=== PATIENT | female | born 1965 | race Caucasian/White ===

== ENCOUNTER 2023-08-22 12:56 | Emergency (ER) | payer BC, SELFPAY ==
[2023-08-22] VITALS (14 sets, daily range): BP systolic 99–102; BP diastolic 69–74; PULSE 71–89; RESP 12–25; TEMP 37; O2SAT 95–99; BMI 25.8
--- NOTE | 2023-08-22 13:16 | XR_ITS ---
The [address] [address] Patient Name: DEMARIO BOSWELL MRN: [id number] date: 1965 Sex: F Assigned Patient Location: ED.MAIN Current Patient Location: ER Accession/Order Number: [id number] Exam Date: 08/22/2023 13:25 Report Date: 08/22/2023 14:20 At the request of: ELIZABETH MORGAN Procedure: XR chest 1V EXAM: XR chest 1V HISTORY: . cough, Covid positive . COMPARISON: 02/12/2021 TECHNIQUE: Single view of the chest FINDINGS: Heart and vascularity are unremarkable. Lungs are free of focal infiltrates. Grossly no bony abnormality is appreciated. EKG leads overlie the chest. XR/XR chest 1V IMPRESSION: Electronically authenticated by: MICHELLE KENNEDY Date: 08/22/2023 14:20
--- NOTE | 2023-08-22 13:16 | ED.URI1 ---
HPI - URI/Sore Throat General Chief Complaint: Upper Respiratory Infection Stated Complaint: shortness of breath/ sore throat covid + Time Seen by Provider: 08/22/23 12:58 Source: patient Limitations: no limitations History of Present Illness HPI Narrative: [age] female presents for cough and congestion. Symptoms began three days ago. Two days ago she had a negative Covid test but yesterday her Covid test became positive. The cough is nonproductive. No vomiting or diarrhea. Related Data Previous Rx's Medication Instructions Recorded benzonatate 100 mg capsule 100 mg PO TID PRN cough #20 caps 08/22/23 loratadine 5 mg-pseudoephedrine ER 1 tab PO Q12H PRN nasal congestion 08/22/23 120 mg tablet,extended #20 tabs release,12hr (Claritin-D 12 Hour) Allergies Allergy/AdvReac Type Severity Reaction Status Date / Time No Known Drug Allergies Allergy Verified 08/22/23 13:12 Review of Systems ROS Narrative A ten point review of systems is negative except as noted above. PFSH PFSH Social History Smoking status: Former smoker Exam Narrative Exam Narrative: Nurses note and vital signs reviewed and patient is not hypoxic. General: The patient appears well and in no apparent respiratory distress. Skin: Warm, dry, no pallor noted. There is no rash noted. Head: Normocephalic, atraumatic Eye: Normal conjunctiva, no drainage Ears, Nose, Mouth, and Throat: oral mucosa is moist. Nares patent. Cardiovascular: Regular Rate and Rhythm Respiratory: Patient is in no distress, no accessory muscle use, lungs are clear to auscultation, no wheezing, rales or rhonchi Back: non-tender GI: soft and nontender Musculoskeletal: The patient has no evidence of calf tenderness, no pitting edema, symmetrical pulses noted bilaterally Neurological: A&O, normal speech Psychiatric: Cooperative Constitutional Vital Signs, click to edit/add: Last Vital Signs Temp 98.6 F 08/22/23 13:09 Pulse 74 08/22/23 13:40 Resp 16 08/22/23 13:40 BP 99/73 08/22/23 13:34 Pulse Ox 95 08/22/23 13:40 O2 Del Method Room Air 08/22/23 13:18 Course Vital Signs Vital signs: Vital Signs Pulse Rate 83 08/22/23 13:08 Respiratory Rate 19 08/22/23 13:08 Blood Pressure 101/74 08/22/23 13:08 Temperature 98.6 F 08/22/23 13:09 Pulse Rate 74 08/22/23 13:40 Respiratory Rate 16 08/22/23 13:40 Blood Pressure 99/73 08/22/23 13:34 Pulse Oximetry 95 08/22/23 13:40 Oxygen Delivery Method Room Air 08/22/23 13:18 MDM - URI/Sore Throat MDM Narrative Medical decision making narrative: chest x-ray per radiologist shows no acute findings and she'll be treated symptomatically. Treatment diagnosis and follow-up were discussed with the patient. Differential Diagnosis Differential diagnosis: Likely upper respiratory infection, viral infection and other (Covid, pneumonia) Imaging Data Chest x-ray: Radiologist's impression: Procedure: XR chest 1V EXAM: XR chest 1V HISTORY: . cough, Covid positive . COMPARISON: 02/12/2021 TECHNIQUE: Single view of the chest FINDINGS: Heart and vascularity are unremarkable. Lungs are free of focal infiltrates. Grossly no bony abnormality is appreciated. EKG leads overlie the chest. IMPRESSION: Electronically authenticated by: MICHELLE KENNEDY Date: 08/22/2023 14:20 Discharge Plan Discharge Chief Complaint: Upper Respiratory Infection Clinical Impression: COVID-19 Patient Disposition: Home, Self-Care Time of Disposition Decision: 14:35 Condition: Good Mode of Transportation: Private Vehicle Prescriptions / Home Meds: New benzonatate 100 mg capsule 100 mg PO TID PRN (Reason: cough) Qty: 20 0RF Claritin-D 12 Hour 5-120 mg tablet extended release 12 hr 1 tab PO Q12H PRN (Reason: nasal congestion) Qty: 20 0RF Instructions: COVID-19 (Coronavirus Disease 2019) (ED), COVID-19: Slow the Coronavirus Spread (ED), Face Coverings (Masks) and COVID-19 (ED), How to Recover from COVID-19 at Home (ED) Stand Alone Forms: Portal Instructions Referrals: SWATI GRAY [Primary Care Provider] - 1 week
--- NOTE | 2023-08-22 13:18 | ECG_ITS ---
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
== END 2023-08-22 14:50 | disposition home or self-care (01) ==
PROVIDERS: Emergency Provider Emergency Medicine; PCP Family Medicine
DX: U07.1 COVID-19 (principal); Z87.891 Personal history of nicotine dependence
CPT/HCPCS: 71045; 93005; 99284

== ENCOUNTER 2023-11-26 20:23 | Emergency (ER) | payer BC, SELFPAY ==
--- OUTSIDE RECORDS SUMMARY | 2023-11-26 20:28 | XMS_ITS | CCD ---
Author Organization [facility] Care Team Providers Care Booth Manager Name Role Phone MARINA, DR LONGORIA Primary Care Unavailable MELBA RACHEL Admitting Unavailable MELBA RACHEL Attending Unavailable Quang Cooley Consulting Unavailable MELBA RACHEL Consulting Unavailable MARINA, DR LONGORIA Admitting Unavailable MARINA, DR LONGORIA Attending Unavailable MARINA, DR LONGORIA Primary Care Unavailable MARINA, DR LONGORIA Consulting Unavailable MARINA, DR LONGORIA Admitting Unavailable MARINA, DR LONGORIA Attending Unavailable MARINA, DR LONGORIA Consulting Unavailable DESEAN SALMERON Consulting Unavailable DIPAK GRAY Attending Unavailable DIPAK GRAY Referring Unavailable KAREN FAM Attending Unavailable MD Torrey Conklin Attending Provider [phone] MD Dipak Gray Primary Care Provider Torrey Conklin Attending Unavailable Torrey Conklin Admitting Unavailable Dipak Gray Primary Care Unavailable Medications Current Medications Medication Drug Class(es) Dates Sig (Normalized) Sig (Original) FLUoxetine 20 mg oral capsule (1 source) Serotonin Reuptake Inhibitor Start: 10-20-2023 take 20 mg by mouth once daily Fluoxetine Active 20 MG PO Daily October 20, 2023 12:00am SUMAtriptan 25 mg oral tablet (1 source) Serotonin-1b and Serotonin-1d Receptor Agonist Start: 10-20-2023 take 25 mg by mouth once daily Sumatriptan Succinate Active 25 MG PO Daily October 20, 2023 12:00am traMADol hydrochloride 50 mg oral tablet (1 source) Opioid Agonist Start: 10-20-2023 take 50 mg by mouth once daily Tramadol Active 50 MG PO Daily October 20, 2023 12:00am Problems Active Problems Problem Classification Problem Date Documented Date Episodic/Chronic Other connective tissue disease (1 source) Lateral epicondylitis, right elbow; Translations: [LATERAL EPICONDYLITIS RIGHT ELBOW] Onset: 11-06-2021 Episodic Other non-traumatic joint disorders (3 sources) Pain in right elbow; Translations: [PAIN IN RIGHT ELBOW] Onset: 10-31-2021 Episodic Unclassified (1 source) CONTACT W/AND (SUSP) EXPOS COVID-19; Translations: [CONTACT W/AND (SUSP) EXPOS COVID-19] Onset: 02-20-2021 Unclassified (1 source) Encounter for screening for malignant neoplasm of colon; Translations: [Encounter for screening for malignant neoplasm of colon] Onset: 10-20-2023 Past or Other Problems Problem Classification Problem Date Documented Da te Episodic/Chronic Other lower respiratory disease (4 sources) Cough; Translations: [COUGH] Onset: 02-12-2021 Episodic Other nervous system disorders (1 source) Parageusia; Translations: [PARAGEUSIA] Onset: 02-20-2021 Episodic Other nervous system disorders (1 source) Anosmia; Translations: [ANOSMIA] Onset: 02-20-2021 Episodic Results Test Name Value Interpretation Reference Range Facil ity CT ABDOMEN PELVIS W AND WO I V CONTRASTon 09-10-2023 CT ABDOMEN PELVIS W AND WO IV CONTRAST EXAMINATION: CT ABDOMEN PELVIS W AND WO IV CONTRAST HISTORY: RUQ pain> Epigastric> LUQ. TECHNIQUE: CT of the abdomen and pelvis was performed using standard technique with intravenous contrast, scanning from just above the dome of the diaphragm to the symphysis pubis. Including delayed images through the kidneys. Including sagittal and coronal reconstructions on both phases. All CT scans at this facility use dose modulation, iterative reconstruction, and/or weight based dosing when appropriate to reduce radiation dose to as low as reasonably achievable. COMPARISON: None. RESULT: Liver: No mass or lesion. Biliary: Gallbladder unremarkable. No biliary ductal dilation. Pancreas: No mass or duct dilation. Spleen: No mass or splenomegaly. Adrenals: No mass. Kidneys: No calculus or hydronephrosis. 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 No suspicious lesions. Delayed phase imaging with normal excreted contrast in the renal collecting system, ureters, and bladder. GI tract: No dilation or wall thickening. No evidence for appendicitis. Small hiatal hernia. No evidence for diverticulitis. Feces throughout the colon. Lymph nodes: Scattered small nonspecific mesenteric lymph nodes. Mesentery/Peritoneum/R etroperitoneum: No ascites or mass. Vasculature: The celiac axis and SMA are patent. The portal vein and branches, splenic vein, SMV, and hepatic veins are patent. No abdominal aortic or iliac artery aneurysm. Pelvis: No significant free fluid. Hysterectomy. Bladder partially decompressed. Bones: No acute osseous findings. Degenerative changes. Soft tissues: Unremarkable. Lower thorax: Bibasilar atelectasis/scarring. IMPRESSION: No acute process in the abdomen/pelvis. ELECTRONICALLY SIGNED BY: Qamar Kuhn MD Normal Not Available XR ELBOW RT MIN 3 VIEWSon XR ELBOW RT MIN 3 VIEWS EXAM: Right elbow HISTORY: Pain after a lifting injury at work on Thursday. TECHNIQUE: 5 views of the right elbow were obtained. FINDINGS: There is no evidence of fracture or dislocation. There are no suspicious bone lesions. Soft tissues are normal. IMPRESSION: Unremarkable exam. Electronically authenticated by: QUANG COOLEY Date: 2021-10-31 08:19 Normal [facility] Q - CULTURE,URINE,ROUTINEon 10-08-2021 CULTURE, URINE, ROUTINE SEE NOTE Normal [facility] Business Broker Comment on above: Order Comment: [facility] Testing performed at: QPT, [facility], [address] [place] [address], [address] [place] [address], [id number], Research Development Director: Guillaume Scanlon MD [facility] Collection Date/Time: [facility] Results Received Date/Time: [facility] Reported Date/Time: Result Comment: CULT URE, URINE, ROUTINE Micro Number: [id number] Test Status: Final Specimen Source: Urine Specimen Quality: Adequate Result: Mixed genital charly isolated. These superficial bacteria are not indicative of a urinary tract infection. No further organism identification is warranted on this specimen. If clinically indicated, recollect clean-catch, mid-stream urine and transfer immediately to Urine Culture Transport Tube. Performed By: #### [id number] #### [facility] Default [address] [place] [address] XR CHEST 2 Von 02-13-2021 XR CHEST 2 V XR CHEST 2 V 02/12/2021 5:26 PM EDT Indication: Cough Technique: Routine radiographs of the chest were obtained. Comparison: None. Findings: The lungs are adequately inflated. No acute rib fractures, pneumothorax or mediastinal shift. No consolidation, edema, or effusion. Heart is normal in size and contour. Impression: No acute findings. Electronically authenticated by: DESEAN SALMERON Date: 2021-02-13 05:10 Normal [facility]19 [facility]on 01-29 SARS-CoV-2 (COVID-19) RNA LEOBARDO+probe Ql (Unsp spec) Not detected Normal NOT DETECTED [facility] Comment on above: Result Comment: This test is not yet approved or cleared by the [place] FDA. When there are no FDA-approved or cleared tests available, and other criteria are met, FDA can make tests available under an emergency access mechanism called an Emergency Use Authorization (EUA). The EUA for this test is supported by the [place] of Health and Human Service's (HHS's) declaration that circumstances exist to justify the emergency use of in vitro diagnostics for the detection and/or diagnosis of the virus that causes COVID-19. This EUA will remain in effect (meaning this test can be used) for the duration of the COVID-19 declaration justifying emergency of IVDs, unless it is terminated or revoked by FDA (after which the test may no longer be used). When diagnostic testing is negative, the possibility of a false negative should be considered in the context of a patient's recent exposures and the presence of clinical signs and symptoms consistent with SARS-CoV-2. Performed By: #### C [facility] #### [facility] [address] [address] Cheli Wintersen Vital Signs Date Time Vital Sign Value Performing Clinician Faci hernán 10-20-2023 10:39-0500 Diastolic blood pressure 60 mm[Hg] MD Dipak Gray Work Phone: [facility] 10-20-2023 10:39-0500 Heart rate 73 /min MD Dipak Gray Work Phone: [facility] 10-20-2023 10:39-0500 Respiratory rate 18 /min MD Dipak Gray Work Phone: [facility] 10-20-2023 10:39-0500 SaO2% (BldA) [Mass fraction] 98 % MD Dipak Gray Work Phone: [facility] 10-20-2023 10:39-0500 Systolic blood pressure 113 mm[Hg] MD Dipak Gray Work Phone: [facility] 10-20-2023 08:37-0500 Body height 170.18 cm MD Dipak Gray Work Phone: [facility] 10-20-2023 08:37-0500 Body temperature 97.8 [degF] MD Dipak Gray Work Phone: [facility] 10-20-2023 08:37-0500 Body weight 79.37 kg MD Dipak Gray Work Phone: [facility] Encounters Encounter Date Encounter Type Care Provider Facility Start: 10-20-2023 End: 10-20-2023 ambulatory Imad Asaad Facility:[facility] Start: 10-20-2023 Non-patient / Non-visit MD Dipak Gray Work Phone: [facility] Work Phone: Start: 10-20-2023 End: 10-20-2023 Admission to same day surgery center MD Dipak Gray Work Phone: [facility] Work Phone: Start: 10-20-2023 End: 10-20-2023 ambulatory MD Dipak Gray Work Phone: [facility] Work Phone: Start: 10-16-2023 End: 10-16-2023 ambulatory KAREN FAM Not Available Start: 09-10-2023 End: 09-11-2023 ambulatory DIPAK GRAY Not Available Start: 09-10-2023 End: 09-10-2023 ambulatory DIPAK GRAY Not Available Start: 10-31-2021 End: 10-31-[address] DIPAK GRAY Facility:[facility] Start: 04-17-2021 End: 04-18-[address] DIPAK GRAY Facility:[facility] Start: 02-12-2021 End: 02-13-[address] DIPAK GRAY Facility:[facility] Procedures Date Procedure Procedure Detail Performing Clinician Start: 10-20-2023 Screening colonoscopy Thanh Gray Work Phone: Plan of Treatment Date Care Activity Detail Author Start: 10-20-2023 [facility] Patient Education Hemorrhoids (D C) Diverticulosis (DC) [facility] Work Phone: Payers Date Payer Category Payer Self-pay 1965 Unknown [id number] [id number] [id number] 1965 Unknown [id number] 2.16.84 [id number] 1965 Unknown [id number] 2.16.84 [id number] 1965 Unknown [id number] 2.16.84 [id number] 1965 Unknown [id number] 2.16.84 [id number] 1965 Unknown [id number] 2.16.84 [id number] 1959 Unknown [id number] 1958 Unknown [id number] Unknown [id number] 2.16.8 [id number] Social History Date Type Detail Facility Start: 10-20-2023 [facility] Start: 1965 Sex Assigned At Female F [facility] Goals Date Patient Goal Desired Activity /State Procedure note 10-20-2023 Note Date & Type Note Facility 10-20-2023 Procedure note [facility] Evaluation note Note Date & Type Note Facility Evaluation note No assessment information availa ble [facility] Work Phone: History and physical note Note Date & Type Note Facility History and physical note Note Date/Time October 20, 2023 10:18am [facility] [address] [place] [address] Gastroenterology H&P Signed Patient: Deb Wallace MR#: [id number] : 1965 Acct:[id number] Age/Sex: 58 / F Adm Date: 4 Loc: Room: Type: [facility] Attending Dr: Torrey Conklin MD Copies to: MD Dipak Sheth MD~ Date of Service: 10/20/2023 HISTORY & PHYSICAL: Patient's history with special attention to the cardiovascular, pulmonary systems and the current problem was reviewed with the patient immediately prior to the procedure. Present medications and doses reviewed in the EMR. Allergies and pertinent laboratory tests were also reviewedat this time in the EMR. The physical examination, as below, was then performed. Indication, assessment and HPI: 58-year-old female here for screening colonoscopy Family history of GI malignancy? No PHYSICAL EXAMINATION Mouth and Pharynx : Moist mucus membranes, normal dentition Cardiac: Regular rate, regular rhythm Pulmonary: Clear to auscultation bilaterally, no wheezing Neurological: Alert and oriented x3, no focal deficits noted Abdomen: Abdomen soft, non-tender REVIEW OF SYSTEMS Constitutional: Denies malaise, fevers Cardiovascular: Denies chest pain, palpitations Respiratory: Denies shortness of breath, wheezing Gastrointestinal: Per HPI Genitourinary: Denies dysuria, polyuria Musculoskeletal: Denies joint swelling, joint stiffness Neurological: Denies numbness, tingling Integumentary: Denies rashes, skin lesions Endocrine: Denies fatigue, weight loss Written informed consent obtained from the patient. Risks (including but not limited to perforation, infection, bloating, bleeding, need for emergent surgeryand loss of life), benefits and alternatives explained and questions answered. The patient verbalized understanding. Based on history patient is an appropriate candidate for the procedure. Torrey Conklin M.D. Documented By: Torrey Conklin MD 10/20/23 0940 Signed By: <Electronically signed by Torrey Conklin MD> 10/20/23 2535 [facility] Work Phone: Summary Purpose Family History No Family History Records Found Relationship Condition Age at Onset Recorded Date/T nakul grandparent Diabetes mellitus Unknown family member Diabetes mellitus Unknown Not Specified Malignant neoplasm of oral cavity Unknow n Advance Directives No Advanced Directives Records Found Advance Directive Response Recorded Date/ Time Advance Directives No October 3:54pm Chief Complaint and Reason for Visit Chief Complaint Screening Screening Additional Source Comments INFORMATION SOURCE (unrecogn ized section and content) DATE CREATED AUTHOR 10/10/2021 [facility] dical Specialist DATE CREATED AUTHOR AUTHOR'S ORGANIZ ATION 11/07/2021 [facility] DATE CREATED AUTHOR AUTHOR'S ORGANIZ ATION 10/18/2023 [facility] dical Specialists EPIC DATE CREATED AUTHOR AUTHOR'S ORGANIZ ATION 10/30/2023 [facility] Care Teams (unrecognized sec tion and content) Team Status: Active Member Role Status Dates Dipak Gray MD Primary Care Provider Active Team Status: Inactive Member Role Status Dates Torrey Conklin MD Attending Provider Active Start: October 20, 2023 End: October 20, 2023 Dipak Gray MD Primary Care Provider Active S tart: October 20, 2023 End: October 20, 2023 Team Status: Active Member Role Status Dates Torrey Conklin MD Attending Provider, Other Provider Active Start: October 20, 2023 Dipak Gray MD Primary Care Provider Active S tart: October 20, 2023 FOR RECORDS PERTAINING TO PATIENTS WHO ARE OR HAVE BEEN ENROLLED IN A CHEMICAL DEPENDENCY/SUBSTANCEABUSE PROGRAM, SOME INFORMATION MAY BE OMITTED. This clinical summary was aggregated from multiple sources. Caution should be exercised in using it in the provision of clinical care. This summary normalizes information from multiple sources, and as a consequence, information in this document may materially change the coding, format and clinical context of patient data. In addition, data may be omitted in some cases. CLINICAL DECISIONS SHOULD BE BASED ON THE PRIMARY CLINICAL RECORDS. [facility] [facility]. provides no warranty or guarantee of the accuracy or completeness of information in this document.
[2023-11-26 20:30] VITALS: BP 125/78; PULSE 78; TEMP 36.9; O2SAT 97; BMI 27.1
--- NOTE | 2023-11-26 20:37 | PC.NURSE ---
C/O nasal congestion. Blowing out yellow.
--- NOTE | 2023-11-26 20:47 | CT_ITS ---
The [address] [address] Patient Name: DEMARIO BOSWELL MRN: [id number] date: 1965 Sex: F Assigned Patient Location: ER Current Patient Location: ER Accession/Order Number: [id number] Exam Date: 11/26/2023 21:08 Report Date: 11/26/2023 21:44 At the request of: AMOS DE PAZ Procedure: CT head/brain wo con EXAM: CT scan of the head without contrast. Dose reduction technique used: Automated exposure control and/or adjustment of the mA and/or kV according to patient size and/or use of iterative reconstruction technique. REASON FOR EXAM: Altered mental status COMPARISON: None FINDINGS: No intracranial hemorrhage, mass effect, midline shift, fractures or evidence of acute ischemic infarct. No hydrocephalus. Paranasal sinuses and mastoid air cells are clear. Remainder unremarkable. CT/CT head/brain wo con IMPRESSION: Negative head CT. Electronically authenticated by: JOHN HARRISON Date: 11/26/2023 21:44
--- NOTE | 2023-11-26 20:47 | ED.GENADUL1 ---
HPI HPI - General Adult General Chief complaint: Headache Stated complaint: FORGETTING THINGS, BLURRED VISION, MIGRAINE Time Seen by Provider: 11/26/23 20:34 Source: patient Mode of arrival: walk-in Limitations: no limitations History of Present Illness HPI narrative: As 58-year-old female with a history of migraine headaches who was recently treated for a sinus infection with Augmentin presents for evaluation of an episode this morning when she was driving home from grocery shopping when she had a posterior occipital headache with nausea, vomiting and some confusion. She states she was in [employer] and started feeling really sluggish. She got into her car and was driving home when she had acute onset of several episodes of vomiting. She got home and went to bed and when she woke up doing better. She denies any neck pain or stiffness. She has a lot of maxillary sinus pressure and congestion in her head. She no longer has a headache. She has no longer nauseated. She also states she has recently been taking Prozac but wants to get off of it because she thinks it is making her confused and sluggish and she does not like the side effects. She denies any fever. She denies any chest pain or shortness of breath. She has no neck pain or stiffness. At this time she has no blurred vision, slurred speech, confusion or focal neurologic symptoms. Related Data Home Medications ?Medication ?Instructions ?Recorded ?Confirmed fluoxetine 20 mg capsule 20 mg PO QDAY 11/26/23 11/26/23 fluticasone propionate 50 1 spray intranasal QDAY 11/26/23 11/26/23 mcg/actuation nasal spray,suspension sumatriptan succinate 25 mg tablet 25 mg PO Q2H PRN migraine headache 11/26/23 11/26/23 Allergies Allergy/AdvReac Type Severity Reaction Status Date / Time No Known Drug Allergies Allergy Verified 11/26/23 20:28 Opioid HPI Opioid Management Most Recent Opioid Data: Last Pain Scale 6 11/26/23 21:53 Last ED Pain Assessment 11/26/23 21:53 Review of Systems ROS Status of ROS 10 or more systems reviewed and unremarkable except as noted in history and below [facility] Medical History (Updated 11/26/23 @ 21:59 by Imelda Bejarano MD) Migraines ?G43.909 - Migraine, unspecified, not intractable, without status migrainosus (ICD-10) Social History Smoking status: Former smoker Exam Narrative Exam Narrative: Nurses note and vital signs reviewed and patient is not hypoxic. General: The patient appears well and in no apparent distress. Patient is resting comfortably on cart. Her speech is clear, she is ambulatory. Audible nasal congestion Skin: Warm, dry, no pallor noted. There is no rash noted. Head: Normocephalic, atraumatic Eye: Normal conjunctiva, no drainage, EOMI. PERRL, No photophobia appreciated, vision is grossly intact, neck: supple, no meningeal signs, no carotid bruits Ears, Nose, Mouth, and Throat: oral mucosa is moist. Nares patent. Mouth without vesicles. Ear canals patent. Tm's without Erythema, tenderness over maxillary sinuses Cardiovascular: Regular Rate and Rhythm S!S2, pulses are brisk and equal bilaterally Respiratory: Patient is in no distress, no accessory muscle use, lungs are clear to auscultation, no wheezing, rales or rhonchi Back: non-tender, no CVA tenderness bilaterally to percussion. GI: Normal bowel sounds, no tenderness to palpation, no masses appreciated. No rebound, guarding, or rigidity noted. 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, upper and lower extremity strength and sensation is intact Psychiatric: Cooperative Constitutional Vital Signs, click to edit/add: Last Vital Signs Temp 98.4 F 11/26/23 20:30 Pulse 78 11/26/23 20:30 Resp 16 11/26/23 20:30 BP 125/78 11/26/23 20:30 Pulse Ox 97 11/26/23 20:30 O2 Del Method Room Air 11/26/23 20:30 Course Vital Signs Vital signs: Vital Signs Temperature 98.4 F 11/26/23 20:30 Pulse Rate 78 11/26/23 20:30 Respiratory Rate 16 11/26/23 20:30 Blood Pressure 125/78 11/26/23 20:30 Pulse Oximetry 97 11/26/23 20:30 Oxygen Delivery Method Room Air 11/26/23 20:30 Temperature 98.4 F 11/26/23 20:30 Pulse Rate 78 11/26/23 20:30 Respiratory Rate 16 11/26/23 20:30 Blood Pressure 125/78 11/26/23 20:30 Pulse Oximetry 97 11/26/23 20:30 Oxygen Delivery Method Room Air 11/26/23 20:30 Medical Decision Making MDM Narrative Medical decision making narrative: This 58-year-old female with a history of migraine headaches who is also on Prozac Presents for evaluation after she had an episode today where she started feeling sluggish while in [employer] shopping and on the way home developed a posterior occipital headache with nausea and multiple episodes of vomiting. After getting home she went to bed and woke up and is feeling better. Her family wanted her checked out. She has had sinus pressure and nasal congestion for the past month. She did complete a course of Augmentin for sinus infection. She has no fever. She has no neck pain or stiffness. Her neuro exam is normal. She denied the need for any medications. Labs including CBC with differential, sedimentation rate, CRP, comprehensive metabolic profile and CT scan of the brain was ordered. Her labs and CT scan are all normal. While in the emergency department she felt the aura that she may be getting another migraine headache and requested Imitrex. She was medicated with Imitrex and Zofran. She will be discharged home with prescription for doxycycline to take for her sinus problems as well as prescription for Zofran to use if she needs for ongoing nausea associated with her headaches. I suggested that she follow up with a neurologist as she is having increasing headaches. They said the may be related to stress as well as the sinus problem she is experiencing. Medical Records Medical records narrative: [place] [address] CT Scan Report Signed Patient: DEMARIO BOSWELL MR#: [id number] : 1965 Acct:[id number] Age/Sex: 58 / F ADM Date: 11/26/23 Loc: ER Attending Dr: Ordering Physician: Imelda Bejarano Date of Service: 11/26/23 Procedure(s): CT head/brain wo con Accession Number(s): [id number] cc: SWATI GRAY ~ The [place] [id number] Patient Name: DEMARIO BOSWELL MRN: [facility] [employer]:[id number] date: 1965 Sex: F Assigned Patient Location: ER Current Patient Location: ER Accession/Order Number: [id number] Exam Date: 11/26/2023 21:08 Report Date: 11/26/2023 21:44 At the request of: IMELDA BEJARANO Procedure: CT head/brain wo con EXAM: CT scan of the head without contrast. Dose reduction technique used: Automated exposure control and/or adjustment of the mA and/or kV according to patient size and/or use of iterative reconstruction technique. REASON FOR EXAM: Altered mental status COMPARISON: None FINDINGS: No intracranial hemorrhage, mass effect, midline shift, fractures or evidence of acute ischemic infarct. No hydrocephalus. Paranasal sinuses and mastoid air cells are clear. Remainder unremarkable. CT/CT head/brain wo con IMPRESSION: Negative head CT. Electronically authenticated by: JOHN HARRISON Date: 11/26/2023 21:44 Lab Data Labs: Lab Results 11/26/23 Range/Units 20:53 WBC 6.8 (4.0-11.0) 10^3/uL RBC 3.84 L (4.20-5.40) 10^6/uL Hgb 11.6 L (12.0-16.0) g/dL Hct 35.4 L (36.0-48.0) % MCV 92.2 (81.0-99.0) fL MCH 30.2 (26.7-34.0) pg MCHC 32.8 (29.9-35.2) g/dL RDW 12.9 (11.0-15.0) % Plt Count 280 (150-450) 10^3/uL MPV 9.1 L (9.5-13.5) fL Neut % (Auto) 68.0 (43.0-75.0) % Lymph % (Auto) 24.4 (20.5-60.0) % Chaves % (Auto) 4.0 (1.7-12.0) % Eos % (Auto) 2.4 (0.9-7.0) % Baso % (Auto) 0.9 (0.2-2.0) % Neut # (Auto) 4.6 (1.4-6.5) 10^3/uL Lymph # (Auto) 1.7 (1.2-3.8) 10^3/uL Chaves # (Auto) 0.3 (0.3-0.8) 10^3/uL Eos # (Auto) 0.2 (0.0-0.7) 10^3/uL Baso # (Auto) 0.1 (0.0-0.1) 10^3/uL Abs Immat Gran (auto) 0.02 (0.00-0.03) 10^3/uL Imm/Tot Granulo (auto) 0.3 (0.0-0.5) % ESR 29 (<=30) mm/hr Sodium 140 (136-145) mmol/L Potassium 3.7 (3.5-5.1) mmol/L Chloride 104 (98-107) mmol/L Carbon Dioxide 26.9 (21.0-32.0) mmol/L Anion Gap 12.8 BUN 20.0 H (7.0-18.0) mg/dL Creatinine 0.83 (0.55-1.02) mg/dL Est GFR ( Amer) >60 (>=60) Est GFR (Non-Af Amer) >60 (>=60) BUN/Creatinine Ratio 24.1 Glucose 86 (74-106) mg/dL Calcium 8.9 (8.5-10.1) mg/dL Total Bilirubin 0.3 (0.2-1.0) mg/dL AST 21 (15-37) U/L ALT 19 (14-59) U/L Alkaline Phosphatase 108 (46-116) U/L C-Reactive Protein <0.50 (<=0.50) mg/dL Total Protein 7.1 (6.4-8.2) g/dL Albumin 3.5 (3.4-5.0) g/dL Globulin 3.6 g/dL Albumin/Globulin Ratio 1.0 Discharge Plan Discharge Stand Alone Forms: Portal Instructions Chief Complaint: Headache Clinical Impression: Migraine, Acute maxillary sinusitis Patient Disposition: Home, Self-Care Time of Disposition Decision: 21:58 Condition: Good Prescriptions / Home Meds: No Action fluoxetine 20 mg capsule 20 mg PO QDAY fluticasone propionate 50 mcg/actuation spray,suspension 1 spray INTRANASAL QDAY sumatriptan succinate 25 mg tablet 25 mg PO Q2H PRN (Reason: migraine headache) Print Language: Surinamese Instructions: Sinusitis (ED), Migraine Headache (ED) Referrals: SWATI GRAY [Primary Care Provider] - 1 week
[2023-11-26 21:03] LABS: Basophils Absolute Auto 0.1 10^3/uL (0.0-0.1); Basophils Percent Auto 0.9 % (0.2-2.0); Eosinophils Absolute Auto 0.2 10^3/uL (0.0-0.7); Eosinophils Percent Auto 2.4 % (0.9-7.0); Hematocrit 35.4 % (36.0-48.0); Hemoglobin 11.6 g/dL (12.0-16.0); Immature Granulocytes Abs Auto 0.02 10^3/uL (0.00-0.03); Immature Granulocytes Pct Auto 0.3 % (0.0-0.5); Lymphocytes Absolute Auto 1.7 10^3/uL (1.2-3.8); Lymphocytes Percent Auto 24.4 % (20.5-60.0); Mean Corpuscular HGB Conc 32.8 g/dL (29.9-35.2); Mean Corpuscular Hemoglobin 30.2 pg (26.7-34.0); Mean Corpuscular Volume 92.2 fL (81.0-99.0); Mean Platelet Volume 9.1 fL (9.5-13.5); Monocytes Absolute Auto 0.3 10^3/uL (0.3-0.8); Neutrophils Absolute Auto 4.6 10^3/uL (1.4-6.5); Platelet Count 280 10^3/uL (150-450); Red Blood Count 3.84 10^6/uL (4.20-5.40); Red Cell Distribution Width 12.9 % (11.0-15.0); White Blood Count 6.8 10^3/uL (4.0-11.0)
[2023-11-26 21:09] LABS: Erythrocyte Sedimentation Rate 29 mm/hr (<=30)
[2023-11-26 21:19] LABS: Alanine Aminotransferase 19 U/L (14-59); Albumin Level 3.5 g/dL (3.4-5.0); Alkaline Phosphatase 108 U/L (46-116); Anion Gap 12.8; Aspartate Amino Transferase 21 U/L (15-37); BUN Creatinine Ratio 24.1; Bilirubin Total 0.3 mg/dL (0.2-1.0); Calcium 8.9 mg/dL (8.5-10.1); Carbon Dioxide 26.9 mmol/L (21.0-32.0); Chloride 104 mmol/L (98-107); Estimated GFR (African America >60 (>=60); Estimated GFR (Non-African Ame >60 (>=60); Globulin 3.6 g/dL; Glucose 86 mg/dL (74-106); Potassium 3.7 mmol/L (3.5-5.1); Sodium 140 mmol/L (136-145); Total Protein 7.1 g/dL (6.4-8.2)
[2023-11-26 21:23] LABS: C Reactive Protein <0.50 mg/dL (<=0.50)
[2023-11-26 21:54] VITALS: BP 117/73; PULSE 65; O2SAT 100
[2023-11-26] MEDS: ONDANSETRON 4 MG RAPDIS TABLET SL (22:06)
[2023-11-26] MEDS: SUMATRIPTAN SUCCINATE 50 MG TABLET PO (22:06)
== END 2023-11-26 22:11 | disposition home or self-care (01) ==
PROVIDERS: Emergency Provider Emergency Medicine; PCP Family Medicine
DX: G43.909 Migraine, unspecified, not intractable, without status migrainosus (principal); J01.00 Acute maxillary sinusitis, unspecified; Z79.899 Other long term (current) drug therapy; Z87.891 Personal history of nicotine dependence
CPT/HCPCS: 36415; 70450; 80053; 85025; 85652; 86140; 99284

== ENCOUNTER 2024-02-03 10:30 | Outpatient (RCR) | payer BC, SELFPAY | END 2024-02-18 14:00 | disposition home or self-care (01) | LOC: PT 10:30 | PROVIDERS: PCP Family Medicine; Visit Provider Family Medicine | DX: M54.50 Low back pain, unspecified (principal) | CPT/HCPCS: 97010; 97014; 97110; 97112; 97163 ==

== ENCOUNTER 2024-02-12 09:00 | Emergency (ER) | payer BC, SELFPAY ==
[2024-02-12 09:05] VITALS: BP 128/56; PULSE 72; TEMP 36.8; O2SAT 98; BMI 27.4
--- NOTE | 2024-02-12 09:14 | XR_ITS ---
The [address] [address] Patient Name: DEMARIO BOSWELL MRN: [id number] date: 1965 Sex: F Assigned Patient Location: ER Current Patient Location: ER Accession/Order Number: [id number] Exam Date: 02/12/2024 09:45 Report Date: 02/12/2024 10:11 At the request of: ELIZABETH MORGAN Procedure: XR thoracic spine 2V EXAMINATION: XR lumbar spine 2-3V, XR thoracic spine 2V HISTORY: Fall 2 months ago COMPARISON: No relevant comparison available. FINDINGS: BONES: Normal alignment of the thoracic and lumbar spine with no acute fracture or spinal stenosis. Mild degenerative spondylosis and facet osteoarthropathy DISC SPACES: Mild to moderate multilevel disc space narrowing PARASPINOUS: Negative. No paraspinous abnormality is seen. OTHER: Negative. XR/XR thoracic spine 2V IMPRESSION: Mild degenerative changes No acute abnormality Electronically authenticated by: MICHELLE SMITH Date: 02/12/2024 10:11
--- NOTE | 2024-02-12 09:14 | XR_ITS ---
The [place] [id number] Patient Name: DEMARIO BOSWELL MRN: [id number] date: 1965 Sex: F Assigned Patient Location: ER Current Patient Location: ER Accession/Order Number: [id number] Exam Date: 02/12/2024 09:45 Report Date: 02/12/2024 10:11 At the request of: ELIZABETH MORGAN Procedure: XR lumbar spine 2-3V EXAMINATION: XR lumbar spine 2-3V, XR thoracic spine 2V HISTORY: Fall 2 months ago COMPARISON: No relevant comparison available. FINDINGS: BONES: Normal alignment of the thoracic and lumbar spine with no acute fracture or spinal stenosis. Mild degenerative spondylosis and facet osteoarthropathy DISC SPACES: Mild to moderate multilevel disc space narrowing PARASPINOUS: Negative. No paraspinous abnormality is seen. OTHER: Negative. XR/XR lumbar spine 2-3V IMPRESSION: Mild degenerative changes No acute abnormality Electronically authenticated by: MICHELLE SMITH Date: 02/12/2024 10:11
--- NOTE | 2024-02-12 09:16 | ED_ITS ---
HPI HPI - Back Pain/Injury General Chief Complaint: Back Pain/Injury Stated Complaint: BACK PAIN PREVIOUS FALL Time Seen by Provider: 02/12/24 09:06 Source: patient Mode of arrival: walk-in Limitations: no limitations History of Present Illness HPI Narrative: For the [id number] female presents for low back pain. She states she fell 2 months ago and saw her family doctor and she has been doing physical therapy. The physical therapy was not able to be performed today because of discomfort. No new injury. It does not seem to radiate and she has no weakness or numbness. She states she has never had x-rays of her back. The pain is moderate to severe and worse in certain positions. Related Data Home Medications ?Medication ?Instructions ?Recorded ?Confirmed fluoxetine 20 mg capsule 20 mg PO QDAY 11/26/23 11/26/23 fluticasone propionate 50 1 spray intranasal QDAY 11/26/23 11/26/23 mcg/actuation nasal spray,suspension sumatriptan succinate 25 mg tablet 25 mg PO Q2H PRN migraine headache 11/26/23 11/26/23 Previous Rx's ?Medication ?Instructions ?Recorded etodolac 300 mg capsule 300 mg PO Q8H PRN pain #20 caps 02/12/24 methocarbamol 500 mg tablet 500 mg PO Q8H PRN pain #20 tabs 02/12/24 Allergies Allergy/AdvReac Type Severity Reaction Status Date / Time No Known Drug Allergies Allergy Verified 11/26/23 20:28 Opioid HPI Opioid Management Most Recent Opioid Data: Last Pain Scale 10 02/12/24 09:09 Review of Systems ROS Narrative A ten point review of systems is negative except as noted above. [facility] Medical History (Updated 02/12/24 @ 10:22 by Jose Carias MD) Migraines ?G43.909 - Migraine, unspecified, not intractable, without status migrainosus (ICD-10) Social History Smoking status: Former smoker Exam Narrative Exam Narrative: Nurses note and vital signs reviewed and patient is not hypoxic. General: The patient appears uncomfortable. Skin: Warm, dry, no pallor noted. There is no rash noted. Head: Normocephalic, atraumatic Eye: Normal conjunctiva, no drainage Ears, Nose, Mouth, and Throat: oral mucosa is moist. Nares patent. Cardiovascular: Regular Rate and Rhythm Respiratory: Patient is in no distress, no accessory muscle use, lungs are clear to auscultation, no wheezing, rales or rhonchi Back: No bruise or rash. No focal area of tenderness to palpation. Getting to the sitting up position from lying recumbent causes discomfort. GI: Soft and nontender Musculoskeletal: The patient has no evidence of calf tenderness, no pitting edema, symmetrical pulses noted bilaterally Neurological: A&O, normal speech Psychiatric: Cooperative Constitutional Vital Signs, click to edit/add: Last Vital Signs Temp 98.2 F 02/12/24 09:05 Pulse 72 02/12/24 09:05 Resp 18 02/12/24 09:05 BP 128/56 02/12/24 09:05 Pulse Ox 98 02/12/24 09:05 O2 Del Method Room Air 02/12/24 09:05 Course Vital Signs Vital signs: Vital Signs Temperature 98.2 F 02/12/24 09:05 Pulse Rate 72 02/12/24 09:05 Respiratory Rate 18 02/12/24 09:05 Blood Pressure 128/56 02/12/24 09:05 Pulse Oximetry 98 02/12/24 09:05 Oxygen Delivery Method Room Air 02/12/24 09:05 Temperature 98.2 F 02/12/24 09:05 Pulse Rate 72 02/12/24 09:05 Respiratory Rate 18 02/12/24 09:05 Blood Pressure 128/56 02/12/24 09:05 Pulse Oximetry 98 02/12/24 09:05 Oxygen Delivery Method Room Air 02/12/24 09:05 MDM - Back Pain/Injury MDM Narrative Medical decision making narrative: X-ray showed no acute findings and she is feeling somewhat improved after Toradol and Norflex. She will be treated symptomatically and will follow-up with her doctor. Treatment diagnosis and follow-up were discussed with the patient. Differential Diagnosis Differential diagnosis: Likely lumbar radiculopathy, strain of lumbar region and other (Compression fracture) Imaging Data Thoracic and lumbar x-rays: Radiologist's impression: ITS Impressions Lumbar Spine X-Ray 02/12/24 09:14 IMPRESSION: Mild degenerative changes No acute abnormality Electronically authenticated by: MICHELLE SMITH Date: 02/12/2024 10:11 Thoracic Spine X-Ray 02/12/24 09:14 IMPRESSION: Mild degenerative changes No acute abnormality Electronically authenticated by: MICHELLE SMITH Date: 02/12/2024 10:11 Discharge Plan Discharge Stand Alone Forms: Portal Instructions Chief Complaint: Back Pain/Injury Clinical Impression: Low back pain Patient Disposition: Home, Self-Care Time of Disposition Decision: 10:22 Condition: Good Mode of Transportation: Private Vehicle Prescriptions / Home Meds: New methocarbamol 500 mg tablet 500 mg PO Q8H PRN (Reason: pain) Qty: 20 0RF etodolac 300 mg capsule 300 mg PO Q8H PRN (Reason: pain) Qty: 20 0RF No Action fluoxetine 20 mg capsule 20 mg PO QDAY fluticasone propionate 50 mcg/actuation spray,suspension 1 spray INTRANASAL QDAY sumatriptan succinate 25 mg tablet 25 mg PO Q2H PRN (Reason: migraine headache) Print Language: Ukrainian Instructions: Acute Low Back Pain (ED) Referrals: SWATI GRAY [Primary Care Provider] - 1 week
--- OUTSIDE RECORDS SUMMARY | 2024-02-12 09:33 | XMS_ITS | CCD ---
Author Organization [facility] Care Team Providers Care Grants Assistant Name Role Phone MARINA, DR LONGORIA Primary Care Unavailable MELBA RACHEL Admitting Unavailable MELBA RACHEL Attending Unavailable Quang Ramon Consulting Unavailable MELBA RACHEL Consulting Unavailable MARINA, DR LONGORIA Admitting Unavailable MARINA, DR LONGORIA Attending Unavailable MARINA, DR LONGORIA Primary Care Unavailable MARINA, DR LONGORIA Consulting Unavailable MARINA, DR LONGORIA Admitting Unavailable MARINA, DR LONGORIA Attending Unavailable MARINA, DR LONGROIA Consulting Unavailable DESEAN SALMERON Consulting Unavailable MD Torrey Conklin Attending Provider MD Dipak Gray Primary Care Provider Torrey Conklin Attending Unavailable Torrey Conklin Admitting Unavailable Dipak Gray Primary Care Unavailable DIPAK GRAY Attending Unavailable DIPAK GRAY Referring Unavailable MANDY FAM Attending Unavailable DIPAK GRAY Attending Unavailable Medications Current Medications Medication Drug Class(es) [...] IMPRESSION: Unremarkable exam. Electronically authenticated by: QUANG RAMON Date: 2021-10-31 08:19 Normal [facility] Q - CULTURE,URINE,ROUTINEon 10-08-2021 CULTURE, URINE, ROUTINE SEE NOTE Normal [facility] [place] Comment on above: Order Comment: [facility] Testing performed at: QPT, [facility], [address] [place] [address], [address] [place] [address], [id number], Ornament Maker Hand: Guillaume Scanlon MD [facility] Collection Date/Time: [id number] [facility] Results Received Date/Time: [facility] Reported Date/Time: Result Comment: CULT URE, URINE, ROUTINE Micro Number: [id number] Test Status: Final Specimen Source: Urine Specimen Quality: Adequate Result: Mixed genital charly isolated. These superficial bacteria are not indicative of a urinary tract infection. No further organism identification is warranted on this specimen. If clinically indicated, recollect clean-catch, mid-stream urine and transfer immediately to Urine Culture Transport Tube. Performed By: #### [id number] #### [facility] Default [address] [place] [address] XR CHEST 2 Von 02-13-2021 XR CHEST [...] DESEAN SALMERON Date: 2021-02-13 05:10 Normal [facility]on 01-29 SARS-CoV-2 (COVID-19) RNA LEOBARDO+probe Ql (Unsp spec) Not detected Normal NOT DETECTED [facility] Comment on above: Result Comment: This test is not yet approved or cleared by the [place] FDA. When there are no FDA-approved or cleared tests available, and other criteria are met, FDA can make tests available under an emergency access mechanism called an Emergency Use Authorization (EUA). The EUA for this test is supported by the [employer] [place] [employer] of Health and Human Service's (HHS's) declaration [...] SARS-CoV-2. Performed By: #### C [facility] #### [facility] [address] [place] [address] Cheli Jones Vital Signs Date Time Vital Sign Value Performing Clinician Estela jim 10-20-2023 10:39-0500 Diastolic blood pressure 60 mm[Hg] MD Dipak Gray Work Phone: [facility] 10-20-2023 10:39-0500 Heart rate 73 /min MD Dipak Gray Work Phone: [facility] 10-20-2023 10:39-0500 Respiratory rate 18 /min MD Dipak Gray Work Phone: [facility] 10-20-2023 10:39-0500 SaO2% (BldA) [Mass fraction] 98 % MD Dipak Gray Work Phone: [facility] 10-20-2023 10:39-0500 Systolic blood pressure 113 mm[Hg] MD Dipak Gray Work Phone: [facility] 10-20-2023 08:37-0500 Body height 170.18 cm MD Dipak Gray Work Phone: [facility] 10-20-2023 08:37-0500 Body temperature 97.8 [degF] MD Dipak Gray Work Phone: [facility] 10-20-2023 08:37-0500 Body weight 79.37 kg MD Dipak Gray Work Phone: [facility] Encounters Encounter Date Encounter Type Care Provider Facility Start: 01-19-2024 End: 01-19-2024 ambulatory DIPAK MONTOYAA Not Available Start: 10-20-2023 End: 10-20-2023 ambulatory Imad Asaad Facility:[facility] Start: 10-20-2023 Non-patient / Non-visit MD Dipak Gray Work Phone: [facility] Work Phone: Start: 10-20-2023 End: 10-20-2023 Admission to same day surgery center MD Dipak Gray Work Phone: [facility] Work Phone: Start: 10-20-2023 End: 10-20-2023 ambulatory MD Dipak Gray Work Phone: [facility] Work Phone: Start: 10-16-2023 End: 10-16-2023 ambulatory MANDY FAM Not Available Start: 09-10-2023 End: 09-11-2023 ambulatory RUGEN M MARINA Not Available Start: 09-10-2023 End: 09-10-2023 ambulatory RUGEN Thanh MARINA Not Available Start: 10-31-2021 End: 10-31-[address] DIPAK GRAY Facility:[facility] Start: 04-17-2021 End: 04-18-[address] DIPAK GRAY Facility:[facility] Start: 02-12-2021 End: 02-13-[address] DIPAK GRAY Facility:[facility] Procedures Date Procedure Procedure Detail Performing Clinician Start: 10-20-2023 Screening colonoscopy Thanh Gray Work Phone: Plan of Treatment Date Care Activity Detail Author Start: 10-20-2023 [facility] Patient Education Hemorrhoids (D C) Diverticulosis (DC) [facility] Work Phone: Payers Date Payer Category Payer Self-pay 1965 Unknown [id number] 2.16.84 [id number] 1965 Unknown [id number] 2.16.84 [id number] 1965 Unknown [id number] 2.16.84 [id number] 1965 Unknown [id number] 2.16.84 [id number] 1965 Unknown [id number] 2.16.84 [id number] 1965 Unknown [id number] 2.16.84 [id number] 1965 Unknown [id number] 2.16.84 [id number] 1959 Unknown [id number] 1959 Unknown [id number] Unknown [id number] 2.16.8 [id number] Social History Date Type Detail Facility Start: 10-20-[address] [facility] Start: 1965 Sex Assigned At Female F [facility] Goals Date Patient Goal Desired Activity /State Procedure note 10-20-2023 Note Date & Type Note Facility 10-20-2023 Procedure note [facility] Evaluation note Note Date & Type Note Facility Evaluation note No assessment information fab reed [facility] Work Phone: History and physical note Note Date & Type Note Facility History and physical note Note Date/Time October 20, 2023 10:18am [facility] [address] [place] [address] Gastroenterology H&P Signed Patient: Demario Boswell MR#: [id number] : 1965 Acct:[id number] Age/Sex: 58 / F Adm Date: 4 Loc: Room: Type: [facility] Attending Dr: Torrey Conklin MD Copies to: MD Diapk Sheth MD~ Date of Service: 10/20/2023 HISTORY [...] <Electronically signed by Torrey Conklin MD> 10/20/23 1018 [facility] Work Phone: Summary Purpose Family History No [...] section and content) DATE CREATED AUTHOR 10/10/2021 [facility] Specialist DATE CREATED AUTHOR AUTHOR'S ORGANIZ ATION 11/07/2021 [facility] DATE CREATED AUTHOR AUTHOR'S ORGANIZ ATION 10/30/2023 [facility] DATE CREATED AUTHOR AUTHOR'S ORGANIZ ATION 01/21/2024 [facility] dical Specialists EPIC Care Teams (unrecognized sec tion and content) [...] BE BASED ON THE PRIMARY CLINICAL RECORDS. [employer] provides no warranty or guarantee of the accuracy or completeness of information in this document.
[2024-02-12] MEDS: KETOROLAC TROMETHAMINE 60 MG/2 ML VIAL IM (09:36)
[2024-02-12] MEDS: ORPHENADRINE 60 MG/ 2 ML VIAL IM (09:37)
[2024-02-12 10:44] VITALS: BP 132/89; PULSE 88; O2SAT 98
== END 2024-02-12 10:45 | disposition home or self-care (01) ==
PROVIDERS: Emergency Provider Emergency Medicine; PCP Family Medicine
DX: M54.50 Low back pain, unspecified (principal); Z87.891 Personal history of nicotine dependence
CPT/HCPCS: 72070; 72100; 96372; 99284; J1885; J2360

== ENCOUNTER 2024-02-26 08:25 | Outpatient (OUT) | payer BC, SELFPAY ==
--- NOTE | 2024-02-26 | MR_ITS ---
[facility] [place] [id number] Patient Name: DEMARIO BOSWELL MRN: [id number] date: 1965 Sex: F Assigned Patient Location: MRI Current Patient Location: MRI Accession/Order Number: [id number] Exam Date: 02/26/2024 08:40 Report Date: 02/26/2024 11:57 At the request of: YASMEEN DUMONT Procedure: MR lumbar spine wo con EXAMINATION: MR lumbar spine wo con HISTORY: ACUTE BILATERAL LOW BACK PAIN WITH SCIATICA COMPARISON: No relevant comparison available. TECHNIQUE: A variety of imaging planes and parameters were utilized for visualization of suspected pathology. FINDINGS: For the purposes of numbering, sagittal T2 image # 8 extends from the T10-T11 vertebral body superiorly to the S3-S4 level inferiorly. PARASPINAL AREA: Normal with no visible mass. BONES: Normal alignment with no acute fracture or spondylolisthesis. No bone edema. Mild degenerative spondylosis CORD/CAUDA EQUINA: Normal caliber, contour, and signal intensity. DISC LEVELS: 12-L1: Disc desiccation. Posterior broad-based disc protrusion. No central or foraminal stenosis L1-L2: Disc space narrowing and disc desiccation. Posterior broad-based disc protrusion extending up to 2.5 mm. No central or foraminal stenosis L2-L3: Disc space narrowing and disc desiccation. Minimal posterior disc protrusion. No central or foraminal stenosis L3-L4: Disc space narrowing and disc desiccation. Posterior broad-based disc protrusion extending posteriorly up to 3.5 mm with moderate ligamentum flavum hypertrophy and facet osteoarthropathy. Mild trefoil narrowing of the central canal. Mild right and minimal left foraminal stenosis L4-L5: Moderate disc space narrowing and disc desiccation. Posterior broad-based disc herniation the protrusion type extending 4 mm. Ligamentum flavum and facet osteoarthropathy. Trefoil narrowing of the central canal. Mild right foraminal stenosis. No left foraminal stenosis L5-S1: Disc space narrowing and disc desiccation. Moderate diffuse disc/osteophyte complex and facet osteoarthropathy. No central canal stenosis. Moderate right and mild left foraminal stenosis MR/MR lumbar spine wo con IMPRESSION: Degenerative changes resulting in central and foraminal stenosis at multiple levels as detailed above Electronically authenticated by: MICHELLE SMITH Date: 02/26/2024 11:57
--- OUTSIDE RECORDS SUMMARY | 2024-02-26 08:27 | XMS_ITS ---
Patient Summarization (C-CDA 2.1 CCD) Created on: February 26, 2024 DEMARIO WALLACE : 1965 Sex: Female Author Organization Sample organization Care Team Providers Care Tig Welder Name Role Phone MARINA, DR LONGORIA Primary Care Unavailable VIRGINIE, MELBA Admitting Unavailable MELBA RACHEL Attending Unavailable Quang Ramon Consulting Unavailable MELBA RACHEL Consulting Unavailable MARINA, DR LONGORIA Admitting Unavailable MARINA, DR LONGORIA Attending Unavailable MARINA, DR LONGORIA Primary Care Unavailable MARINA, DR LONGORIA Consulting Unavailable MARINA, DR LONGORIA Admitting Unavailable MARINA, DR LONGORIA Attending Unavailable MARINA, DR LONGORIA Consulting Unavailable DESEAN SALMERON Consulting Unavailable MD Torrey Conklin Attending Provider [phone] MD Dipak Gray Primary Care Provider Asaad, Imad Attending Unavailable Katerin, Imad Admitting Unavailable Dipak Gray Primary Care Unavailable DIPAK GRAY Attending Unavailable DIPAK GRAY Referring Unavailable MANDY FAM Attending Unavailable DIPAK GRAY Attending Unavailable YASMEEN DUMONT Attending Unavailable Encounters Encounter Date Encounter Type Care Provider Facility Start: 02-17-2024 End: 02-17-2024 ambulatory YASMEEN DUMONT Not Available Start: 01-19-2024 End: 01-19-2024 ambulatory DIPAK GRAY Not Available Start: 10-20-2023 End: 10-20-2023 ambulatory Imad Asaad Facility:[facility] Start: 10-20-2023 Non-patient / Non-visit MD Dipak Gray Work Phone: [facility] G[facility]ology Work Phone: Start: 10-20-2023 End: 10-20-2023 Admission to same day surgery center MD Dipak Grya Work Phone: [facility] Work Phone: Start: 10-20-2023 End: 10-20-2023 ambulatory MD Dipak Gray Work Phone: [facility] Work Phone: Start: 10-16-2023 End: 10-16-2023 ambulatory MANDY ROCHAVIVIAN Not Available Start: 09-10-2023 End: 09-10-2023 ambulatory DIPAK GRAY Not Available Start: 09-10-2023 End: 09-10-2023 ambulatory DIPAK GRAY Not Available Start: 10-31-2021 End: 10-31-[address] DIPAK GRAY Facility:[facility] Start: 04-17-2021 End: 04-18-[address] DIPAK GRAY Facility:[facility] Start: 02-12-2021 End: 02-13-[address] DIPAK GRAY Facility:[facility] Goals Date Patient Goal Desired Activity /State Medications Current Medications Medication Drug Class(es) Dates [...] MG PO Daily October 20, 2023 12:00am Payers Date Payer Category Payer Self-pay 1965 Unknown [id number] 1965 Unknown [id number] 1965 Unknown [id number] 1966 Unknown [id number] 2.16.84 [id number] 1966 Unknown [id number] 2.16.84 [id number] 1966 Unknown [id number] 2.16.84 [id number] 1966 Unknown [id number] 2.16.84 [id number] 1966 Unknown [id number] 2.16.84 [id number] 1959 Unknown [id number] 1959 Unknown [id number] Unknown [id number] 2.16.8 [id number] Plan of Treatment Date Care Activity Detail Author Start: 10-20-2023 [facility] Patient Education Hemorrhoids (D C) Diverticulosis (DC) [facility] Work Phone: Problems Active Problems Problem Classification Problem Date [...] source) Anosmia; Translations: [ANOSMIA] Onset: 02-20-2021 Episodic Procedures Date Procedure Procedure Detail Performing Clinician Start: 10-20-2023 Screening colonoscopy Thanh Gray Work Phone: Results Test Name Value Interpretation Reference Range [...] by: QUANG RAMON Date: 2021-10-31 08:[address] [facility] Q - CULTURE,URINE,ROUTINEon 10-08-2021 CULTURE, URINE, ROUTINE SEE NOTE Normal [facility] Guzzler Builder Comment on above: Order Comment: [facility] Testing performed at: QPT, [facility], [address], [address], [place], [address], Admissions Gate Attendant: Guillaume Scanlon MD [facility] Collection Date/Time: [facility] Results Received Date/Time: [facility] Reported Date/Time: Result Comment: CULT URE, URINE, ROUTINE Micro Number: [id number] Test Status: Final Specimen Source: Urine Specimen Quality: Adequate Result: Mixed genital charly isolated. These superficial bacteria are not indicative of a urinary tract infection. No further organism identification is warranted on this specimen. If clinically indicated, recollect clean-catch, mid-stream urine and transfer immediately to Urine Culture Transport Tube. Performed By: #### [id number] #### [facility] Default [address] [place] [address] XR CHEST 2 Von 02-13-2021 XR CHEST [...] DESEAN SALMERON Date: 2021-02-13 05:[address] [facility] Covid-19 PCR (CVDTBH)on 01-29 SARS-CoV-2 (COVID-19) RNA LEOBARDO+probe Ql (Unsp spec) Not detected Normal NOT DETECTED [facility] Comment on above: Result Comment: This test is not yet approved or cleared by the [place] FDA. When there are no FDA-approved or cleared tests available, and other criteria are met, FDA can make tests available under an emergency access mechanism called an Emergency Use Authorization (EUA). The EUA for this test is supported by the [place] Supervisor of Health and Human Service's (HHS's) declaration [...] consistent with SARS-CoV-2. Performed By: #### [facility] #### [facility] [address] [address] Cheli Jones Social History Date Type Detail Facility Start: 10-20-2023 Tobacco smoking stat [facility] Ex-smoker (finding) [facility] Start: 1965 Sex Assigned At Female F [facility] Vital Signs Date Time Vital Sign Value Performing Clinician Faci lity 10-20-2023 10:39-0500 Diastolic blood pressure 60 mm[Hg] MD Dipak Gray Work Phone: [facility] 10-20-2023 10:39-0500 Heart rate 73 /min MD Dipak Gray Work Phone: [facility] 10-20-2023 10:39-0500 Respiratory rate 18 /min MD Dipak Gray Work Phone: [facility] 10-20-2023 10:39-0500 SaO2% (BldA) [Mass fraction] 98 % MD Dipak Gray Work Phone: [facility] 10-20-2023 10:39-0500 Systolic blood pressure 113 mm[Hg] MD Dipak Gray Work Phone: [facility] 10-20-2023 08:37-0500 Body height 170.18 cm MD Dipak Gray Work Phone: [facility] 10-20-2023 08:37-0500 Body temperature 97.8 [degF] MD Dipak Gray Work Phone: [facility] 10-20-2023 08:37-0500 Body weight 79.37 kg MD Dipak Gray Work Phone: [facility] Procedure note 10-20-2023 Note Date & Type Note Facility 10-20-2023 Procedure note [facility] Evaluation note Note Date & Type Note Facility Evaluation note No assessment information availa ble [facility] Work Phone: History and physical note Note Date & Type Note Facility History and physical note Note Date/Time October 20, 2023 10:18am [facility] [address] [place] [address] Gastroenterology H&P Signed Patient: Demario Wallace MR#: [id number] : 1965 Acct:[id number] Age/Sex: 58 / F Adm Date: 4 Loc: Room: Type: [facility] Attending Dr: Torrey Conklin MD Copies to: [...] M.D. Documented By: Torrey Conklin MD 10/20/23 [id number] Signed By: <Electronically signed by Torrey Conklin MD> 10/20/23 1010 [facility] Work Phone: Summary Purpose Family History No [...] section and content) DATE CREATED AUTHOR 10/10/2021 [facility] dical Specialist DATE CREATED AUTHOR AUTHOR'S ORGANIZ ATION 11/07/2021 [facility] pital DATE CREATED AUTHOR AUTHOR'S ORGANIZ ATION 10/30/2023 [facility] DATE CREATED AUTHOR AUTHOR'S ORGANIZ ATION 02/19/2024 [facility] dical Specialists [facility] Care Teams (unrecognized sec tion and content) [...] BE BASED ON THE PRIMARY CLINICAL RECORDS. [facility]. provides no warranty or guarantee of the accuracy or completeness of information in this document.
== END 2024-02-26 08:26 | disposition home or self-care (01) ==
LOC: MRI 08:25
PROVIDERS: PCP Family Medicine; Visit Provider Nurse Practitioner Family
DX: M54.42 Lumbago with sciatica, left side (principal); M54.41 Lumbago with sciatica, right side; M51.36 Other intervertebral disc degeneration, lumbar region
CPT/HCPCS: 72148

== ENCOUNTER 2024-04-28 07:59 | Outpatient (OUT) | payer BC, SELFPAY ==
--- OUTSIDE RECORDS SUMMARY | 2024-04-28 08:09 | XMS_ITS | CCD ---
Author Organization [facility] Care Team Providers Care Applied Computer Science Professor Name Role Phone DR DIPAK GRAY Primary Care Unavailable MELBA RACHEL Admitting Unavailable [...] Consulting Unavailable MD Torrey Conklin Attending Provider [phone] MD Dipak Gray Primary Care Provider Torrey Conklin Attending Unavailable Torrey Conklin Admitting Unavailable Dipak Gray Primary Care Unavailable DIPAK GRAY Attending Unavailable DIPAK GRAY Referring Unavailable MANDY FAM Attending Unavailable DIPAK GRAY Attending Unavailable YASMEEN DUMONT Attending Unavailable MD Dipak Gray Primary Care Provider [phone] LEA Shaikh Attending Provider Medications Current Medications Medication Drug Class(es) Dates Sig (Normalized) Sig (Original) FLUoxetine 20 mg oral capsule (2 sources) Serotonin Reuptake Inhibitor Start: 10-20-2023 take 20 mg by mouth once daily Fluoxetine Active 20 MG PO Daily October 20, 2023 1:00am SUMAtriptan 25 mg oral tablet (2 sources) Serotonin-1b and Serotonin-1d Receptor Agonist Start: 10-20-2023 take 25 mg by mouth once daily Sumatriptan Succinate Active 25 MG PO Daily October 20, 2023 1:00am traMADol hydrochloride 50 mg oral tablet (2 sources) Opioid Agonist Start: 10-20-2023 take 50 mg by mouth once daily Tramadol Active 50 MG PO Daily February 20th, 2024 1:00am Problems Active Problems Problem Classification Problem Date Documented Date Episodic/Chronic Other connective tissue disease (1 source) Lateral epicondylitis, right elbow; Translations: [LATERAL EPICONDYLITIS RIGHT ELBOW] Onset: 11-06-2021 Episodic Other non-traumatic joint disorders (3 sources) Pain in right elbow; Translations: [PAIN IN RIGHT ELBOW] Onset: 10-31-2021 Episodic Spondylosis; intervertebral disc disorders; other back problems (4 sources) Radicular pain; Translations: [Radiculopathy, site unspecified] 03-24-2024 Episodic Unclassified (1 source) CONTACT W/AND (SUSP) [...] by: QUANG COOLEY Date: 2021-10-31 08:19 Normal [facility] Q - CULTURE,URINE,ROUTINEon 10-08-2021 CULTURE, URINE, ROUTINE SEE NOTE Normal [facility] Navigation Teacher Comment on above: Order Comment: [facility] Testing performed at: QPT, [facility], [address] [place] [address], [address] [place] [address], [phone], Content Editor: Guillaume Scanlon MD [facility] Collection Date/Time: [id number] [facility] Results Received Date/Time: [id number] [facility] Reported Date/Time: Result Comment: CULT URE, URINE, ROUTINE Micro Number: [id number] Test Status: Final Specimen Source: Urine Specimen Quality: Adequate Result: Mixed genital charly isolated. These superficial bacteria are not indicative of a urinary tract infection. No further organism identification is warranted on this specimen. If clinically indicated, recollect clean-catch, mid-stream urine and transfer immediately to Urine Culture Transport Tube. Performed By: #### [id number] #### [facility] Default [address] [place] [address] XR CHEST 2 Von 02-13-2021 XR CHEST [...] DESEAN SALMERON Date: 2021-02-13 05:10 Normal [facility] Covid-19 PCR (CVDTBH)on 01-29 SARS-CoV-2 (COVID-19) RNA LEOBARDO+probe Ql (Unsp spec) Not detected Normal NOT DETECTED [facility] Comment on above: Result Comment: This test is not yet approved or cleared by the [place] FDA. When there are no FDA-approved or cleared tests available, and other criteria are met, FDA can make tests available under an emergency access mechanism called an Emergency Use Authorization (EUA). The EUA for this test is supported by the [place] of Health and Human Service's (HHS's) declaration [...] consistent with SARS-CoV-2. Performed By: #### C VDTB #### [facility] [address] [place], [place] [address] hCeli Jones Vital Signs Date Time Vital Sign Value Performing Clinician Estela jim 03-24-2024 08:27-0400 Body height 170.18 cm MD Dipak Gray Work Phone: [facility] 03-24-2024 08:27-0400 Body mass index (BMI) [Ratio] 27.6 kg/m2 MD Dipak Gray Work Phone: [facility] 03-24-2024 08:27-0400 Body weight 80.05 kg MD Dipak Gray Work Phone: [facility] 10-20-2023 10:39-0500 Diastolic blood pressure 60 mm[Hg] MD Dipak Gray Work Phone: [facility] 10-20-2023 10:39-0500 Heart rate 73 /min MD Dipak Gray Work Phone: [facility] 10-20-2023 10:39-0500 Respiratory rate 18 /min MD Dipak Gray Work Phone: [facility] 10-20-2023 10:39-0500 SaO2% (BldA) [Mass fraction] 98 % MD Dipak Gray Work Phone: [facility] 10-20-2023 10:39-0500 Systolic blood pressure 113 mm[Hg] MD Dipak Gray Work Phone: [facility] 10-20-2023 08:37-0500 Body height 170.18 cm MD Dipak Gray Work Phone: [facility] 10-20-2023 08:37-0500 Body temperature 97.8 [degF] MD Dipak Gray Work Phone: [facility] 10-20-2023 08:37-0500 Body weight 79.37 kg MD Dipak Gray Work Phone: [facility] Encounters Encounter Date Encounter Type Care Provider Facility Start: 03-24-2024 End: 03-24-2024 ambulatory MD Dipak Gray Work Phone: [facility] Work Phone: Start: 03-24-2024 End: 03-24-2024 Patient encounter procedure MD Dipak Gray Work Phone: [facility] Work Phone: Start: 02-17-2024 End: 02-17-2024 ambulatory YASMEEN Law TIM Not Available Start: 01-19-2024 End: 01-19-2024 ambulatory DIPAK GRAY Not Available Start: 10-20-2023 End: 10-20-2023 ambulatory Imad Asaad Facility:[facility] Start: 10-20-2023 Non-patient / Non-visit MD Dipak Gray Work Phone: [facility] Gastroenterology Work Phone: Start: 10-20-2023 End: 10-20-2023 Admission to same day surgery center MD Dipak Gray Work Phone: [facility] Work Phone: Start: 10-20-2023 End: 10-20-2023 ambulatory MD Dipak Gray Work Phone: [facility] Work Phone: Start: 10-16-2023 End: 10-16-2023 ambulatory MANDY FAM Not Available Start: 09-10-2023 End: 09-10-2023 ambulatory DIPAK Law MARINA Not Available Start: 09-10-2023 End: 09-10-2023 ambulatory DIPAK Law MARINA Not Available Start: 10-31-2021 End: 10-31-[address] DIPAK GRAY Facility:[facility] Start: 04-17-2021 End: 04-18-[address] DPIAK GRAY Facility:[facility] Start: 02-12-2021 End: 02-13-[address] DIPAK GRAY Facility:[facility] Procedures Date Procedure Procedure Detail Performing Clinician Start: 03-24-2024 X-ray of lumbar spin e, four views MD Dipak Gray Work Phone: Start: 10-20-2023 Screening colonoscopy Thanh Gray Work Phone: Plan of Treatment Date Care Activity Detail Author Start: 10-20-2023 [facility] Patient Education [facility] Work Phone: Payers Date Payer Category Payer Self-pay 1965 Unknown [id number] 2.16.84 [id number] 1965 Unknown [id number] 2.16.84 [id number] 1965 Unknown [id number] 2.16.84 [id number] 1965 Unknown [id number] 2.16.84 [id number] 1965 Unknown [id number] 2.16.84 [id number] 1966 Unknown [id number] 2.16.84 [id number] 1966 Unknown [id number] 2.16.84 [id number] 1966 Unknown [id number] 2.16.84 [id number] 1959 Unknown [id number] 1959 Unknown [id number] Unknown [id number] 2.16.8 [id number] Social History Date Type Detail Facility Start: 10-20-2023 End: 10-20-2023 Tobacco smoking status [facility] Ex-smoker (finding) [facility] Start: 1965 Sex Assigned At Female F [facility] Goals Date Patient Goal Desired Activity /State Procedure note 10-20-2023 Note Date & Type Note Facility 10-20-2023 Procedure note [facility] Evaluation note Note Date & Type Note Facility Evaluation note No assessment information availa ble [facility] Work Phone: Evaluation note Note Date & Type Note Facility Evaluation note Diagnosis Onset Date Lumbar pain acute Radicular low back pain acut e [facility] Work Phone: History and physical note Note Date & Type Note Facility History and physical note Note Date/Time October 20, 2023 10:18am [facility] [address] [place] [address] Gastroenterology H&P Signed Patient: Deb Wallace MR#: [id number] : 1965 Acct:[id number] Age/Sex: 58 / F Adm Date: 4 Loc: Room: Type: [facility] Attending Dr: Torrey Conklin MD Copies [...] <Electronically signed by Torrey Conklin MD> 10/20/23 2325 [facility] Work Phone: Summary Purpose Family History Relationship Condition Age at Onset Recorded Date/T nakul grandparent Diabetes mellitus Unknown family member Diabetes mellitus Unknown Not Specified Malignant neoplasm of oral cavity Unknow n Relationship Condition Age at Onset Recorded Date/T nakul grandparent Diabetes mellitus Unknown family member Diabetes mellitus Unknown mother Malignant neoplasm of oral cavity Unknown Advance Directives Advance Directive Response Recorded Date/ Time Advance Directives No October 3:54pm Advance Directive Response Recorded Date/ Time Advance Directives No October 4:54pm Chief Complaint and Reason for Visit Chief Complaint Screening Screening Chief Complaint Bilateral low back p ain & bilateral sciatica m54.50 Reason for Visit Lumbar pain Radicular low back pain Additional Source Comments INFORMATION SOURCE (unrecogn ized section and content) DATE CREATED AUTHOR 10/10/2021 [facility] dical Specialist DATE CREATED AUTHOR AUTHOR'S ORGANIZ ATION 11/07/2021 [facility] pital DATE CREATED AUTHOR AUTHOR'S ORGANIZ ATION 10/30/2023 [facility] DATE CREATED AUTHOR AUTHOR'S ORGANIZ ATION 02/19/2024 [facility] dical Specialists [facility] Care Teams (unrecognized sec tion and content) Team Status: Active Member Role Status Dates Dipak Gray MD Primary Care Provider Active Team Status: Inactive Member Role Status Dates Torrey Conklin MD Attending Provider Active Start: October 20, 2023 End: October 20, 2023 Dipak Grya MD Primary Care Provider Active S tart: October 20, 2023 End: October 20, 2023 Team Status: Active Member Role Status Dates Torrey Conklin MD Attending Provider, Other Provider Active Start: October 20, 2023 Dipak Gray MD Primary Care Provider Active S tart: October 20, 2023 Team Status: Inactive Member Role Status Dates Dipak Gray MD Primary Care Provider Active S tart: March 24, 2024 End: March 24, 2024 Lottie Shaikh APRN Attending Provider Active Start: March 24, 2024 End: March 24, 2024 Goals (unrecognized section and content) Goals may be documented in a n alternate section FOR RECORDS PERTAINING TO PATIENTS WHO ARE [...] BE BASED ON THE PRIMARY CLINICAL RECORDS. [facility]. provides no warranty or guarantee of the accuracy or completeness of information in this document.
--- NOTE | 2024-04-28 08:32 | PM.CN ---
Consult Note: HPI Data of Consult Patient: new to practice Requesting Physician: Nicole Augustin NP Primary Care Provider: SWATI GRAY Consult Narrative Reason for consult: chronic low back pain and lumbar radiculopathy Narrative: Deb Wallace a pleasant 58 year old female presents for evaluation and management of chronic low back pain greater than 6 months with worsening lumbar radiculopathy. Patient has had chronic axial low back pain for years secondary to work but 6 months ago she fell down 4 stairs and has noticed increase in back and bilateral leg pain since. Patient has sharp shooting pain radiating into bilateral feet with numbness and weakness of BLE resulting in frequent falls. Patient was dismissed from PT after 5 visits due to severe pain. Patient has failed medrol dose pack, IM steroids, motrin 400mg BID, gabapentin 100mg BID, robaxin, and tramadol. Patient rating pain 10/10 today increasing with twisting pushing pulling standing walking activity improved with sitting in the recliner, lying flat, and heat. Patient denies loss of bowel or bladder. Recent lumbar xray and MRI consistent with moderate DDD, as well as spinal stenosis and bulging disc at L3-4 L4-5. Patient has been evaluated by NS and was encouraged to trial ESIs prior to surgical intervention. cc:: CC: Nicole Augustin NP Review of Systems ROS Status of ROS 10 or more systems reviewed and unremarkable except as noted in history and below Musculoskeletal Reports: back pain, extremity pain, muscle cramps and muscle weakness; Denies: extremity swelling, joint pain or limited range of motion PFSH [facility] Medical History (Updated 04/28/24 @ 08:38 by Nicole Augustin NP) Spinal stenosis, lumbar region with neurogenic claudication ?M48.062 - Spinal stenosis, lumbar region with neurogenic claudication (ICD-10) Migraines ?G43.909 - Migraine, unspecified, not intractable, without status migrainosus (ICD-10) Social History Smoking status: Former smoker Meds Home Medications and Allergies Home Medications ?Medication ?Instructions ?Recorded ?Confirmed ?Type fluoxetine 20 mg capsule 20 mg PO QDAY 11/26/23 11/26/23 History fluticasone propionate 50 1 spray intranasal QDAY 03/28/24 03/28/24 History mcg/actuation nasal spray,suspension sumatriptan succinate 25 mg tablet 25 mg PO Q2H PRN migraine headache 11/26/23 11/26/23 History etodolac 300 mg capsule 300 mg PO Q8H PRN pain #20 caps 02/12/24 Rx methocarbamol 500 mg tablet 500 mg PO Q8H PRN pain #20 tabs 02/12/24 Rx Allergies Allergy/AdvReac Type Severity Reaction Status Date / Time No Known Drug Allergies Allergy Verified 11/26/23 20:28 Exam Constitutional Documenting provider has reviewed patient's vital signs: yes Common normals: oriented x3, healthy appearing, alert and well nourished General appearance: cooperative and anxious HENMT Common normals: normocephalic, hearing grossly normal bilaterally and moist oral mucous membranes Head and scalp: normocephalic Eye Common normals: PERRL Pupil: PERRL Neck & C-Spine Common normals: full ROM General: normal visual inspection Chest Common normals: inspection of chest normal Respiratory Common normals: normal respiratory effort, no retractions and no use of accessory muscles Back & Pelvis Lumbar spine/lower back: ROM limited, pain with ROM, lumbar spinal tenderness, paraspinal muscle tenderness, paraspinal muscle spasm, straight leg raise positive right and straight leg raise positive left Sacroiliac joints: SI joint(s) abnormal Other: bilateral SIJ positive gemma(patricks), gaenslens, thigh thrust, compression test lumbar radiculopathy to BLE following L3,4,5 pattern intermittent numbness tingling and weakness, especially upon standing strength 4/5 in BLE Extremity Common normals: normal to inspection and full ROM Neuro Common normals: oriented x3, CN's II-XII intact bilaterally, moves all extremities, no focal motor deficits, no sensory deficits noted and deep tendon reflexes 2+ bilaterally Sensorium/orientation: alert Gait (neuro): antalgic Motor exam: no movement abnormalities noted and strength abnormal Psych Common normals: mental status grossly normal, thought process normal, cooperative, affect normal, speech normal and activity/motor behavior normal Speech: normal speech Thought process: normal thought process Results Additional Findings Additional findings: If on a controlled substance or opioids, I have checked an [place] report on this patient and there are no aberrancies noted in the prescribing history.??If on a controlled substance or opioid a drug screen was completed and reviewed within the last year, and if there has not been a drug screen completed we ordered one today to monitor higher risk, state monitored pain medication use. As part of providing excellent, safe, comprehensive care, the following was completed at our patient's visit: 1. A medication reconciliation and review to ensure accurate knowledge of current/active medications, including asking our patients to inform us about any [id number] medications or herbal remedies/nutritional supplements/alternative remedies. 2. A review to specifically ensure our patients have had annual screening for screening for depression, screening for tobacco use, and screening for unhealthy alcohol use. For concerning screenings had a discussion with the patient, provided patient education, and recommended follow-up with primary care provider when appropriate. If patient noted with a risk of falling, they received education on strength, gait, and balance training to prevent future risk of falling. Assessment and Plan Assessment and Plan (1) Spinal stenosis, lumbar region with neurogenic claudication: (2) Lumbar radiculopathy: (3) Lumbar degenerative disc disease: (4) Low back pain: Plan given the patients failure to respond to above listed therapies and medications, based on physical exam and MRI finding it is essential to proceed with bilateral L4-5 TFESI under fluoroscopy and consider bilateral L3-4 TFESI with multilevel dermatomal involvement and severity of MRI findings. Increase gabapentin 300mg BID, risks vs benefits reviewed, update UDS, stop robaxin and start baclofen 10mg TID PRN pain/spasms f/u after the bilateral L4-5 TFESI
== END 2024-04-28 08:00 | disposition home or self-care (01) ==
PROVIDERS: PCP Family Medicine; Visit Provider Nurse Practitioner
DX: M48.062 Spinal stenosis, lumbar region with neurogenic claudication (principal); M54.16 Radiculopathy, lumbar region; M51.36 Other intervertebral disc degeneration, lumbar region; M54.50 Low back pain, unspecified
CPT/HCPCS: G0463

== ENCOUNTER 2024-05-16 10:19 | Day surgery (SDC) | payer BC, SELFPAY ==
--- OUTSIDE RECORDS SUMMARY | 2024-05-16 10:31 | XMS_ITS | CCD ---
Author Organization [facility] Care Team Providers Care Pin Drafter Name Role Phone DR DIPAK GRAY Primary [...] Consulting Unavailable MD Torrey Conklin Attending Provider [phone] MD Dipak Gray Primary Care Provider DIPAK GRAY Attending Unavailable DIPAK GRAY Referring Unavailable MANDY FAM Attending Unavailable DIPAK GRAY Attending Unavailable YASMEEN DUMONT Attending Unavailable MD Dipak Gary Primary Care Provider [phone] LEA Shaikh Attending Provider LEA Perkins Emergency Provider [phone] Torrey Conklin Attending Unavailable Torrey Conklin Admitting Unavailable Dipak Gray Primary Care Unavailable Dipak Gray Primary Care Unavailable Lillian Perkins Attending Unavailable Lillian Perkins Admitting Unavailable Dipak Gray Primary Care Unavailable Lottie Shaikh Attending Unavailable Lottie Shaikh Admitting Unavailable Medications Current Medications Medication Drug Class(es) Dates Sig (Normalized) Sig (Original) acetaminophen 325 mg / HYDROcodone bitartrate 5 mg oral tablet (1 source) Opioid Agonist Start: take 1 tablet by mouth every four to six hours Hydrocodone-Acetamino phen Active 1 TAB PO EVERY 4-6 HOURS 10 3 May 07, 2024 baclofen 10 mg oral tablet (1 source) gamma-Aminobutyric Acid-ergic Agonist Start: 4 take 10 mg by mouth three times daily Baclofen Active 10 MG PO Three times daily May 07, 2024 12:00am FLUoxetine 20 mg oral capsule (3 sources) Serotonin Reuptake Inhibitor Start: 4 take 20 mg by mouth once daily Fluoxetine Active 20 MG PO Daily October 20, 2023 1:00am gabapentin 100 mg oral capsule (1 source) Anti-epileptic Agent Start: 4 take 100 mg by mouth twice daily Gabapentin Active 100 MG PO Twice daily 60 April 07, 2024 12:00am methylPREDNISolone 4 mg oral tablet (1 source) Corticosteroid Start: 4 take 1 tablet by mouth once Methylprednisolone (Medrol (Elpidio)) 4 mg tablets,dose pack Active 0 PO .COMPLEX May 07, 2024 12:00am orally per package directions SUMAtriptan 25 mg oral tablet (3 sources) Serotonin-1b and Serotonin-1d Receptor Agonist Start: 4 take 25 mg by mouth once daily Sumatriptan Succinate Active 25 MG PO Daily October 20, 2023 1:00am Completed/Discontinued Medications Medication Drug Class(es) Dates Sig (Normalized) Sig (Original) traMADol hydrochloride 50 mg oral tablet (3 sources) Opioid Agonist Start: 10-20-2023 End: 05-07-2024 take 50 mg by mouth once daily Tramadol Discontinued 50 MG PO Daily October 20, 2023 1:00am May 07, 2024 3:29pm Problems Active Problems Problem Classification Problem Date Documented Date Episodic/Chronic Other connective tissue disease (1 source) Lateral epicondylitis, right elbow; Translations: [LATERAL EPICONDYLITIS RIGHT ELBOW] Onset: 11-06-2021 Episodic Other non-traumatic joint disorders (3 sources) Pain in right elbow; Translations: [PAIN IN RIGHT ELBOW] Onset: 10-31-2021 Episodic Spondylosis; intervertebral disc disorders; other back problems (10 sources) Radicular pain; Translations: [Radiculopathy, site unspecified] 03-24-2024 Episodic Unclassified (1 source) CONTACT W/AND (SUSP) EXPOS COVID-19; Translations: [CONTACT W/AND (SUSP) EXPOS COVID-19] Onset: 02-20-2021 Unclassified (1 source) Low back pain, unspecified; Translations: [Low back pain, unspecified] Onset: 05-07-2024 Unclassified (1 source) Encounter for screening for [...] Results Test Name Value Interpretation Reference Range Facility Automated basophil %Ordered By: Lillian Perkins on 05-07-2024 Basophils/100 WBC (Bld) 1.0 % Normal . [facility] Comment on above: Performed By: #### B MP, CBC #### [address] Automated basophil countOrde red By: Lillian Perkins on 05-07-2024 Basophils (Bld) [#/Vol] 0.1 10*3/uL Normal 0.0-0.2 [facility] Comment on above: Result Comment: PERF ORMED BY: [place] [address] PATHOLOGIST STATISTICAL PROGRAMMER MELVIN PEAN M.D. Performed By: #### B MP, CBC #### [facility] [address] [place] [address] Automated blood monocyte cou ntOrdered By: Lillian Perkins on 05-07-2024 Monocytes (Bld) [#/Vol] 0.4 10*3/uL Normal 0.0-0.8 [facility] Comment on above: Performed By: #### B MP, CBC #### [address] Automated eosinophil %Ordere d By: Lillian Perkins on 05-07-2024 Eosinophils/100 WBC (Bld) 9.2 % Normal . [facility] Comment on above: Performed By: #### B MP, CBC #### [address] Automated eosinophil countOr dered By: Lillian Perkins on 05-07-2024 Eosinophils (Bld) [#/Vol] 0.6 10*3/uL High 0.0-0.45 [facility] Comment on above: Performed By: #### B MP, CBC #### [address] Automated monocyte %Ordered By: Lillian Perkins on 05-07-2024 Monocytes/100 WBC (Bld) 7.3 % Normal . [facility] Comment on above: Performed By: #### B MP, CBC #### [address] Automated neutrophil %Ordere d By: Lillian Perkins on 05-07-2024 Neutrophils/100 WBC (Bld) 50.8 % Normal . [facility] Comment on above: Performed By: #### B MP, CBC #### [address] Basic Metabolic Panelon Creatinine Clr Calc Pharmacy 71.01 Normal [facility] Comment on above: Result Comment: PERF ORMED BY: [place] [address] PATHOLOGIST STATISTICAL PROGRAMMER MELVIN PENA M.D. Performed By: #### B MP, CBC #### [address] GFR/1.73 sq M.predicted MDRD (S/P/Bld) [Vol rate/Area] mL/min/{1.73_m2} Normal [facility] Comment on above: Performed By: #### B MP, CBC #### [address] Bilirubin Test strip Ql (U)O rdered By: Lillian Perkins on 05-07-2024 Bilirubin Ql (U) Negative Negative [facility] Calcium [Mass/volume] in Ser um or PlasmaOrdered By: Lillian Perkins on 05-07-2024 Calcium [Mass/Vol] 9.3 mg/dL Normal 8.6-10.3 [facility] Comment on above: Performed By: #### B MP, CBC #### [address] Carbon dioxide, total [Moles /volume] in Serum or PlasmaOrdered By: Lillian Perkins on 05-07-2024 CO2 [Moles/Vol] 27.1 mmol/L Normal 21.0-31.0 [facility] Comment on above: Performed By: #### B MP, CBC #### [address] Chloride [Moles/volume] in S israel or PlasmaOrdered By: Lillian Perkins on 05-07-2024 Chloride [Moles/Vol] 104 mmol/L Normal 98-107 [facility] Comment on above: Performed By: #### B MP, CBC #### [address] Color of Urine by AutoOrdere d By: Lillian Perkins on 05-07-2024 Color (U) Colorless Normal Yellow [facility] Comment on above: Order Comment: Name Collection Type:: Clean-Voided Midstream Performed By: #### U A #### [address] Complete Blood Count Auto Di ffon 05-07-2024 Mean Corpuscular HGB Conc 34.4 g/dL Normal 32.0-35.0 [facility] Comment on above: Performed By: #### B MP, CBC #### [place] [address] [place] Monocytes/100 WBC (Bld) 17.28 % Normal 0.00-20.00 [facility] Comment on above: Performed By: #### B MP, CBC #### [place] [address] [place] NRBC% 0.1 /100{WBC} Normal 0-0.5 [facility] Comment on above: Performed By: #### B MP, CBC #### [address] Creatinine [Mass/volume] in Serum or PlasmaOrdered By: Lillian Perkins on 05-07-2024 Creatinine [Mass/Vol] 0.90 mg/dL Normal 0.60-1.20 [facility] Comment on above: Performed By: #### B MP, CBC #### [facility] [address] Erythrocyte distribution wid th [Ratio] by Automated countOrdered By: Lillian Perkins on 05-07-2024 Erythrocyte distribution width (RBC) [Ratio] 13.7 % Normal 11.9-15.3 [facility] Comment on above: Performed By: #### B MP, CBC #### [address] Erythrocytes [#/volume] in B lood by Automated countOrdered By: Lillian Perkins on 05-07-2024 RBC (Bld) [#/Vol] 3.65 10*6/uL Normal 3.60-5.00 [facility] Comment on above: Performed By: #### B MP, CBC #### [address] Glucose [Mass/volume] in Ser um or PlasmaOrdered By: Lillian Perkins on 05-07-2024 Glucose [Mass/Vol] 78 mg/dL Normal 70-100 [facility] Comment on above: ADA recommended refe rence rangeRandom Glucose Reference Range is dependent on time and content of last meal. Glucose of more than 200 mg/dL in a nonstressed, ambulatory subject supports the diagnosis of Diabetes Mellitus. Result Comment: [place] om Glucose Reference Range is dependent on time and content of last meal. Glucose of more than 200 mg/dL in a nonstressed, ambulatory subject supports the diagnosis of Diabetes Mellitus. ADA recommended reference range Performed By: #### B MP, CBC #### [place] [address] [place] Glucose [Mass/volume] in Uri ne by Test stripOrdered By: Lillian Perkins on 05-07-2024 Glucose Test strip (U) [Mass/Vol] Normal mg/dL Normal [facility] Hematocrit [Volume Fraction] of Blood by Automated countOrdered By: Lillian Perkins on 05-07-2024 Hematocrit (Bld) [Volume fraction] 32.5 % Low 34.0-46.4 [facility] Comment on above: Performed By: #### B MP, CBC #### [facility] [address] Hemoglobin Test strip Ql (U) Ordered By: Lillian Perkins on 05-07-2024 Hemoglobin Ql (U) Negative Negative [facility] Hemoglobin [Mass/volume] in BloodOrdered By: Lillian Perkins on 05-07-2024 Hemoglobin (Bld) [Mass/Vol] 11.2 g/dL Low 11.8-15.4 [facility] Comment on above: Performed By: #### B MP, CBC #### [address] Ketones [Presence] in Urine by Test stripOrdered By: Lillian Perkins on 05-07-2024 Ketones Ql (U) Negative Normal Negative [facility] Comment on above: Order Comment: Name Collection Type:: Clean-Voided Midstream Performed By: #### U A #### [address] Leukocyte esterase [Presence ] in Urine by Test stripOrdered By: Lillian Perkins on 05-07-2024 Leukocyte esterase Test strip Ql (U) Negative Normal Negative [facility] Comment on above: Order Comment: Name Collection Type:: Clean-Voided Midstream Performed By: #### U A #### [place] [address] [place] Leukocytes [#/volume] correc shey for nucleated erythrocytes in Blood by Automated counOrdered By: Lillian Perkins on 05-07-2024 WBC corrected for nucl RBC Auto (Bld) [#/Vol] 6.2 10*3/uL 3.8-11.6 [facility] Leukocytes [#/volume] in Blo od by Automated countOrdered By: Lillian Perkins on 05-07-2024 WBC (Bld) [#/Vol] 6.2 10*3/uL Normal 3.8-11.6 [facility] Comment on above: Performed By: #### B MP, CBC #### [address] Lymphocytes [#/volume] in Bl ood by Automated countOrdered By: Lillian Perkins on 05-07-2024 Lymphocytes (Bld) [#/Vol] 2.0 10*3/uL Normal 1.00-4.8 [facility] Comment on above: Performed By: #### B MP, CBC #### [address] Lymphocytes/100 leukocytes i n Blood by Automated countOrdered By: Lillian Perkins on 05-07-2024 Lymphocytes/100 WBC (Bld) 31.7 % Normal . [facility] Comment on above: Performed By: #### B MP, CBC #### [address] MCH [Entitic mass] by Automa shey countOrdered By: Lillian Perkins on 05-07-2024 MCH (RBC) [Entitic mass] 30.6 pg Normal 24.7-34.3 [facility] Comment on above: Performed By: #### B MP, CBC #### [address] MCHC Auto (RBC) [Mass/Vol]Or dered By: Lillian Perkins on 05-07-2024 MCHC (RBC) [Mass/Vol] 34.4 g/dL 32.0-35.0 [facility] MCV [Entitic volume] by Auto mated countOrdered By: Lillian Perkins on 05-07-2024 MCV (RBC) [Entitic vol] 89.1 fL Normal 80-100 [facility] Comment on above: Performed By: #### B MP, CBC #### [address] Monocyte distribution width [Entitic volume] in Blood by AutomatedOrdered By: Lillian Perkins on 05-07-2024 Monocyte distribution width Auto (Bld) [Entitic vol] 17.28 % 0.00-20.00 [facility] Neutrophils [#/volume] in Bl ood by Automated countOrdered By: Lillian Perkins on 05-07-2024 Neutrophils (Bld) [#/Vol] 3.1 10*3/uL Normal 1.8-7.7 [facility] Comment on above: Performed By: #### B MP, CBC #### [facility] [address] Nitrite Test strip Ql (U)Ord ered By: Lillian Perkins on 05-07-2024 Nitrite Ql (U) Negative Negative [facility] No Panel InformationOrdered By: Lillian Perkins on 05-07-2024 Estimated GFR (CKD-EPI) > 60.0 mL/Min [facility] Creatinine Clearance (Chem 71.01 [facility] Nucleated erythrocytes [Pres ence] in Blood by Automated countOrdered By: Lillian Perkins on 05-07-2024 Nucleated RBC Auto Ql (Bld) 0.1 /100{WBC} 0-0.5 [facility] Platelet mean volume [Entiti c volume] in Blood by Automated countOrdered By: Lillian Perkins on 05-07-2024 Platelet mean volume (Bld) [Entitic vol] 7.8 fL Normal 6.3-10.7 [facility] Comment on above: Performed By: #### B MP, CBC #### [facility] [address] [place] [id number] [place] Platelets [#/volume] in Bloo d by Automated countOrdered By: Lillian Perkins on 05-07-2024 Platelets (Bld) [#/Vol] 250 10*3/uL Normal 150-450 [facility] Comment on above: Performed By: #### B MP, CBC #### [facility] [address] [place] [id number] [place] Potassium [Moles/volume] in Serum or PlasmaOrdered By: Lillian Perkins on 05-07-2024 Potassium [Moles/Vol] 3.7 mmol/L Normal 3.5-5.1 [facility] Comment on above: Performed By: #### B MIGNON, CBC #### [facility] [address] [place] [id number] [facility] Protein Test strip (U) [Mass /Vol]Ordered By: Lillian Timdemetris on 05-07-2024 Protein (U) [Mass/Vol] Negative Negative [facility] Serum or plasma anion gap de terminationOrdered By: Lillian Timdemetris on 05-07-2024 Anion gap [Moles/Vol] 8.6 mmol/L Normal 6.0-15.0 [facility] Comment on above: Performed By: #### B MIGNON, CBC #### [place] [address] [place] Sodium [Moles/volume] in Ser um or PlasmaOrdered By: Lillian Timdemetris on 05-07-2024 Sodium [Moles/Vol] 136 mmol/L Normal 136-145 [facility] Comment on above: Performed By: #### B MIGNON, CBC #### [facility] [address] Specific gravity Test strip (U) [Rel density]Ordered By: Lillian Timdemetris on 05-07-2024 Specific gravity (U) [Rel density] 1.008 1.001-1.030 [facility] Urea nitrogen [Mass/volume] in Serum or PlasmaOrdered By: Lillian Timdemetris on 05-07-2024 Urea nitrogen [Mass/Vol] 15 mg/dL Normal 7-25 [facility] Comment on above: Performed By: #### B MP, CBC #### [facility] [address] [place] [id number] [place] Urinalysison 05-07-2024 Bilirubin,Urine Negative Normal Negative [facility] Comment on above: Order Comment: Name Collection Type:: Clean-Voided Midstream Performed By: #### U A #### [facility] [address] [place] [id number] [facility] Glucose Ql (U) Normal Normal Normal [facility] Comment on above: Order Comment: Name Collection Type:: Clean-Voided Midstream Performed By: #### U A #### [address] Nitrite,Urine Negative Normal Negative [facility] Comment on above: Order Comment: Name Collection Type:: Clean-Voided Midstream Performed By: #### U A #### [address] Occult Blood,Urine Negative Normal Negative [facility] Comment on above: Order Comment: Name Collection Type:: Clean-Voided Midstream Result Comment: PERF ORMED BY: [place] [address] PATHOLOGIST STATISTICAL PROGRAMMER MELVIN PENA M.D. Performed By: #### U A #### [address] Protein,Urine Negative Normal Negative [facility] Comment on above: Order Comment: Name Collection Type:: Clean-Voided Midstream Performed By: #### U A #### [address] Specificy [place],Urine 1.008 Normal 1.001-1.030 [facility] Comment on above: Order Comment: Name Collection Type:: Clean-Voided Midstream Performed By: #### U A #### [address] Urobilinogen,Urine Normal Normal Normal [facility] Comment on above: Order Comment: Name Collection Type:: Clean-Voided Midstream Performed By: #### U A #### [address] Urine appearanceOrdered By: Lillian Perkins on 05-07-2024 Appearance (U) Clear Normal Clear [facility] Comment on above: Order Comment: Name Collection Type:: Clean-Voided Midstream Performed By: #### U A #### [address] Urobilinogen Test strip (U) [Mass/Vol]Ordered By: Lillian Perkins on 05-07-2024 Urobilinogen (U) [Mass/Vol] Normal mg/dL Normal [facility] pH of Urine by Test stripOrd ered By: Lillian Perkins on 05-07-2024 pH (U) 6.5 [pH] Normal 5.0-9.0 [facility] Comment on above: Order Comment: Name Collection Type:: Clean-Voided Midstream Performed By: #### U A #### [address] XR lumbar spine AP/LAT/FLX/E XTon 03-24-2024 XR lumbar spine AP/LAT/FLX/EXT [facility] Main [place] [address] [place] [address] XRay Report Signed Patient: Deb Wallace MR#: [id number] 22 : 1965 Acct:[id number] Age/Sex: 58 / F ADM Date: 03/24/24 Loc: XD Room: Type: [facility] Attending Dr: Lottie Shaikh APRN Copies to: Lottie Shaikh APRN Ordering Provider: Lottie Shaikh APRN Date of Service: 03/24/24 XR/XR lumbar spine AP/LAT/FLX/EXT: M54.50 - Low back pain, unspecified LUMBAR SPINE - 4 views CLINICAL HISTORY: Low back pain status post fall 6 months ago. COMPARISON: Lumbar spine 02/12/2024 FINDINGS: Vertebral body heights appear maintained. Moderate disc space narrowing L4-L5 and L5-S1 with associated facet joint degenerative changes similar to the prior study. No pathological motion on flexion or extension views. SI joints demonstrate degenerative change. XR/XR lumbar spine AP/LAT/FLX/EXT IMPRESSION: MODERATE DEGENERATIVE DISEASE L4-L5 AND L5-S1. Impression dictated by: Manolo Romero Jr., D.O.03/24/2024 12:57 PM Dictation Location: [place] [address] Transcribed By: [facility] 03/24/24 1257 Dictated By: Manolo Romero Jr, DO 03/24/24 1255 Signed By: 03/24/24 1257 Normal [facility] CT ABDOMEN PELVIS W AND WO I [...] nodes: Scattered small nonspecific mesenteric lymph nodes. Mesentery/Peritoneu m/Retroperitoneum: No ascites or mass. Vasculature: The celiac axis and SMA are patent. The portal vein and branches, splenic vein, SMV, and hepatic veins are patent. No abdominal aortic or iliac artery aneurysm. Pelvis: No significant free fluid. Hysterectomy. Bladder partially decompressed. Bones: No acute osseous findings. Degenerative changes. Soft tissues: Unremarkable. Lower thorax: Bibasilar atelectasis/scarrin g. IMPRESSION: No acute process in the abdomen/pelvis. ELECTRONICALLY SIGNED BY: Qamar Kuhn MD Normal Not Available XR ELBOW RT MIN 3 VIEWSon XR ELBOW RT MIN 3 VIEWS EXAM: Right elbo w HISTORY: Pain after a lifting injury at work on Thursday. TECHNIQUE: 5 views of the right elbow were obtained. FINDINGS: There is no evidence of fracture or dislocation. There are no suspicious bone lesions. Soft tissues are normal. IMPRESSION: Unremarkable exam. Electronically authenticated by: QUANG COOLEY Date: 2021-10-31 08:19 Normal [facility] Q - CULTURE,URINE,ROUTINEon 10-08-2021 CULTURE, URINE, ROUTINE SEE NOTE Normal [facility] [employer] Comment on above: Order Comment: [facility] performed at: Q[facility], [address], [facility], [place], [address], House Nurse: Guillaume Scanlon MD [facility] Collection Date/Time: [facility] Results Received Date/Time: [facility] Reported Date/Time: Result Comment: CULT URE, URINE, ROUTINE Micro Number: [id number] Test Status: Final Specimen Source: Urine Specimen Quality: Adequate Result: Mixed genital charly isolated. These superficial bacteria are not indicative of a urinary tract infection. No further organism identification is warranted on this specimen. If clinically indicated, recollect clean-catch, mid-stream urine and transfer immediately to Urine Culture Transport Tube. Performed By: #### [id number] #### [facility] Default [address] [place] [address] XR CHEST 2 Von 02-13-2021 XR CHEST [...] DESEAN SALMERON Date: 2021-02-13 05:10 Normal [facility] Covid-19 PCR (CVDTBH)on 01-29 SARS-CoV-2 (COVID-19) RNA LEOBARDO+probe Ql (Unsp spec) Not detected Normal NOT DETECTED [facility] Comment on above: Result Comment: This test is not yet approved or cleared by the [place] FDA. When there are no FDA-approved or cleared tests available, and other criteria are met, FDA can make tests available under an emergency access mechanism called an Emergency Use Authorization (EUA). The EUA for this test is supported by the Phlebotomy Tech of Health and Human Service's (HHS's) declaration [...] consistent with SARS-CoV-2. Performed By: #### [facility] #### [facility] [address] [place] [address] Cheli Jones Vital Signs Date Time Vital Sign Value Performing Clinician Estela jim 05-07-2024 15:32-0400 Diastolic blood pressure 69 mm[Hg] MD Dipak Gray Work Phone: [facility] 05-07-2024 15:32-0400 Heart rate 69 /min MD Dipak Gray Work Phone: [facility] 05-07-2024 15:32-0400 Respiratory rate 16 /min MD Dipak Gray Work Phone: [facility] 05-07-2024 15:32-0400 SaO2% (BldA) [Mass fraction] 97 % MD Dipak Gray Work Phone: [facility] 05-07-2024 15:32-0400 Systolic blood pressure 112 mm[Hg] MD Dipak Gray Work Phone: [facility] 05-07-2024 14:37-0400 Body height 162.56 cm MD Dipak Gray Work Phone: [facility] 05-07-2024 14:37-0400 Body temperature 98.3 [degF] MD Dipak Gray Work Phone: [facility] 05-07-2024 14:37-0400 Body weight 81 kg MD Dipak Gray Work Phone: [facility] 04-07-2024 08:27-0400 Body weight 80.28 kg MD Dipak Gray Work Phone: [facility] 03-24-2024 08:27-0400 Body height 170.18 cm MD Dipak Gray Work Phone: [facility] 03-24-2024 08:27-0400 Body mass index (BMI) [Ratio] 27.6 kg/m2 MD Dipak Gray Work Phone: [facility] 03-24-2024 08:27-0400 Body weight 80.05 kg MD Dipak Gray Work Phone: [facility] 10-20-2023 10:39-0500 Diastolic blood pressure 60 mm[Hg] MD Dipak Gray Work Phone: [facility] 10-20-2023 10:39-0500 Heart rate 73 /min MD Dipak Gray Work Phone: [facility] 10-20-2023 10:39-0500 Respiratory rate 18 /min MD Dipak Gray Work Phone: [facility] 10-20-2023 10:39-0500 SaO2% (BldA) [Mass fraction] 98 % MD Dipak Gray Work Phone: [facility] 10-20-2023 10:39-0500 Systolic blood pressure 113 mm[Hg] MD Dipak Gray Work Phone: [facility] 10-20-2023 08:37-0500 Body height 170.18 cm MD Dipak Gray Work Phone: [facility] 10-20-2023 08:37-0500 Body temperature 97.8 [degF] MD Dipak Gray Work Phone: [facility] 10-20-2023 08:37-0500 Body weight 79.37 kg MD Dipak Gray Work Phone: [facility] Encounters Encounter Date Encounter Type Care Provider Facility Start: 05-07-2024 End: 05-07-2024 Emergency department patient visit MD Dipak Gray Work Phone: [facility] Work Phone: Start: 04-07-2024 End: 04-07-2024 Patient encounter procedure MD Dipak Gray Work Phone: [facility]ly [facility] Work Phone: Start: 03-24-2024 End: 03-24-2024 ambulatory MD Dipak Gray Work Phone: [facility] Work Phone: Start: 03-24-2024 End: 03-24-2024 Patient encounter procedure MD Dipak Gray Work Phone: [facility] Work Phone: Start: 02-17-2024 End: 02-17-2024 ambulatory YASMEEN DUMONT Not Available Start: 01-19-2024 End: 01-19-2024 ambulatory RUGEN M MARINA Not Available Start: 10-20-2023 Non-patient / Non-visit MD Dipak Gray Work Phone: [facility] Work Phone: Start: 10-20-2023 End: 10-20-2023 Admission to same day surgery center MD Dipak Gray Work Phone: [facility] Work Phone: Start: 10-20-2023 End: 10-20-2023 ambulatory MD Dipak Gray Work Phone: [facility] Work Phone: Start: 10-16-2023 End: 10-16-2023 ambulatory MANDY FAM Not Available Start: 09-10-2023 End: 09-10-2023 ambulatory RUGEN M MARINA Not Available Start: 09-10-2023 End: 09-10-2023 ambulatory RUGEN M MARINA Not Available Start: 10-31-2021 End: 10-31-[address] DIPAK GRAY Facility:[facility] Start: 04-17-2021 End: 08-19-[address] DIPAK GRAY Facility:[facility] Start: 02-12-2021 End: 02-13-[address] DIPAK GRAY Facility:[facility] Procedures Date Procedure Procedure Detail Performing Clinician Start: 03-24-2024 X-ray of lumbar spin e, four views MD Dipak Gray Work Phone: Start: 10-20-2023 Screening colonoscopy M Braden Gray Work Phone: Plan of Treatment Date Care Activity Detail Author Start: 04-07-2024 Patient referral [facility] Work Phone: Start: 10-20-2023 [facility] Patient Education [facility] Work Phone: Patient referral [facility] Work Phone: Payers Date Payer Category Payer Self-pay 1965 Unknown [id number] 2.16.84 [id number] 1966 Unknown [id number] 2.16.84 [id number] 1966 Unknown [id number] 2.16.84 [id number] 1966 Unknown [id number] 2.16.84 [id number] 1966 Unknown [id number] 2.16.84 [id number] 1966 Unknown [id number] 2.16.84 [id number] 1966 Unknown [id number] 2.16.84 [id number] 1966 Unknown [id number] 2.16.84 [id number] 1959 Unknown [id number] 1959 Unknown [id number] Unknown [id number] 2.16.8 [id number] Unknown [id number] 2.16.8 [id number] Unknown [id number] 2.16.8 [id number] Social History Date Type Detail Facility Start: 10-20-2023 End: 05-07-2024 Tobacco smoking status NHIS Ex-smoker (finding) [facility] Start: 1965 Sex Assigned At Female [facility] NEGATED: Highlighted row [facility] Goals Date Patient Goal Desired Activity /State Procedure note 10-20-2023 Note Date & Type Note Facility 10-20-2023 Procedure note [facility] Evaluation note Note Date & Type Note Facility Evaluation note No assessment information availa ble [facility] Work Phone: Evaluation note Note Date & Type Note Facility Evaluation note Diagnosis Onset Date Lumbar pain acute Radicular low back pain acut e [facility] Work Phone: Evaluation note Note Date & Type Note Facility Evaluation note Diagnosis Onset Date Lumbar pain acute Radicular low back pain acut e Lumbar pain acute Radicular low back pain acut e [facility] Work Phone: History and physical note Note Date & Type Note Facility History and physical note Note Date/Time October 20, 2023 10:18am [facility] [address] [place] [address] Gastroenterology H&P Signed Patient: Deb Wallace MR#: [id number] : 1965 Acct:[id number] Age/Sex: 58 / F Adm Date: 4 Loc: Room: Type: [facility] Attending Dr: Torrey Conklin MD [...] M.D. Documented By: Torrey Conklin MD 10/20/23 [id number] Signed By: <Electronically signed by Torrey Conklin MD> 10/20/23 1893 [facility] [employer] Work Phone: Hospital Discharge instructions Note Date & Type Note Facility Hospital Discharge instructions Additional Instructions It is important that you follow-up with Dr. Joseph office on Thursday as discussed Continue gabapentin Start your [place] for severe pain You cannot work or drive when taking [place] You also can rotate Tylenol / Motrin Take steroids as prescribed Avoid heavy lifting Please return here if any problems persist or worsen including numbness, tingling, loss of bowel bladder control, respiratory concerns or any other concerns as needed you discussed [facility] [employer] Work Phone: Summary Purpose Family History No Family History Records Found Relationship Condition Age at Onset Recorded Date/T nakul grandparent Diabetes mellitus Unknown family member Diabetes mellitus Unknown Not Specified Malignant neoplasm of oral cavity Unknow n Relationship Condition Age at Onset Recorded Date/T nakul grandparent Diabetes mellitus Unknown family member Diabetes mellitus Unknown mother Malignant neoplasm of oral cavity Unknown Advance Directives No Advanced Directives Records Found Advance Directive Response Recorded Date/ Time Advance Directives No October 3:54pm Advance Directive Response Recorded Date/ Time Advance Directives No October 4:54pm Chief Complaint and Reason for Visit Chief Complaint Screening Screening Chief Complaint Bilateral low back p ain & bilateral sciatica m54.50 Reason for Visit Lumbar pain Radicular low back pain Chief Complaint Bilateral low back p ain & bilateral sciatica m54.50 follow up low back pain sent by doctor Reason for Visit Lumbar pain Radicular low back pain Lumbar pain Radicular low back pain Additional Source Comments INFORMATION SOURCE (unrecogn ized section and content) DATE CREATED AUTHOR 10/10/2021 [facility] Special[facility] DATE CREATED AUTHOR AUTHOR'S ORGANIZ ATION 11/07/2021 [facility] DATE CREATED AUTHOR AUTHOR'S ORGANIZ ATION 02/19/2024 [facility] EPIC DATE CREATED AUTHOR AUTHOR'S ORGANIZ ATION 05/09/2024 [facility] Care Teams (unrecognized sec tion and content) [...] 2023 Team Status: Active Member Role Status Kath Conklin MD Attending Provider, Other Provider Active Start: October 20, 2023 Dipak Gray MD Primary Care Provider Active S tart: October 20, 2023 Team Status: Inactive Member Role Status Kath Gray MD Primary Care Provider Active S tart: March 24, 2024 End: March 24, 2024 Lottie Shaikh APRN Attending Provider Active Start: March 24, 2024 End: March 24, 2024 Team Status: Inactive Member Role Status Kath Gray MD Primary Care Provider Active S tart: April 07, 2024 End: April 07, 2024 Lottie Shaikh APRN Attending Provider Active Start: April 07, 2024 End: April 07, 2024 Team Status: Inactive Member Role Status Kath Gray MD Primary Care Provider Active S tart: May 07, 2024 End: May 07, 2024 Lillian Perkins APRN Emergency Provider Active Start: May 07, 2024 End: May 07, 2024 Goals (unrecognized section and content) Goals may be documented in a n alternate sectionGoals may be documented in an alternate section FOR RECORDS PERTAINING TO PATIENTS [...] BE BASED ON THE PRIMARY CLINICAL RECORDS. [facility] [employer] provides no warranty or guarantee of the accuracy or completeness of information in this document.
[2024-05-16 10:39] VITALS: BP 116/69; PULSE 73; TEMP 36.5; O2SAT 100
[2024-05-16 11:23] VITALS: PULSE 70; O2SAT 94
[2024-05-16 11:24] VITALS: BP 108/58
[2024-05-16 11:27] VITALS: BP 119/56; PULSE 66; O2SAT 94
--- NOTE | 2024-05-16 11:27 | W.PM.PROCNOT ---
Date of procedure: 05/16/24 Pre-op diagnosis: Pain due to lumbar stenosis with neurogenic claudication Post-op diagnosis: same as pre-op Procedure: Procedure: Bilateral L4-5 transforaminal epidural steroid injection Medications: Bupivacaine 0.25% 2cc, lidocaine 2% 1cc, kenalog 80mg The patient was seen and examined in the preoperative holding area.? Informed consent was obtained and placed on the chart.? Patient was brought to the medical procedure unit and placed in the prone position where a timeout was completed verifying the correct patient, procedure site, position, and planned special equipment using sterile aseptic technique.? Under direct fluoroscopic visualization a 25-gauge Quincke tipped spinal needle was advanced at level left L4-5 to the designated neural foramen where contrast dye was injected to show adequate spread.? There was no evidence of vascular or adverse uptake.? Epidural spread was appreciated.? The above-mentioned injectate was then placed in a 1.5 mL aliquot preceded by negative aspiration.? The needle was removed. The same procedure, at the same level, was completed on the opposite side. ? Patient was taken to the postprocedural recovery area and monitored for an appropriate length of time before found suitable for discharge in the accompaniment of a responsible adult. Anesthesia: Local Surgeon: Yodit Paz Pathology: none sent Condition: stable Disposition: no change
[2024-05-16] MEDS: BUPIVACAINE HCL 0.25% PF 25 MG/10 ML VIAL INJ (11:29)
[2024-05-16] MEDS: 0.9 % SODIUM CHLORIDE 10 ML SYRINGE - SALINE FLUSH INJ (11:29)
[2024-05-16] MEDS: LIDOCAINE HCL 2% 400 MG/20 ML MDV 3 ML INJ (11:29)
[2024-05-16] MEDS: IOHEXOL 240 MG/ML - 10 ML VIAL 12 MG INJ (11:29)
[2024-05-16] MEDS: TRIAMCINOLONE ACETONIDE 40 MG/ML VIAL 80 MG INJ (11:30)
== END 2024-05-16 11:48 | disposition home or self-care (01) ==
LOC: SURGOUT 10:20
PROVIDERS: PCP Family Medicine; Visit Provider Anesthesiology
DX: M48.062 Spinal stenosis, lumbar region with neurogenic claudication (principal)
CPT/HCPCS: 64483; J0665; J3301; Q9966

== ENCOUNTER 2024-08-01 11:44 | Outpatient (OUT) | payer BC, SELFPAY ==
--- OUTSIDE RECORDS SUMMARY | 2024-08-01 11:53 | XMS_ITS | CCD ---
Author Organization [facility] Care Team Providers Care Switch Inspector Name Role Phone MARINA, DR LONGORIA Primary [...] Provider MD Dipak Gray Primary Care Provider MD Dipak Gray Primary Care Provider LEA Shaikh Attending Provider LEA Perkins Emergency Provider Jackson OWENS, Yodit Thomas Attending Unavailable Dipak Gray MD Unavailable Thursday SOD FARMERBety Unavailable DO Vijay Stone Attending Provider [phone] DIPAK GRAY Attending Unavailable DIPAK GRAY Referring Unavailable MANDY FAM Attending Unavailable DIPAK GRAY Attending Unavailable YASMEEN RIVAS Attending Unavailable YASMEEN RIVAS Attending Unavailable Dpiak Gray Primary Care Unavailable Lillian Perkins Admitting Unavailable Lillian Perkins Attending Unavailable Dipak Gray Primary Care Unavailable Vijay Stone Admitting Unavailable Vijay Stone Attending Unavailable Dipak Gray Primary Care Unavailable Hawa Lottie Admitting Unavailable Lottie Shaikh Attending Unavailable Dipak Gray Primary Care Unavailable Asadixie, Imdixie Admitting Unavailable Katerin, Imdixie Attending Unavailable Unavailable Primary Care Provider UnavailKARELY Crocker Attending Unavailable KARELY BROWN Referring Unavailable Medications Current Medications Medication Drug Class(es) Dates Sig (Normalized) Sig (Original) acetaminophen 325 mg / HYDROcodone bitartrate 5 mg oral tablet (6 sources) Opioid Agonist Start: 06-29-2024 End: 07-04-2024 take 1 tablet by mouth every six hours for pain HYDROcodone-aceta minophen ([place]) 5-325 MG tablet Indications: Acute bilateral low back pain with bilateral sciatica Take 1 tablet by mouth every 6 (six) hours if needed for severe pain for up to 5 days 20 tablet 06/29/2024 07/04/2024 Active Start: 05-07-2024 take 1 tablet by puneet th every four to six hours Hydrocodone-Acetaminophen Active 1 TAB P O EVERY 4-6 HOURS 06 02May 07, 2024 azelastine hydrochloride 0.137 mg/actuat metered dose nasal spray (4 sources) Histamine-1 Receptor Antagonist Start: 04-21-2023 take 1 spray(s) nasal route in the morning Azelastine HCl 137 MCG/SPRAY solution Indications: Seasonal allergic rhinitis due to pollen Administer 1 spray into affected nostril(s) in the morning and 1 spray before bedtime. 30 mL 5 04/21/2023 Active baclofen 10 mg oral tablet (7 sources) gamma-Aminobutyric Acid-ergic Agonist Start: 02-10-2024 take 1 tablet by mouth in the morning, then take 1 tablet by mouth in the evening, then take 1 tablet by mouth at bedtime baclofen (Lioresal) 10 MG tablet Indications: Sacroiliitis (CMS/HCC) TAKE 1 TABLET BY MOUTH IN THE MORNING, 1 TABLET IN THE EVENING AND 1 TABLET BEFORE BEDTIME. 270 tablet 1 02/10/2024 Active etodolac 300 mg oral capsule (4 sources) Nonsteroidal Anti-inflammatory Drug Start: 02-12-2024 etodolac (Lodine) 300 MG capsule 02/12/2024 Active FLUoxetine 20 mg oral capsule (9 sources) Serotonin Reuptake Inhibitor Start: 10-20-2023 take 1 capsule by mouth once daily FLUoxetine (PROzac) 20 MG capsule Indications: Depression, unspecified depression type (CMS/HCC) Take 1 capsule (20 mg) by mouth Daily 90 capsule 3 01/22/2024 Active fluticasone propionate 0.05 mg/actuat metered dose nasal spray (4 sources) Corticosteroid Start: 04-21-2023 take 1 spray(s) nasal route once daily fluticasone (Flonase) 50 MCG/ACT nasal spray Indications: Seasonal allergic rhinitis due to pollen INSTILL 1 SPRAY INTO EACH NOSTRIL ONE TIME EACH DAY AT THE SAME TIME 16 mL 5 04/21/2023 Active gabapentin 300 mg oral capsule (6 sources) Anti-epileptic Agent Start: 04-28-2024 take 1 capsule by mouth in the morning gabapentin (Neurontin) 300 MG capsule Take 300 mg by mouth in the morning and 300 mg before bedtime. 04/28/2024 Active Start: 04-07-2024 gabapentin (NE URONTIN) 100 mg capsule Twice daily 04/07/2024 Active loratadine 10 mg oral tablet (3 sources) Start: 02-02-2023 take 1 tablet by mouth in the morning loratadine (Claritin) 10 MG tablet Indications: Seasonal allergic rhinitis due to pollen Take 1 tablet (10 mg) by mouth in the morning. 30 tablet 02/02/2023 Active methocarbamol 500 mg oral tablet (5 sources) Muscle Relaxant Start: 06-03-2024 take 1 tablet by mouth every eight hours methocarbamoL (ROBAXIN) 500 mg tablet Take 1 tablet (500 mg total) by mouth every 8 (eight) hours. 06/03/2024 Active methylPREDNISolone 4 mg oral tablet (3 sources) Corticosteroid Start: 05-07-2024 take 1 tablet by mouth once Methylprednisolone (Medrol (Elpidio)) 4 mg tablets,dose pack Active 0 PO .COMPLEX May 07, 2024 12:00am orally per package directions ondansetron 4 mg oral tablet (5 sources) Serotonin-3 Receptor Antagonist Start: 11-27-2023 ondansetron (ZOFRAN) 4 mg tablet 11/27/2023 Active predniSONE 10 mg oral tablet (7 sources) Start: 06-03-2024 End: 07-14-2024 take 4 tablets by mouth once daily, then take 3 tablets by mouth once daily, then take 2 tablets by mouth once daily, then take 1 tablet by mouth once daily predniSONE (Deltasone) 10 MG tablet Indications: Lumbar pain , Acute bilateral low back pain with bilateral sciatica Take 4 tablets (40 mg) by mouth Daily for 4 days, THEN 3 tablets (30 mg) Daily for 4 days, THEN 2 tablets (20 mg) Daily for 4 days, THEN 1 tablet (10 mg) Daily for 4 days. 40 tablet 06/29/2024 07/14/2024 Active SUMAtriptan 25 mg oral tablet (10 sources) Serotonin-1b and Serotonin-1d Receptor Agonist Start: 10-20-2023 take 1 tablet by mouth once daily as needed, then take 1 tablet by mouth every two hours as needed SUMAtriptan (IMITREX) 25 mg tablet TAKE 1 TAB BY MOUTH ONCE A DAY NEEDED FOR MIGRAINES MAY REPEAT 1 TAB IN 2HRS IF NEEDED MAX 2/24HR 10/20/2023 Active Completed/Discontinued Medications Medication Drug Class(es) Dates Sig (Normalized) Sig (Original) traMADol hydrochloride 50 mg oral tablet (5 sources) Opioid Agonist Start: 10-20-2023 End: 05-07-2024 take 50 mg by mouth once daily Tramadol Discontinued 50 MG PO Daily October 20, 2023 1:00am May 07, 2024 3:29pm Problems Active Problems Problem Classification Problem Date Documented Date Episodic/Chronic E Codes: Fall (5 sources) Accidental fall ; Translations: [Fall (on) (from) other stairs and steps, sequela] Onset: 07-21-2024 07-21-2024 Episodic Headache; including migraine (4 sources) Migraine without aura, not refractory ; Translations: [Migraine without aura, not intractable, without status migrainosus] Onset: 01-29-2023 01-29-2023 Chronic Mood disorders (4 sources) Depressive disorder; Translations: [Depression] Onset: 02-02-2023 02-02-2023 Chronic Osteoporosis (4 sources) Osteoporosis; Translations: [Age-related osteoporosis without current pathological fracture] Onset: 02-17-2024 02-17-2024 Chronic Other connective tissue disease (1 source) Lateral epicondylitis, right elbow; Translations: [LATERAL EPICONDYLITIS RIGHT ELBOW] Onset: 11-06-2021 Episodic Other connective tissue disease (1 source) Spasm; Translations: [Other muscle spasm] 06-02-2024 Episodic Other non-traumatic joint disorders (3 sources) Pain in right elbow; Translations: [PAIN IN RIGHT ELBOW] Onset: 10-31-2021 Episodic Other non-traumatic joint disorders (1 source) Pain in right hip; Translations: [Pain in right hip] Onset: 06-15-2024 Episodic Other upper respiratory disease (4 sources) Allergic rhinitis due to pollen; Translations: [Allergic rhinitis due to pollen] Onset: 02-02-2023 02-02-2023 Chronic Paralysis (8 sources) Cauda equina syndrome; Translations: [Cauda equina syndrome] Onset: 02-17-2024 02-17-2024 Chronic Residual codes; unclassified (1 source) Cognitive perceptual pattern; Translations: [Unspecified symptoms and signs involving general sensations and perceptions] 07-21-2024 Episodic Residual codes; unclassified (1 source) Unspecified symptoms and signs involving general sensations and perceptions; Translations: [Unspecified symptoms and signs involving general sensations and perceptions] Onset: 07-21-2024 Episodic Residual codes; unclassified (1 source) Pain, unspecified; Translations: [Pain, unspecified] Onset: 07-13-2024 Episodic Spondylosis; intervertebral disc disorders; other back problems (6 sources) Inflammation of sacroiliac joint; Translations: [Sacroiliitis, not elsewhere classified] Onset: 01-19-2024 01-19-2024 Chronic Spondylosis; intervertebral disc disorders; other back problems (20 sources) Radicular pain; Translations: [Radiculopathy, site unspecified] Onset: 06-29-2024 03-24-2024 Episodic Unclassified (1 source) CONTACT W/AND (SUSP) EXPOS COVID-19; Translations: [CONTACT W/AND (SUSP) EXPOS COVID-19] Onset: 02-20-2021 Unclassified (1 source) Low back pain, unspecified; Translations: [Low back pain, unspecified] Onset: 05-07-2024 Unclassified (1 source) Encounter for screening for malignant neoplasm of colon; Translations: [Encounter for screening for malignant neoplasm of colon] Onset: 10-20-2023 Unclassified (1 source) Consult Onset: 07-21-2024 Past or Other Problems Problem Classification Problem Date Documented Da te Episodic/Chronic Abdominal pain (4 sources) Right upper quadrant pain; Translations: [Right upper quadrant pain] Onset: 09-10-2023 09-10-2023 Episodic E Codes: Fall (1 source) Accidental fall 07-21-2024 Other lower respiratory disease (4 sources) Cough; Translations: [COUGH] Onset: 02-12-2021 Episodic Other nervous system disorders (1 source) Parageusia; Translations: [PARAGEUSIA] Onset: 02-20-2021 Episodic Other nervous system disorders (1 source) Anosmia; Translations: [ANOSMIA] Onset: 02-20-2021 Episodic Other nervous system disorders (4 sources) Loss of sense of smell; Translations: [Anosmia] Onset: 01-29-2023 01-29-2023 Episodic Other nervous system disorders (4 sources) Loss of taste; Translations: [Parageusia] Onset: 01-29-2023 01-29-2023 Episodic Unclassified (1 source) Cognitive perceptual pattern 07-21-2024 Results Test Name Value Interpretation Reference Range Facility XR SPINE THORACIC 3 VWSon XR SPINE THORACIC 3 VWS XR SPINE THORACI C 3 VWS XR SPINE THORACIC 3 VWS HISTORY: Pain in thoracic spine; Fall (on) (from) other stairs and steps, initial encounter. COMPARISON: none IMPRESSION: Upper thoracic spine obscured by overlying tissues. No high-grade acute appearing thoracic vertebral body height loss. Mildly exaggerated thoracic kyphosis. Moderate disc height loss throughout the mid thoracic spine. 1 Finalized by Rogelio Sauer MD on 07/22/2024 1:41 PM Normal [facility] XR hip RT min 2V(w/wo pelvis )*on 06-15-2024 XR hip RT min 2V(w/wo pelvis)* [facility] [place] [address] XRay Report Signed Patient: Demario Wallace MR#: [id number] 22 : 1965 Acct:[id number] Age/Sex: 58 / F ADM Date: 06/15/24 Loc: EM Room: Type: [facility] Attending Dr: Vijay Stone DO Copies to: Vijay Stone DO Ordering Provider: Vijay N Bialaski, DO Date of Service: 06/15/24 XR/XR hip RT min 2V(w/wo pelvis)*: M25.551 - Pain in right hip XR hip RT min 2V(w/wo pelvis)* 06/15/2024 10:37 AM SIGNS AND SYMPTOMS: Right hip pain PROTOCOL: Frontal radiograph the pelvis with frontal and frog-leg views of the right hip COMPARISON: None FINDINGS: The bones are in anatomic alignment. The joint spaces are preserved. There is no fracture or dislocation. Degenerative changes are noted in the sacroiliac joints, right greater than left. XR/XR hip RT min 2V(w/wo pelvis)* IMPRESSION: Degenerative changes are noted in the sacroiliac joints right greater than left. No fracture or dislocation. Impression dictated by: Anton Gu M.D.06/15/2024 1:21 PM Dictation Location: [place] [address] Transcribed By: [facility] 06/15/24 1321 Dictated By: Anton Gu II, MD 06/15/24 1320 Signed By: 06/15/24 1321 Normal [facility] Automated basophil %Ordered By: Lillian Perkins on 05-07-2024 Basophils/100 WBC (Bld) 1.0 % Normal . [facility] Comment on above: Performed By: #### B MP, CBC #### [facility] [address] [place] [address] Automated basophil countOrde red By: Lillian Perkins on 05-07-2024 Basophils (Bld) [#/Vol] 0.1 10*3/uL Normal 0.0-0.2 [facility] Comment on above: Result Comment: PERF ORMED BY: [place] [address] PATHOLOGIST [employer] MELVIN PENA M.D. Performed By: #### B MP, CBC #### [facility] [address] [place] [address] Automated blood monocyte cou ntOrdered By: Lillian Perkins on 05-07-2024 Monocytes (Bld) [#/Vol] 0.4 10*3/uL Normal 0.0-0.8 [facility] Comment on above: Performed By: #### B MP, CBC #### [address] Automated eosinophil %Ordere d By: Lillian Timdemetris on 05-07-2024 Eosinophils/100 WBC (Bld) 9.2 % Normal . [facility] Comment on above: Performed By: #### B MP, CBC #### [address] Automated eosinophil countOr dered By: Lillian Dumontdemetris on 05-07-2024 Eosinophils (Bld) [#/Vol] 0.6 10*3/uL High 0.0-0.45 [facility] Comment on above: Performed By: #### B MP, CBC #### [address] Automated monocyte %Ordered By: Lillian Timdemetris on 05-07-2024 Monocytes/100 WBC (Bld) 7.3 % Normal . [facility] Comment on above: Performed By: #### B MP, CBC #### [address] Automated neutrophil %Ordere d By: Lillian Timdemetris on 05-07-2024 Neutrophils/100 WBC (Bld) 50.8 % Normal . [facility] Comment on above: Performed By: #### B MP, CBC #### [address] Basic Metabolic Panelon 09-0 Creatinine Clr Calc Pharmacy 71.01 Normal [facility] Comment on above: Result Comment: PERF ORMED BY: [place] [address] PATHOLOGIST [employer] MELVIN PENA M.D. Performed By: #### B MP, CBC #### [address] GFR/1.73 sq M.predicted MDRD (S/P/Bld) [Vol rate/Area] mL/min/{1.73_m2} Normal [facility] Comment on above: Performed By: #### B MP, CBC #### [facility] [address] Bilirubin Test strip Ql (U)O rdered By: Lillian Perkins on 05-07-2024 Bilirubin Ql (U) Negative Negative [facility] Calcium [Mass/volume] in Ser um or PlasmaOrdered By: Lillian Perkins on 05-07-2024 Calcium [Mass/Vol] 9.3 mg/dL Normal 8.6-10.3 [facility] Comment on above: Performed By: #### B MP, CBC #### [address] Carbon dioxide, total [Moles /volume] in Serum or PlasmaOrdered By: Lillian Perkins on 05-07-2024 CO2 [Moles/Vol] 27.1 mmol/L Normal 21.0-31.0 [facility] Comment on above: Performed By: #### B MP, CBC #### [address] Chloride [Moles/volume] in S israel or PlasmaOrdered By: Lillian Perkins on 05-07-2024 Chloride [Moles/Vol] 104 mmol/L Normal 98-107 [facility] Comment on above: Performed By: #### B MP, CBC #### [address] Color of Urine by AutoOrdere d By: Lillian Perkins on 05-07-2024 Color (U) Colorless Normal Yellow [facility] Comment on above: Order Comment: Name Collection Type:: Clean-Voided Midstream Performed By: #### U A #### [address] Complete Blood Count Auto Di ffon 05-07-2024 Mean Corpuscular HGB Conc 34.4 g/dL Normal 32.0-35.0 [facility] Comment on above: Performed By: #### B MP, CBC #### [place] [address] [place] Monocytes/100 WBC (Bld) 17.28 % Normal 0.00-20.00 Derrell randle [facility] Comment on above: Performed By: #### B MP, CBC #### [address] NRBC% 0.1 /100{WBC} Normal 0-0.5 [facility] Comment on above: Performed By: #### B MP, CBC #### [address] Creatinine [Mass/volume] in Serum or PlasmaOrdered By: Lillian Perkins on 05-07-2024 Creatinine [Mass/Vol] 0.90 mg/dL Normal 0.60-1.20 [facility] Comment on above: Performed By: #### B MP, CBC #### [address] Erythrocyte distribution wid th [Ratio] by Automated countOrdered By: Lillian Perkins on 05-07-2024 Erythrocyte distribution width (RBC) [Ratio] 13.7 % Normal 11.9-15.3 [facility] Comment on above: Performed By: #### B MP, CBC #### [place] [address] [place] Erythrocytes [#/volume] in B lood by Automated countOrdered By: Lillian Perkins on 05-07-2024 RBC (Bld) [#/Vol] 3.65 10*6/uL Normal 3.60-5.00 [facility] Comment on above: Performed By: #### B MP, CBC #### [place] [address] [place] Glucose [Mass/volume] in Ser um or PlasmaOrdered By: Lillian Perkins on 05-07-2024 Glucose [Mass/Vol] 78 mg/dL Normal 70-100 [facility] Comment on above: ADA recommended refe rence rangeRandom Glucose Reference Range is dependent on time and content of last meal. Glucose of more than 200 mg/dL in a nonstressed, ambulatory subject supports the diagnosis of Diabetes Mellitus. Result Comment: [place] Glucose Reference Range is dependent on time and content of last meal. Glucose of more than 200 mg/dL in a nonstressed, ambulatory subject supports the diagnosis of Diabetes Mellitus. ADA recommended reference range Performed By: #### B MP, CBC #### [address] Glucose [Mass/volume] in Uri ne by Test stripOrdered By: Lillian Perkins on 05-07-2024 Glucose Test strip (U) [Mass/Vol] Normal mg/dL Normal [facility] Hematocrit [Volume Fraction] of Blood by Automated countOrdered By: Lillian Perkins on 05-07-2024 Hematocrit (Bld) [Volume fraction] 32.5 % Low 34.0-46.4 [facility] Comment on above: Performed By: #### B MP, CBC #### [address] Hemoglobin Test strip Ql (U) Ordered By: Lillian Perkins on 05-07-2024 Hemoglobin Ql (U) Negative Negative [facility] Hemoglobin [Mass/volume] in BloodOrdered By: Lillian Perkins on 05-07-2024 Hemoglobin (Bld) [Mass/Vol] 11.2 g/dL Low 11.8-15.4 [facility] Comment on above: Performed By: #### B MIGNON, CBC #### [place] [address] [place] Ketones [Presence] in Urine by Test stripOrdered By: Lillian Perkins on 05-07-2024 Ketones Ql (U) Negative Normal Negative [facility] Comment on above: Order Comment: Name Collection Type:: Clean-Voided Midstream Performed By: #### U A #### [place] [address] [place] Leukocyte esterase [Presence ] in Urine by Test stripOrdered By: Lillian Perkins on 05-07-2024 Leukocyte esterase Test strip Ql (U) Negative Normal Negative [facility] Comment on above: Order Comment: Name Collection Type:: Clean-Voided Midstream Performed By: #### U A #### [address] Leukocytes [#/volume] correc shey for nucleated erythrocytes in Blood by Automated counOrdered By: Lillian Perkins on 05-07-2024 WBC corrected for nucl RBC Auto (Bld) [#/Vol] 6.2 10*3/uL 3.8-11.6 [facility] Leukocytes [#/volume] in Blo od by Automated countOrdered By: Lillian Perkins on 05-07-2024 WBC (Bld) [#/Vol] 6.2 10*3/uL Normal 3.8-11.6 [facility] Comment on above: Performed By: #### B MP, CBC #### [address] Lymphocytes [#/volume] in Bl ood by Automated countOrdered By: Lillian Perkins on 05-07-2024 Lymphocytes (Bld) [#/Vol] 2.0 10*3/uL Normal 1.00-4.8 [facility] Comment on above: Performed By: #### B MP, CBC #### [address] Lymphocytes/100 leukocytes i n Blood by Automated countOrdered By: Lillian Perkins on 05-07-2024 Lymphocytes/100 WBC (Bld) 31.7 % Normal . [facility] Comment on above: Performed By: #### B MP, CBC #### [address] MCH [Entitic mass] by Automa shey countOrdered By: Lillian Perkins on 05-07-2024 MCH (RBC) [Entitic mass] 30.6 pg Normal 24.7-34.3 [facility] Comment on above: Performed By: #### B MP, CBC #### [address] MCHC Auto (RBC) [Mass/Vol]Or dered By: Lillian Perkins on 05-07-2024 MCHC (RBC) [Mass/Vol] 34.4 g/dL 32.0-35.0 [facility] MCV [Entitic volume] by Auto mated countOrdered By: Lillian Perkins on 05-07-2024 MCV (RBC) [Entitic vol] 89.1 fL Normal 80-100 [facility] Comment on above: Performed By: #### B MP, CBC #### [facility] [address] [place] [address] Monocyte distribution width [Entitic volume] in Blood by AutomatedOrdered By: Lillian Perkins on 05-07-2024 Monocyte distribution width Auto (Bld) [Entitic vol] 17.28 % 0.00-20.00 [facility] Neutrophils [#/volume] in Bl ood by Automated countOrdered By: Lillian Perkins on 05-07-2024 Neutrophils (Bld) [#/Vol] 3.1 10*3/uL Normal 1.8-7.7 [facility] Comment on above: Performed By: #### B MP, CBC #### [facility] [address] [place] [address] Nitrite Test strip Ql (U)Ord ered By: Lillian Perkins on 05-07-2024 Nitrite Ql (U) Negative Negative [facility] No Panel InformationOrdered By: Lillian Perkins on 05-07-2024 Estimated GFR (CKD-EPI) > 60.0 mL/Min [facility] Creatinine Clearance (Chem 71.01 [facility] Nucleated erythrocytes [Pres ence] in Blood by Automated countOrdered By: Lillian Perkins on 05-07-2024 Nucleated RBC Auto Ql (Bld) 0.1 /100{WBC} 0-0.5 [facility] Platelet mean volume [Entiti c volume] in Blood by Automated countOrdered By: Lillian Perkins on 05-07-2024 Platelet mean volume (Bld) [Entitic vol] 7.8 fL Normal 6.3-10.7 [facility] Comment on above: Performed By: #### B MP, CBC #### [facility] [address] [place] [address] [place] Platelets [#/volume] in Bloo d by Automated countOrdered By: Lillian Perkins on 05-07-2024 Platelets (Bld) [#/Vol] 250 10*3/uL Normal 150-450 [facility] Comment on above: Performed By: #### B MP, CBC #### [facility] [address] Potassium [Moles/volume] in Serum or PlasmaOrdered By: Lillian Timdemetris on 05-07-2024 Potassium [Moles/Vol] 3.7 mmol/L Normal 3.5-5.1 [facility] Comment on above: Performed By: #### B MP, CBC #### [facility] [address] Protein Test strip (U) [Mass /Vol]Ordered By: Lillian Timdemetris on 05-07-2024 Protein (U) [Mass/Vol] Negative Negative [facility] Serum or plasma anion gap de terminationOrdered By: Lillian Timdemetris on 05-07-2024 Anion gap [Moles/Vol] 8.6 mmol/L Normal 6.0-15.0 [facility] Comment on above: Performed By: #### B MIGNON, CBC #### [place] [address] [place] Sodium [Moles/volume] in Ser um or PlasmaOrdered By: Lillian Timdemetris on 05-07-2024 Sodium [Moles/Vol] 136 mmol/L Normal 136-145 [facility] Comment on above: Performed By: #### B MIGNON, CBC #### [facility] [address] [place] [address] [place] Specific gravity Test strip (U) [Rel density]Ordered By: Lillian Timdemetris on 05-07-2024 Specific gravity (U) [Rel density] 1.008 1.001-1.030 [facility] Urea nitrogen [Mass/volume] in Serum or PlasmaOrdered By: Lillian Timdemetris on 05-07-2024 Urea nitrogen [Mass/Vol] 15 mg/dL Normal 7-25 [facility] Comment on above: Performed By: #### B MIGNON, CBC #### [facility] [address] [place] [address] [place] Urinalysison 05-07-2024 Bilirubin,Urine Negative Normal Negative [facility] Comment on above: Order Comment: Name Collection Type:: Clean-Voided Midstream Performed By: #### U A #### [address] Glucose Ql (U) Normal Normal Normal [facility] Comment on above: Order Comment: Name Collection Type:: Clean-Voided Midstream Performed By: #### U A #### [place] [address] [place] Nitrite,Urine Negative Normal Negative [facility] Comment on above: Order Comment: Name Collection Type:: Clean-Voided Midstream Performed By: #### U A #### [address] Occult Blood,Urine Negative Normal Negative [facility] Comment on above: Order Comment: Name Collection Type:: Clean-Voided Midstream Result Comment: PERF ORMED BY: [place] [address] PATHOLOGIST [employer] MELVIN PENA M.D. Performed By: #### U A #### [address] Protein,Urine Negative Normal Negative [facility] [facility] Comment on above: Order Comment: Name Collection Type:: Clean-Voided Midstream Performed By: #### U A #### [place] [address] [place] Specificy [place],Urine 1.008 Normal 1.001-1.030 [facility] Comment on above: Order Comment: Name Collection Type:: Clean-Voided Midstream Performed By: #### U A #### [place] [address] [place] Urobilinogen,Urine Normal Normal Normal [facility] Comment on above: Order Comment: Name Collection Type:: Clean-Voided Midstream Performed By: #### U A #### [place] [address] [place] Urine appearanceOrdered By: Lillian Perkins on 05-07-2024 Appearance (U) Clear Normal Clear [facility] Comment on above: Order Comment: Name Collection Type:: Clean-Voided Midstream Performed By: #### U A #### [facility] [address] [place] [address] Urobilinogen Test strip (U) [Mass/Vol]Ordered By: Lillian Perkins on 05-07-2024 Urobilinogen (U) [Mass/Vol] Normal mg/dL Normal [facility] pH of Urine by Test stripOrd ered By: Lillian Perkins on 05-07-2024 pH (U) 6.5 [pH] Normal 5.0-9.0 [facility] Comment on above: Order Comment: Name Collection Type:: Clean-Voided Midstream Performed By: #### U A #### [facility] [address] [place] [address] XR lumbar spine AP/LAT/FLX/E XTon 03-24-2024 XR lumbar spine AP/LAT/FLX/EXT [facility] Main [place] [address] [place] [address] XRay Report Signed Patient: Demario Wallace MR#: [id number] 22 : 1965 Acct:[id number] Age/Sex: 58 / F ADM Date: 03/24/24 Loc: XD Room: Type: [facility] Attending Dr: Lottie Shaikh APRN Copies to: [...] L5-S1. Impression dictated by: Manolo Romero Jr., Angelica03/24/2024 12:57 PM Dictation Location: [place] [address] Transcribed By: LILLIANA 03/24/24 1257 Dictated By: Manolo Romero Jr, DO 03/24/24 1255 Signed By: 03/24/24 1257 Normal [facility] CT ABDOMEN PELVIS W [...] by: QUANG COOLEY Date: 2021-10-31 08:19 Normal [facility] Q - CULTURE,URINE,ROUTINEon 10-08-2021 CULTURE, URINE, ROUTINE SEE NOTE Normal [facility] [place] [facility] Comment on above: Order Comment: [facility] Testing performed at: [employer], [address], [address] [place], [address], Drill Sergeant: Guillaume Scanlon MD [facility] Collection Date/Time: [id number] [facility] Results Received Date/Time: [facility] Reported Date/Time: Result Comment: CULT URE, URINE, ROUTINE Micro Number: [id number] Test Status: Final Specimen Source: Urine Specimen Quality: Adequate Result: Mixed genital charly isolated. These superficial bacteria are not indicative of a urinary tract infection. No further organism identification is warranted on this specimen. If clinically indicated, recollect clean-catch, mid-stream urine and transfer immediately to Urine Culture Transport Tube. Performed By: #### 6 [id number] #### [facility] Default [address] [place] [address] XR CHEST 2 Von 02-13-2021 XR CHEST [...] DESEAN SALMERON Date: 2021-02-13 05:10 Normal [facility] Covid-19 PCR (CVDTBH)on 01-29 SARS-CoV-2 (COVID-19) RNA LEOBARDO+probe Ql (Unsp spec) Not detected Normal NOT DETECTED [facility] Comment on above: Result Comment: This test is not yet approved or cleared by the [place] FDA. When there are no FDA-approved or cleared tests available, and other criteria are met, FDA can make tests available under an emergency access mechanism called an Emergency Use Authorization (EUA). The EUA for this test is supported by the Rfid Systems Engineer of Health and Human Service's (HHS's) declaration [...] SARS-CoV-2. Performed By: #### C [facility] #### [facility] [address] [place] [address] Cheli Jones Vital Signs Date Time Vital Sign Value Performing Clinician Facility 07-21-2024 10:35-0500 Body height 170.2 cm Karely Brown SHEETER OPERATOR-SPACE PLANNER Work Phone: [facility] 07-21-2024 10:35-0500 Body mass index (BMI) [Ratio] 27.41 kg/m2 Karely Brown SHEETER OPERATOR-SPACE PLANNER Work Phone: [facility] 07-21-2024 10:35-0500 Body weight 79.38 kg Karely Brown SHEETER OPERATOR-SPACE PLANNER Work Phone: [facility] 06-29-2024 11:110400 Body height 170.2 cm Yasmeen Rivas LOAN REVIEW MANAGER Work Phone: [facility] 06-29-2024 11:110400 Body mass index (BMI) [Ratio] 27.72 kg/m2 Yasmeen Rivas LOAN REVIEW MANAGER Work Phone: [facility] 06-29-2024 11:11040 Body weight 80.29 kg Yasmeen Rivas LOAN REVIEW MANAGER Work Phone: [facility] 06-29-2024 11:11-0400 Diastolic blood pressure 72 mm[Hg] Yasmeen Rivas LOAN REVIEW MANAGER Work Phone: [facility] 06-29-2024 11:11-0400 Heart rate 87 /min Yasmeen Desoto LOAN REVIEW MANAGER Work Phone: [facility] 06-29-2024 11:11-0400 SaO2% (BldA) [Mass fraction] 99 % Yasmeen Desoto LOAN REVIEW MANAGER Work Phone: [facility] 06-29-2024 11:11-0400 Systolic blood pressure 104 mm[Hg] Yasmeen Rob LOAN REVIEW MANAGER Work Phone: [facility] 06-20-2024 09:39-0400 Body height 162.56 cm MD Dipak Gray Work Phone: [facility] 06-20-2024 09:39-0400 Body mass index (BMI) [Ratio] 30.4 kg/m2 MD Dipak Gray Work Phone: [facility] 06-20-2024 09:39-0400 Body weight 80.45 kg MD Dipak Gray Work Phone: [facility] 05-24-2024 14:17-0400 Body height 162.56 cm MD Dipak Gray Work Phone: [facility] 05-24-2024 14:17-0400 Body mass index (BMI) [Ratio] 30.4 kg/m2 MD Dipak Gray Work Phone: [facility] 05-24-2024 14:17-0400 Body weight 80.28 kg MD Dipak Gray Work Phone: [facility] 05-07-2024 15:32-0400 Diastolic blood pressure 69 mm[Hg] MD Dipak Gray Work Phone: [facility] 05-07-2024 15:32-0400 Heart rate 69 /min MD Dipak Gray Work Phone: [facility] 05-07-2024 15:32-0400 Respiratory rate 16 /min MD Dipak Gray Work Phone: [facility] 05-07-2024 15:32-0400 SaO2% (BldA) [Mass fraction] 97 % MD Dipak Gray Work Phone: [facility] 05-07-2024 15:32-0400 Systolic blood pressure 112 mm[Hg] MD Dipak Gray Work Phone: [facility] 05-07-2024 14:37-0400 Body height 162.56 cm MD Dipak Gray Work Phone: [facility] 05-07-2024 14:37-0400 Body temperature 98.3 [degF] MD Dipak Gray Work Phone: [facility] 05-07-2024 14:37-0400 Body weight 81 kg MD Dipak Gray Work Phone: [facility] 04-07-2024 08:27-0400 Body weight 80.28 kg MD Dipak Gray Work Phone: [facility] 03-24-2024 08:27-0400 Body height 170.18 cm MD Dipak Gray Work Phone: [facility] 03-24-2024 08:27-0400 Body mass index (BMI) [Ratio] 27.6 kg/m2 MD Dipak Gray Work Phone: [facility] 03-24-2024 08:27-0400 Body weight 80.05 kg MD Dipak Gray Work Phone: [facility] 10-20-2023 10:39-0500 Diastolic blood pressure 60 mm[Hg] MD Dipak Gray Work Phone: [facility] 10-20-2023 10:39-0500 Heart rate 73 /min MD Dipak Gray Work Phone: [facility] 10-20-2023 10:39-0500 Respiratory rate 18 /min MD Dipak Gray Work Phone: [facility] 10-20-2023 10:39-0500 SaO2% (BldA) [Mass fraction] 98 % MD Dipak Gray Work Phone: [facility] 10-20-2023 10:39-0500 Systolic blood pressure 113 mm[Hg] MD Dipak Gray Work Phone: [facility] 10-20-2023 08:37-0500 Body height 170.18 cm MD Dipak Gray Work Phone: [facility] 10-20-2023 08:37-0500 Body temperature 97.8 [degF] MD Dipak Gray Work Phone: [facility] 10-20-2023 08:37-0500 Body weight 79.37 kg MD Dipak Gray Work Phone: [facility] Encounters Encounter Date Encounter Type Care Provider Facility Start: 07-21-2024 End: 07-21-2024 ambulatory [facility] Start: 07-21-2024 End: 07-21-2024 Office outpatient new 45 minutes Karelypriyank Brown SHEETER OPERATOR-SPACE PLANNER Work Phone: [facility] Comment on above: Spinal stenosis of l umbar region with neurogenic claudication (Primary Dx); Pain in thoracic spine; Fall (on) (from) other stairs and steps, sequela; Fall (on) (from) other stairs and steps, initial encounter; Sensory deficit present Start: 07-21-2024 End: 07-21-2024 ambulatory [facility] Start: 07-13-2024 ambulatory KARELY BROWN [facility] Start: 06-29-2024 End: 06-29-2024 Bamboo flowsheet Yasmeen Rivas LOAN REVIEW MANAGER Work Phone: [facility] Start: 06-29-2024 End: 06-29-2024 Bamboo flowsheet Yasmeen Rivas LOAN REVIEW MANAGER Work Phone: [facility] Start: 06-29-2024 End: 06-29-2024 ambulatory YASMEEN RIVAS Not Available Start: 06-29-2024 End: 06-29-2024 Office outpatient visit 25 minutes Yasmeen Rivas LOAN REVIEW MANAGER Work Phone: [facility] Comment on above: Cauda equina syndrom e (Primary Dx); Lumbar pain; Acute bilateral low back pain with bilateral sciatica; Sacroiliitis (CMS/HCC) Start: 06-20-2024 End: 06-20-2024 ambulatory MD Dipak Gray Work Phone: [facility] Work Phone: Start: 06-20-2024 End: 06-20-2024 Patient encounter procedure MD Dipak Gray Work Phone: [facility] Work Phone: Start: 06-15-2024 End: 06-15-2024 Patient encounter procedure MD Dipak Gray Work Phone: [facility] Work Phone: Start: 06-15-2024 End: 06-15-2024 ambulatory MD Dipak Gray Work Phone: [facility] Work Phone: Start: 06-02-2024 End: 06-03-2024 Refill Yasmeen Rivas LOAN REVIEW MANAGER Work Phone: [facility] Comment on above: Muscle spasm Start: 05-24-2024 End: 05-24-2024 Patient encounter procedure MD Dipak Gray Work Phone: [facility] Work Phone: Start: 05-16-2024 End: 05-16-2024 ambulatory Yodit Paz MD Facility:[facility] Start: 05-07-2024 End: 05-07-2024 Emergency department patient visit MD Dipak Gray Work Phone: [facility] Work Phone: Start: 04-07-2024 End: 04-07-2024 Patient encounter procedure MD Dipak Gray Work Phone: [facility] Work Phone: Start: 03-24-2024 End: 03-24-2024 ambulatory MD Dipak Gray Work Phone: [facility] Work Phone: Start: 03-24-2024 End: 03-24-2024 Patient encounter procedure MD Dipak Gray Work Phone: [facility] Work Phone: Start: 02-17-2024 End: 02-17-2024 ambulatory YASMEEN RIVAS Not Available Start: 01-19-2024 End: 01-19-2024 ambulatory DIPAK GRAY Not Available Start: 10-20-2023 Non-patient / Non-visit MD Dipak Gray Work Phone: [facility] G[facility] Work Phone: Start: 10-20-2023 End: 10-20-2023 Admission to same day surgery center MD Dipak Gray Work Phone: [facility] Work Phone: Start: 10-20-2023 End: 10-20-2023 ambulatory MD Dipak Gray Work Phone: [facility] Work Phone: Start: 10-16-2023 End: 10-16-2023 ambulatory [...] Date Procedure Procedure Detail Performing Clinician Start: 06-15-2024 Plain X-ray of right hip MD Dipak Gray Work Phone: Start: 03-24-2024 X-ray of lumbar spine, four views MD Dipak Gray Work Phone: Start: 10-20-2023 Screening colonoscopy MD Dipak Gray Work Phone: Start: 01-29-2023 History of total hysterectomy History of total hysterectomy Yasmeen Rivas LOAN REVIEW MANAGER Work Phone: Start: 04-17-2021 Mammography Yasmeen Rivsa LOAN REVIEW MANAGER Work Phone: Plan of Treatment Date Care Activity Detail Author Start: 07-21-2025 Adult BMI Screening Adult BMI Screen ing [facility] Start: 07-21-2025 Tobacco Screening Tobacco Screening [facility] Start: 05-01-2024 COVID-19 Vaccine ( season) COVID-19 Vaccine () [facility] Start: 05-01-2024 Influenza vaccination [facility] Start: 04-07-2024 Patient referral [facility] Work Phone: Start: 10-20-2023 [facility] Start: 04-17-2022 Screening for malign ant neoplasm of breast Mammogram [facility] Start: 2016 Administration of varicella zoster vaccine Zoster (Shingles) Vaccine (1 of 2) [facility] Start: 1985 DTaP,Tdap and Td Vac cines (1 - Tdap) DTaP,Tdap and Td Vaccines (1 - Tdap) [facility] Start: 1984 Adult BMI Follow Up Plan Adult BMI Follow Up Plan [facility] Start: 1978 Depression Screening Depression Scre ening [facility] Start: 1966 Screening for malign ant neoplasm of colon [facility] Electromyography [facility] End: 07-21-2025 MR Thoracic spine WO contrast MR thoracic spine without contrast Imaging Routine Pain in thoracic spine Fall (on) (from) other stairs and steps, initial encounter Sensory deficit present 1 Occurrences starting 07/21/2024 until 07/21/2025 [employer] Comment on above: 1 Occurrences starti ng 07/21/2024 until 07/21/2025 Patient Education [facility] Work Phone: Patient referral [facility] Work Phone: End: 07-21-2025 XR Thoracic spine 3 Views X-ray spine thoracic 3 views Imaging Routine Pain in thoracic spine Fall (on) (from) other stairs and steps, initial encounter 1 Occurrences starting 07/21/2024 until 07/21/2025 [employer] Work Phone: Comment on above: 1 Occurrences starti ng 07/21/2024 until 07/21/2025 XR Thoracic spine 3 Views X-ray spine thoracic 3 views Imaging Routine Pain in thoracic spine Fall (on) (from) other stairs and steps, initial encounter 07/21/2024 11:33 AM EST [facility] Immunizations Immunization Date Immunization Notes Care Provider Parag acosta 04-25-2022 Pfizer Purple Cap SARS-CoV-2 Vaccination Yasmeen Rivas LOAN REVIEW MANAGER Work Phone: [facility] 08-16-2021 Pfizer Purple Cap SARS-CoV-2 Vaccination Yasmeen Rivas LOAN REVIEW MANAGER Work Phone: [facility] 06-26-2015 influenza, injectabl e, quadrivalent, preservative free Yasmeen Rivas LOAN REVIEW MANAGER Work Phone: [facility] 06-26-2015 influenza virus vacc ine, unspecified formulation Yasmeen Rivas LOAN REVIEW MANAGER Work Phone: [facility] Healthcare Payers Date Payer Category Payer Self-pay 2022 [employer] - Other ANTH [id number] 2022 [facility] er [id number] 2022 Unknown 1965 Unknown [id number] 2.16.840.1.780335.3.579. 2.593 1966 Unknown [id number] 2.16.840.1.521613.3.579. 2.593 1966 Unknown [id number] 2.16.840.1.099125.3.579. 2.593 1966 Unknown [id number] 2.16.840.1.812222.3.579. 2.196 1966 Unknown [id number] 2.16.840.1.339164.3.579. 2.1259 1966 Unknown [id number] 2.16.840.1.977701.3.579. 2.1259 1966 Unknown [id number] 2.16.840.1.386848.3.579. 2.1259 1966 Unknown [id number] 2.16.840.1.938704.3.579. 2.1259 1966 Unknown [id number] 2.16.840.1.466653.3.579. 2.1259 1966 Unknown [id number] 2.16.840.1.300889.3.579. 2.1259 1966 Unknown [id number] 2.16.840.1.891761.3.579. 2.1286 1966 Unknown [id number] 2.16.840.1.902585.3.579. 2.1286 1959 Unknown [id number] 1959 Unknown [id number] Unknown [id number] 2.16.840.1.605246.3.579. 2.531 Unknown [id number] 2.16.840.1.527073.3.579. 2.531 Unknown [id number] 2.16.840.1.230271.3.579. 2.531 Unknown [id number] 2.16.840.1.632859.3.579. 2.531 Social History Date Type Detail Facility Start: 04-21-2023 End: 10-20-2023 Tobacco smoking status VTIS Ex-smoker (finding) [facility] Start: 1965 Sex Assigned At Female F [facility] Start: 08-31-2014 End: 08-31-2017 History of tobacco use Current smoker [facility] Start: 08-31-2014 End: 08-31-2017 History of tobacco use Cigarette Smoker [facility] Start: 04-21-2023 End: 07-21-2024 Cigarettes smoked current (pack per day) - Reported 0.3 [facility] Start: 04-21-2023 End: 07-21-2024 Tobacco use and exposure Smokeless tobacco non-user [facility] Start: 02-17-2024 End: 06-29-2024 Alcoholic beverage intake Lifetime non-drinker (finding) [facility] Start: 04-01-2024 End: 07-21-2024 B1300 Health Literacy [facility] How often do you nee d to have someone help you when you read instructions, pamphlets, or other written material from your doctor or pharmacy [SILS] Never [facility] How often to you hav e a drink containing alcohol? Never [facility] Do you feel stress - tense, restless, nervous, or anxious, or unable to sleep at night because your mind is troubled all the time - these days [OSQ] To some extent [facility] (I/We) worried whether (my/our) food would run out before (I/we) got money to buy more. Never true [facility] In the past 12 months, was there a time when you were not able to pay the mortgage or rent on time? No [facility] Start: 1965 Sex assigned at Not on file [facility] Start: 07-21-2024 Tobacco smoking status NHIS Never smoked tobacco [facility] Start: 07-21-2024 Alcoholic beverage intake Ex-drinker (finding) [facility] Start: 07-13-2024 Sex Female (finding) [facility] NEGATED: Highlighted row [facility] Goals Date Patient Goal Desired Activity /State Clinical Notes 10-20-2023 to 07-21-2024 Karely Brown APRN-ERNA - 07/21/2024 10:30 AM ESTPatient InstructionsYasmeen Rivas NP - 06/29/2024 11:00 AM EDTTelephone Encounter - RICHARD Hernandez - 06/03/2024 8:21 AM EDT Note Date & Type Note Facility 07-21-2024 History of Presen t illness Narrative Images from the original note were not included. [facility] [address] [place] [address], [address] [place] [address] * CHART NOTE ? 07/21/2024 Patient: Demario Wallace 1965 [id number] Physician: ERNA Ramirez MD CHIEF COMPLAINT New patient, lumbar. HISTORY OF PRESENT ILLNESS 58-year-old female presents to the clinic for a new patient visit regarding low back pain that significantly worsened several months ago after falling down the stairs at home. Today, Demario reports a constant pain and pressure in the low back that becomes severe when standing and walking. She advises she has constant pain in the bilateral buttocks with intermittent pain into the bilateral anterior thighs. She advises there is a spot in the midline mid back that is constantly numb. She admits to weakness in the BLE, and states she cannot control her bowels, and has had incontinence. She states she also began to notice an area in her low back that seems like her back caved in . She advises she has great difficulty with ADLs and being able to work. She completed PT without improvement and had lumbar ESIs approximately 2 months ago with only short-term relief (2 to 3 days). She also so Neurosurgery in [place], and was advised they could not help her. Denies loss of fitness floor attendant strength, saddle anesthesia, urinary dysfunction. ALLERGIES No Known Allergies MEDICATIONS Current Outpatient Medications: gabapentin (NEURONTIN) 100 mg capsule, Twice daily, Disp: , Rfl: HYDROcodone-acetaminophen (NORCO) 5-325 mg per tablet, TAKE 1 TABLET BY MOUTH EVERY 6 HOURS NEEDED FOR SEVERE PAIN FOR UP TO 5 DAYS, Disp: , Rfl: methocarbamoL (ROBAXIN) 500 mg tablet, Take 1 tablet (500 mg total) by mouth every 8 (eight) hours., Disp: , Rfl: ondansetron (ZOFRAN) 4 mg tablet, , Disp: , Rfl: SUMAtriptan (IMITREX) 25 mg tablet, TAKE 1 TAB BY MOUTH ONCE A DAY NEEDED FOR MIGRAINES MAY REPEAT 1 TAB IN 2HRS IF NEEDED MAX 2/24HR, Disp: , Rfl: VITAL SIGNS Ht 170.2 cm (5' 7 ) Wt 79.4 kg (175 lb) BMI 27.41 kg/m PHYSICAL EXAMINATION Alert Oriented No percussion tenderness along spine Absent Lhermitte's Absent Spurling ROM of the low back is significantly limited 3-4/5 bilateral iliopsoas weakness; 4/5 BUE weakness related to severity of pain No pathological reflexes No atrophy No fasciculations Sensation to light touch is decreasead in the bilateral anterior thighs; there is also a sensory deficit/numbness in the midline thoracic spine Gait is quite antalgic - patient cannot stand upright due to severity of pain GARY is negative SLR is positive bilaterally MRI / IMAGES Lumbar MRI without contrast 02/26/2024 Multilevel disc bulging and facet arthropathy lead to central and foraminal narrowing. IMPRESSION / PLAN 58 yo female presents for a new patient visit with report of severe back and BLE pain that has progressively worsened after falling down the stairs several months ago. Thoracic x-rays completed in the office today to rule out compression fracture. We will refer to pain management in [place] for evaluation and treatment of back pain. We will also obtain a thoracic MRI without contrast for further evaluation of constant numbness with sensory deficit in the midline mid back. Electronically Signed By: Karely Brown CNP in conjunction with Arturo Silverman MD This note was created with the assistance of a speech recognition program with the goal of generating a timely record of the patient encounter. Inadvertent computerized insulation engineman errors related to syntax, spelling, homophones, and/or inaudibility may be present. HAYDEE Rosenbaum 07/21/24 1240 documented in this encounter [facility] 07-21-2024 Instructions Italia Jama CMA - 07/21/2024 10:30 AM EST Patient was seen by Dior emanuel. MRI ordered. Pain management offered. Pt to f/u PRN SS documented in this encounter [facility] 06-29-2024 History of Presen t illness Narrative Images from the original note were not included. Subjective Patient ID: Demario Wallace is a 58 y.o. female who presents for Back Pain. Pt did have a MRI and did see dr carter office and they are not willing to do anything they told her to go to ER or come to PCP Pt states her back is caving in , this started this week ,pt can hardly walk in lots of pain , she is also having trouble with her bowels Pt did go to pain management and this has not helped her either Current Outpatient Medications on File Prior to Visit Medication Sig Dispense Refill gabapentin (Neurontin) 300 MG capsule Take 300 mg by mouth in the morning and 300 mg before bedtime. Azelastine HCl 137 MCG/SPRAY solution Administer 1 spray into affected nostril(s) in the morning and 1 spray before bedtime. 30 mL 5 baclofen (Lioresal) 10 MG tablet TAKE 1 TABLET BY MOUTH IN THE MORNING, 1 TABLET IN THE EVENING AND 1 TABLET BEFORE BEDTIME. 270 tablet 1 etodolac (Lodine) 300 MG capsule FLUoxetine (PROzac) 20 MG capsule Take 1 capsule (20 mg) by mouth Daily 90 capsule 3 fluticasone (Flonase) 50 MCG/ACT nasal spray INSTILL 1 SPRAY INTO EACH NOSTRIL ONE TIME EACH DAY AT THE SAME TIME 16 mL 5 loratadine (Claritin) 10 MG tablet Take 1 tablet (10 mg) by mouth in the morning. 30 tablet 0 methocarbamol (Robaxin) 500 MG tablet TAKE 1 TABLET BY MOUTH EVERY 8 HOURS 60 tablet 0 ondansetron (Zofran) 4 MG tablet predniSONE (Deltasone) 10 MG tablet TAKE 4 TABS FOR 4 DAYS, THEN 3 TABS FOR 4 DAYS, THEN 2 TABS DAILY FOR 4 DAYS, THEN 1 TAB FOR 4 DAYS. 40 tablet 0 SUMAtriptan (Imitrex) 25 MG tablet TAKE 1 TAB BY MOUTH ONCE NEEDED FOR MIGRAINES.MAY REPEAT IN 2 HOURS IF NEEDED.MAX 2 PER 24HRS. 9 tablet 3 No current facility-administered medications on file prior to visit. I have reviewed and reconciled the history and medication list with the patient today. No Known Allergies Social History Tobacco Use Smoking status: Former Current packs/day: 0.00 Average packs/day: 0.3 packs/day for 3.0 years (0.8 ttl pk-yrs) Types: Cigarettes Start date: 2014 Quit date: 2018 Years since quittin.8 Smokeless tobacco: Never Substance Use Topics Alcohol use: Never Drug use: Never Family History Problem Relation Name Age of Onset Cancer Mother Past Medical History: Diagnosis Date Allergic Allergic rhinitis Depression (CMS/[facility]) Past Surgical History: Procedure Laterality Date HYSTERECTOMY 2005 Visit Vitals Smoking Status Former Review of Systems Constitutional: Negative. HENT: Negative. Eyes: Negative. Respiratory: Negative. Cardiovascular: Negative. Gastrointestinal: Negative. Genitourinary: Negative. Musculoskeletal: Positive for back pain. Neurological: Negative. Psychiatric/Behavioral: Negative. All other systems reviewed and are negative. Objective Physical Exam Vitals reviewed. Constitutional: Appearance: Normal appearance. HENT: Head: Normocephalic. Mouth/Throat: Mouth: Mucous membranes are moist. Pharynx: Oropharynx is clear. Cardiovascular: Rate and Rhythm: Normal rate. Pulmonary: Effort: Pulmonary effort is normal. Musculoskeletal: Lumbar back: Swelling, edema, deformity, spasms and tenderness present. Skin: General: Skin is warm and dry. Neurological: General: No focal deficit present. Mental Status: She is alert and oriented to person, place, and time. Psychiatric: Mood and Affect: Mood normal. Behavior: Behavior normal. Assessment/Plan Diagnoses and all orders for this visit: Cauda equina syndrome - Ambulatory referral to Spine Surgery; Future Await consult. She wants to go to [facility] but her friend went to someone in [place] so she will call with the name and we will send in a referral. She wants to go to whomever can get her in the quickest. Lumbar pain - Ambulatory referral to Spine Surgery; Future - predniSONE (Deltasone) 10 MG tablet; Take 4 tablets (40 mg) by mouth Daily for 4 days, THEN 3 tablets (30 mg) Daily for 4 days, THEN 2 tablets (20 mg) Daily for 4 days, THEN 1 tablet (10 mg) Daily for 4 days. Await consult. She wants to go to [facility] but her friend went to someone in [place] so she will call with the name and we will send in a referral. She wants to go to whomever can get her in the quickest. Acute bilateral low back pain with bilateral sciatica - Ambulatory referral to Spine Surgery; Future - HYDROcodone-acetaminophen (Beaumont) 5-325 MG tablet; Take 1 tablet by mouth every 6 (six) hours if needed for severe pain for up to 5 days - predniSONE (Deltasone) 10 MG tablet; Take 4 tablets (40 mg) by mouth Daily for 4 days, THEN 3 tablets (30 mg) Daily for 4 days, THEN 2 tablets (20 mg) Daily for 4 days, THEN 1 tablet (10 mg) Daily for 4 days. Do not take baclofen and hydrocodone together. Take one and then take the other medication. Await neurosurgery referral. MRI show protrusion of the discs but now her spine is more sunken in appearance. No follow-ups on file. documented in this encounter [facility] 06-03-2024 Telephone encounter Note Robaxin sent. [facility] 06-03-2024 Miscellaneous Notes Carmen sent. documented in this encounter [facility] 10-20-2023 Procedure note [facility] Evaluation note No assessment inform ation available [facility] Work Phone: Evaluation note Diagnosis Onset Date Lumbar pain acute Radicular low back pain acut e [facility] Work Phone: Evaluation note* Diagnosis Onset Date Resolution Status Lumbar pain acute Radicular low back pain acut e Lumbar pain acute Radicular low back pain acut e [facility] Work Phone: Evaluation note* Diagnosis Muscle spasm Spasm of muscle documented in this encounter [facility] Healthcare[facility] note* Diagnosis Onset Date Resolution Status Lumbar pain acute Radicular low back pain acut e Lumbar pain acute Radicular low back pain acut e Lumbar pain acute [facility] Work Phone: Evaluation note* Diagnosis Right upper quadrant abdominal pain- Primary Sacroiliitis (CMS/HCC)- Primary Sacroiliitis, not elsewhere classified Cauda equina syndrome- Primary Cauda equina syndrome without mention of neurogenic bladder Lumbar pain Lumbago Acute bilateral low back pain with bilateral sciatica Sacroiliitis (CMS/HCC) Sacroiliitis, not elsewhere classified documented in this encounter [facility] HealthcareEvaluation note* Diagnosis Spinal stenosis of lumbar region with neurogenic claudication- Primary Pain in thoracic spine Fall (on) (from) other stairs and steps, sequela Fall (on) (from) other stairs and steps, initial encounter Sensory deficit present Other general symptoms [facility] Author Torrey Conklin [facility] October 20, 2023 10:18am Note Date/Time October 20, 2023 10:18am [facility] [address] [place] [address] Gastroenterology H&P Signed Patient: Demario Wallace MR#: [id number] : 1965 Acct:[id number] Age/Sex: 58 / F Adm Date: 4 Loc: Room: Type: [facility] Attending Dr: Torrey Conklin MD [...] M.D. Documented By: Torrey Conklin MD 10/20/23 0938 Signed By: <Electronically signed by Torrey Conklin MD> 10/20/23 1018 [facility] Work Phone: Hospital Discharge instructions Additional Instructions It is important that you follow-up with Dr. Carter office on Thursday as discussed Continue gabapentin Start your Beaumont for severe pain You cannot work or drive when taking Beaumont You also can rotate Tylenol / Motrin Take steroids as prescribed Avoid heavy lifting Please return here if any problems persist or worsen including numbness, tingling, loss of bowel bladder control, respiratory concerns or any other concerns as needed [facility] Work Phone: Summary Purpose Family History [...] pain Lumbar pain Radicular low back pain Chief Complaint Bilateral low back p ain & bilateral sciatica m54.50 follow up low back pain sent by doctor f/u after injection, has increased pain M54.10 Reason for Visit Lumbar pain Radicular low back pain Lumbar pain Radicular low back pain Lumbar pain Chief Complaint Bilateral low back p ain & bilateral sciatica m54.50 follow up low back pain sent by doctor f/u after injection, has increased pain M54.10 emg x-ray results Reason for Visit Lumbar pain Radicular low back pain Lumbar pain Radicular low back pain Lumbar pain Additional Source Comments INFORMATION SOURCE (unrecogn ized section and content) DATE CREATED AUTHOR 10/10/2021 [facility] dical Specialist DATE CREATED AUTHOR AUTHOR'S ORGANIZ ATION 11/07/2021 [facility] DATE CREATED AUTHOR AUTHOR'S ORGANIZ ATION 05/27/2024 [facility] DATE CREATED AUTHOR AUTHOR'S ORGANIZ ATION 07/01/2024 [facility] dical Specialists EPIC DATE CREATED AUTHOR AUTHOR'S ORGANIZ ATION 07/08/2024 [facility] DATE CREATED AUTHOR AUTHOR'S ORGANIZ ATION 07/24/2024 [facility] DATE CREATED AUTHOR AUTHOR'S ORGANIZ ATION 07/24/2024 [facility] Care Teams (unrecognized sec tion and content) [...] 2024 Team Status: Inactive Member Role Status Dates Dipak Gray MD Primary Care Provider Active S tart: April 07, 2024 End: April 07, 2024 Lottie Shaikh APRN Attending Provider Active Start: April 07, 2024 End: April 07, 2024 Team Status: Inactive Member Role Status Dates Dipak Gray MD Primary Care Provider Active S tart: May 07, 2024 End: May 07, 2024 Lillian Perkins APRN Emergency Provider Active Start: May 07, 2024 End: May 07, 2024 Switch Inspector Relationship Specialty Start Date End Date Dipak Gray MD [address] [facility] [address] [place] [address] PCP - [place] [employer] 07/01/21Thursday, KALE Albert [address] [facility] [facility] [address] [place] [address] Licensed Practical Nurse Family Medicine 11/27/23 Team Status: Inactive Member Role Status Kath Gray MD Primary Care Provider Active S tart: May 24, 2024 End: May 24, 2024 Vijay Stone DO Attending Provider Active S tart: May 24, 2024 End: May 24, 2024 Team Status: Inactive Member Role Status Dates Dipak Gray MD Primary Care Provider Active S tart: June 15, 2024 End: June 15, 2024 Vijay Stone DO Attending Provider Active S tart: June 15, 2024 End: June 15, 2024 Team Status: Inactive Member Role Status Dates Dipak Gray MD Primary Care Provider Active S tart: June 20, 2024 End: June 20, 2024 Vijay Stone DO Attending Provider Active S tart: June 20, 2024 End: June 20, 2024 Switch Inspector Relationship Specialty Start Date End Date Dipak Gray MD [address] [place] [address] PCP - [place] [employer] 07/01/21Thursday, Bety, SOD FARMER [address] [place] [address] Licensed Practical Nurse Family Medicine 11/27/23 Switch Inspector Relationship Specialty Start Date End Date Dipak Gray MD [address] [place] [address] PCP - [place] [employer] 07/01/21Thursday, Bety, SOD FARMER [address] [place] [address] Licensed Practical Nurse Family Medicine 11/27/23 Goals (unrecognized section and content) Goals may be documented in a n alternate sectionGoals may be documented in an alternate sectionGoals may be documented in an alternate sectionGoals may be documented in an alternate sectionNot on filedocumented as of this encounter Reason for Visit (unrecogniz ed section and content) Reason Comments Med Refill Reason Comments Back Pain Reason Comments Consult electronic organ mechanic consult/lumbar/mr i being pushed-trent, xray-firelands/not wc/mailed pkt FOR RECORDS PERTAINING TO PATIENTS WHO ARE [...] BE BASED ON THE PRIMARY CLINICAL RECORDS. [employer] [facility]. provides no warranty or guarantee of the accuracy or completeness of information in this document.
--- NOTE | 2024-08-01 12:50 | P.CN_ITS ---
Consult Note: HPI Data of Consult Patient: known to practice within the last 3 years Consult date: 08/01/24 Requesting Physician: Yodit Paz MD Primary Care Provider: SWATI GRAY Consult Narrative Reason for consult: low back, bilateral lower extremity pain Narrative: 58yof who presents for assessment. she notes increasing low back and bilateral lower extremity pain, significantly worsened in past several weeks. she denies any trauma. she appears to be in significant discomfort. states that she cannot stand straight without significant pain. previous lumbar mri showed disc bulging with resultant stenosis at l3-4 and l4-5. had been evaluated by neurosurgery recently, who ordered thoracic mri because of some midback discomfort. she has been unable to continue in her daily provider directed home exercise program because of her significant pain. has tried gabapentin, nsaids, tylenol, muscle relaxers, all without much help. denies adverse med side effects. cc:: CC: Yodit Paz MD Review of Systems ROS Status of ROS 10 or more systems reviewed and unremark able except as noted in history and below PFSH [facility] Medical History Spinal stenosis, lumbar region with neurogenic claudication ?M48.062 - Spinal stenosis, lumbar region with neurogenic claudication (ICD- 10) Migraines ?G43.909 - Migraine, unspecified, not intractable, without status migrainosus (ICD-10) Social History Smoking status: Former smoker Meds Home Medications and Allergies Home Medications ?Medication ?Instructions ?Recorded ?Confirmed ?Type fluoxetine 20 mg capsule 20 mg PO QDAY 11/26/23 11/26/23 History fluticasone propionate 50 1 spray intranasal QDAY 11/26/23 11/26/23 History mcg/actuation nasal spray,suspension sumatriptan succinate 25 mg tablet 25 mg PO Q2H PRN migraine headache 11/26/23 11/26/23 History baclofen 10 mg tablet 10 mg PO TID PRN muscle spasm #90 04/28/24 Rx tabs gabapentin 300 mg capsule 300 mg PO BID #60 caps 04/28/24 Rx gabapentin 600 mg tablet 600 mg PO BID #60 tabs 08/01/24 Rx prednisone 20 mg tablet 20 mg PO TID #9 tabs 08/01/24 Rx Allergies Allergy/AdvReac Type Severity Reaction Status Date / Time No Known Drug Allergies Allergy Verified 11/26/23 20:28 Exam Narrative Exam Narrative: Psych-alert and oriented x 3. Attentive and appropriate, constitutionally normal, displays normal mood and affect per situation. There are no obvious deficits in memory, reasoning, or intellect.? Skin-no obvious rashes, bruising, erythema noted to the patient's area of pain.? Extremities- extremities are warm with minimal edema and palpable pulses. Lumbar-tenderness to palpation noted in the lumbar spine and paraspinal musculature. Pain is elicited with flexion, extension, and lateral rotation of the lumbar spine. Range of motion is diminished with these motions. Facet loading maneuvers are positive.? Strength-noted to be unremarkable with the exception of decreased strength rated at 4 out of 5 in bilateral quadriceps femoris, anterior tibialis. Sensory-no notable sensory deficits in the bilateral lower extremities to touch or pinprick in all dermatomal distributions with the exception to decreased sensation to the bilateral L3, 4, 5 dermatomal distribution Coordination remains intact.? Gait remains non-antalgic. Assessment and Plan Assessment and Plan (1) Lumbar radiculopathy: (2) Spinal stenosis, lumbar region with neurogenic claudication: Plan 58yof who presents for assessment. failed conservative measures, as noted. imaging reviewed, as noted. given her significantly worsening symptoms and exam findings, would like her to undergo lumbar mri without contrast to rule out new pathology. she is in agreement. meds reviewed, will trial prednisone 20mg tid x3 days. will increase gabapentin to 600mg bid. follow up after imaging.
== END 2024-08-01 11:45 | disposition home or self-care (01) ==
PROVIDERS: PCP Family Medicine; Visit Provider Anesthesiology
DX: M54.16 Radiculopathy, lumbar region (principal); M48.062 Spinal stenosis, lumbar region with neurogenic claudication
CPT/HCPCS: G0463

== ENCOUNTER 2024-09-06 08:54 | Outpatient (OUT) | payer BC, SELFPAY ==
--- NOTE | 2024-09-06 08:59 | MR_ITS ---
[address] [address] Patient Name: DEMARIO BOSWELL MRN: [id number] date: 1965 Sex: F Assigned Patient Location: MRI Current Patient Location: MRI Accession/Order Number: [id number] Exam Date: 09/06/2024 09:05 Report Date: 09/06/2024 14:29 At the request of: DENITA RODRIGUEZ Procedure: MR lumbar spine wo con MRI OF THE LUMBAR SPINE WITHOUT CONTRAST, 09/06/2024. HISTORY: Chronic low back pain. Radiculopathy. COMPARISON: MRI lumbar spine without contrast, 02/26/2024. TECHNIQUE: Multiplanar, multisequence MRI imaging of the lumbar spine without contrast. FINDINGS: Alignment of the lumbar spine normal. No acute compression fracture. Signal in the bone marrow spaces is appropriate. No suspicious osseous lesion. L5-S1, moderate degenerative disc disease stable. Mild facet arthropathy. No spinal canal stenosis. Disc space narrowing and endplate osteophyte complexes result in moderate foraminal narrowing bilaterally. This level is stable. L4-L5, moderate degenerative disc disease most prominent on the right side of the disc space stable. There is mild disc bulge. Mild facet arthropathy with ligamentum flavum thickening. There is mild central canal stenosis. Moderate right lateral recess stenosis. There is moderate right neural foraminal narrowing. No significant left foraminal narrowing. This level is stable. L3-L4, mild degenerative disc disease. Diffuse disc bulge. Mild facet arthropathy. Shallow central protrusion. There is mild spinal stenosis. Disc bulge results in mild to moderate right foraminal narrowing. Disc bulge and facet hypertrophy results in mild left foraminal narrowing. This level is stable. L2-L3, mild degenerative disc disease. Diffuse disc bulge. No spinal stenosis. No foraminal narrowing. This level is unchanged. L1-L2, mild disc bulge. No spinal stenosis. No significant neural foraminal narrowing. No abnormal signal in the conus medullaris. No paraspinal mass. MR/MR lumbar spine wo con IMPRESSION: 1. Stable MRI of the lumbar spine. 2. No acute compression fracture. 3. Mild to moderate multilevel degenerative disc disease and facet arthropathy is stable. 4. Degenerative changes result in mild spinal stenosis at L3-L4 and L4-L5 which is stable. 5. Foraminal narrowing at multiple levels as described above appears stable. Electronically authenticated by: MELISA COSTELLO Date: 09/06/2024 14:29
== END 2024-09-06 08:55 | disposition home or self-care (01) ==
LOC: MRI 08:54
PROVIDERS: PCP Family Medicine; Visit Provider Anesthesiology
DX: M48.062 Spinal stenosis, lumbar region with neurogenic claudication (principal)
CPT/HCPCS: 72148

== ENCOUNTER 2024-09-08 11:28 | Outpatient (OUT) | payer BC, SELFPAY ==
--- NOTE | 2024-09-08 11:57 | P.CN_ITS ---
Consult Note: HPI Data of Consult Patient: known to practice within the last 3 years Consult date: 08/01/24 Requesting Physician: Nicole Augustin NP Primary Care Provider: SWATI GRAY Consult Narrative Reason for consult: low back, bilateral lower extremity pain Narrative: 58yof who presents for assessment. she notes increasing low back and bilateral lower extremity pain, significantly worsened in past several weeks. she denies any trauma. she appears to be in significant discomfort. states that she cannot stand straight without significant pain. previous lumbar mri showed disc bulging with resultant stenosis at l3-4 and l4-5. had been evaluated by neurosurgery recently, who ordered thoracic mri because of some midback discomfort. she has been unable to continue in her daily provider directed home exercise program because of her significant pain. has tried gabapentin, nsaids, tylenol, muscle relaxers, all without much help. denies adverse med side effects. pain 9.5/10, denies loss of bowel/bladder. recently underwent thoracic and lumbar MRI, see chart for details. cc:: CC: Nicole Augustin NP Review of Systems ROS Status of ROS 10 or more systems reviewed and unremark able except as noted in history and below [facility] Medical History Spinal stenosis, lumbar region with neurogenic claudication ?M48.062 - Spinal stenosis, lumbar region with neurogenic claudication (ICD- 10) Migraines ?G43.909 - Migraine, unspecified, not intractable, without status migrainosus (ICD-10) Social History Smoking status: Former smoker Meds Home Medications and Allergies Home Medications ?Medication ?Instructions ?Recorded ?Confirmed ?Type fluoxetine 20 mg capsule 20 mg PO QDAY 11/26/23 11/26/23 History fluticasone propionate 50 1 spray intranasal QDAY 11/26/23 11/26/23 History mcg/actuation nasal spray,suspension sumatriptan succinate 25 mg tablet 25 mg PO Q2H PRN migraine headache 11/26/23 11/26/23 History baclofen 10 mg tablet 10 mg PO TID PRN muscle spasm #90 04/28/24 Rx tabs gabapentin 300 mg capsule 300 mg PO BID #60 caps 04/28/24 Rx gabapentin 600 mg tablet 600 mg PO BID #60 tabs 08/01/24 Rx prednisone 20 mg tablet 20 mg PO TID #9 tabs 08/01/24 Rx Allergies Allergy/AdvReac Type Severity Reaction Status Date / Time No Known Drug Allergies Allergy Verified 11/26/23 20:28 Exam Narrative Exam Narrative: Psych-alert and oriented x 3. Attentive and appropriate, constitutionally normal, displays normal mood and affect per situation. There are no obvious deficits in memory, reasoning, or intellect.? Skin-no obvious rashes, bruising, erythema noted to the patient's area of pain.? Extremities- extremities are warm with minimal edema and palpable pulses. Lumbar-tenderness to palpation noted in the lumbar spine and paraspinal musculature. Pain is elicited with flexion, extension, and lateral rotation of the lumbar spine. Range of motion is diminished with these motions. Facet loading maneuvers are positive.? Strength-noted to be unremarkable with the exception of decreased strength rated at 4 out of 5 in bilateral quadriceps femoris, anterior tibialis. Sensory-no notable sensory deficits in the bilateral lower extremities to touch or pinprick in all dermatomal distributions with the exception to decreased sensation to the bilateral L3, 4, 5 dermatomal distribution Coordination remains intact.? Gait remains non-antalgic. Assessment and Plan Assessment and Plan (1) Lumbar radiculopathy: (2) Spinal stenosis, lumbar region with neurogenic claudication: Plan 58yof who presents for assessment. failed conservative measures, as noted. imaging reviewed, as noted. given her significantly worsening symptoms and exam findings, [facility]. continue gabapentin 600mg HS. f/u after NS consultation at [facility] spine
== END 2024-09-08 11:29 | disposition home or self-care (01) ==
LOC: PM 11:28
PROVIDERS: PCP Family Medicine; Visit Provider Nurse Practitioner
DX: M54.16 Radiculopathy, lumbar region (principal); M48.062 Spinal stenosis, lumbar region with neurogenic claudication
CPT/HCPCS: G0463

== ENCOUNTER 2024-11-11 12:19 | Emergency (ER) | payer BC, SELFPAY ==
[2024-11-11 12:34] VITALS: BP 123/71; PULSE 79; TEMP 36.8; O2SAT 96; BMI 27.4
--- OUTSIDE RECORDS SUMMARY | 2024-11-11 12:46 | XMS_ITS | CCD ---
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 Name Role Phone DR SWATI GRAY Primary Care Unavailable MELBA RACHEL Admitting [...] Consulting Unavailable MD Torrey Conklin Attending Provider [phone] MD Swati Gray Primary Care Provider MD Swati Gray Primary Care Provider [phone] LEA Shaikh Attending Provider LEA Perkins Emergency Provider Swati Gray MD Unavailable Thursday DIRECTOR OF HEAD START, Bety Unavailable DO Vijay Stone Attending Provider SWATI GRAY Attending Unavailable SWATI GRAY Referring Unavailable MANDY FAM Attending Unavailable SWATI GRAY Attending Unavailable PAT RIVAS Attending Unavailable PAT RIVAS Attending Unavailable Swati Gray Primary Care Unavailable Lillian Perkins Admitting Unavailable Lillian Perkins Attending Unavailable Swati Gray Primary Care Unavailable Vijay Stone Admitting Unavailable Vijay Stone Attending Unavailable Swati Gray Primary Care Unavailable Lottie Shaikh Admitting Unavailable Lottie Shaikh Attending Unavailable Swati Gray Primary Care Unavailable Asaad, Imad Admitting Unavailable Asaad, Imad Attending Unavailable KARELY BROWN Attending Unavailable KARELY BROWN Referring Unavailable Jackson OWENS, Yodit Thomas Attending Unavailable Jackson OWENS, Yodit Thomas Attending Unavailable KARELY BROWN Referring Unavailable RobPat toth CNP Unavailable Demetria ERNABharathi Unavailable Unavailable Primary Care Provider UnavailTERENCE Jett Attending Unavailable BHARATHI MCQUEEN Referring Unavailable JAVIER PARKER Referring Unavailable Medications Current Medications Medication Drug Class(es) Dates Sig (Normalized) Sig (Original) acetaminophen 325 mg / HYDROcodone bitartrate 5 mg oral tablet (6 sources) Opioid Agonist Start: 06-29-2024 End: 07-04-2024 take 1 tablet by mouth every six hours for pain HYDROcodone-aceta minophen ([place]) 5-325 MG tablet Indications: Acute bilateral low back pain with bilateral sciatica Take 1 tablet by mouth every 6 (six) hours if needed for severe pain for up to 5 days 20 tablet 06/29/2024 07/04/2024 Active Start: 05-07-2024 take 1 tablet by puneet th every four to six hours Hydrocodone-Acetaminophen Active 1 TAB P O EVERY 4-6 HOURS 10 May 07, 2024 azelastine hydrochloride 0.137 mg/actuat metered [...] TIME 16 mL 5 04/21/2023 Active gabapentin 600 mg oral tablet (9 sources) Anti-epileptic Agent Start: 08-01-2024 take 1 tablet by mouth every twelve hours gabapentin (NEURONTIN) 600 mg tablet Take 1 tablet by mouth every 12 hours. 08/01/2024 Active Start: 04-28-2024 take 1 capsule by mo uth in the morning gabapentin (Neurontin) 300 MG capsule Take 300 mg by mouth in the morning and 300 mg before bedtime. 04/28/2024 Active Start: 04-07-2024 gabapentin (NE URONTIN) 100 mg capsule Twice daily 04/07/2024 Active loratadine 10 mg oral tablet (6 sources) Start: 02-02-2023 loratadine (CLARITIN) 10 mg tablet Take 10 mg by mouth. 02/02/2023 Active methocarbamol 500 mg oral tablet [...] 07/14/2024 Active SUMAtriptan 25 mg oral tablet (13 sources) Serotonin-1b and Serotonin-1d Receptor Agonist Start: 10-20-2023 SUMAtriptan (IMITREX) 25 mg tablet Take 25 mg by mouth as needed. 10/20/2023 Active Completed/Discontinued Medications Medication Drug Class(es) Dates Sig (Normalized) Sig (Original) traMADol hydrochloride 50 mg oral tablet (5 sources) Opioid Agonist Start: 10-20-2023 End: 05-07-2024 take 50 mg by mouth once daily Tramadol Discontinued 50 MG PO Daily October 20, 2023 1:00am May 07, 2024 3:29pm Problems Active Problems Problem Classification Problem Date Documented Date Episodic/Chronic E Codes: Fall (6 sources) Fall (on) (from) other stairs and steps, sequela; Translations: [Fall (on) (from) other stairs and steps, initial encounter] Onset: 07-21-2024 07-21-2024 Episodic Headache; including migraine (6 sources) Migraine without aura, not refractory ; Translations: [Migraine without aura, not intractable, without status migrainosus] Onset: 01-29-2023 01-29-2023 Chronic Mood disorders (6 sources) Depressive disorder; Translations: [Depression] Onset: 02-02-2023 02-02-2023 Chronic Osteoporosis (6 sources) Osteoporosis; Translations: [Age-related osteoporosis without current pathological fracture] Onset: 02-17-2024 02-17-2024 Chronic Other connective tissue disease (1 source) Lateral epicondylitis, right elbow; Translations: [LATERAL EPICONDYLITIS RIGHT ELBOW] Onset: 11-06-2021 Episodic Other connective tissue disease (1 source) Spasm; Translations: [Other muscle spasm] 06-02-2024 Episodic Other nervous system disorders (1 source) Chronic pain; Translations: [Other chronic pain] 11-08-2024 Chronic Other nervous system disorders (1 source) Other chronic pain; Translations: [Chronic bilateral low back pain with bilateral sciatica] Onset: 11-08-2024 Chronic Other non-traumatic joint disorders (3 sources) Pain in right elbow; Translations: [PAIN IN RIGHT ELBOW] Onset: 10-31-2021 Episodic Other non-traumatic joint disorders (1 source) Pain in right hip; Translations: [Pain in right hip] Onset: 06-15-2024 Episodic Other upper respiratory disease (6 sources) Allergic rhinitis due to pollen; Translations: [Allergic rhinitis due to pollen] Onset: 02-02-2023 02-02-2023 Chronic Paralysis (8 sources) Cauda equina syndrome; Translations: [Cauda equina syndrome] Onset: 02-17-2024 02-17-2024 Chronic Residual codes; unclassified (2 sources) Unspecified symptoms and signs involving general sensations and perceptions; Translations: [Unspecified symptoms and signs involving general sensations and perceptions] Onset: 07-21-2024 Episodic Residual codes; unclassified (1 source) Pain, unspecified; Translations: [Pain, unspecified] Onset: 07-13-2024 Episodic Residual codes; unclassified (2 sources) Chronic pain 11-09-2024 Episodic Spondylosis; intervertebral disc disorders; other back problems (11 sources) Inflammation of sacroiliac joint; Translations: [Sacroiliitis, [...] Onset: 02-20-2021 Episodic Other nervous system disorders (6 sources) Loss of sense of smell; Translations: [Anosmia] Onset: 01-29-2023 01-29-2023 Episodic Other nervous system disorders (4 sources) Loss of taste; Translations: [Parageusia] Onset: 01-29-2023 01-29-2023 Episodic Residual codes; unclassified (1 source) Cognitive perceptual pattern; Translations: [Unspecified symptoms and signs involving general sensations and perceptions] 07-21-2024 Episodic Unclassified (1 source) Cognitive perceptual pattern 07-21-2024 Results Test Name Value Interpretation Reference Range Facility [facility] 11-08-2024 CNOV Office Visit (SPNSMN) ---- DEMARIO WALLACE ([id number]) 1965 F Date Time Provider Department 11/08/24 11:00 AM TERENCE MCGUIRE NSIA During your visit today, we recorded the following information about you: Pulse Blood pressure Weight Height 80/minute 102/56 80.3 kg 1.702 m Terence Mcguire APRN.CNP 11/09/2024 11:36 AM Signed SPINE SURGERY NEW PATIENT This is an in-person visit. PCP: No primary care provider on file. REFERRING PROVIDER: Bharathi Mcqueen CNP SUBJECTIVE HISTORY OF PRESENT ILLNESS: Demario Wallace is a 59 year old female presenting with spouse. CHIEF COMPLAINT: Widespread pain PRECIPITATING EVENT: None DURATION OF SYMPTOMS: Greater Than 1 Year Demario is a 59-year-old, [id number]-xbdgipoo , non-smoker, non-diabetic. 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 Presents today with progressively worsening back pain. The pain started last summer and reports she went through conservative management. She then had a fall and reports symptoms worsen. She describes axial and bilateral low back pain that radiates up to the mid and upper back as well. She feels tender even to the slightest touch. She reports the pain radiates down both of her legs with no specific dermatomal pattern-reports the whole leg. Feels like her legs are giving out and she is falling due to the pain. States she is having difficulty getting through daily tasks and working given the significant amount of back pain she is experiencing. Denies leg heaviness, loss of control of bowel/bladder- endorses urgency, saddle anesthesia, impaired dexterity. PAIN EVALUATION 11/08/2024 1047 Pain Level: 10 Pain Location: Back-Lower upper back,buttocks,legs, hips Description: Crushing;Numbness;P ressure;Sharp;Shoot ing;Sore;Throbbing; Stiffness;Tingling; Tightness Duration Amount of Time: 9 Duration Units: Months Frequency: Continuous Intervention/Comfor t measure: Relaxation;Medicati on Pain Radiation: down the right and left thigh, below the right and left knee, and to the right and left foot/feet Aggravating Factors: Any slight movement Alleviating Factors: Medications Pain Ratio: Pain in the back is greater than in the leg DERMATOMAL DISTRIBUTION: Not applicable AMBULATORY STATUS: Independent Community Distances ANTIPLATELET OR ANTICOAGULATION STATUS: No PREVIOUS CONSERVATIVE TREATMENTS: OTC NSAIDS for 3 Months or Greater (Aleve and Tylenol / acetaminophen) Baclofen, gabapentin, oral steroids, robaxin, tyelnol, motrin, Gabapentin 600 mg nightly NSAIDs PT PREVIOUS SPINAL SURGERY: None ACTIVE PROBLEM LIST Anosmia Depression History of Total Hysterectomy Migraine Without Aura and Without Status Migrainosus, Not Intractable Osteoporosis Sacroiliitis (Hcc) Seasonal Allergic Rhinitis Due to Pollen No past medical history on file. No past surgical history on file. No family history on file. ALLERGIES Allergen Reactions Seasonal Allergies Unknown MEDICATIONS: gabapentin (NEURONTIN) 600 mg tablet Take 1 tablet by mouth every 12 hours. loratadine (CLARITIN) 10 mg tablet Take 10 mg by mouth. SUMAtriptan (IMITREX) 25 mg tablet Take 25 mg by mouth as needed. REVIEW OF SYSTEMS: GENERAL: No weight loss or malaise MUSCULOSKELETAL: See HPI NEURO: No history of headaches, syncope, paralysis, seizures or tremors Patient Entered Questionnaires PROMIS Score Percentiles Percentiles provide an indication of how the patient's score ranks in relation to the general population. Higher percentile rankings indicate better function/quality of life. 50th percentile is the average of the general population and indicates half of respondents had a worse score. Depression Screening: PHQ-9 Self-Harm (Item 9) response options: 0 Not at all 1 Several days 2 More than half the days 3 Nearly every day PHQ-9 Levels: 0-4 No to mild depression 5-9 Mild depression 10-14 Moderate depression 15-19 Moderately severe depression 20-27 Severe depression OBJECTIVE: PHYSICAL EXAM BP 102/56 Pulse 80 Ht 170.2 cm (5' 7 ) Wt 80.3 kg (177 lb) SpO2 98% BMI 27.72 kg/m? GENERAL APPEARANCE: Well nourished, well developed, and no apparent distress. NEURO PSYCH: Patient oriented to person, place, and time. Mood pleasant. Benign affect. Spine Exam Neck No obvious deformity, normal ROM Back No stepoffs/deformitie s. Widespread tenderness to light palpation along spinous processes or paravertebral musculature Upper Extremity Motor UE BICEPS TRICEPS DELTS Wrist Ext Wrist Flex Transmitter Engineer In Charge HI R 4+ giveaway 2/2 to pain 4+ giveaway 2/2 to pain 4+ giveaway 2/2 to pain 4+ giveaway 2/2 to pain 4+ giveaway 2/2 to pain 4+ giveaway 2/2 to pain 4+ giveaway 2/2 to pain L 4+ giveaway 2/2 to pain 4+ giveaway 2/2 to pain 4+ giveaway 2/2 to pain 4+ giveaway 2/2 to pain 4+ giveaway 2/2 to pain 4+ giveaway 2/2 to pain (more content not included)... 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 For the purposes of this report, L5-S1 is considered the most caudal well formed disc space. Minimal levocurvature in the upper thoracic spine centered at T2-3 with Amin angle measuring less than 10 degrees. No other scoliotic curvature. Mildly exaggerated lumbar lordosis with minimal grade 1 anterolisthesis at L4-5. Vertebral body heights are preserved. Multilevel degenerative changes are seen throughout the spine, most pronounced in ranging up to moderate in the mid thoracic and lower lumbar spine. IMPRESSION: Minimal levocurvature of the upper thoracic spine. Director Hospice Operations: ASHWINI Transcribe Date/Time: Nov 08 2024 10:46A Dictated by : NEELAM PHILLIPS MD This examination was interpreted and the report reviewed and electronically signed by: NEELAM PHILLIPS MD on Nov 08 2024 10:48AM EST [id number] Normal [facility] XR Thoracic and lumbar spine Views for scoliosis W standingon 11-08-2024 IMPRESSION: Minimal levocurvature of the upper thoracic spine. 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 For the purposes of this report, L5-S1 is considered the most caudal well formed disc space. Minimal levocurvature in the upper thoracic spine centered at T2-3 with Amin angle measuring less than 10 degrees. No other scoliotic curvature. Mildly exaggerated lumbar lordosis with minimal grade 1 anterolisthesis at L4-5. Vertebral body heights are preserved. Multilevel degenerative changes are seen throughout the spine, most pronounced in ranging up to moderate in the mid thoracic and lower lumbar spine. 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 For the purposes of this report, L5-S1 is considered the most caudal well formed disc space. Minimal levocurvature in the upper thoracic spine centered at T2-3 with Amin angle measuring less than 10 degrees. No other scoliotic curvature. Mildly exaggerated lumbar lordosis with minimal grade 1 anterolisthesis at L4-5. Vertebral body heights are preserved. Multilevel degenerative changes are seen throughout the spine, most pronounced in ranging up to moderate in the mid thoracic and lower lumbar spine. IMPRESSION IMPRESSION: Minimal levocurvature of the upper thoracic spine. Director Hospice Operations: ASHWINI Transcribe Date/Time: Nov 08 2024 10:46A Dictated by : NEELAM PHILLIPS MD This examination was interpreted and the report reviewed and electronically signed by: NEELAM PHILLIPS MD on Nov 08 2024 10:48AM EST [facility] Rad[facility]narrative[facility] Thoracic and lumbar spine Views for scoliosis W standingOrdered By: [facility] Provider on 11-08-2024 [facility] MR THORACIC SPINE WO CONTon 08-25-2024 MR THORACIC SPINE WO CONT MR THORACIC SPINE WO CONT EXAM: MRI THORACIC SPINE WITHOUT CONTRAST CLINICAL HISTORY: TECHNIQUE: Routine unenhanced MRI of the thoracic spine was obtained. COMPARISONS: Radiographs of the thoracic spine dated 07/21/2024 FINDINGS: There is chronic mild degenerative retrolisthesis of C5 on C6 and C6 on C7. There is at most very minimal degenerative retrolisthesis of T10 on T11 and T11 on T12. There is chronic minimal anterior wedging of the T7 vertebral body. The thoracic vertebral body heights are otherwise normal. There is localized moderate loss of the disc space height with degenerative endplate irregularity and minimal nonaggressive degenerative marrow edema at the T11-T12 level. There is a small benign hemangioma in T6. There are a few small nonaggressive Schmorl's nodes throughout the thoracic spine. There are no discrete worrisome bone marrow signal abnormalities. There are no signal abnormalities of the visualized thoracic spinal cord. Disc space levels: At T2-T3, there is a very slight right paracentral disc protrusion indenting thecal sac. At T6-T7, there is a tiny right paracentral disc protrusion with cranial subligamentous extension indenting thecal sac only. At T7-T8, there is a slight left paracentral disc protrusion flattening thecal sac. At T10-T11, there is a tiny central disc protrusion indenting thecal sac. At T11-T12, there is a tiny central disc protrusion indenting thecal sac. At T12-L1, there is a slight disc bulge flattening thecal sac. IMPRESSION: 1. Chronic mild degenerative disc disease within the thoracic spine, as detailed above. There is no evidence of canal stenosis, neural foraminal stenosis, or focal nerve impingement throughout the thoracic spine. 2. Interval visualization of chronic degenerative disc disease in the lower cervical spine, seen on the sagittal sequences only. 6 Finalized by William Young MD on 08/25/2024 12:58 PM Normal [facility] XR SPINE THORACIC 3 VWSon XR SPINE [...] Sauer MD on 07/22/2024 1:41 PM Normal [facility] XR hip RT min 2V(w/wo pelvis )*on 06-15-2024 XR hip RT min 2V(w/wo pelvis)* [facility] [place] [address] [place] [address] XRay Report Signed Patient: Demario Wallace MR#: [id number] 22 : 1965 Acct:[id number] Age/Sex: 58 / F ADM Date: 06/15/24 Loc: EM Room: Type: [facility] Attending Dr: Vijay Stone DO Copies to: Vijay Stone DO Ordering Provider: Vijay Stone DO Date of Service: 06/15/24 XR/XR hip [...] Anton Gu M.D.06/15/2024 1:21 PM Dictation Location: [place] [address] Transcribed By: [facility] 06/15/24 1321 Dictated By: Anton Gu II, MD 06/15/24 1320 Signed By: 06/15/24 1321 Normal [facility] Automated basophil %Ordered By: Lillian Perkins on 05-07-2024 Basophils/100 WBC (Bld) 1.0 % Normal . [facility] Comment on above: Performed By: #### B MP, CBC #### [address] Automated basophil countOrde red By: Lillian Perkins on 05-07-2024 Basophils (Bld) [#/Vol] 0.1 10*3/uL Normal 0.0-0.2 [facility] Comment on above: Result Comment: PERF ORMED BY: [place] [address] PATHOLOGIST INFORMATION SYSTEMS SECURITY OFFICER MELVIN PENA M.D. Performed By: #### B MP, CBC #### [address] Automated blood monocyte cou ntOrdered By: Lillian Perkins on 05-07-2024 Monocytes (Bld) [#/Vol] 0.4 10*3/uL Normal 0.0-0.8 [facility] Comment on above: Performed By: #### B MP, CBC #### [facility] [address] [place] [address] Automated eosinophil %Ordere d By: Lillian Perkins on 05-07-2024 Eosinophils/100 WBC (Bld) 9.2 % Normal . [facility] Comment on above: Performed By: #### B MP, CBC #### [address] Automated eosinophil countOr dered By: Lillian Perkins on 05-07-2024 Eosinophils (Bld) [#/Vol] 0.6 10*3/uL High 0.0-0.45 [facility] Comment on above: Performed By: #### B MP, CBC #### [address] Automated monocyte %Ordered By: Lillian Perkins on 05-07-2024 Monocytes/100 WBC (Bld) 7.3 % Normal . [facility] Comment on above: Performed By: #### B MP, CBC #### [address] Automated neutrophil %Ordere d By: Lillian Perkins on 05-07-2024 Neutrophils/100 WBC (Bld) 50.8 % Normal . [facility] Comment on above: Performed By: #### B MP, CBC #### [address] Basic Metabolic Panelon Creatinine Clr Calc Pharmacy 71.01 Normal [facility] Comment on above: Result Comment: PERF ORMED BY: [place] [address] PATHOLOGIST INFORMATION SYSTEMS SECURITY OFFICER MELVIN PENA M.D. Performed By: #### B MP, CBC #### [address] GFR/1.73 sq M.predicted MDRD (S/P/Bld) [Vol rate/Area] mL/min/{1.73_m2} Normal [facility] Comment on above: Performed By: #### B MP, CBC #### [address] Bilirubin Test strip Ql (U)O rdered By: Lillian Perkins on 05-07-2024 Bilirubin Ql (U) Negative Negative [facility] Calcium [Mass/volume] in Ser um or PlasmaOrdered By: Lillian Perkins on 05-07-2024 Calcium [Mass/Vol] 9.3 mg/dL Normal 8.6-10.3 [facility] Comment on above: Performed By: #### B MP, CBC #### [address] Carbon dioxide, total [Moles /volume] in Serum or PlasmaOrdered By: Lillian Perkins on 05-07-2024 CO2 [Moles/Vol] 27.1 mmol/L Normal 21.0-31.0 [facility] Comment on above: Performed By: #### B MP, CBC #### [place] [address] [place] Chloride [Moles/volume] in S israel or PlasmaOrdered By: Lillian Perkins on 05-07-2024 Chloride [Moles/Vol] 104 mmol/L Normal 98-107 [facility] Comment on above: Performed By: #### B MP, CBC #### [address] Color of Urine by AutoOrdere d By: Lillian Perkins on 05-07-2024 Color (U) Colorless Normal Yellow [facility] Comment on above: Order Comment: Name Collection Type:: Clean-Voided Midstream Performed By: #### U A #### [address] Complete Blood Count Auto Di ffon 05-07-2024 Mean Corpuscular HGB Conc 34.4 g/dL Normal 32.0-35.0 [facility] Comment on above: Performed By: #### B MP, CBC #### [place] [address] [place] Monocytes/100 WBC (Bld) 17.28 % Normal 0.00-20.00 [facility] Comment on above: Performed By: #### B MP, CBC #### [place] [address] [place] NRBC% 0.1 /100{WBC} Normal 0-0.5 [facility] Comment on above: Performed By: #### B MP, CBC #### [place] [address] [place] Creatinine [Mass/volume] in Serum or PlasmaOrdered By: Lillian Perkins on 05-07-2024 Creatinine [Mass/Vol] 0.90 mg/dL Normal 0.60-1.20 [facility] Comment on above: Performed By: #### B MP, CBC #### [facility] [address] [place] [address] [place] Erythrocyte distribution wid th [Ratio] by Automated countOrdered By: Lillian Perkins on 05-07-2024 Erythrocyte distribution width (RBC) [Ratio] 13.7 % Normal 11.9-15.3 [facility] Comment on above: Performed By: #### B MP, CBC #### [facility] [address] Erythrocytes [#/volume] in B lood by Automated countOrdered By: Lillian Perkins on 05-07-2024 RBC (Bld) [#/Vol] 3.65 10*6/uL Normal 3.60-5.00 [facility] Comment on above: Performed By: #### B MP, CBC #### [facility] [address] [place] [address] [place] Glucose [Mass/volume] in Ser um or PlasmaOrdered By: Lillian Perkins on 05-07-2024 Glucose [Mass/Vol] 78 mg/dL Normal 70-100 [facility] Comment on above: ADA recommended refe rence rangeRandom Glucose Reference Range is dependent on time and content of last meal. Glucose of more than 200 mg/dL in a nonstressed, ambulatory subject supports the diagnosis of Diabetes Mellitus. Result Comment: [place] om Glucose Reference Range is dependent on time and content of last meal. Glucose of more than 200 mg/dL in a nonstressed, ambulatory subject supports the diagnosis of Diabetes Mellitus. ADA recommended reference range Performed By: #### B MP, CBC #### [facility] [address] [id number] [place] Glucose [Mass/volume] in Uri ne by Test stripOrdered By: Lillian Perkins on 05-07-2024 Glucose Test strip (U) [Mass/Vol] Normal mg/dL Normal [facility] Hematocrit [Volume Fraction] of Blood by Automated countOrdered By: Lillian Perkins on 05-07-2024 Hematocrit (Bld) [Volume fraction] 32.5 % Low 34.0-46.4 [facility] Comment on above: Performed By: #### B MP, CBC #### [facility] [address] Hemoglobin Test strip Ql (U) Ordered By: Lillian Perkins on 05-07-2024 Hemoglobin Ql (U) Negative Negative [facility] Hemoglobin [Mass/volume] in BloodOrdered By: Lillian Perkins on 05-07-2024 Hemoglobin (Bld) [Mass/Vol] 11.2 g/dL Low 11.8-15.4 [facility] Comment on above: Performed By: #### B MP, CBC #### [facility] [address] [place] [address] [place] Ketones [Presence] in Urine by Test stripOrdered By: Lillian Perkins on 05-07-2024 Ketones Ql (U) Negative Normal Negative [facility] Comment on above: Order Comment: Name Collection Type:: Clean-Voided Midstream Performed By: #### U A #### [place] [address] [place] Leukocyte esterase [Presence ] in Urine by Test stripOrdered By: Lillian Perkins on 05-07-2024 Leukocyte esterase Test strip Ql (U) Negative Normal Negative [facility] Comment on above: Order Comment: Name Collection Type:: Clean-Voided Midstream Performed By: #### U A #### [place] [address] [place] Leukocytes [#/volume] correc shey for nucleated erythrocytes in Blood by Automated counOrdered By: Lillian Perkins on 05-07-2024 WBC corrected for nucl RBC Auto (Bld) [#/Vol] 6.2 10*3/uL 3.8-11.6 [facility] Leukocytes [#/volume] in Blo od by Automated countOrdered By: Lillian Perkins on 05-07-2024 WBC (Bld) [#/Vol] 6.2 10*3/uL Normal 3.8-11.6 [facility] Comment on above: Performed By: #### B MP, CBC #### [facility] [address] Lymphocytes [#/volume] in Bl ood by Automated countOrdered By: Lillian Perkins on 05-07-2024 Lymphocytes (Bld) [#/Vol] 2.0 10*3/uL Normal 1.00-4.8 [facility] Comment on above: Performed By: #### B MP, CBC #### [place] [address] [place] Lymphocytes/100 leukocytes i n Blood by Automated countOrdered By: Lillian Perkins on 05-07-2024 Lymphocytes/100 WBC (Bld) 31.7 % Normal . [facility] Comment on above: Performed By: #### B MP, CBC #### [address] MCH [Entitic mass] by Automa shey countOrdered By: Lillian Perkins on 05-07-2024 MCH (RBC) [Entitic mass] 30.6 pg Normal 24.7-34.3 [facility] Comment on above: Performed By: #### B MP, CBC #### [address] MCHC Auto (RBC) [Mass/Vol]Or dered By: Lillian Perkins on 05-07-2024 MCHC (RBC) [Mass/Vol] 34.4 g/dL 32.0-35.0 [facility] MCV [Entitic volume] by Auto mated countOrdered By: Lillian Perkins on 05-07-2024 MCV (RBC) [Entitic vol] 89.1 fL Normal 80-100 [facility] Comment on above: Performed By: #### B MP, CBC #### [place] [address] [place] Monocyte distribution width [Entitic volume] in Blood by AutomatedOrdered By: Lillian Perkins on 05-07-2024 Monocyte distribution width Auto (Bld) [Entitic vol] 17.28 % 0.00-20.00 [facility] Neutrophils [#/volume] in Bl ood by Automated countOrdered By: Lillian Perkins on 05-07-2024 Neutrophils (Bld) [#/Vol] 3.1 10*3/uL Normal 1.8-7.7 [facility] Comment on above: Performed By: #### B MP, CBC #### [address] Nitrite Test strip Ql (U)Ord ered By: Lillian Perkins on 05-07-2024 Nitrite Ql (U) Negative Negative [facility] No Panel InformationOrdered By: Lillian Perkins on 05-07-2024 Estimated GFR (CKD-EPI) > 60.0 mL/Min [facility] Creatinine Clearance (Chem 71.01 [facility] Nucleated erythrocytes [Pres ence] in Blood by Automated countOrdered By: Lillian Perkins on 05-07-2024 Nucleated RBC Auto Ql (Bld) 0.1 /100{WBC} 0-0.5 [facility] Platelet mean volume [Entiti c volume] in Blood by Automated countOrdered By: Lillian Perkins on 05-07-2024 Platelet mean volume (Bld) [Entitic vol] 7.8 fL Normal 6.3-10.7 [facility] Comment on above: Performed By: #### B MP, CBC #### [address] Platelets [#/volume] in Bloo d by Automated countOrdered By: Lillian Perkins on 05-07-2024 Platelets (Bld) [#/Vol] 250 10*3/uL Normal 150-450 [facility] Comment on above: Performed By: #### B MP, CBC #### [place] [address] [place] Potassium [Moles/volume] in Serum or PlasmaOrdered By: Lillian Perkins on 05-07-2024 Potassium [Moles/Vol] 3.7 mmol/L Normal 3.5-5.1 [facility] Comment on above: Performed By: #### B MP, CBC #### [place] [address] [place] Protein Test strip (U) [Mass /Vol]Ordered By: Lillian Perkins on 05-07-2024 Protein (U) [Mass/Vol] Negative Negative [facility] Serum or plasma anion gap de terminationOrdered By: Lillian Perkins on 05-07-2024 Anion gap [Moles/Vol] 8.6 mmol/L Normal 6.0-15.0 [facility] Comment on above: Performed By: #### B MIGNON, CBC #### [place] [address] [place] Sodium [Moles/volume] in Ser um or PlasmaOrdered By: Lillian Perkins on 05-07-2024 Sodium [Moles/Vol] 136 mmol/L Normal 136-145 [facility] Comment on above: Performed By: #### B MIGNON, CBC #### [address] Specific gravity Test strip (U) [Rel density]Ordered By: Lillian Perkins on 05-07-2024 Specific gravity (U) [Rel density] 1.008 1.001-1.030 [facility] Urea nitrogen [Mass/volume] in Serum or PlasmaOrdered By: Lillian Perkins on 05-07-2024 Urea nitrogen [Mass/Vol] 15 mg/dL Normal 7-25 [facility] Comment on above: Performed By: #### B MIGNON, CBC #### [place] [id number] [place] Urinalysison 05-07-2024 Bilirubin,Urine Negative Normal Negative [facility] Comment on above: Order Comment: Name Collection Type:: Clean-Voided Midstream Performed By: #### U A #### [place] [id number] [place] Glucose Ql (U) Normal Normal Normal [facility] Comment on above: Order Comment: Name Collection Type:: Clean-Voided Midstream Performed By: #### U A #### [place] [id number] [place] Nitrite,Urine Negative Normal Negative [facility] Comment on above: Order Comment: Name Collection Type:: Clean-Voided Midstream Performed By: #### U A #### [place] [address] [place] Occult Blood,Urine Negative Normal Negative [facility] Comment on above: Order Comment: Name Collection Type:: Clean-Voided Midstream Result Comment: PERF ORMED BY: [place] [address] PATHOLOGIST INFORMATION SYSTEMS SECURITY OFFICER MELVIN PENA M.D. Performed By: #### U A #### [place] [address] [place] Protein,Urine Negative Normal Negative [facility] Comment on above: Order Comment: Name Collection Type:: Clean-Voided Midstream Performed By: #### U A #### [address] Specificy [place],Urine 1.008 Normal 1.001-1.030 [facility] Comment on above: Order Comment: Name Collection Type:: Clean-Voided Midstream Performed By: #### U A #### [place] [address] [place] Urobilinogen,Urine Normal Normal Normal [facility] Comment on above: Order Comment: Name Collection Type:: Clean-Voided Midstream Performed By: #### U A #### [address] Urine appearanceOrdered By: Lillian Perkins on 05-07-2024 Appearance (U) Clear Normal Clear [facility] Comment on above: Order Comment: Name Collection Type:: Clean-Voided Midstream Performed By: #### U A #### [place] [address] [place] Urobilinogen Test strip (U) [Mass/Vol]Ordered By: Lillian Perkins on 05-07-2024 Urobilinogen (U) [Mass/Vol] Normal mg/dL Normal [facility] pH of Urine by Test stripOrd ered By: Lillian Perkins on 05-07-2024 pH (U) 6.5 [pH] Normal 5.0-9.0 [facility] Comment on above: Order Comment: Name Collection Type:: Clean-Voided Midstream Performed By: #### U A #### [address] XR lumbar spine AP/LAT/FLX/E XTon 03-24-2024 XR lumbar spine AP/LAT/FLX/EXT [facility] [place] [address] [place] [address] XRay Report Signed Patient: Demario Wallace MR#: [id number] 22 : 1965 Acct:[id number] Age/Sex: 58 / F ADM Date: 03/24/24 Loc: XD Room: Type: [facility] Attending Dr: Lottie Shaikh APRN Copies to: [...] L5-S1. Impression dictated by: Manolo Romero Jr., D.OPa03/24/2024 12:57 PM Dictation Location: [place] [address] Transcribed By: [facility] 03/24/24 1257 Dictated By: Manolo Romero Jr DO 03/24/24 1255 Signed By: 03/24/24 1257 Normal [facility] CT ABDOMEN PELVIS W AND [...] QUANG COOLEY Date: 2021-10-31 08:19 Normal [facility] Q - CULTURE,URINE,ROUTINEon 10-08-2021 CULTURE, URINE, ROUTINE SEE NOTE Normal N steven [facility] Comment on above: Order Comment: [facility] Testing performed at: QPT, [facility], [address] [place] [address], [address] [place] [address], [id number], Court Recording Monitor: Guillaume Scanlon MD [facility] Collection Date/Time: [id number] [facility] Results Received Date/Time: [id number] [facility] Reported Date/Time: [id number] Result Comment: CULT URE, URINE, ROUTINE Micro Number: [id number] Test Status: Final Specimen Source: Urine Specimen Quality: Adequate Result: Mixed genital charly isolated. These superficial bacteria are not indicative of a urinary tract infection. No further organism identification is warranted on this specimen. If clinically indicated, recollect clean-catch, mid-stream urine and transfer immediately to Urine Culture Transport Tube. Performed By: #### 6 [id number] #### [facility] [address] [place] [address] XR CHEST 2 Von 02-13-2021 XR CHEST [...] DESEAN SALMERON Date: 2021-02-13 05:10 Normal [facility] Covid-19 PCR (CVDTBH)on 01-29 SARS-CoV-2 (COVID-19) RNA LEOBARDO+probe Ql (Unsp spec) Not detected Normal NOT DETECTED [facility] Comment on above: Result Comment: This test is not yet approved or cleared by the [place] FDA. When there are no FDA-approved or cleared tests available, and other criteria are met, FDA can make tests available under an emergency access mechanism called an Emergency Use Authorization (EUA). The EUA for this test is supported by the [place] of Health and Human Service's (HHS's) declaration [...] consistent with SARS-CoV-2. Performed By: #### C [facility] #### [facility] [address] [place] [address] Cheli Jones Vital Signs Date Time Vital Sign Value Performing Clinician Facility 11-08-2024 10:54-0400 Body height 170.2 cm Terence Pacenta HRIS ANALYST.CYBER SECURITY ANALYST Work Phone: [facility] 11-08-2024 10:54-0400 Body mass index (BMI) [Ratio] 27.72 kg/m2 Terence Pacenta HRIS ANALYST.CYBER SECURITY ANALYST Work Phone: [facility] 11-08-2024 10:54-0400 Body weight 80.29 kg Terence Pacenta HRIS ANALYST.CYBER SECURITY ANALYST Work Phone: [facility] 11-08-2024 10:54-0400 Diastolic blood pressure 56 mm[Hg] Terence Pacenta HRIS ANALYST.CYBER SECURITY ANALYST Work Phone: [facility] 11-08-2024 10:54-0400 Heart rate 80 /min Terence Pacenta HRIS ANALYST.CYBER SECURITY ANALYST Work Phone: [facility] 11-08-2024 10:54-0400 SaO2% (BldA) [Mass fraction] 98 % Terence Pacenta HRIS ANALYST.CYBER SECURITY ANALYST Work Phone: [facility] 11-08-2024 10:54-0400 Systolic blood pressure 102 mm[Hg] Terence Pacenta HRIS ANALYST.CYBER SECURITY ANALYST Work Phone: [facility] 07-21-2024 10:35-0500 Body height 170.2 cm Karely Brown HRIS ANALYST-CYBER SECURITY ANALYST Work Phone: [facility] 07-21-2024 10:35-0500 Body mass index (BMI) [Ratio] 27.41 kg/m2 Karely Brown HRIS ANALYST-CYBER SECURITY ANALYST Work Phone: [facility] 07-21-2024 10:35-0500 Body weight 79.38 kg Karely Brown HRIS ANALYST-CYBER SECURITY ANALYST Work Phone: [facility] 06-29-2024 11:11-0400 Body height 170.2 cm Pat Rivas TRANSFORMER COIL WINDER Work Phone: [facility] 06-29-2024 11:11-0400 Body mass index (BMI) [Ratio] 27.72 kg/m2 Pat Rivas TRANSFORMER COIL WINDER Work Phone: [facility] 06-29-2024 11:11-0400 Body weight 80.29 kg Pat Rivas TRANSFORMER COIL WINDER Work Phone: [facility] 06-29-2024 11:11-0400 Diastolic blood pressure 72 mm[Hg] Pat Rivas TRANSFORMER COIL WINDER Work Phone: [facility] 06-29-2024 11:11-0400 Heart rate 87 /min Pat Rivas TRANSFORMER COIL WINDER Work Phone: [facility] 06-29-2024 11:11-0400 SaO2% (BldA) [Mass fraction] 99 % Pat Rob TRANSFORMER COIL WINDER Work Phone: [facility] 06-29-2024 11:11-0400 Systolic blood pressure 104 mm[Hg] Pat Rivas TRANSFORMER COIL WINDER Work Phone: [facility] 06-20-2024 09:39-0400 Body height 162.56 cm MD Swati Gray Work Phone: [facility] 06-20-2024 09:39-0400 Body mass index (BMI) [Ratio] 30.4 kg/m2 MD Swati Gray Work Phone: [facility] 06-20-2024 09:39-0400 Body weight 80.45 kg MD Swati Gray Work Phone: [facility] 05-24-2024 14:17-0400 Body height 162.56 cm MD Swati Gray Work Phone: [facility] 05-24-2024 14:17-0400 Body mass index (BMI) [Ratio] 30.4 kg/m2 MD Swati Gray Work Phone: [facility] 05-24-2024 14:17-0400 Body weight 80.28 kg MD Swati Gray Work Phone: [facility] 05-07-2024 15:32-0400 Diastolic blood pressure 69 mm[Hg] MD Swati Gray Work Phone: [facility] 05-07-2024 15:32-0400 Heart rate 69 /min MD Swati Gray Work Phone: [facility] 05-07-2024 15:32-0400 Respiratory rate 16 /min MD Swati Gray Work Phone: [facility] 05-07-2024 15:32-0400 SaO2% (BldA) [Mass fraction] 97 % MD Swati Gray Work Phone: [facility] 05-07-2024 15:32-0400 Systolic blood pressure 112 mm[Hg] MD Swati Gray Work Phone: [facility] 05-07-2024 14:37-0400 Body height 162.56 cm MD Swati Gray Work Phone: [facility] 05-07-2024 14:37-0400 Body temperature 98.3 [degF] MD Swati Gray Work Phone: [facility] 05-07-2024 14:37-0400 Body weight 81 kg MD Swati Gray Work Phone: [facility] 04-07-2024 08:27-0400 Body weight 80.28 kg MD Swati Gray Work Phone: [facility] 03-24-2024 08:27-0400 Body height 170.18 cm MD Swati Gray Work Phone: [facility] 03-24-2024 08:27-0400 Body mass index (BMI) [Ratio] 27.6 kg/m2 MD Swati Gray Work Phone: [facility] 03-24-2024 08:27-0400 Body weight 80.05 kg MD Swati Gray Work Phone: [facility] 10-20-2023 10:39-0500 Diastolic blood pressure 60 mm[Hg] MD Swati Gray Work Phone: [facility] 10-20-2023 10:39-0500 Heart rate 73 /min MD Swati Gray Work Phone: [facility] 10-20-2023 10:39-0500 Respiratory rate 18 /min MD Swati Gray Work Phone: [facility] 10-20-2023 10:39-0500 SaO2% (BldA) [Mass fraction] 98 % MD Swati Gray Work Phone: [facility] 10-20-2023 10:39-0500 Systolic blood pressure 113 mm[Hg] MD Swati Gray Work Phone: [facility] 10-20-2023 08:37-0500 Body height 170.18 cm MD Swati Gray Work Phone: [facility] 10-20-2023 08:37-0500 Body temperature 97.8 [degF] MD Swati Gray Work Phone: [facility] 10-20-2023 08:37-0500 Body weight 79.37 kg MD Swati Gray Work Phone: [facility] Encounters Encounter Date Encounter Type Care Provider Facility Start: 11-10-2024 End: 11-10-2024 ambulatory No Pcp (Hist) [facility] Start: 11-10-2024 End: 11-10-2024 Patient encounter procedure No Pcp (Hist) [facility] Start: 11-08-2024 End: 11-08-2024 Patient encounter procedure Terence Vazqueza CYBER SECURITY ANALYST Work Phone: [facility] Comment on above: Other chronic pain ( Primary Dx); Lumbar radiculopathy; Mid back pain; Chronic bilateral low back pain with bilateral sciatica; Sacroiliitis (HCC) Start: 11-08-2024 End: 11-08-2024 ambulatory TERENCE PACENTA Facility:[facility] Start: 11-08-2024 End: 11-08-2024 Subsequent hospital visit by physician [facility]r [facility] Comment on above: Chronic bilateral lo w back pain with bilateral sciatica [M54.42, M54.41, G89.29] Start: 09-14-2024 End: 09-15-2024 Chart abstracting Unk Pcp (Hist) Neurology Start: 08-25-2024 End: 08-25-2024 ambulatory [facility] Start: 08-01-2024 End: 08-01-2024 ambulatory Yodit Paz MD Facility:[facility] Start: 07-21-2024 End: 07-21-2024 ambulatory [facility] Start: 07-21-2024 End: 07-21-2024 Office outpatient new 45 minutes Karely Brown HRIS ANALYST-CYBER SECURITY ANALYST Work Phone: [facility] Comment on above: Spinal stenosis of l umbar region with neurogenic claudication (Primary Dx); Pain in thoracic spine; Fall (on) (from) other stairs and steps, sequela; Fall (on) (from) other stairs and steps, initial encounter; Sensory deficit present Start: 07-21-2024 End: 07-21-2024 [facility] Start: 07-13-2024 ambulatory [facility] Start: 06-29-2024 End: 06-29-2024 Bamboo flowsheet Pat Rivas TRANSFORMER COIL WINDER Work Phone: [facility] Start: 06-29-2024 End: 06-29-2024 Bamboo flowsheet Pat Rivas TRANSFORMER COIL WINDER Work Phone: [facility] Start: 06-29-2024 End: 06-29-2024 ambulatory PAT RIVAS Not Available Start: 06-29-2024 End: 06-29-2024 Office outpatient visit 25 minutes Pat Rivas TRANSFORMER COIL WINDER Work Phone: [facility] Comment on above: Cauda equina syndrom e (Primary Dx); Lumbar pain; Acute bilateral low back pain with bilateral sciatica; Sacroiliitis ([facility]/HCC) Start: 06-20-2024 End: 06-20-2024 ambulatory MD Swati Gray Work Phone: [facility] Work Phone: Start: 06-20-2024 End: 06-20-2024 Patient encounter procedure MD Swati Gray Work Phone: [facility] Work Phone: Start: 06-15-2024 End: 06-15-2024 Patient encounter procedure MD Swati Gray Work Phone: [facility] Work Phone: Start: 06-15-2024 End: 06-15-2024 ambulatory MD Swati Gray Work Phone: [facility] Work Phone: Start: 06-02-2024 End: 06-03-2024 Aman Rivas TRANSFORMER COIL WINDER Work Phone: [facility] Comment on above: Muscle spasm Start: 05-24-2024 End: 05-24-2024 Patient encounter procedure MD Swati Gray Work Phone: [facility] Work Phone: Start: 05-16-2024 End: 05-16-2024 [facility] Start: 05-07-2024 End: 05-07-2024 Emergency department patient visit MD Swati Gray Work Phone: [facility] Work Phone: Start: 04-07-2024 End: 04-07-2024 Patient encounter procedure MD Swati Gray Work Phone: [facility] Work Phone: Start: 03-24-2024 End: 03-24-2024 ambulatory MD Swati Gray Work Phone: [facility] Work Phone: Start: 03-24-2024 End: 03-24-2024 Patient encounter procedure MD Swati Gray Work Phone: [facility] Work Phone: Start: 02-17-2024 End: 02-17-2024 ambulatory PAT RIVAS Not Available Start: 01-19-2024 End: 01-19-2024 ambulatory SWATI Law MARINA Not Available Start: 10-20-2023 Non-patient / Non-visit MD Swati Gray Work Phone: [facility] Work Phone: Start: 10-20-2023 End: 10-20-2023 Admission to same day surgery center MD Swati Gray Work Phone: [facility] Work Phone: Start: 10-20-2023 End: 10-20-2023 ambulatory MD Swati Gray Work Phone: [facility] Work Phone: Start: 10-16-2023 End: 10-16-2023 ambulatory MANDY FAM Not Available Start: 09-10-2023 End: 09-10-2023 ambulatory SWATI GRAY Not Available Start: 09-10-2023 End: 09-10-2023 ambulatory SWATI GRAY Not Available Start: 10-31-2021 End: 10-31-[address] SWATI GRAY Facility:[facility] Start: 04-17-2021 End: 04-18-[address] SWATI GRAY Facility:[facility] Start: 02-12-2021 End: 02-13-[address] SWATI GRAY Facility:[facility] Procedures Date Procedure Procedure Detail Performing Clinician Start: 11-08-2024 Radex entir thrc lmbr crv sac spi w/skull 2/3 vw Javier Parker PA-C Work Phone: Start: 06-15-2024 Plain X-ray of right hip MD Swati Gray Work Phone: Start: 03-24-2024 X-ray of lumbar spine, four views MD Swati Gray Work Phone: Start: 10-20-2023 Screening colonoscopy MD Swati Gray Work Phone: Start: 01-29-2023 History of total hysterectomy History of total hysterectomy Pat Rivas TRANSFORMER [employer] WINDER Work Phone: Start: 04-17-2021 Mammography Pat Rivas TRANSFORMER [employer]IL WINDER Work Phone: Plan of Treatment Date Care Activity Detail Author Start: 07-21-2025 Adult BMI Screening Adult BMI Screen ing [facility] Start: 07-21-2025 Tobacco Screening Tobacco Screening [facility] Start: 05-01-2024 Covid-19 Vaccine ( season) Covid-19 Vaccine () [facility] Start: 05-01-2024 COVID-19 Vaccine ( season) COVID-19 Vaccine ( season) [facility] Start: 05-01-2024 Influenza vaccination [facility] Start: 04-07-2024 Patient referral [facility] Work Phone: Start: 10-20-2023 [facility] Start: 04-17-2022 Screening for malign ant neoplasm of breast [facility] Start: 2016 Administration of varicella zoster vaccine Zoster (Shingles) Vaccine (1 of 2) [facility] Start: 2016 Pneumococcal Vaccine : 50+ (1 of 1 - PCV) Pneumococcal Vaccine: 50+ (1 of 1 - PCV) [facility] Start: 2016 Shingrix Vaccine (1 of 2) Wing grix Vaccine (1 of 2) [facility] Start: 2011 Diabetes Screening Diabetes Screenin g [facility] Start: 2011 Lipid panel Lipid Screening [facility] Start: 2011 Screening for malign ant neoplasm of colon [facility] Start: 1987 Screening for malign ant neoplasm of cervix Cervical Cancer Screening [facility] Start: 1985 DTaP,Tdap and Td Vac cines (1 - Tdap) DTaP,Tdap and Td Vaccines (1 - Tdap) [facility] Start: 1985 Hepatitis B Vaccine (1 of 3 - 19+ 3-dose series) Hepatitis B Vaccine (1 of 3 - 19+ 3-dose series) [facility] Start: 1985 Urine microalbumin profile DTa P,Tdap,Td Vaccine (1 - Tdap) [facility] Start: 1984 Adult BMI Follow Up Plan Adult BMI Follow Up Plan [facility] Start: 1984 Anxiety Screening Anxiety Screening [facility] Start: 1984 Depression Screening Depression Scre ening [facility] Start: 1984 Hepatitis C screening Hepatitis C Sc reening [facility] Start: 1984 HIV screening HIV Screening [facility] Start: 1978 Depression Screening Depression Scre ening [facility] Start: 1966 Screening for malign ant neoplasm of colon [facility] Electromyography [facility] End: 07-21-2025 MR Thoracic spine WO contrast MR thoracic spine without contrast Imaging Routine Pain in thoracic spine Fall (on) (from) other stairs and steps, initial encounter Sensory deficit present 1 Occurrences starting 07/21/2024 until 07/21/2025 [facility] Comment on above: 1 Occurrences starti ng 07/21/2024 until 07/21/2025 Patient Education [facility] Work Phone: Patient referral [facility] Work Phone: End: 10-15-2025 XR Thoracic and lumbar spine Views for scoliosis W standing XR SCOLIOSIS PA STAND/LAT 2V Radiology Routine Chronic bilateral low back pain with bilateral sciatica 1 Occurrences starting 09/15/2024 until 10/15/2025 [facility] Work Phone: Comment on above: 1 Occurrences starti ng 09/15/2024 until 10/15/2025 End: 07-21-2025 XR Thoracic spine 3 Views X-ray spine thoracic 3 views Imaging Routine Pain in thoracic spine Fall (on) (from) other stairs and steps, initial encounter 1 Occurrences starting 07/21/2024 until 07/21/2025 [facility] Work Phone: Comment on above: 1 Occurrences starti ng 07/21/2024 until 07/21/2025 XR Thoracic spine 3 Views X-ray spine thoracic 3 views Imaging Routine Pain in thoracic spine Fall (on) (from) other stairs and steps, initial encounter 07/21/2024 11:33 AM EST [facility] Immunizations Immunization Date Immunization Notes Care Provider Fa dave 04-25-2022 Pfizer Purple Cap SARS-CoV-2 Vaccination Pat Rivas [employer] Work Phone: [facility] 08-16-2021 Pfizer Purple Cap SARS-CoV-2 Vaccination Pat Rivas [employer] Work Phone: [facility] 06-26-2015 influenza, injectabl e, quadrivalent, preservative free Pat Rivas [employer] Work Phone: [facility] 06-26-2015 influenza virus vacc ine, unspecified formulation Pat Rivas [employer] Work Phone: [facility] Healthcare Payers Date Payer Category Payer Self-pay 2022 [employer] - Other [facility] [id number] 2022 Blue [employer] Blue Shield 1.2.8 [id number] 2022 Unknown [id number]. [id number] 1966 Unknown [id number] 2.16.840.1.761309.3.579. 2.593 1966 Unknown [id number] 2.16.840.1.999219.3.579. 2.593 1966 Unknown [id number] 2.16.840.1.412951.3.579. 2.593 1966 Unknown [id number] 2.16.840.1.813615.3.579. 2.1259 1966 Unknown [id number] 2.16.840.1.045912.3.579. 2.9 1966 Unknown [id number] 2.16.840.1.870442.3.579. 2.1258 1966 Unknown [id number] 2.16.840.1.695339.3.579. 2.9 1966 Unknown [id number] 2.16.840.1.685081.3.579. 2.9 1966 Unknown [id number] 2.16.840.1.630489.3.579. 2.9 1966 Unknown [id number] 2.16.840.1.335129.3.579. 2.6 1966 Unknown [id number] 2.16.840.1.695383.3.579. 2.1286 1966 Unknown [id number] 2.16.840.1.327503.3.579. 2.196 1966 Unknown [id number] 2.16.840.1.833036.3.579. 2. 1966 Unknown [id number] 2.16.840.1.996030.3.579. 2.1286 1959 Unknown [id number] 1959 Unknown [id number] Unknown [id number] 2.16.840.1.523778.3.579. 2.531 Unknown [id number] 2.16.840.1.463474.3.579. 2.531 Unknown [id number] 2.16.840.1.267490.3.579. 2.531 Unknown [id number] 2.16.840.1.632854.3.579. 2.531 Social History Date Type Detail Facility Start: 04-21-2023 End: 10-20-2023 Tobacco smoking status NHIS Ex-smoker (finding) [facility] Start: 1965 Sex Assigned At Female F [facility] Start: 08-31-2014 End: 08-31-2017 History of tobacco use Current smoker [facility] Start: 08-31-2014 End: 08-31-2017 History of tobacco use Cigarette Smoker [facility] Start: 04-21-2023 End: 11-08-2024 Cigarettes smoked current (pack per day) - Reported 0.3 [facility] Start: 04-21-2023 End: 07-21-2024 Tobacco use and exposure Smokeless tobacco non-user [facility] Start: 02-17-2024 End: 06-29-2024 Alcoholic beverage intake Lifetime non-drinker (finding) [facility] Start: 04-01-2024 End: 11-08-2024 B1300 Health Literacy [facility] How often [...] at Not on file [facility] Tobacco smoking status NMIS Tobacco smoking consumption unknown [facility] Start: 07-21-2024 Tobacco smoking status NMIS Never smoked tobacco [facility] Start: 11-21-2024 Alcoholic beverage intake Ex-drinker (finding) [facility] Start: 07-13-2024 Sex Female (finding) [facility] NEGATED: Highlighted row [facility] Goals Date Patient Goal Desired Activity /State Clinical Notes 10-20-2023 to 11-10-2024 Tasia Aquino - 11/10/2024 2:32 PM EDTPatient Terence Becker APRN.CNP - 11/08/2024 11:03 AM Javier Guerra PA-C - 09/15/2024 7:07 AM Cassandra Herrera - 09/14/2024 4:21 PM EST Note Date & Type Note Facility 11-10-2024 Note HNO ID: [id number] Author: ?, ?, ? Service: ? Author Type: ? Type: Progress Notes Filed: 11/10/2024 14:33 Note Text: POPULATION HEALTH NAVIGATION OUTREACH Action/[facility] Support: Called pt to schedule an appt in Pain Management. Unable to lvm due to mailbox, pt does not have MyChart nor an email address Reason for Outreach Care Gap/HCC or Scheduling Wellness Visits Care Gaps due: N/A Patient Contacted: Unable or unnecessary to reach patient: Unable to leave message Navigation Signature: Tasia Aquino November 10, 2024 2:32 PM [facility] 11-10-2024 History of Presen t illness Narrative POPULATION HEALTH NAVIGATION OUTREACH Action/[facility] Support: Called pt to schedule an appt in Pain Management. Unable to lvm due to mailbox, pt does not have MyChart nor an email address Reason for Outreach Care Gap/HCC or Scheduling Wellness Visits Care Gaps due: N/A Patient Contacted: Unable or unnecessary to reach patient: Unable to leave message Navigation Signature: Tasia Aquino November 10, 2024 2:32 PM documented in this encounter [facility] 11-10-2024 Note Patient Outreach (NE TNAV) ANDREIAALIDADEMARIO ([id number]) 1965 F Date Time Provider Department 11/10/24 NO PCP (SUZANNA) LYNSEY During your visit today, we recorded the following information about you: Tasia Aquino 11/10/2024 2:33 PM Signed POPULATION HEALTH NAVIGATION OUTREACH Action/[facility] Support: Called pt to schedule an appt in Pain Management. Unable to lvm due to mailbox, pt does not have MyChart nor an email address Reason for Outreach Care Gap/HCC or Scheduling Wellness Visits Care Gaps due: N/A Patient Contacted: Unable or unnecessary to reach patient: Unable to leave message Navigation Signature: Tasia Aquino November 10, 2024 2:32 PM Allergies As of Date: 11/10/2024 Noted Allergy Reaction SEASONAL ALLERGIES 11/08/2024 16 - Unknown Date Reviewed: 11/08/2024 Reviewed by: Shaila Samaniego O[facility] - Fully Assessed Prescriptions as of 11/10/2024 - gabapentin (NEURONTIN) 600 mg tablet Take 1 tablet by mouth every 12 hours. - loratadine (CLARITIN) 10 mg tablet Take 10 mg by mouth. - SUMAtriptan (IMITREX) 25 mg tablet Take 25 mg by mouth as needed. Problem List As Of Date 11/10/2024 Noted Resolved Anosmia [R43.0] 01/29/2023 Depression [F32.A] 02/02/2023 History of total hysterectomy [Z90.710] 01/29/2023 Migraine without aura and without status migrai*01/29/2023 Osteoporosis [M81.0] 02/17/2024 Sacroiliitis (HCC) [M46.1] 01/19/2024 Seasonal allergic rhinitis due to pollen [J30.1]02/02/2023 Encounter Status:Closed by TASIA AQUINO on 11/10/24 [facility] 11-08-2024 Instructions Terence Mcguire APRN.CNP - 11/08/2024 11:38 AM EDT Pain management locally or with [facility] (consult order placed) Talk to your PCP about disability options documented in this encounter [facility] 11-08-2024 Note HNO ID: [id number] Author: TERENCE MCGUIRE APRN.CNP Service: ? Author Type: Nurse Practitioner Type: Progress Notes Filed: 11/09/2024 11:36 Note Text: SPINE SURGERY NEW PATIENT This is an in-person visit. PCP: No primary care provider on file. REFERRING PROVIDER: Bharathi Mcqueen CNP SUBJECTIVE HISTORY OF PRESENT ILLNESS: Demario Wallace is a 59 year old female presenting with spouse. CHIEF COMPLAINT: Widespread pain PRECIPITATING EVENT: None DURATION OF SYMPTOMS: Greater Than 1 Year Demario is a 59-year-old, [id number], non-smoker, non-diabetic. 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 Presents today with progressively worsening back pain. The pain started last summer and reports she went through conservative management. She then had a fall and reports symptoms worsen. She describes axial and bilateral low back pain that radiates up to the mid and upper back as well. She feels tender even to the slightest touch. She reports the pain radiates down both of her legs with no specific dermatomal pattern-reports the whole leg. Feels like her legs are giving out and she is falling due to the pain. States she is having difficulty getting through daily tasks and working given the significant amount of back pain she is experiencing. Denies leg heaviness, loss of control of bowel/bladder- endorses urgency, saddle anesthesia, impaired dexterity. PAIN EVALUATION 11/08/2024 1047 Pain Level: 10 Pain Location: Back-Lower upper back,buttocks,legs,hips Description: Crushing;Numbness;Pressure;Sebas p;Shooting;Sore;Throbbing;Stiff ness;Tingling;Tigh tness Duration Amount of Time: 9 Duration Units: Months Frequency: Continuous Intervention/Comfort measure: Relaxation;Medication Pain Radiation: down the right and left thigh, below the right and left knee, and to the right and left foot/feet Aggravating Factors: Any slight movement Alleviating Factors: Medications Pain Ratio: Pain in the back is greater than in the leg DERMATOMAL DISTRIBUTION: Not applicable AMBULATORY STATUS: Independent Community Distances ANTIPLATELET OR ANTICOAGULATION STATUS: No PREVIOUS CONSERVATIVE TREATMENTS: OTC NSAIDS for 3 Months or Greater (Aleve and Tylenol / acetaminophen) Baclofen, gabapentin, oral steroids, robaxin, tyelnol, motrin, Gabapentin 600 mg nightly NSAIDs PT PREVIOUS SPINAL SURGERY: None ACTIVE PROBLEM LIST Anosmia Depression History of Total Hysterectomy Migraine Without Aura and Without Status Migrainosus, Not Intractable Osteoporosis Sacroiliitis (Hcc) Seasonal Allergic Rhinitis Due to Pollen No past medical history on file. No past surgical history on file. No family history on file. ALLERGIES Allergen Reactions Seasonal Allergies Unknown MEDICATIONS: gabapentin (NEURONTIN) 600 mg tablet Take 1 tablet by mouth every 12 hours. loratadine (CLARITIN) 10 mg tablet Take 10 mg by mouth. SUMAtriptan (IMITREX) 25 mg tablet Take 25 mg by mouth as needed. REVIEW OF SYSTEMS: GENERAL: No weight loss or malaise MUSCULOSKELETAL: See HPI NEURO: No history of headaches, syncope, paralysis, seizures or tremors Patient Entered Questionnaires PROMIS Score Percentiles Percentiles provide an indication of how the patient's score ranks in relation to the general population. Higher percentile rankings indicate better function/quality of life. 50th percentile is the average of the general population and indicates half of respondents had a worse score. Depression Screening: PHQ-9 Self-Harm (Item 9) response options: 0 Not at all 1 Several days 2 More than half the days 3 Nearly every day PHQ-9 Levels: 0-4 No to mild depression 5-9 Mild depression 10-14 Moderate depression 15-19 Moderately severe depression 20-27 Severe depression OBJECTIVE: PHYSICAL EXAM BP 102/56 Pulse 80 Ht 170.2 cm (5' 7 ) Wt 80.3 kg (177 lb) SpO2 98% BMI 27.72 kg/m? GENERAL APPEARANCE: Well nourished, well developed, and no apparent distress. NEURO PSYCH: Patient oriented to person, place, and time. Mood pleasant. Benign affect. Spine Exam Neck No obvious deformity, normal ROM Back No stepoffs/deformities. Widespread tenderness to light palpation along spinous processes or paravertebral musculature Upper Extremity Motor UE BICEPS TRICEPS DELTS Wrist Ext Wrist Flex Transmitter Engineer In Charge HI R 4+ giveaway 2/2 to pain 4+ giveaway 2/2 to pain 4+ giveaway 2/2 to pain 4+ giveaway 2/2 to pain 4+ giveaway 2/2 to pain 4+ giveaway 2/2 to pain 4+ giveaway 2/2 to pain L 4+ giveaway 2/2 to pain 4+ giveaway 2/2 to pain 4+ giveaway 2/2 to pain 4+ giveaway 2/2 to pain 4+ giveaway 2/2 to pain 4+ giveaway 2/2 to pain 4+ giveaway 2/2 to pain Sensation to light touch intact to bilateral upper extremities UE Reflexes Right: Triceps, Biceps, Brachial normoreflexic Left: Triceps, Biceps, Brachial normoreflexic Mooney's: Negative L'Hermitte's Sign: Negative (more content not included)... [facility] 11-08-2024 History of Presen t illness Narrative Images from the original note were not included. SPINE SURGERY NEW PATIENT This is an in-person visit. PCP: No primary care provider on file. REFERRING PROVIDER: Bharathi Mcqueen CNP SUBJECTIVE HISTORY OF PRESENT ILLNESS: Demario Wallace is a 59 year old female presenting with spouse. CHIEF COMPLAINT: Widespread pain PRECIPITATING EVENT: None DURATION OF SYMPTOMS: Greater Than 1 Year Demario is a 59-year-old, [id number], non-smoker, non-diabetic. 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 Presents today with progressively worsening back pain. The pain started last summer and reports she went through conservative management. She then had a fall and reports symptoms worsen. She describes axial and bilateral low back pain that radiates up to the mid and upper back as well. She feels tender even to the slightest touch. She reports the pain radiates down both of her legs with no specific dermatomal pattern-reports the whole leg. Feels like her legs are giving out and she is falling due to the pain. States she is having difficulty getting through daily tasks and working given the significant amount of back pain she is experiencing. Denies leg heaviness, loss of control of bowel/bladder- endorses urgency, saddle anesthesia, impaired dexterity. PAIN EVALUATION 11/08/2024 1047 Pain Level: 10 Pain Location: Back-Lower upper back,buttocks,legs,hips Description: Crushing;Numbness;Pressure;Sebas p;Shooting;Sore;Throbbing;Stiff ness;Tingling;Tightness Duration Amount of Time: 9 Duration Units: Months Frequency: Continuous Intervention/Comfort measure: Relaxation;Medication Pain Radiation: down the right and left thigh, below the right and left knee, and to the right and left foot/feet Aggravating Factors: Any slight movement Alleviating Factors: Medications Pain Ratio: Pain in the back is greater than in the leg DERMATOMAL DISTRIBUTION: Not applicable AMBULATORY STATUS: Independent Community Distances ANTIPLATELET OR ANTICOAGULATION STATUS: No PREVIOUS CONSERVATIVE TREATMENTS: OTC NSAIDS for 3 Months or Greater (Aleve and Tylenol / acetaminophen) Baclofen, gabapentin, oral steroids, robaxin, tyelnol, motrin, Gabapentin 600 mg nightly NSAIDs PT PREVIOUS SPINAL SURGERY: None ACTIVE PROBLEM LIST Anosmia Depression History of Total Hysterectomy Migraine Without Aura and Without Status Migrainosus, Not Intractable Osteoporosis Sacroiliitis (Hcc) Seasonal Allergic Rhinitis Due to Pollen No past medical history on file. No past surgical history on file. No family history on file. ALLERGIES Allergen Reactions Seasonal Allergies Unknown MEDICATIONS: gabapentin (NEURONTIN) 600 mg tablet Take 1 tablet by mouth every 12 hours. loratadine (CLARITIN) 10 mg tablet Take 10 mg by mouth. SUMAtriptan (IMITREX) 25 mg tablet Take 25 mg by mouth as needed. REVIEW OF SYSTEMS: GENERAL: No weight loss or malaise MUSCULOSKELETAL: See HPI NEURO: No history of headaches, syncope, paralysis, seizures or tremors Patient Entered Questionnaires PROMIS Score Percentiles Percentiles provide an indication of how the patient's score ranks in relation to the general population. Higher percentile rankings indicate better function/quality of life. 50th percentile is the average of the general population and indicates half of respondents had a worse score. Depression Screening: PHQ-9 Self-Harm (Item 9) response options: 0 Not at all 1 Several days 2 More than half the days 3 Nearly every day PHQ-9 Levels: 0-4 No to mild depression 5-9 Mild depression 10-14 Moderate depression 15-19 Moderately severe depression 20-27 Severe depression OBJECTIVE: PHYSICAL EXAM BP 102/56 Pulse 80 Ht 170.2 cm (5' 7 ) Wt 80.3 kg (177 lb) SpO2 98% BMI 27.72 kg/m GENERAL APPEARANCE: Well nourished, well developed, and no apparent distress. NEURO PSYCH: Patient oriented to person, place, and time. Mood pleasant. Benign affect. Spine Exam Neck No obvious deformity, normal ROM Back No stepoffs/deformities. Widespread tenderness to light palpation along spinous processes or paravertebral musculature Upper Extremity Motor UE BICEPS TRICEPS DELTS Wrist Ext Wrist Flex Transmitter Engineer In Charge HI R 4+ giveaway 2/2 to pain 4+ giveaway 2/2 to pain 4+ giveaway 2/2 to pain 4+ giveaway 2/2 to pain 4+ giveaway 2/2 to pain 4+ giveaway 2/2 to pain 4+ giveaway 2/2 to pain L 4+ giveaway 2/2 to pain 4+ giveaway 2/2 to pain 4+ giveaway 2/2 to pain 4+ giveaway 2/2 to pain 4+ giveaway 2/2 to pain 4+ giveaway 2/2 to pain 4+ giveaway 2/2 to pain Sensation to light touch intact to bilateral upper extremities UE Reflexes Right: Triceps, Biceps, Brachial normoreflexic Left: Triceps, Biceps, Brachial normoreflexic Mooney's: Negative L'Hermitte's Sign: Negative Lower Extremity Motor LE Hip Flex Knee Flex Knee Extend Plantarflex Dorsiflex EHL R 4+ giveaway 2/2 to pain 4+ giveaway 2/2 to pain 4+ giveaway 2/2 to pain 4+ giveaway 2/2 to pain 4+ giveaway 2/2 to pain 4+ giveaway 2/2 to pain L 4+ giveaway 2/2 to pain 4+ giveaway 2/2 to pain 4+ giveaway 2/2 to pain 4+ giveaway 2/2 to pain 4+ giveaway 2/2 to pain 4+ giveaway 2/2 to pain Sensation intact to light tough in bilateral lower extremities in spn, dpn, sural, saphenous, and tibial nerves. Hip: GT bursa tenderness-yes BL, Hip pain with internal/external rotation BL SI JOINT: MARY'S FINGER: Positive bilaterally COMPRESSION RIGHT: positive; LEFT: positive GARY RIGHT: positive; LEFT: positive LE Reflexes Right: Patellar, Ankle normoreflexic Left: Patellar, Ankle normoreflexic Clonus: Negative Toe Walk: Unable (pain limiting) Heel Walk: Unable (pain limiting) Ambulatory status: Antalgic STRAIGHT LEG TEST: Ipsilateral: Negative. Contralateral: Negative. NEURO TESTS: Aston's Exam: Superficial Non-anatomic Tenderness: Yes Overreaction: Yes Pain on Simulated Maneuvers: Yes Straight Leg Raise Test Discrepancy: No Give-way Weakness: Yes Non-dermatomal Sensory Loss: Yes DATA REVIEW Images independently reviewed with the patient XR Minimal levocurvature in the upper thoracic spine centered at T2-3 with Amin angle measuring less than 10 degrees. No other scoliotic curvature. Mildly exaggerated lumbar lordosis with minimal grade 1 anterolisthesis at L4-5. Vertebral body heights are preserved. Multilevel degenerative changes are seen throughout the spine, most pronounced in ranging up to moderate in the mid thoracic and lower lumbar spine. L FS: 3-4 with mild left, 4-5 with moderate R lateral recess and FS, 5-1 with moderate BL MRI T spine 08/25/24: . Chronic mild degenerative disc disease within the thoracic spine, as detailed above. There is no evidence of canal stenosis, neural foraminal stenosis, or focal nerve impingement throughout the thoracic spine. ASSESSMENT/PLAN (G89.29) Other chronic pain (primary encounter diagnosis) (M54.16) Lumbar radiculopathy (M54.9) Mid back pain (M54.42, M54.41, G89.29) Chronic bilateral low back pain with bilateral sciatica (M46.1) Sacroiliitis (HCC) Demario Wallace is not a candidate for surgery at this time and will continue with medical management of his/her condition. Long discussion had with Demario regarding her clinical presentation. She does not exhibit any signs of cord compression. She has multilevel foraminal stenosis on lumbar imaging and nonspecific radiating leg pain. Her main complaint however is significant back pain, even to light touch. I do not see any current indication for surgical intervention at this point. I recommend she revisit injections and medications with her local pain manager chemistry. She is not sure if she wants to go back to her same provider so I have placed a consult here at the clinic. I have also placed a consult for CPRP. All questions answered and she will follow-up on an as-needed basis. Imaging Ordered: None The majority of the visit was spent counseling and/or coordinating care for the patient. The patient was counseled regarding chronic pain. Total face to face time was 45 minutes. SIGNATURE: Terence Mcguire APRN.CNP PATIENT NAME: Demario Wallace DATE: November 08, 2024 TIME: 11:03 AM PAGER: documented in this encounter [facility] 09-15-2024 Note HNO ID: [id number] Author: JAVIER PARKER PA-C Service: ? Author Type: Physician Gut Carrier Type: Progress Notes Filed: 09/15/2024 07:14 Note Text: SPINE SURGICAL TRIAGE: The patient complaints of multiple symptoms including: falls, imbalance, pain in the ribs/pelvis/legs and feet, numbness, weakness and bowel incontinence per office note Per office notes LBP worsened after a fall down the stairs several months ago Neurosurgery in [place] did not offer surgery. Conservative treatment: Baclofen, gabapentin, oral steroids, robaxin, tyelnol, motrin, Thoracic and lumbar MRI reports describe degenerative changes such as wedging in the thoracic spine and foraminal narrowing in the lumbar spine but overall no SC compression noted or pathology to explain the severity of her symptoms. Plan: Lumbar and thoracic imaging reports do not describe anything surgical or anything that would explain all of her symptoms. I do think it would be reasonable to work her up for cervical imaging given her hx of falls and imbalance. Thoracic MRI report describes degenerative changes in the lower cervical spine but does not note anything regarding stenosis or how severe. Scoli X-Ray ordered and she will need to see a surgical VANE for workup. If workup is normal could consider CPPRP or neurology visit depending on her complaints. [facility] 09-15-2024 History of Presen t illness Narrative SPINE SURGICAL TRIAGE: The patient complaints of multiple symptoms including: falls, imbalance, pain in the ribs/pelvis/legs and feet, numbness, weakness and bowel incontinence per office note Per office notes LBP worsened after a fall down the stairs several months ago Neurosurgery in [place] did not offer surgery. Conservative treatment: Baclofen, gabapentin, oral steroids, robaxin, tyelnol, motrin, Thoracic and lumbar MRI reports describe degenerative changes such as wedging in the thoracic spine and foraminal narrowing in the lumbar spine but overall no SC compression noted or pathology to explain the severity of her symptoms. Plan: Lumbar and thoracic imaging reports do not describe anything surgical or anything that would explain all of her symptoms. I do think it would be reasonable to work her up for cervical imaging given her hx of falls and imbalance. Thoracic MRI report describes degenerative changes in the lower cervical spine but does not note anything regarding stenosis or how severe. Scoli X-Ray ordered and she will need to see a surgical VANE for workup. If workup is normal could consider CPPRP or neurology visit depending on her complaints. Patient name: Demario Wallace Are you being referred by a [place] for Spine Health Provider or Pain Management Provider at [facility]? No If answer is YES please schedule directly with surgeon, triage does not need to be completed. Is this a self-referral No If not, who is the Referring Provider dr bharathi mcqueen Is this a 2nd opinion from another spine surgeon? Yes Were you offered surgery? No MRI/CT/myelogram within 12 months? Yes If NO , please refer to medical spine or PCP to complete above imaging, triage does not need to be completed If YES, please ask for the name/address of the facility where the MRI/CT/myelogram was completed: [address] [address] & [place] [address] MRI/CT/myelogram viewable in Epic: No If not, please provide [phone] to fax in imaging reports for review. Also, please inform patient to hand carry imaging disc to appointment. XR (spine) within 12 months: Yes If YES, please ask for the name/address of the facility where the XR was completed: [address] [address] [address] Talavera's patients: Have you had previous EMG/Nerve Conduction Study, Ultrasound, or MRI for these same symptoms? If YES, please ask for the name/address of the facility where they were completed: [place] [address] [place] [address] - 05/2024 Requested provider (First and Last name): 1st Are you interested in a virtual visit if offered? No 1. Where are you having symptoms related to this visit? MB/LB/Ribs/pelvis/legs/feet - weakness in legs - r worse then l - has fallen 6x in 30d - looses balance frequently - pain is burning sharp - pain is the worse sitting/laying to standing - has walker if needed - adls slower - laying on side is most comfortable - all other positions are uncomfortable & painful - numbness in legs/feet - bad rubia horses in thighs - Back pain Yes Leg pain Yes Arm pain No Neck pain No 2. Are you having any of the following symptoms: Difficulty walking Yes Numbness Yes Weakness Yes Trouble using your hands? No 3. Have you had any injections or physical therapy in the last 12 months? Yes If YES then please ask for the name/address of the facility where the injections and/or physical therapy was [place] [facility] [place] [address] Have you tried any other kinds of non-surgical treatments in the last 12 months? (For example: NSAIDS, muscle relaxants, analgesics, oral steroids, Chiropractor, Acupuncture): baclofen, gabapentin, mdp x2, robaxin, heat, ice, tylenol, motrin 4. Are you currently taking daily prescribed narcotic medications for your current symptoms (For example Oxycodone, Hydrocodone, Tramadol, Morphine, Other)? No [place] in 06/23 nothing since 5. Have you had previous spinal surgery for this same symptoms? No If YES please ask for the name of facility/address of where the surgery was completed: Additional Comments [phone] documented in this encounter [facility] 09-14-2024 Note HNO ID: [id number] Author: ?, ?, ? Service: ? Author Type: ? Type: Progress Notes Filed: 09/15/2024 07:14 Note Text: Patient name: Demario Wallace Are you being referred by a [facility] Provider or Pain Management Provider at [facility]? No If answer is YES please schedule directly with surgeon, triage does not need to be completed. Is this a self-referral No If not, who is the Referring Provider dr bharathi mcqueen Is this a 2nd opinion from another spine surgeon? Yes Were you offered surgery? No MRI/CT/myelogram within 12 months? Yes If NO , please refer to medical spine or PCP to complete above imaging, triage does not need to be completed If YES,? please ask for the name/address of the facility where the MRI/CT/myelogram was completed: [place] [address] [address] MRI/CT/myelogram viewable in Epic: No If not, please provide [phone] to fax in imaging reports for review. Also, please inform patient to hand carry imaging disc to appointment. XR (spine) within 12 months: Yes If YES,? please ask for the name/address of the facility where the XR was completed: [address] [address] [address] Talavera's patients: Have you had previous EMG/Nerve Conduction Study, Ultrasound, or MRI for these same symptoms? If YES,? please ask for the name/address of the facility where they were completed: [address] [place] [address] - 05/2024 Requested provider (First and Last name): 1st Are you interested in a virtual visit if offered? No 1. Where are you having symptoms related to this visit? MB/LB/Ribs/pelvis/legs/feet - weakness in legs - r worse then l - has fallen 6x in 30d - looses balance frequently - pain is burning sharp - pain is the worse sitting/laying to standing - has walker if needed - adls slower - laying on side is most comfortable - all other positions are uncomfortable AND painful - numbness in legs/feet - bad rubia horses in thighs - Back pain Yes Leg pain Yes Arm pain No Neck pain No 2. Are you having any of the following symptoms: Difficulty walking Yes Numbness Yes Weakness Yes Trouble using your hands? No 3. Have you had any injections or physical therapy in the last 12 months? Yes If YES then please ask for the name/address of the facility where the injections and/or physical therapy was completed [facility] [place] [id number] Have you tried any other kinds of non-surgical treatments in the last 12 months? (For example: NSAIDS, muscle relaxants, analgesics, oral steroids, Chiropractor, Acupuncture): baclofen, gabapentin, mdp x2, robaxin, heat, ice, tylenol, motrin 4. Are you currently taking daily prescribed narcotic medications for your current symptoms (For example Oxycodone, Hydrocodone, Tramadol, Morphine, Other)? No [place] in 06/23 nothing since 5. Have you had previous spinal surgery for this same symptoms? No If YES? please ask for the name of facility/address of where the surgery was completed: Additional Comments [phone] [facility] 07-21-2024 History of Presen t illness Narrative Images from the original note were not included. [facility] [address] [place] [address], [address] [place] [address] * CHART NOTE ? 07/21/2024 Patient: Demario Wallace 1965 [id number] Physician: Karely Brown, ERNA Silverman MD CHIEF COMPLAINT New patient, lumbar. HISTORY [...] 3 days). She also so Neurosurgery in [place], and was advised they could not help her. 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 ALLERGIES No [...] We will refer to pain management in [place] for evaluation and treatment of back pain. [...] record of the patient encounter. Inadvertent computerized shade classifier errors related to syntax, spelling, homophones, and/or inaudibility may be present. HAYDEE Rosenbaum 07/21/24 1240 documented in this encounter [facility] 07-21-2024 Instructions Italia Jama CMA - 07/21/2024 10:30 AM EST Patient was seen by Dior today. MRI ordered. Pain management offered. Pt to f/u PRN SS documented in this encounter [facility] 06-29-2024 History of Presen t illness Narrative [...] History: Diagnosis Date Allergic Allergic rhinitis Depression ([facility]) Past Surgical History: Procedure Laterality Date [...] Await consult. She wants to go to [facility] but her friend went to someone in [place] so she will call with the name [...] Await consult. She wants to go to [facility] but her friend went to someone in [place] so she will call with the name and we will send in a referral. She wants to go to whomever can get her in the quickest. Acute bilateral low back pain with bilateral sciatica - Ambulatory referral to Spine Surgery; Future - HYDROcodone-acetaminophen ([place]) 5-325 MG tablet; Take 1 tablet by [...] follow-ups on file. documented in this encounter [facility] 06-03-2024 Telephone encounter Note Robaxin sent. [facility] 06-03-2024 Miscellaneous Notes Robaxin sent. documented in this encounter [facility] 10-20-2023 Procedure note [facility] Evaluation note No assessment inform ation available [facility] Work Phone: Evaluation note Diagnosis Onset Date Lumbar pain acute Radicular low back pain acut e [facility] Work Phone: Evaluation note* Diagnosis Onset Date Resolution Status Lumbar pain acute Radicular low back pain acut e Lumbar pain acute Radicular low back pain acut e [facility] Work Phone: Evaluation note* Diagnosis Muscle spasm Spasm of muscle documented in this encounter [facility]* Diagnosis Onset Date Resolution Status Lumbar pain acute Radicular low back pain acut e Lumbar pain acute Radicular low back pain acut e Lumbar pain acute [facility] Work Phone: Evaluation note* Diagnosis Right upper quadrant abdominal pain- Primary Sacroiliitis (CMS/HCC)- Primary Sacroiliitis, not elsewhere classified Cauda equina syndrome- Primary Cauda equina syndrome without mention of neurogenic bladder Lumbar pain Lumbago Acute bilateral low back pain with bilateral sciatica Sacroiliitis (CMS/HCC) Sacroiliitis, not elsewhere classified documented in this encounter [facility] HealthcareEvaluation [facility]* Diagnosis Chronic bilateral low back pain with bilateral sciatica- Primary [facility] Spinal stenosis of lumbar region with neurogenic claudication- Primary Pain in thoracic spine Fall (on) (from) other stairs and steps, sequela Fall (on) (from) other stairs and steps, initial encounter Sensory deficit present Other general symptoms [facility] Diagnosis Chronic bilateral low back pain with bilateral sciatica [facility] Diagnosis Other chronic pain- Primary Lumbar radiculopathy Thoracic or lumbosacral neuritis or radiculitis, unspecified Mid back pain Backache, unspecified Chronic bilateral low back pain with bilateral sciatica Sacroiliitis (HCC) Sacroiliitis, not elsewhere classified [facility] Author Torrey Conklin [facility] October 20, 2023 10:18am Note Date/Time October 20, 2023 10:18am [facility] ENTER [address] [place] [address] Gastroenterology H&P Signed Patient: Demario Wallace MR#: [id number] : 1965 Acct:[id number] Age/Sex: 58 / F Adm Date: 4 Loc: Room: Type: [facility] Attending Dr: Torrey Conklin MD Copies to: MD Swati Sheth MD~ Date of Service: 10/20/2023 HISTORY [...] M.D. Documented By: Torrey Conklin MD 10/20/23 0903 Signed By: <Electronically signed by Torrey Conklin MD> 10/20/[address] [place] [address] Ctr Work Phone: Hospital Discharge instructions Additional Instructions It is important that you follow-up with Dr. Carter office on Thursday as discussed Continue gabapentin Start your [place] for severe pain You cannot work or drive when taking [place] You also can rotate Tylenol / Motrin Take steroids as prescribed Avoid heavy lifting Please return here if any problems persist or worsen including numbness, tingling, loss of bowel bladder control, respiratory concerns or any other concerns as needed [facility] Work Phone: Reason for referral (narrative)* Diagnostic Procedure Only (Routine) - New Request Specialty Diagnoses / Procedures Referred By Contac t Referred To Contact XR IMAGING Diagnoses Chronic bilateral low back pain with bilateral sciatica Procedures XR SCOLIOSIS PA STAND/LAT 2V RADEX ENTIR THRC LMBR CRV SAC SPI W/SKULL 2/3 Javier Nicholson PA-C [address] [place] [address] Xr Imaging [facility] Referral ID Status Reason Start Date Expiration Date Visits Requested Visits Authorized [id number] New Request Auto-Generat ed Referral 09/15/2024 10/15/2025 1 1 [facility] for visit Narrative* Diagnostic Procedure Only (Routine) - Closed Specialty Diagnoses / Procedures Referred By Vahid hoover Referred To Contact XR IMAGING Diagnoses Chronic bilateral low back pain with bilateral sciatica Procedures XR SCOLIOSIS PA STAND/LAT 2V RADEX ENTIR THRC LMBR CRV SAC SPI W/SKULL 2/3 Javier Nicholson PA-C [address] [place] [id number] Phone: tel: fax: XR IMAGING [facility] Referral ID Status Reason Start Date Expiration Date V isits Requested Visits Authorized [id number] Closed Auto-Generate d Referral 09/15/2024 10/15/2025 1 1 [facility] Summary Purpose Family History Relationship Condition Age [...] section and content) DATE CREATED AUTHOR 10/10/2021 [facility] dical Specialist DATE CREATED AUTHOR AUTHOR'S ORGANIZ ATION 11/07/2021 [facility] pital DATE CREATED AUTHOR AUTHOR'S ORGANIZ ATION 07/01/2024 [facility] dical Specialists EPIC DATE CREATED AUTHOR AUTHOR'S ORGANIZ ATION 07/08/2024 [facility] y[facility] Group DATE CREATED AUTHOR AUTHOR'S ORGANIZ ATION 07/24/2024 [facility] DATE CREATED AUTHOR AUTHOR'S ORGANIZ ATION 07/24/2024 [facility] DATE CREATED AUTHOR AUTHOR'S ORGANIZ ATION 08/04/2024 [facility] DATE CREATED AUTHOR AUTHOR'S ORGANIZ ATION 08/26/2024 [facility] DATE CREATED AUTHOR AUTHOR'S ORGANIZ ATION 11/10/2024 [facility] Care Teams (unrecognized sec tion and content) Team Status: Active Member Role Status Dates Swati Gray MD Primary Care Provider Active Team Status: Inactive Member Role Status Dates Torrey Conklin MD Attending Provider Active Start: October 20, 2023 End: October 20, 2023 Swati Gray MD Primary Care Provider Active S tart: October 20, 2023 End: October 20, 2023 Team Status: Active Member Role Status Dates Torrey Conklin MD Attending Provider, Other Provider Active Start: October 20, 2023 Swati Gray MD Primary Care Provider Active S tart: October 20, 2023 Team Status: Inactive Member Role Status Dates Swati Gray MD Primary Care Provider Active S tart: March 24, 2024 End: March 24, 2024 Lottie Shaikh APRN Attending Provider Active Start: March 24, 2024 End: March 24, 2024 Team Status: Inactive Member Role Status Dates Swati Gray MD Primary Care Provider Active S tart: April 07, 2024 End: April 07, 2024 Lottie Shaikh APRN Attending Provider Active Start: April 07, 2024 End: April 07, 2024 Team Status: Inactive Member Role Status Dates Swati Gray MD Primary Care Provider Active S tart: May 07, 2024 End: May 07, 2024 Lillian Perkins APRN Emergency Provider Active Start: May 07, 2024 End: May 07, 2024 Tractor Mechanic Helper Relationship Specialty Start Date End Date Swati Gray MD [address] [facility] [address] [place] [address] PCP - Umberto Nuñez 07/01/21Thursday, KALE Albert [address] [place] [address] Licensed Practical Nurse Family Medicine 11/27/23 Team Status: Inactive Member Role Status Dates Swati Gray MD Primary Care Provider Active S tart: May 24, 2024 End: May 24, 2024 Vijay Stone DO Attending Provider Active S tart: May 24, 2024 End: May 24, 2024 Team Status: Inactive Member Role Status Dates Swati Gray MD Primary Care Provider Active S tart: June 15, 2024 End: June 15, 2024 Vijay Stone DO Attending Provider Active S tart: June 15, 2024 End: June 15, 2024 Team Status: Inactive Member Role Status Dates Swati Gray MD Primary Care Provider Active S tart: June 20, 2024 End: June 20, 2024 Vijay Stone DO Attending Provider Active S tart: June 20, 2024 End: June 20, 2024 Tractor Mechanic Helper Relationship Specialty Start Date End Date Swati Gray MD [address] [facility] [address] [place] [address] PCP - [facility] 07/01/21Thursday, Bety, DIRECTOR OF HEAD START [address] [place] [address] Licensed Practical Nurse Family Medicine 11/27/23 Tractor Mechanic Helper Relationship Specialty Start Date End Date Swati Grya MD [address] [place] [address] PCP - [facility] 07/01/21Thursday, Bety, DIRECTOR OF HEAD START [address] [place] [address] Licensed Practical Nurse Family Medicine 11/27/23 Tractor Mechanic Helper Relationship Specialty Start Date End Date Pat Rivas CNP [address] [place] [address] Referring Family Medicine 07/01/24 Bharathi Mcqueen CNP [address] [place] [address] Referring Pain Management 09/13/24 Tractor Mechanic Helper Relationship Specialty Start Date End Date Pat Rivas CNP [address] [place] [address] Referring Family Medicine 07/01/24 Bharathi Mcqueen CNP [address] [place] [address] Referring Pain Management 09/13/24 Tractor Mechanic Helper Relationship Specialty Start Date End Date Pat Rivas CNP [address] [place] [address] Referring Family Medicine 07/01/24 Bharathi Mcqueen CNP [address] [place] [address] Referring Pain Management 09/13/24 Tractor Mechanic Helper Relationship Specialty Start Date End Date Pat Rivas CNP [address] [place] [address] Referring Family Medicine 07/01/24 Bharathi Mcqueen CNP [address] [place], [place] [id number] Referring Pain Management 09/13/24 Goals (unrecognized section and content) Goals may be documented in a n alternate sectionGoals may be documented in an alternate sectionGoals may be documented in an alternate sectionGoals may be documented in an alternate sectionNot on filedocumented as of this encounter Reason for Visit (unrecogniz ed section and content) Reason Comments Med Refill Reason Comments Back Pain Reason Comments Consult knock out hand consult/lumbar/mr i being pushed-[place], xray-[facility]/not wc/mailed pkt Reason Comments New Patient Source Comments (unrecognize d section and content) In the event this informatio n is protected by the Federal Confidentiality of Alcohol and Drug Abuse Patient Records regulations: The Federal rules restrict any use of the information to criminally investigate or prosecute any alcohol or drug abuse patient.[facility] the event this information is protected by the Federal Confidentiality of Alcohol and Drug Abuse Patient Records regulations: The Federal rules restrict any use of the information to criminally investigate or prosecute any alcohol or drug abuse patient.[facility] the event this information is protected by the Federal Confidentiality of Alcohol and Drug Abuse Patient Records regulations: The Federal rules restrict any use of the information to criminally investigate or prosecute any alcohol or drug abuse patient.[facility] the event this information is protected by the Federal Confidentiality of Alcohol and Drug Abuse Patient Records regulations: The Federal rules restrict any use of the information to criminally investigate or prosecute any alcohol or drug abuse patient.[facility] FOR RECORDS PERTAINING TO PATIENTS WHO ARE [...] BE BASED ON THE PRIMARY CLINICAL RECORDS. [facility]. provides no warranty or guarantee of the accuracy or completeness of information in this document.
--- NOTE | 2024-11-11 13:15 | ED_ITS ---
Documented by User: RICHARD Lemus 11/11/24 15:18 HPI HPI - General Adult General Chief complaint: Abdominal Pain Stated complaint: RIGHT FLANK PAIN Time Seen by Provider: 11/11/24 13:05 Source: patient Mode of arrival: Wheelchair History of Present Illness HPI narrative: Patient is a 59-year-old female who was at work several hours ago when she developed severe right flank pain. She denies any history of kidney issues, kidney stones in the past. She has had a previous hysterectomy, no other abdominal surgeries. She reports strong smelling urine today. She has had multiple episodes of nausea and vomiting and keeps repeating at initial interview that she is going to throw up. She apparently went to her primary care provider's office where she received a shot of Phenergan and was sent to the ER, she reports no improvement of nausea with the Phenergan but states it makes her feel very tired. Related Data Home Medications ?Medication ?Instructions ?Recorded ?Confirmed fluoxetine 20 mg capsule 20 mg PO QDAY 11/26/23 11/26/23 fluticasone propionate 50 1 spray intranasal QDAY 11/26/23 11/26/23 mcg/actuation nasal spray,suspension sumatriptan succinate 25 mg tablet 25 mg PO Q2H PRN migraine headache 11/26/23 11/26/23 Previous Rx's ?Medication ?Instructions ?Recorded baclofen 10 mg tablet 10 mg PO TID PRN muscle spasm #90 04/28/24 tabs gabapentin 300 mg capsule 300 mg PO BID #60 caps 04/28/24 gabapentin 600 mg tablet 600 mg PO BID #60 tabs 08/01/24 prednisone 20 mg tablet 20 mg PO TID #9 tabs 08/01/24 cephalexin 500 mg capsule 500 mg PO Q8H 5 days #15 caps 11/11/24 hydrocodone 5 mg-acetaminophen 325 1 tab PO Q6H PRN pain 3 days #12 11/11/24 mg tablet tabs ondansetron 4 mg disintegrating 4 mg PO Q6H PRN nausea and 11/11/24 tablet vomiting #12 tabs tamsulosin 0.4 mg capsule (Flomax) 0.4 mg PO DAILY #7 caps 11/11/24 Allergies Allergy/AdvReac Type Severity Reaction Status Date / Time No Known Drug Allergies Allergy Verified 11/11/24 12:34 Opioid HPI Opioid Management Most Recent Opioid Data: Last Pain Scale 10 11/11/24 13:29 11/11/24 Last MAR Pain Assessment 11/11/24 13:29 Review of Systems ROS Constitutional Denies: fever or chills Ears, nose, mouth, and throat Denies: throat pain or nasal congestion Cardiovascular Denies: chest pain Respiratory Denies: shortness of breath Gastrointestinal Reports: abdominal pain, nausea and vomiting; Denies: diarrhea Musculoskeletal Reports: back pain Integumentary/Breast Denies: rash Neurological Denies: numbness in extremities or weakness in extremities Hematologic/Lymphatic Denies: easy bruising or easy bleeding [facility] Medical History Spinal stenosis, lumbar region with neurogenic claudication ?M48.062 - Spinal stenosis, lumbar region with neurogenic claudication (ICD- 10) Migraines ?G43.909 - Migraine, unspecified, not intractable, without status migrainosus (ICD-10) Social History Smoking status: Former smoker Exam Narrative Exam Narrative: Gen.: Awake, alert, moderately uncomfortable Head: Normocephalic, atraumatic ENT: Moist mucous membranes Respiratory: No respiratory distress, lungs clear bilaterally Cardio: Regular rate and rhythm Gastrointestinal: Abdomen is soft, nondistended. Diffuse tenderness of the right flank and pelvis with no guarding or rebound. No CVA tenderness Extremities: Moves extremities equally Psych: Normal mood and affect Neuro: No focal neuro deficit Skin: Warm, dry, intact Constitutional Vital Signs, click to edit/add: Last Vital Signs Temp 98.2 F 11/11/24 12:34 Pulse 79 11/11/24 12:34 Resp 14 11/11/24 12:34 BP 123/71 11/11/24 12:34 Pulse Ox 96 11/11/24 12:34 O2 Del Method Room Air 11/11/24 12:34 Course Vital Signs Vital signs: Vital Signs Temperature 98.2 F 11/11/24 12:34 Pulse Rate 79 11/11/24 12:34 Respiratory Rate 14 11/11/24 12:34 Blood Pressure 123/71 11/11/24 12:34 Pulse Oximetry 96 11/11/24 12:34 Oxygen Delivery Method Room Air 11/11/24 12:34 Temperature 98.2 F 11/11/24 12:34 Pulse Rate 79 11/11/24 12:34 Respiratory Rate 14 11/11/24 12:34 Blood Pressure 123/71 11/11/24 12:34 Pulse Oximetry 96 11/11/24 12:34 Oxygen Delivery Method Room Air 11/11/24 12:34 Medical Decision Making MDM Narrative Medical decision making narrative: Patient was medicated with IV fluids, Dilaudid, Toradol, Zofran. She is sleeping comfortably on reevaluation. She did have a temporary drop in her pulse oximetry after the narcotics were given, she was placed on oxygen by nasal cannula at 2 L for comfort. She is easily arousable and did not require Narcan. After the pain medication was given, CT scan was obtained showing the patient has a 2 mm stone in the right distal ureter. She has otherwise unremarkable labs and normal lactic acid. Urine specimen with no evidence of UTI. Patient started on Flomax, pain medication, Zofran, Keflex for home. Follow-up with urology. Return to the emergency department if symptoms change or worsen. SUPERVISED APC VISIT, PHYSICIAN ATTESTATION: Based on the medical record the care appears appropriate. ? Medical Records Medical records reviewed: Yes I reviewed the patient's medical records Lab Data Lab results reviewed: Yes I reviewed the patient's lab results Labs: Lab Results 11/11/24 11/11/24 11/11/24 Range/Units 12:55 13:30 14:45 WBC 10.8 (4.0-11.0) 10^3/uL RBC 4.05 L (4.20-5.40) 10^6/uL Hgb 12.4 (12.0-16.0) g/dL Hct 36.5 (36.0-48.0) % MCV 90.1 (81.0-99.0) fL MCH 30.6 (26.7-34.0) pg MCHC 34.0 (29.9-35.2) g/dL RDW 11.9 (11.0-15.0) % Plt Count 249 (150-450) 10^3/uL MPV 9.8 (9.5-13.5) fL Neut % (Auto) 81.6 H (43.0-75.0) % Lymph % (Auto) 11.4 L (20.5-60.0) % [place] % (Auto) 5.2 (1.7-12.0) % Eos % (Auto) 1.0 (0.9-7.0) % Baso % (Auto) 0.6 (0.2-2.0) % Neut # (Auto) 8.8 H (1.4-6.5) 10^3/uL Lymph # (Auto) 1.2 (1.2-3.8) 10^3/uL [place] # (Auto) 0.6 (0.3-0.8) 10^3/uL Eos # (Auto) 0.1 (0.0-0.7) 10^3/uL Baso # (Auto) 0.1 (0.0-0.1) 10^3/uL Abs Immat Gran (auto) 0.02 (0.00-0.03) 10^3/uL Imm/Tot Granulo (auto) 0.2 (0.0-0.5) % PT 10.5 (9.0-11.6) sec INR 0.99 Sodium 140 (136-145) mmol/L Potassium 3.7 (3.5-5.1) mmol/L Chloride 103 (98-107) mmol/L Carbon Dioxide 26.5 (21.0-32.0) mmol/L Anion Gap 14.2 BUN 24.0 H (7.0-18.0) mg/dL Creatinine 1.17 H (0.55-1.02) mg/dL Est GFR ( Amer) 58 L (>=60 mL/min/1.73m^2) Est GFR (Non-Af Amer) 48 L (>=60 mL/min/1.73m^2) BUN/Creatinine Ratio 20.5 Glucose 104 (74-106) mg/dL Lactate 1.9 (0.4-2.0) mmol/L Calcium 9.2 (8.5-10.1) mg/dL Total Bilirubin 0.3 (0.2-1.0) mg/dL AST 29 (15-37) U/L ALT 23 (14-59) U/L Alkaline Phosphatase 117 H (46-116) U/L Total Protein 7.1 (6.4-8.2) g/dL Albumin 3.7 (3.4-5.0) g/dL Globulin 3.4 g/dL Albumin/Globulin Ratio 1.1 Lipase 57.0 (16.0-77.0) U/L Urine Color Yellow (YELLOW) Urine Clarity Clear (CLEAR) Urine pH 6.0 (5.0-9.0) Ur Specific [place] >=1.030 A (1.005-1.025) Urine Protein Trace (NEG/TRACE) mg/dL Urine Glucose (UA) Negative (NEGATIVE) mg/dL Urine Ketones Trace A (NEGATIVE) mg/dL Urine Occult Blood Negative (NEGATIVE) Urine Nitrite Negative (NEGATIVE) Urine Bilirubin Negative (NEGATIVE) Urine Urobilinogen 0.2 (0.2-1.0) EU/dL Ur Leukocyte Esterase Negative (NEGATIVE) Urine RBC 0-2 (0-2) #/HPF Urine WBC 0-2 A (NONE SEEN) #/HPF Ur Squamous Epith Cells Few A (NONE/RARE) #/LPF Urine Crystals None seen (None Seen) #/HPF Urine Bacteria Trace A (NONE SEEN) #/HPF Urine Casts None seen (NONE SEEN) #/LPF Urine Mucus Moderate A (NONE SEEN) Ur Culture Indicated? No Imaging Data CT scan - abdomen: Attestation: I have reviewed the pertinent imaging results. Radiologist's impression: CT of the abdomen and pelvis: 2 mm stone at the right distal ureter with hydronephrosis Discharge Plan Discharge Chief Complaint: Abdominal Pain Clinical Impression: Acute right flank pain, Right ureteral calculus Patient Disposition: Home, Self-Care Time of Disposition Decision: 15:15 Condition: Good Prescriptions / Home Meds: New hydrocodone-acetaminophen 5-325 mg tablet 1 tab PO Q6H PRN (Reason: pain) 3 Days Qty: 12 0RF Rx Instructions: DX: N20.0 tamsulosin [Flomax] 0.4 mg capsule 0.4 mg PO DAILY Qty: 7 0RF cephalexin 500 mg capsule 500 mg PO Q8H 5 Days Qty: 15 0RF ondansetron 4 mg tablet,disintegrating 4 mg PO Q6H PRN (Reason: nausea and vomiting) Qty: 12 0RF No Action gabapentin 300 mg capsule 300 mg PO BID Qty: 60 0RF baclofen 10 mg tablet 10 mg PO TID PRN (Reason: muscle spasm) Qty: 90 2RF fluoxetine 20 mg capsule 20 mg PO QDAY fluticasone propionate 50 mcg/actuation spray,suspension 1 spray INTRANASAL QDAY sumatriptan succinate 25 mg tablet 25 mg PO Q2H PRN (Reason: migraine headache) gabapentin 600 mg tablet 600 mg PO BID Qty: 60 0RF prednisone 20 mg tablet 20 mg PO TID Qty: 9 0RF Print Language: Bruneian Instructions: Ureteral Stones (ED) Referrals: Kaylee Savage MD [Physician] - As soon as possible SWATI GRAY [Primary Care Provider] - 1 week Discharge Date/Time: 11/11/24 16:04 Documented by User: Emile Waggoner MD 11/11/24 16:44 HPI HPI - General Adult General Chief complaint: Abdominal Pain Stated complaint: RIGHT FLANK PAIN Time Seen by Provider: 11/11/24 13:05 Related Data Home Medications ?Medication ?Instructions ?Recorded ?Confirmed fluoxetine 20 mg capsule 20 mg PO QDAY 11/26/23 11/26/23 fluticasone propionate 50 1 spray intranasal QDAY 11/26/23 11/26/23 mcg/actuation nasal spray,suspension sumatriptan succinate 25 mg tablet 25 mg PO Q2H PRN migraine headache 11/26/23 11/26/23 Previous Rx's ?Medication ?Instructions ?Recorded baclofen 10 mg tablet 10 mg PO TID PRN muscle spasm #90 04/28/24 tabs gabapentin 300 mg capsule 300 mg PO BID #60 caps 04/28/24 gabapentin 600 mg tablet 600 mg PO BID #60 tabs 08/01/24 prednisone 20 mg tablet 20 mg PO TID #9 tabs 08/01/24 cephalexin 500 mg capsule 500 mg PO Q8H 5 days #15 caps 11/11/24 hydrocodone 5 mg-acetaminophen 325 1 tab PO Q6H PRN pain 3 days #12 11/11/24 mg tablet tabs ondansetron 4 mg disintegrating 4 mg PO Q6H PRN nausea and 11/11/24 tablet vomiting #12 tabs tamsulosin 0.4 mg capsule (Flomax) 0.4 mg PO DAILY #7 caps 11/11/24 Allergies Allergy/AdvReac Type Severity Reaction Status Date / Time No Known Drug Allergies Allergy Verified 11/11/24 12:34 Opioid HPI Opioid Management Most Recent Opioid Data: Last Pain Scale 10 11/11/24 13:29 11/11/24 Last MAR Pain Assessment 11/11/24 13:29 PFSH PFSH Medical History Spinal stenosis, lumbar region with neurogenic claudication ?M48.062 - Spinal stenosis, lumbar region with neurogenic claudication (ICD- 10) Migraines ?G43.909 - Migraine, unspecified, not intractable, without status migrainosus (ICD-10) Social History Smoking status: Former smoker Exam Constitutional Vital Signs, click to edit/add: Last Vital Signs Temp 98.2 F 11/11/24 12:34 Pulse 79 11/11/24 12:34 Resp 14 11/11/24 12:34 BP 123/71 11/11/24 12:34 Pulse Ox 96 11/11/24 12:34 O2 Del Method Room Air 11/11/24 12:34 Course Vital Signs Vital signs: Vital Signs Temperature 98.2 F 11/11/24 12:34 Pulse Rate 79 11/11/24 12:34 Respiratory Rate 14 11/11/24 12:34 Blood Pressure 123/71 11/11/24 12:34 Pulse Oximetry 96 11/11/24 12:34 Oxygen Delivery Method Room Air 11/11/24 12:34 Temperature 98.2 F 11/11/24 12:34 Pulse Rate 79 11/11/24 12:34 Respiratory Rate 14 11/11/24 12:34 Blood Pressure 123/71 11/11/24 12:34 Pulse Oximetry 96 11/11/24 12:34 Oxygen Delivery Method Room Air 11/11/24 12:34 Medical Decision Making MDM Narrative Medical decision making narrative: Patient was medicated with IV fluids, Dilaudid, Toradol, Zofran. She is sleeping comfortably on reevaluation. She did have a temporary drop in her pulse oximetry for a few minutes into the mid to high 80s after the narcotics were given, she was placed on oxygen by nasal cannula at 2 L for comfort. She is easily arousable and did not require Narcan. After the pain medication was given, CT scan was obtained showing the patient has a 2 mm stone in the right distal ureter. She has otherwise unremarkable labs and normal lactic acid. Urine specimen with no evidence of UTI. Patient started on Flomax, pain medication, Zofran, Keflex for home. Follow-up with urology. Return to the emergency department if symptoms change or worsen. SUPERVISED APC VISIT, PHYSICIAN ATTESTATION: Based on the medical record the care appears appropriate. I, Dr Waggoner, have reviewed the above progress note and course of action in the ER; agree with the above. I have personally gone over history and physical, and discussed disposition and treatment plan with the PA. Patient is not hypoxic at discharge. Patient had no prolonged periods of hypoxia in the ER. Lab Data Labs: Lab Results 11/11/24 11/11/24 11/11/24 Range/Units 12:55 13:30 14:45 WBC 10.8 (4.0-11.0) 10^3/uL RBC 4.05 L (4.20-5.40) 10^6/uL Hgb 12.4 (12.0-16.0) g/dL Hct 36.5 (36.0-48.0) % MCV 90.1 (81.0-99.0) fL MCH 30.6 (26.7-34.0) pg MCHC 34.0 (29.9-35.2) g/dL RDW 11.9 (11.0-15.0) % Plt Count 249 (150-450) 10^3/uL MPV 9.8 (9.5-13.5) fL Neut % (Auto) 81.6 H (43.0-75.0) % Lymph % (Auto) 11.4 L (20.5-60.0) % [place] % (Auto) 5.2 (1.7-12.0) % Eos % (Auto) 1.0 (0.9-7.0) % Baso % (Auto) 0.6 (0.2-2.0) % Neut # (Auto) 8.8 H (1.4-6.5) 10^3/uL Lymph # (Auto) 1.2 (1.2-3.8) 10^3/uL [place] # (Auto) 0.6 (0.3-0.8) 10^3/uL Eos # (Auto) 0.1 (0.0-0.7) 10^3/uL Baso # (Auto) 0.1 (0.0-0.1) 10^3/uL Abs Immat Gran (auto) 0.02 (0.00-0.03) 10^3/uL Imm/Tot Granulo (auto) 0.2 (0.0-0.5) % PT 10.5 (9.0-11.6) sec INR 0.99 Sodium 140 (136-145) mmol/L Potassium 3.7 (3.5-5.1) mmol/L Chloride 103 (98-107) mmol/L Carbon Dioxide 26.5 (21.0-32.0) mmol/L Anion Gap 14.2 BUN 24.0 H (7.0-18.0) mg/dL Creatinine 1.17 H (0.55-1.02) mg/dL Est GFR ( Amer) 58 L (>=60 mL/min/1.73m^2) Est GFR (Non-Af Amer) 48 L (>=60 mL/min/1.73m^2) BUN/Creatinine Ratio 20.5 Glucose 104 (74-106) mg/dL Lactate 1.9 (0.4-2.0) mmol/L Calcium 9.2 (8.5-10.1) mg/dL Total Bilirubin 0.3 (0.2-1.0) mg/dL AST 29 (15-37) U/L ALT 23 (14-59) U/L Alkaline Phosphatase 117 H (46-116) U/L Total Protein 7.1 (6.4-8.2) g/dL Albumin 3.7 (3.4-5.0) g/dL Globulin 3.4 g/dL Albumin/Globulin Ratio 1.1 Lipase 57.0 (16.0-77.0) U/L Urine Color Yellow (YELLOW) Urine Clarity Clear (CLEAR) Urine pH 6.0 (5.0-9.0) Ur Specific [place] >=1.030 A (1.005-1.025) Urine Protein Trace (NEG/TRACE) mg/dL Urine Glucose (UA) Negative (NEGATIVE) mg/dL Urine Ketones Trace A (NEGATIVE) mg/dL Urine Occult Blood Negative (NEGATIVE) Urine Nitrite Negative (NEGATIVE) Urine Bilirubin Negative (NEGATIVE) Urine Urobilinogen 0.2 (0.2-1.0) EU/dL Ur Leukocyte Esterase Negative (NEGATIVE) Urine RBC 0-2 (0-2) #/HPF Urine WBC 0-2 A (NONE SEEN) #/HPF Ur Squamous Epith Cells Few A (NONE/RARE) #/LPF Urine Crystals None seen (None Seen) #/HPF Urine Bacteria Trace A (NONE SEEN) #/HPF Urine Casts None seen (NONE SEEN) #/LPF Urine Mucus Moderate A (NONE SEEN) Ur Culture Indicated? No Discharge Plan Discharge Chief Complaint: Abdominal Pain Clinical Impression: Acute right flank pain, Right ureteral calculus Patient Disposition: Home, Self-Care Time of Disposition Decision: 15:15 Condition: Good Prescriptions / Home Meds: New hydrocodone-acetaminophen 5-325 mg tablet 1 tab PO Q6H PRN (Reason: pain) 3 Days Qty: 12 0RF Rx Instructions: DX: N20.0 tamsulosin [Flomax] 0.4 mg capsule 0.4 mg PO DAILY Qty: 7 0RF cephalexin 500 mg capsule 500 mg PO Q8H 5 Days Qty: 15 0RF ondansetron 4 mg tablet,disintegrating 4 mg PO Q6H PRN (Reason: nausea and vomiting) Qty: 12 0RF No Action gabapentin 300 mg capsule 300 mg PO BID Qty: 60 0RF baclofen 10 mg tablet 10 mg PO TID PRN (Reason: muscle spasm) Qty: 90 2RF fluoxetine 20 mg capsule 20 mg PO QDAY fluticasone propionate 50 mcg/actuation spray,suspension 1 spray INTRANASAL QDAY sumatriptan succinate 25 mg tablet 25 mg PO Q2H PRN (Reason: migraine headache) gabapentin 600 mg tablet 600 mg PO BID Qty: 60 0RF prednisone 20 mg tablet 20 mg PO TID Qty: 9 0RF Print Language: Bruneian Instructions: Ureteral Stones (ED) Referrals: Kaylee Savage MD [Physician] - As soon as possible SWATI GRAY [Primary Care Provider] - 1 week Discharge Date/Time: 11/11/24 16:04
[2024-11-11 13:22] LABS: Basophils Absolute Auto 0.1 10^3/uL (0.0-0.1); Basophils Percent Auto 0.6 % (0.2-2.0); Eosinophils Absolute Auto 0.1 10^3/uL (0.0-0.7); Hematocrit 36.5 % (36.0-48.0); Hemoglobin 12.4 g/dL (12.0-16.0); Immature Granulocytes Abs Auto 0.02 10^3/uL (0.00-0.03); Immature Granulocytes Pct Auto 0.2 % (0.0-0.5); Lymphocytes Absolute Auto 1.2 10^3/uL (1.2-3.8); Lymphocytes Percent Auto 11.4 % (20.5-60.0); Mean Corpuscular Hemoglobin 30.6 pg (26.7-34.0); Mean Corpuscular Volume 90.1 fL (81.0-99.0); Mean Platelet Volume 9.8 fL (9.5-13.5); Monocytes Absolute Auto 0.6 10^3/uL (0.3-0.8); Monocytes Percent Auto 5.2 % (1.7-12.0); Neutrophils Absolute Auto 8.8 10^3/uL (1.4-6.5); Neutrophils Percent Auto 81.6 % (43.0-75.0); Platelet Count 249 10^3/uL (150-450); Red Blood Count 4.05 10^6/uL (4.20-5.40); Red Cell Distribution Width 11.9 % (11.0-15.0); White Blood Count 10.8 10^3/uL (4.0-11.0)
[2024-11-11] MEDS: KETOROLAC TROMETHAMINE 30 MG/ML VIAL IVP (13:29)
[2024-11-11] MEDS: ONDANSETRON PF 4 MG/2 ML VIAL IV (13:29)
[2024-11-11] MEDS: HYDROMORPHONE HCL 1 MG/ML CARTRIDGE IVP (13:29)
[2024-11-11] MEDS: 0.9 % SODIUM CHLORIDE 1,000 ML 999 ML IV (13:29)
[2024-11-11 13:40] LABS: Alanine Aminotransferase 23 U/L (14-59); Albumin Globulin Ratio 1.1; Albumin Level 3.7 g/dL (3.4-5.0); Alkaline Phosphatase 117 U/L (46-116); Anion Gap 14.2; Aspartate Amino Transferase 29 U/L (15-37); BUN Creatinine Ratio 20.5; Bilirubin Total 0.3 mg/dL (0.2-1.0); Calcium 9.2 mg/dL (8.5-10.1); Carbon Dioxide 26.5 mmol/L (21.0-32.0); Chloride 103 mmol/L (98-107); Estimated GFR (African America 58 (>=60 mL/min/1.73m^2); Estimated GFR (Non-African Ame 48 (>=60 mL/min/1.73m^2); Globulin 3.4 g/dL; Glucose 104 mg/dL (74-106); Potassium 3.7 mmol/L (3.5-5.1); Sodium 140 mmol/L (136-145); Total Protein 7.1 g/dL (6.4-8.2)
[2024-11-11 13:43] LABS: Lactate/Lactic Acid 1.9 mmol/L (0.4-2.0)
[2024-11-11 13:50] LABS: INR 0.99; Prothrombin Time 10.5 sec (9.0-11.6)
[2024-11-11 15:02] LABS: Bilirubin Urine NEGATIVE (NEGATIVE); Blood Urine NEGATIVE (NEGATIVE); Clarity Urine CLEAR (CLEAR); Color Urine YELLOW (YELLOW); Glucose Urine UA NEGATIVE (NEGATIVE); Ketones Urine TRACE mg/dL (NEGATIVE); Leukocyte Esterase Urine NEGATIVE (NEGATIVE); Nitrite Urine NEGATIVE (NEGATIVE); Protein Urine TRACE mg/dL (NEG/TRACE); Specific Gravity Urine >=1.030 (1.005-1.025); Urobilinogen Urine 0.2 EU/dL (0.2-1.0)
[2024-11-11 15:24] LABS: Bacteria Urine TRACE #/HPF (NONE SEEN); RBC Urine 0-2 #/HPF (0-2); WBC Urine 0-2 #/HPF (NONE SEEN)
[2024-11-11 15:25] LABS: Cast Seen? NONE SEEN #/LPF (NONE SEEN); Crystals Seen? None Seen #/HPF (None Seen); Mucus Urine MODERATE (NONE SEEN); Squamous Epithelial Cell Urine FEW #/LPF (NONE/RARE); Urine Culture Indicated NO
== END 2024-11-11 16:04 | disposition home or self-care (01) ==
PROVIDERS: Physician Assistant; Emergency Provider Emergency Medicine; PCP Family Medicine
DX: N13.2 Hydronephrosis with renal and ureteral calculous obstruction (principal); R10.9 Unspecified abdominal pain; Z90.710 Acquired absence of both cervix and uterus; Z87.891 Personal history of nicotine dependence
CPT/HCPCS: 36415; 74176; 80053; 81001; 83605; 83690; 85025; 85610; 96361; 96374; 96375; 99285; J1171; J1885; J2405

== ENCOUNTER 2025-02-02 10:44 | Outpatient (OUT) | payer BC, SELFPAY ==
--- OUTSIDE RECORDS SUMMARY | 2025-02-02 10:46 | XMS_ITS | Encounter Summary ---
Author Organization [facility] Address [address] [place] [address] Care Team Providers Care Health Clinician Name Role Phone Dipak Soto MD Primary Care Provider [phone] Leny Iyer LPN Unavailable Unavailable Reason for Referral * Consultation (Routine) - Authorized Specialty Diagnoses / Procedures Referred By Contac t Referred To Contact Pain Medicine Diagnoses Acute low back pain, unspecified back pain laterality, unspecified whether sciatica present Spinal stenosis of lumbar region with neurogenic claudication Sacroiliitis (CMS/HCC) Lumbar pain Procedures IN OFFICE/OUTPATIENT [facility] 60 MINUTES Dipak Soto MD [address] [facility] [address] [place] [address] Phone: tel: fax: Yodit Paz MD [address] [place] [address] Phone: tel: fax: Referral ID Status Reason Start Date Expiration Date Visits Requested Visits Authorized [id number] Authorized Specialty Services Required 01/24/2025 07/23/2025 1 1 Encounter Details Date Type Department Care Team (Late st Contact Info) Description 01/24/2025 Telephone [facility] [address] [facility] [address] [place] [address] Dipak Soto MD [address] [facility] [address] [place] [address] Social History Tobacco Use Types Packs/Day Years Used Date Smoking Tobacco: Former Cigarettes 0.3 3 2 015 - 2018 Smokeless Tobacco: Never Alcohol Use Standard Drinks/Week Comments Never 0 (1 standard drink = 0.6 oz pur e alcohol) B1300 Health Literacy Answer Date Recor ded How often do you need to hav e someone help you when you read instructions, pamphlets, or other written material from your doctor or pharmacy? Never 04/01/2024 AUDIT-C Answer Date Recorded Q1: How often do you have a drink containing alcohol? Never 04/01/2024 Q2: How many drinks containi ng alcohol do you have on a typical day when you are drinking? Patient does not drink Q3: How often do you have si x or more drinks on one occasion? Never 04/01/2024 Overall Financial Resource Strain (CARDIA) Answe r Date Recorded How hard is it for you to pa y for the very basics like food, housing, medical care, and heating? Not hard at all 04/01/2024 PHQ-2 Answer Date Recorded Patient Health Questionnaire-2 Score 0 12/27/2024 [facility] of Occupat ional [facility] - Occupational Stress Questionnaire Answer Date Recorded Do you feel stress - tense, restless, nervous, or anxious, or unable to sleep at night because your mind is troubled all the time - these days? To some extent 04/01/2024 Exercise Vital Sign Answer Date Recorde d On average, how many days pe r week do you engage in moderate to strenuous exercise (like a brisk walk)? 0 days 04/01/2024 On average, how many minutes do you engage in exercise at this level? 0 min 04/01/2024 Hunger Vital Sign Answer Date Recorded Within the past 12 months, y ou worried that your food would run out before you got the money to buy more. Never true 04/01/20 24 Within the past 12 months, t he food you bought just didn't last and you didn't have money to get more. Never true 04/01/2024 PRAPARE - Transportation Answer Date Re corded In the past 12 months, has l ack of transportation kept you from medical appointments or from getting medications? No 10/2023 In the past 12 months, has l ack of transportation kept you from meetings, work, or from getting things needed for daily living? No 04/01/2024 Housing Stability Vital Sign Answer Kraig e Recorded In the last 12 months, was t here a time when you were not able to pay the mortgage or rent on time? No 04/01/2024 In the past 12 months, how m any times have you moved where you were living? 0 04/01/2024 At any time in the past 12 m [facility], were you homeless or living in a intermediate (including now)? No 04/01/2024 Comments Unknown Sex and Gender Information Value Date Recorded Sex Assigned at Not on file Legal Sex Female 6:59 PM EDT Gender Identity Not on file Sexual Orientation Not on file documented as of this encounter Miscellaneous Notes * Telephone Encounter - Shani Lazo MA - 01/24/2025 4:[address] soto pt is needing to be sent to pain management , faxed referral to [facility] pain management Pt notified * Telephone Encounter - Shani Lazo MA - 01/24/2025 12:54 PM EDT Spoke with pt she would like to know what next steps would be as she is done with PT, also let her know we did not get any paperwork she is going to call them * Telephone Encounter - Tracy Faria - 01/24/2025 10:38 AM EDT Brnatan called and stated that she had FMLA paper work sent in to Dr. Soto. She stated the dates she needed were 01/25/25 through 03/12/2025. She asked that if you did not get the paperwork top please lether know. documented in this encounter Plan of Treatment Scheduled Referrals Name Type Priority Associated Diagnoses Orde r Schedule Ambulatory referral to Pain Medicine Outpatient Referral Routine Acute low back pain, unspecified back pain laterality, unspecified whether sciatica present Spinal stenosis of lumbar region with neurogenic claudication Sacroiliitis (CMS/HCC) Lumbar pain Expected: 01/24/2025 (Approximate), Expires: 07/27/2025 documented as of this encounter Visit Diagnoses Diagnosis Acute low back pain, unspecified back pain laterality, unspecified whether sciatica present Spinal stenosis of lumbar region with neurogenic claudication Sacroiliitis (CMS/HCC) Sacroiliitis, not elsewhere classified Lumbar pain Lumbago documented in this encounter Care Teams Health Clinician Relationship Specialty Start Date End Date Dipak Soto MD [address] [place] [address] PCP - General Family Medicine 11/11/24 Leny Iyer LPN 11/18/24 documented as of this encounter
--- OUTSIDE RECORDS SUMMARY | 2025-02-02 10:46 | XMS_ITS | Encounter Summary ---
Author Organization [facility] Address [address] [place] [address] Care Team Providers Care Tool Marker Name Role Phone Dipak Davila MD Unavailable Thursday, Bety MOTION PICTURE EQUIPMENT MACHINIST Unavailable [phone] Shani White RN Unavailable [phone] Dipak Davila MD Primary Care Provider [phone] Leny Iyer MOTION PICTURE EQUIPMENT MACHINIST Unavailable Unavailable Encounter Details Date Type Department Care Team (Late st Contact Info) Description 10/20/2023 Abstract [facility] [address] [facility] [address] [place] [address] Dipak Davila MD 112 [facility] 110 [place], [place] [id number] Social History Tobacco Use Types Packs/Day Years Used Date Smoking Tobacco: Former Cigarettes 0.3 3 2 015 - 2017 Smokeless Tobacco: Never Alcohol Use Standard Drinks/Week Comments Never 0 (1 standard drink = 0.6 oz pur e alcohol) Comments Unknown Sex and Gender Information Value Date Recorded Sex Assigned at Not on file Legal Sex Female 6:59 PM EDT Gender Identity Not on file Sexual Orientation Not on file documented as of this encounter Plan of Treatment Not on file documented as of this encounter Visit Diagnoses Not on filedocumented in this encounter Care Teams Tool Marker Relationship Specialty Start Date End Date Dipak Davila MD [address] [facility] [address] [place] [address] PCP - [employer] [employer] 07/01/21 Dipak Davila MD [address] [facility] [address] [place] [address] PCP - General Family Medicine 11/11/24Thursday, KALE Albert [address] [facility] [address] [place] [address] Licensed Practical Nurse Family Medicine 11/27/23 Shani White, DAVID Licensed Practical Nurse Family Medicine 10/07/2410/30 Leny Iyer LPN 11/18/24 documented as of this encounter
--- OUTSIDE RECORDS SUMMARY | 2025-02-02 10:46 | XMS_ITS | Encounter Summary ---
Author Organization [facility] Address [address] [place] [address] Care Team Providers Care Case Manager Name Role Phone Dipak Davila MD Primary Care Provider [phone] Leny Iyer LPN Unavailable Unavailable Encounter Details Date Type Department Care Team ([facility] st Contact Info) Description 01/25/2025 Abstract [facility] [address] [facility] 110 [place] [address] Dipak Davila MD [address] [facility] 110 [place], [place] [id number] Social History Tobacco Use Types Packs/Day Years [...] Recorded Patient Health Questionnaire-2 Score 0 12/27/2024 [facility] [place] of Occupat ional Health - Occupational Stress Questionnaire Answer Date Recorded [...] any time in the past 12 m [facility], were you homeless or living in a longterm (including now)? No 04/01/2024 Comments Unknown Sex and Gender Information Value Date Recorded Sex Assigned at Not on file Legal Sex Female 6:59 PM EDT Gender Identity Not on file Sexual Orientation Not on file documented as of this encounter Plan of Treatment Not on file documented as of this encounter Visit Diagnoses Not on filedocumented in this encounter Care Teams Case Manager Relationship Specialty Start Date End Date Dipak Davila MD [address] [facility] 110 [place] [address] PCP - General Family Medicine 11/11/24 Leny Iyer LPN 11/18/24 documented as of this encounter
--- OUTSIDE RECORDS SUMMARY | 2025-02-02 10:46 | XMS_ITS | Encounter Summary ---
Author Organization [facility] Address [address] [place] [address] Care Team Providers Care Director Education Name Role Phone Dipak Davila MD Unavailable Thursday, Bety CAREER DEVELOPMENT DIRECTOR Unavailable [phone] Shani White RN Unavailable [phone] Dipak Davila MD Primary Care Provider [phone] Leny Iyer CAREER DEVELOPMENT DIRECTOR Unavailable Unavailable Encounter Details Date Type Department Care Team (Late st Contact Info) Description 09/17/2023 Abstract [facility] 112 [facility] 110 [place] [address] Qamar Lema MD 112 [facility] 110 [place], [place] [address] Social History Tobacco Use Types Packs/Day Years [...] on filedocumented in this encounter Care Teams Director Education Relationship Specialty Start Date End Date Dipak Davila MD 112 [facility] 110 [place] [address] PCP - [place] [employer] 07/01/21 Dipak Davila MD 112 [facility] [address] [place] [address] PCP - General Family Medicine 11/11/24Thursday, KALE Albert 112 [facility] 110 [place] [address] Licensed Practical Nurse Family Medicine 11/27/23 Shani White, DAVID Licensed Practical Nurse Family Medicine 10/07/2410/30 Leny Iyer LPN 11/18/24 documented as of this encounter
--- OUTSIDE RECORDS SUMMARY | 2025-02-02 10:46 | XMS_ITS | Encounter Summary ---
Author Organization [facility] Address [address] [place] [address] Care Team Providers Care Office Equipment Mechanic Name Role Phone Dipak Davila MD Unavailable Thursday, Bety BOILER HOUSE OPERATOR Unavailable [phone] Shani White RN Unavailable iDpak Davila MD Primary Care Provider [phone] Leny Iyer BOILER HOUSE OPERATOR Unavailable Unavailable Encounter Details Date Type Department Care Team (Late st Contact Info) Description 08/25/2023 Abstract [facility] 112 [facility] 110 [place] [address] Qamar Lema MD 112 [facility] 110 [place], [place] [address] Social History Tobacco Use Types Packs/Day Years [...] on filedocumented in this encounter Care Teams Office Equipment Mechanic Relationship Specialty Start Date End Date Dipak Davila MD 112 [facility] 110 [place] [address] PCP - [place] [employer] 07/01/21 Dipak Davila MD 112 [facility] [address] [place] [address] PCP - General Family Medicine 11/11/24Thursday, KALE Albert 112 [facility] 110 [place] [address] Licensed Practical Nurse Family Medicine 11/27/23 Shani White, DAVID Licensed Practical Nurse Family Medicine 10/07/2410/30 Leny Iyer LPN 11/18/24 documented as of this encounter
--- OUTSIDE RECORDS SUMMARY | 2025-02-02 10:46 | XMS_ITS | Encounter Summary ---
Author Organization [facility] Address [address] [place] [address] Care Team Providers Care Qualitative Field Coordinator Name Role Phone Dipak Gray MD Unavailable Thursday, Bety HENLEY Unavailable [phone] Shani White RN Unavailable [phone] Dipak Gray MD Primary Care Provider [phone] STENOGRAPHER Unavailable Unavailable Encounter Details Date Type Department Care Team (Late st Contact Info) Description 09/06/2024 Clinis[facility] Result Encounter [facility] External Department Unsolicited Provider, Generic External Data Social History Tobacco Use Types Packs/Day Years [...] and heating? Not hard at all 04/01/2024 [facility] [place] of Occupat ional Health - Occupational Stress [...] any time in the past 12 m [facility], were you homeless or living in a chcf (including now)? No 04/01/2024 Comments Unknown Sex and Gender Information Value Date Recorded Sex Assigned at Not on file Legal Sex Female 6:59 PM EDT Gender Identity Not on file Sexual Orientation Not on file documented as of this encounter Plan of Treatment Not on file documented as of this encounter Procedures Procedure Name Priority Date/Time Associated Diagnosis Comments MR LUMBAR SPINE WO CON 09/06/2024 2:29 PM EST documented in this encounter Results * MR LUMBAR SPINE WO CON (09/06/2024 2:29 PM EST) Anatomical Region Laterality Modality Other 09/06/2024 2:29 PM EST Narrative 09/06/2024 2:31 PM EST [address] [address] Magnetic Resonance Report Signed Patient: DEB BOSWELL MR#: [id number] : 1965 Acct:[id number] Age/Sex: 58 / F ADM Date: 09/06/24 Loc: MRI Attending Dr: Yodit Paz M.D. Ordering Physician: Yodit Paz M.D. Date of Service: 09/06/24 Procedure(s): MR lumbar spine wo con Accession Number(s): [id number] cc: DIPAK GRAY ; Yodit Paz M.D. [address] [address] Patient Name: DEB BOSWELL MRN: [id number] date: 1965 Sex: F Assigned Patient Location: MRI Current Patient Location: MRI Accession/Order Number: [id number] Exam Date: 09/06/2024 09:05 Report Date: 09/06/2024 14:29 At the request of: YODIT PAZ Procedure: MR lumbar spine wo con MRI OF THE LUMBAR SPINE WITHOUT CONTRAST, 09/06/2024. HISTORY: Chronic low back pain. Radiculopathy. COMPARISON: MRI lumbar spine without contrast, 02/26/2024. TECHNIQUE: Multiplanar, multisequence MRI imaging of the lumbar spine without contrast. FINDINGS: Alignment of the lumbar spine normal. No acute compression fracture. Signal in the bone marrow spaces is appropriate. No suspicious osseous lesion. L5-S1, moderate degenerative disc disease stable. Mild facet arthropathy. No spinal canal stenosis. Disc space narrowing and endplate osteophyte complexes result in moderate foraminal narrowing bilaterally. This level is stable. L4-L5, moderate degenerative disc disease most prominent on the right side of the disc space stable. There is mild disc bulge. Mild facet arthropathy with ligamentum flavum thickening. There is mild central canal stenosis. Moderate right lateral recess stenosis. There is moderate right neural foraminal narrowing. No significant left foraminal narrowing. This level is stable. L3-L4, mild degenerative disc disease. Diffuse disc bulge. Mild facet arthropathy. Shallow central protrusion. There is mild spinal stenosis. Disc bulge results in mild to moderate right foraminal narrowing. Disc bulge and facet hypertrophy results in mild left foraminal narrowing. This level is stable. L2-L3, mild degenerative disc disease. Diffuse disc bulge. No spinal stenosis. No foraminal narrowing. This level is unchanged. L1-L2, mild disc bulge. No spinal stenosis. No significant neural foraminal narrowing. No abnormal signal in the conus medullaris. No paraspinal mass. MR/MR lumbar spine wo con IMPRESSION: 1. Stable MRI of the lumbar spine. 2. No acute compression fracture. 3. Mild to moderate multilevel degenerative disc disease and facet arthropathy is stable. 4. Degenerative changes result in mild spinal stenosis at L3-L4 and L4-L5 which is stable. 5. Foraminal narrowing at multiple levels as described above appears stable. Electronically authenticated by: CHRISTOPHER KIMBROUGH Date: 09/06/2024 14:29 Dictated By: Christopher Kimbrough M.D. Signed By: 09/06/24 1431 DD/ 1429 TD/TT: Senior Administrative Services Officer: Procedure Note Radiology, Radiologist, MD - 09/06/2024 [place] [address] Magnetic Resonance Report Signed Patient: DEB BOSWELL AMR#: [id number] : 1965Acct:[id number] Age/Sex: 58 / FADM Date: 09/06/24 Loc: MRI Attending Dr: Yodit Paz M.D. Ordering Physician: Yodit Paz M.D. Date of Service: 09/06/24 Procedure(s): MR lumbar spine wo con Accession Number(s): [id number] cc: DIPAK GRAY ; Yodit Paz M.D. [facility] [place] [id number] Patient Name: DEB BOSWELL MRN: [id number] date: 1965 Sex: F Assigned Patient Location: MRI Current Patient Location: MRI Accession/Order Number: [id number] Exam Date: 09/06/2024 09:05 Report Date: 09/06/2024 14:29 At the request of: YODIT PAZ Procedure: MR lumbar spine wo con MRI OF THE LUMBAR SPINE WITHOUT CONTRAST, 09/06/2024. HISTORY: Chronic low back pain. Radiculopathy. COMPARISON: MRI lumbar spine without contrast, 02/26/2024. TECHNIQUE: Multiplanar, multisequence MRI imaging of the lumbar spinewithout contrast. FINDINGS: Alignment of the lumbar spine normal. No acute compressionfracture. Signal in the bone marrow spaces is appropriate. No suspicious osseouslesion. L5-S1, moderate degenerative disc disease stable. Mild facet arthropathy.No spinal canal stenosis. Disc space narrowing and endplate osteophytecomplexes result in moderate foraminal narrowing bilaterally. This level is stable. L4-L5, moderate degenerative disc disease most prominent on the right sideof the disc space stable. There is mild disc bulge. Mild facet arthropathywith ligamentum flavum thickening. There is mild central canal stenosis.Moderate right lateral recess stenosis. There is moderate right neural foraminal narrowing. No significant left foraminal narrowing. This level is stable. L3-L4, mild degenerative disc disease. Diffuse disc bulge. Mild facet arthropathy. Shallow central protrusion. There is mild spinal stenosis.Disc bulge results in mild to moderate right foraminal narrowing. Disc bulgeand facet hypertrophy results in mild left foraminal narrowing. This level is stable. L2-L3, mild degenerative disc disease. Diffuse disc bulge. No spinalstenosis. No foraminal narrowing. This level is unchanged. L1-L2, mild disc bulge. No spinal stenosis. No significant neuralforaminal narrowing. No abnormal signal in the conus medullaris. No paraspinal mass. MR/MR lumbar spine wo con IMPRESSION: 1. Stable MRI of the lumbar spine. 2. No acute compression fracture. 3. Mild to moderate multilevel degenerative disc disease and facetarthropathy is stable. 4. Degenerative changes result in mild spinal stenosis at L3-L4 and L4-L5 which is stable. 5. Foraminal narrowing at multiple levels as described above appearsstable. Electronically authenticated by: CHRISTOPHER KIMBROUGH Date: 09/06/2024 14:29 Dictated By: Christopher Kimbrough M.D. Signed By:09/06/24 1431 DD/ 1429 TD/TT: Senior Administrative Services Officer: us Generic External Data Provider [facility] Final Result documented in this encounter Visit Diagnoses Not on filedocumented in this encounter Care Teams Qualitative Field Coordinator Relationship Specialty Start Date End Date Dipak Gray MD [address] [place] [address] PCP - [place] [employer] 07/01/21 Dipak Gray MD [address] [place] [address] PCP - General Family Medicine 11/11/24ThursdayBety LPN [address] [place] [address] Licensed Practical Nurse Family Medicine 11/27/23 Shani White, RN Licensed Practical Nurse Family Medicine 10/07/2410/30 Leny Iyer LPN 11/18/24 documented as of this encounter
--- OUTSIDE RECORDS SUMMARY | 2025-02-02 10:46 | XMS_ITS | Encounter Summary ---
Author Organization [facility] Address [address] [place] [address] Care Team Providers Care Child Nutrition Assistant Name Role Phone Dipak Davila MD Unavailable Thursday, Bety PATELN Unavailable [phone] Shani White RN Unavailable [phone] Dipak Davila MD Primary Care Provider [phone] Leny Iyer DISTRIBUTION CENTER ADMINISTRATOR Unavailable Unavailable Encounter Details Date Type Department Care Team (Late st Contact Info) Description 08/25/2023 Orders Only [facility] [address] [address] [place] [address] A, Unknown Practice [address] [place], [place] [address] Social History Tobacco Use Types Packs/Day Years Used Date Smoking Tobacco: Former Cigarettes 0.3 3 015 2017 Smokeless Tobacco: Never Alcohol Use Standard [...] Procedure Name Priority Date/Time Associated Diagnosis Comments ELECTROCARDIOGRAM REPORT Routine 023 9:24 AM EST documented in this encounter Results * Electrocardiogram Report (08/22/2023 9:24 AM EST) us Unknown Practice A IN CLINIC/BEDSIDE ORDERABLES Final Result documented in this encounter Visit Diagnoses Not on filedocumented in this encounter Care Teams Child Nutrition Assistant Relationship Specialty Start Date End Date Dipak Davila MD [address] [place] [address] [facility] Dipak Davila MD [address] [place] [address] PCP - General Family Medicine 11/11/24ThursdayBety LPN [address] [place] [address] Licensed Practical Nurse Family Medicine 11/27/23 Shani White, RN Licensed Practical Nurse Family Medicine 10/07/2410/30 Leny Iyer LPN 11/18/24 documented as of this encounter
--- OUTSIDE RECORDS SUMMARY | 2025-02-02 10:46 | XMS_ITS | Encounter Summary ---
Author Organization [facility] Address [address] [place] [address] Care Team Providers Care Shift Mgr Name Role Phone Dipak Davila MD Unavailable Thursday, Bety DATABASE ADMINISTRATION MANAGER Unavailable [phone] Shani White RN Unavailable [phone] Dipak Davila MD Primary Care Provider [phone] Leny Iyre DATABASE ADMINISTRATION MANAGER Unavailable Unavailable Encounter Details Date Type Department Care Team (Late st Contact Info) Description 10/20/2023 Abstract [facility] 112 [facility] 110 [place] [address] Qamar Lema MD 112 [facility] 110 [place], [place] [address] Social History Tobacco Use Types Packs/Day Years [...] on filedocumented in this encounter Care Teams Shift Mgr Relationship Specialty Start Date End Date Dipak Davila MD 112 [facility] 110 [place] [address] PCP - [place] [employer] 07/01/21 Dipak Davila MD 112 [facility] [address] [place] [address] PCP - General Family Medicine 11/11/24Thursday, KALE Albert 112 [facility] 110 [place] [address] Licensed Practical Nurse Family Medicine 11/27/23 Shani White, DAVID Licensed Practical Nurse Family Medicine 10/07/2410/30 Leny Iyer LPN 11/18/24 documented as of this encounter
--- OUTSIDE RECORDS SUMMARY | 2025-02-02 10:46 | XMS_ITS | Encounter Summary ---
Author Organization [facility] Address [address] [place] [address] Care Team Providers Care Cognos Architect Name Role Phone Dipak Davila MD Unavailable Dipak Davila MD Primary Care Provider [phone] Leny Iyer LPN Unavailable Unavailable Encounter Details Date Type Department Care Team (Late st Contact Info) Description 11/30/2024 Abstract [facility] 112 [facility] 110 [place] [address] Dipak Davila MD 112 [facility] 110 [place] [address] Social History Tobacco Use Types Packs/Day Years [...] Date Recorded Patient Health Questionnaire-2 Score 0 11/11/2024 [facility] [place] of Occupat ional Health - Occupational Stress [...] any time in the past 12 m [facility], were you homeless or living in a fdc (including now)? No 04/01/2024 Comments Unknown Sex and Gender Information Value Date Recorded Sex Assigned at Not on file Legal Sex Female 6:59 PM EDT Gender Identity Not on file Sexual Orientation Not on file documented as of this encounter Plan of Treatment Not on file documented as of this encounter Visit Diagnoses Not on filedocumented in this encounter Care Teams Cognos Architect Relationship Specialty Start Date End Date Dipak Davila MD [address] [address] PCP - Umberto Nuñez 07/01/21 Dipak Davila MD [address] [place] [address] PCP - General Family Medicine 11/11/24 Leny Iyer LPN 11/18/24 documented as of this encounter
--- OUTSIDE RECORDS SUMMARY | 2025-02-02 10:46 | XMS_ITS | Clinical Summary ---
Author Organization [facility] Address [id number] [address] [place] [address] Care Team Providers Care Heater Operator Helper Name Role Phone Unavailable Primary Care Provider Unavailabl e Allergies No known active allergies Medications gabapentin (NEURONTIN) 100 mg capsule Twice daily 4 Active HYDROcodone-neena taminophen (NORCO) 5-325 mg per tablet TAKE 1 TABLET BY MOUTH EVERY 6 HOURS NEEDED FOR SEVERE PAIN FOR UP TO 5 DAYS Active methocarbamoL (ROBAXIN) 500 mg tablet Take 1 tablet (500 mg total) by mouth every 8 (eight) hours. 4 Active ondansetron (ZOFRAN) 4 mg tablet 4 Active SUMAtriptan (IMITREX) 25 mg tablet TAKE 1 TAB BY MOUTH ONCE A DAY NEEDED FOR MIGRAINES MAY REPEAT 1 TAB IN 2HRS IF NEEDED MAX 2/24HR 4 Active Active Problems No known active problems Social History Tobacco Use Types Packs/Day Years Used Date Smoking Tobacco: Never Smokeless Tobacco: Never Alcohol Use Standard Drinks/Week Comments Not Currently 0 (1 standard drink = 0.6 oz pur e alcohol) Hunger Screening Answer Date Recorded Within the past 12 months we worried whether our food would run out before we got money to buy more. Never True 07/21/2024 Within the past 12 months th e food we bought just didn't last and we didn't have money to get more. Never True 07/21/2024 Comments No Sex and Gender Information Value Date Recorded Sex Assigned at Not on file Legal Sex Female 11:53 AM EST Gender Identity Not on file Sexual Orientation Not on file Last Filed Vital Signs Vital Sign Reading Time Taken Comments Blood Pressure - - Pulse - - Temperature - - Respiratory Rate - - Oxygen Saturation - - Inhaled Oxygen Concentration - - Weight 79.4 kg (175 lb) 07/21/2024 10:35 AM EST Height 170.2 cm (5' 7 ) 07/21/2024 10:35 AM EST Body Mass Index 27.41 07/21/2024 10:35 AM EST Plan of Treatment Health Maintenance Due Date Last Done Comments Depression Screening 1978 Adult BMI Follow Up Plan 1984 DTaP,Tdap and Td Vaccines (1 - Tdap) 1985 Zoster (Shingles) Vaccine (1 of 2) 2016 COVID-19 Vaccine (5 - 2023-2 5 season) 2024 04/25/2022, 08/16/2021, 10/24/2020, Additional history exists Influenza Vaccine 05/01/2025 06/26/2015 Adult BMI Screening 07/21/2025 07/21/2024 Tobacco Screening 07/21/2025 07/21/2024 Medical Devices Not on file Insurance
--- OUTSIDE RECORDS SUMMARY | 2025-02-02 10:46 | XMS_ITS | Encounter Summary ---
Author Organization [facility] Address [address] [place] [address] Care Team Providers Care Ball Warper Tender Name Role Phone Dipak Davila MD Unavailable Thursday, Bety HENLEY Unavailable [phone] Shani White RN Unavailable [phone] Dipak Davila MD Primary Care Provider [phone] Leny Iyer CONVEYOR CONSOLE OPERATOR Unavailable Unavailable Encounter Details Date Type Department Care Team (Late st Contact Info) Description 06/20/2024 Abstract [facility] [address] [facility] [address] [place] [address] Unallocated, Noms Provider, [address] [place], [place] [address] Social History Tobacco Use Types Packs/Day Years [...] and heating? Not hard at all 04/01/2024 [facility] [place] of Occupat ional Health - Occupational Stress [...] any time in the past 12 m [facility], were you homeless or living in a long-term (including now)? No 04/01/2024 Comments Unknown Sex and Gender Information Value Date Recorded Sex Assigned at Not on file Legal Sex Female 6:59 PM EDT Gender Identity Not on file Sexual Orientation Not on file documented as of this encounter Plan of Treatment Not on file documented as of this encounter Visit Diagnoses Not on filedocumented in this encounter Care Teams Ball Warper Tender Relationship Specialty Start Date End Date Dipak Davila MD 112 [facility] 110 [place] [address] PCP - Umberto Nuñez 07/01/21 Dipak Davila MD 112 [facility] 110 [place] [address] PCP - General Family Medicine 11/11/24ThursdayBety LPN 112 [facility] 110 [place] [address] Licensed Practical Nurse Family Medicine 11/27/23 Shani White, RN Licensed Practical Nurse Family Medicine 10/07/2410/30 Leny Iyer LPN 11/18/24 documented as of this encounter
--- OUTSIDE RECORDS SUMMARY | 2025-02-02 10:46 | XMS_ITS | Encounter Summary ---
Author Organization [facility] Address [address] [place] [address] Care Team Providers Care Mechanical Drawing Teacher Name Role Phone Dipak Davila MD Unavailable Thursday, Bety MANUFACTURER AGENT Unavailable [phone] Shani White RN Unavailable Dipak Davila MD Primary Care Provider [phone] Leny Iyer MANUFACTURER AGENT Unavailable Unavailable Encounter Details Date Type Department Care Team (Late st Contact Info) Description 04/16/2023 Abstract [facility] 112 [facility] 110 [place] [address] Hannah Dumas, DISTRIBUTION TECHNICIAN 112 [place] [facility] 110 [place] [address] Social History Tobacco Use Types Packs/Day Years Used Date Smoking Tobacco: Former Cigarettes Smokeless Tobacco: Never Tobacco Cessation:Counseling Given: Not Answered Alcohol Use Standard Drinks/Week Comments Not Currently [...] on filedocumented in this encounter Care Teams Mechanical Drawing Teacher Relationship Specialty Start Date End Date Dipak Davila MD 112 [place] [facility] 110 [place] [address] PCP - [place] [employer] 07/01/21 Dipak Davila MD 112 [place] [facility] [address] [place] [address] PCP - General Family Medicine 11/11/24Thursday, KALE Albert 112 [facility] 110 [place] [address] Licensed Practical Nurse Family Medicine 11/27/23 Shani White, DAVID Licensed Practical Nurse Family Medicine 10/07/2410/30 Leny Iyer LPN 11/18/24 documented as of this encounter
--- OUTSIDE RECORDS SUMMARY | 2025-02-02 10:46 | XMS_ITS | Encounter Summary ---
Author Organization [facility] Address [address] [place] [address] Care Team Providers Care Big Data Platform Architect Name Role Phone Dipak Davila MD Unavailable Thursday, Bety PATELN Unavailable [phone] Shani White RN Unavailable Dipak Davila MD Primary Care Provider [phone] Leny Iyer PSYCHIATRY INSTRUCTOR Unavailable Unavailable Encounter Details Date Type Department Care Team (Late st Contact Info) Description 01/29/2023 Abstract [facility] [address] [place] [address] Teressa Berumen LPN [address] [place] [address] Social History Tobacco Use Types Packs/Day Years Used Date Smoking Tobacco: Former Cigarettes Smokeless Tobacco: Never Tobacco Cessation:Counseling Given: Not Answered Comments Unknown Sex and Gender Information Value Date Recorded Sex Assigned at Not on file Legal Sex Female 6:59 PM EDT Gender Identity Not on file Sexual Orientation Not on file COVID-19 Exposure Response Date Recorded In the last 10 days, have yo u been in contact with someone who was confirmed or suspected to have Coronavirus/COVID-19? No / Unsure 01/15/2023 9:29 AM EDT documented as of this encounter Plan of Treatment Not on file documented as of this encounter Visit Diagnoses Not on filedocumented in this encounter Care Teams Big Data Platform Architect Relationship Specialty Start Date End Date Dipak Davila MD [address] [place], [place] [id number] PCP - [place] [employer] 07/01/21 Dipak Davila MD [address] [place] [address] PCP - General Family Medicine 11/11/24ThursdayBety LPN 112 [facility] [address] [place] [address] Licensed Practical Nurse Family Medicine 11/27/23 Shani White, RN Licensed Practical Nurse Family Medicine 10/07/2410/30 Leny Iyer LPN 11/18/24 documented as of this encounter
--- OUTSIDE RECORDS SUMMARY | 2025-02-02 10:47 | XMS_ITS | Encounter Summary ---
Author Organization [facility] Address [address] [place] [address] Care Team Providers Care Nuclear Physics Professor Name Role Phone Dipak Davila MD Primary Care Provider [phone] Leny Iyer LPN Unavailable Unavailable Encounter Details Date Type Department Care Team ([facility] Contact Info) Description 01/30/2025 Abstract [facility] [address] [facility] 110 [place] [address] Dipak Davila MD [address] [facility] 110 [place], [place] [id number] Social History Tobacco Use Types Packs/Day Years [...] Recorded Patient Health Questionnaire-2 Score 0 12/27/2024 [facility] [place] of Occupat ional Health - Occupational Stress [...] any time in the past 12 m [facility], were you homeless or living in a retirement (including now)? No 04/01/2024 Comments Unknown Sex and Gender Information Value Date Recorded Sex Assigned at Not on file Legal Sex Female 6:59 PM EDT Gender Identity Not on file Sexual Orientation Not on file documented as of this encounter Plan of Treatment Not on file documented as of this encounter Visit Diagnoses Not on filedocumented in this encounter Care Teams Nuclear Physics Professor Relationship Specialty Start Date End Date Dipak Davila MD 112 [facility] 110 [place] [address] PCP - General Family Medicine 11/11/24 Leny Iyer LPN 11/18/24 documented as of this encounter
--- OUTSIDE RECORDS SUMMARY | 2025-02-02 10:47 | XMS_ITS | Encounter Summary ---
Author Organization [facility] Address [address] [place] [address] Care Team Providers Care Christian Ministries Professor Name Role Phone Dipak Davila MD Unavailable Thursday, Bety SENIOR SALES ASSOCIATE Unavailable [phone] Shani White RN Unavailable Dipak Davila MD Primary Care Provider [phone] Leny Iyer SENIOR SALES ASSOCIATE Unavailable Unavailable Encounter Details Date Type Department Care Team (Late st Contact Info) Description 02/03/2024 Abstract [facility] 112 [facility] 110 [place] [address] Dipak Davila MD 112 [facility] 110 [place], [place] [id number] Social History Tobacco Use Types Packs/Day Years [...] on filedocumented in this encounter Care Teams Christian Ministries Professor Relationship Specialty Start Date End Date Dipak Davila MD [address] [facility] 110 [place] [address] PCP - [place] [employer] 07/01/21 Dipak Davila MD [address] [facility] [address] [place] [address] PCP - General Family Medicine 11/11/24Thursday, KALE Albert 112 [facility] 110 [place] [address] Licensed Practical Nurse Family Medicine 11/27/23 Shani White, DAVID Licensed Practical Nurse Family Medicine 10/07/2410/30 Leny Iyer LPN 11/18/24 documented as of this encounter
--- OUTSIDE RECORDS SUMMARY | 2025-02-02 10:47 | XMS_ITS | Encounter Summary ---
Author Organization [facility] Address [address] [place] [address] Care Team Providers Care Baby Formula Worker Name Role Phone Dipak Davila MD Unavailable Thursday, Bety UNIT SECRETARY Unavailable [phone] Shani White RN Unavailable [phone] Dipak Davila MD Primary Care Provider [phone] Leny Iyer UNIT SECRETARY Unavailable Unavailable Encounter Details Date Type Department Care Team (Late st Contact Info) Description 03/24/2024 Abstract [facility] 112 [facility] 110 [place] [address] Dipak Davila MD 112 [facility] 110 [place], [place] [id number] Social History Tobacco Use Types Packs/Day Years [...] on filedocumented in this encounter Care Teams Baby Formula Worker Relationship Specialty Start Date End Date Dipak Davila MD [address] [facility] 110 [place] [address] PCP - [place] [employer] 07/01/21 Dipak Davila MD [address] [facility] [address] [place] [address] PCP - General Family Medicine 11/11/24Thursday, KALE Albert 112 [facility] 110 [place] [address] Licensed Practical Nurse Family Medicine 11/27/23 Shani White, DAVID Licensed Practical Nurse Family Medicine 10/07/2410/30 Leny Iyer LPN 11/18/24 documented as of this encounter
--- OUTSIDE RECORDS SUMMARY | 2025-02-02 10:47 | XMS_ITS | Clinical Summary ---
Author Organization [facility] Address [address] [place] [address] Care Team Providers Care Liquor Commissioner Name Role Phone Pat Rivas SPANNER OPERATOR Unavailable [phone] Nicole Augustin SPANNER OPERATOR Unavailable Allergies Active Allergy Reactions Criticality Noted Date Comments Seasonal Allergies Unknown 11/08/2024 Medications gabapentin (NEURONTIN) 600 mg tablet Take 1 tablet by mouth every 12 hours. 08/01/2024 Active loratadine (CLARITIN) 10 mg tablet Take 10 mg by mouth. 02/02/2023 Active SUMAtriptan (IMITREX) 25 mg tablet Take 25 mg by mouth as needed. 10/20/2023 Active Active Problems Problem Noted Date Diagnosed Date Osteoporosis 02/17/2024 Sacroiliitis 01/19/2024 Depression 02/02/2023 Seasonal allergic rhinitis due to pollen 023 Anosmia 01/29/2023 History of total hysterectomy 01/29/2023 Migraine without aura and wi thout status migrainosus, not intractable 01/29/2023 Encounters Date Type Department Care Team Description 11/10/2024 Patient Outreach [facility] [place] [address] [id number] (Hist), No Pcp 11/08/2024 11:00 AM EDT Office Visit [facility] [place] [address] [id number] Trena Mcguire, LEA.SPANNER OPERATOR Other chronic pain (Primary Dx); Lumbar radiculopathy; Mid back pain; Chronic bilateral low back pain with bilateral sciatica; Sacroiliitis 11/08/2024 10:00 AM EDT - 11/08/2024 11:59 PM EDT Hospital Encounter Radiology [address] [place] [address] Chronic bilateral low back pain with bilateral sciatica [M54.42, M54.41, G89.29] Discharge Disposition: Home 11/08/2024 Travel from Last 3 Months Social History Tobacco Use Types Packs/Day Years Used Date Smoking Tobacco: Never Assessed Area Deprivation Index Answer Date Shantanu rded National Score (1-100), lower number is lower ri sk 79 11/08/2024 State Score (1-10), lower number is lower risk 7 11/08/2024 Data from: https://www.neighborhoodatlas.medicine.[facility]/. Last address used for calculation [address] 11/08/2024 Comments Unknown Sex and Gender Information Value Date Recorded Sex Assigned at Not on file Legal Sex Female 3:10 PM EDT Gender Identity Not on file Sexual Orientation Not on file Last Filed Vital Signs Vital Sign Reading Time Taken Comments Blood Pressure 102/56 11/08/2024 10:54 AM EDT Pulse 80 11/08/2024 10:54 AM EDT Temperature - - Respiratory Rate - - Oxygen Saturation 98% 11/08/2024 10:54 AM EDT Inhaled Oxygen Concentration - - Weight 80.3 kg (177 lb) 11/08/2024 10:54 AM EDT Height 170.2 cm (5' 7 ) 11/08/2024 10:54 AM EDT Body Mass Index 27.72 11/08/2024 10:54 AM EDT Plan of Treatment Health Maintenance Due Date Last Done Comments Anxiety Screening 1984 HIV Screening 1984 Hepatitis C Screening 1984 DTaP,Tdap,Td Vaccine (1 - Tdap) 1985 Hepatitis B Vaccine (1 of 3 - 19+ 3-dose series) 1985 Cervical Cancer Screening 1987 CT Colonography 2011 Cologuard (FIT-DNA) 2011 Colonoscopy 2011 Colorectal Cancer Screening 2011 Diabetes Screening 2011 Fecal Occult Blood 2011 Lipid Screening 2011 Sigmoidoscopy 2011 Pneumococcal Vaccine: 50+ (1 of 1 - PCV) 2016 Shingrix Vaccine (1 of 2) 2016 Mammogram Screening 04/17/2022 04/17/2021, Covid-19 Vaccine (2023-2 5 season) 2024 04/25/2022, 08/16/2021, 10/24/2020, Additional history exists Influenza Vaccine (Season Ended) 2025 06/26/20 15 Procedures Procedure Name Priority Date/Time Associated Diagnosis Comments XR SCOLIOSIS PA STAND/LAT 2V Routine 11/08/2024 10:34 AM EDT Chronic bilateral low back pain with bilateral sciatica from Last 3 Months Results * XR SCOLIOSIS PA STAND/LAT 2V (11/08/2024 10:34 AM EDT) Anatomical Region Laterality Modality Spine Other 11/08/2024 10:3 4 AM EDT Impressions 11/08/2024 10:50 AM EDT IMPRESSION: Minimal levocurvature of the upper thoracic spine. Event Organizer: ASHWINI Transcribe Date/Time: Nov 08 2024 10:46A Dictated by : NEELAM PHILLIPS MD This examination was interpreted and the report reviewed and electronically signed by: NEELAM PHILLIPS MD on Nov 08 2024 10:48AM EST Narrative 11/08/2024 10:50 AM EDT * * *Final Report* * * DATE OF EXAM: Nov 08 2024 10:34AM GINA [id number] - XR SCOLIOSIS 2V PA STAND/LAT / PROCEDURE REASON: multiple diagnoses * * * * Physician Interpretation * * * * EXAMINATION: XR SCOLIOSIS 2V PA STAND/LAT PATIENT/TECHNOLOGIST PROVIDED HISTORY: CLINICAL INFORMATION ( PROVIDED BY [...] the mid thoracic and lower lumbar spine. Procedure Note Provider, [facility] [place] - 11/08/2024 * * *Final Report* * * DATE OF EXAM: Nov 08 2024 10:34AM GINA [id number] - XR SCOLIOSIS 2V PA STAND/LAT / PROCEDURE REASON: multiple diagnoses * * * * Physician Interpretation * * * * EXAMINATION: XR SCOLIOSIS 2V PA STAND/LAT PATIENT/TECHNOLOGIST PROVIDED HISTORY: CLINICAL INFORMATION ( PROVIDED BY [...] Minimal levocurvature of the upper thoracic spine. Event Organizer: ASHWINI Transcribe Date/Time: Nov 08 2024 10:46A Dictated by : NEELAM PHILLIPS MD This examination was interpreted and the report reviewed and electronically signed by: NEELAM PHILLIPS MD on Nov 08 2024 10:48AM EST Libia Cannon PA-C RAD-PAMA Final Result from Last 3 Months Insurance BRADY CARD PPO OOS Member Subscriber Plan / Payer (Ef fective 2022-Present) Name:Deb Wallace Relation to Subscriber:Self Name:Deb Wallace Payer ID:[id number] (NAIC) Type:PPO Address: [facility] [id number] [id number] Care Teams Liquor Commissioner Relationship Specialty Start Date End Date Pat Rivas CNP [address] [facility] [address] [place] [address] Referring Family Medicine 07/01/24 Nicole Augustin CNP [address] [place], [place] [id number] Referring Pain Management 09/13/24
--- OUTSIDE RECORDS SUMMARY | 2025-02-02 10:47 | XMS_ITS | Encounter Summary ---
Author Organization [facility] Address [address] [place] [address] Care Team Providers Care Delivery Engineer Name Role Phone Dipak Davila MD Unavailable Thursday, Bety HENLEY Unavailable [phone] Shani White RN Unavailable [phone] Dipak Davila MD Primary Care Provider [phone] Leny Iyer WOOL BUYER Unavailable Unavailable Encounter Details Date Type Department Care Team (Late st Contact Info) Description 04/18/2024 Abstract [facility] [address] [facility] [address] [place] [address] Unallocated, Noms Provider, [address] [place], [place] [address] Social History Tobacco Use Types Packs/Day Years [...] and heating? Not hard at all 04/01/2024 [facility] [place] of Occupat ional Health - Occupational Stress [...] any time in the past 12 m [facility], were you homeless or living in a half-way (including now)? No 04/01/2024 Comments Unknown Sex and Gender Information Value Date Recorded Sex Assigned at Not on file Legal Sex Female 6:59 PM EDT Gender Identity Not on file Sexual Orientation Not on file documented as of this encounter Plan of Treatment Not on file documented as of this encounter Visit Diagnoses Not on filedocumented in this encounter Care Teams Delivery Engineer Relationship Specialty Start Date End Date Dipak Davila MD 112 [facility] 110 [place] [address] PCP - Umberto Nuñez 07/01/21 Dipak Davila MD 112 [facility] 110 [place] [address] PCP - General Family Medicine 11/11/24ThursdayBety LPN 112 [facility] 110 [place] [address] Licensed Practical Nurse Family Medicine 11/27/23 Shani White, RN Licensed Practical Nurse Family Medicine 10/07/2410/30 Leny Iyer LPN 11/18/24 documented as of this encounter
--- OUTSIDE RECORDS SUMMARY | 2025-02-02 10:47 | XMS_ITS | Encounter Summary ---
Author Organization [facility] Address [address] [place] [address] Care Team Providers Care Chief Medical Technologist Name Role Phone Dipak Davila MD Unavailable Thursday, Bety LAP MACHINE TENDER Unavailable [phone] Shani White RN Unavailable Dipak Davila MD Primary Care Provider [phone] Leny Iyer LAP MACHINE TENDER Unavailable Unavailable Encounter Details Date Type Department Care Team (Late st Contact Info) Description 02/15/2024 Abstract [facility] [address] [place] [address] Unallocated, [facility]oms Provider, [address] [place], [place] [id number] Social History Tobacco Use Types Packs/Day Years [...] on filedocumented in this encounter Care Teams Chief Medical Technologist Relationship Specialty Start Date End Date Dipak Davila MD [address] [place] [address] PCP - [place] Commercial 07/01/21 Dipak Davila MD [address] [place] [address] PCP - General Family Medicine 11/11/24Thursday, KALE Albert 112 [facility] 110 [place] [address] Licensed Practical Nurse Family Medicine 11/27/23 Shani White, DAVID Licensed Practical Nurse Family Medicine 10/07/2410/30 Leny Iyer LPN 11/18/24 documented as of this encounter
--- OUTSIDE RECORDS SUMMARY | 2025-02-02 10:47 | XMS_ITS | Encounter Summary ---
Author Organization [facility] Address [address] [place] [address] Care Team Providers Care Administrative Intern Name Role Phone Dipak Davila MD Unavailable Thursday, Bety HENLEY Unavailable [phone] Shani White RN Unavailable [phone] Dipak Daivla MD Primary Care Provider [phone] Leny Iyer EXCHANGE ENGINEER Unavailable Unavailable Encounter Details Date Type Department Care Team (Late st Contact Info) Description 04/07/2024 Abstract [facility] [address] [place] [address] Unallocated, Noms Provider, [address] [place], [place] [address] Social History Tobacco Use Types Packs/Day Years [...] and heating? Not hard at all 04/01/2024 [facility] of Occupat ional Health - Occupational Stress [...] any time in the past 12 m [facility], were you homeless or living in [...] on filedocumented in this encounter Care Teams Administrative Intern Relationship Specialty Start Date End Date Dipak Davila MD 112 [facility] 110 [place] [address] PCP - Umberto Nuñez 07/01/21 Dipak Davila MD 112 [facility] 110 [place] [address] PCP - General Family Medicine 11/11/24ThursdayBety LPN 112 [facility] 110 [place] [address] Licensed Practical Nurse Family Medicine 11/27/23 Shani White, RN Licensed Practical Nurse Family Medicine 10/07/2410/30 Leny Iyer LPN 11/18/24 documented as of this encounter
--- OUTSIDE RECORDS SUMMARY | 2025-02-02 10:47 | XMS_ITS | Encounter Summary ---
Author Organization [facility] Address [address] [place] [address] Care Team Providers Care Nurse Wound Care Name Role Phone Dipak Davila MD Unavailable Thursday, Bety HENLEY Unavailable [phone] Shani White RN Unavailable [phone] Dipak Davila MD Primary Care Provider [phone] Leny Iyer VIOLIN TEACHER Unavailable Unavailable Encounter Details Date Type Department Care Team (Late st Contact Info) Description 05/09/2024 Abstract [facility] [address] [place] [address] Unallocated, Noms Provider, [address] [place], [place] [address] Social History Tobacco Use Types Packs/Day Years [...] and heating? Not hard at all 04/01/2024 [facility] [place] of Occupat ional Health - Occupational Stress [...] any time in the past 12 m [facility], were you homeless or living in a [facility] (including now)? No 04/01/2024 Comments Unknown Sex and Gender Information Value Date Recorded Sex Assigned at Not on file Legal Sex Female 6:59 PM EDT Gender Identity Not on file Sexual Orientation Not on file documented as of this encounter Plan of Treatment Not on file documented as of this encounter Visit Diagnoses Not on filedocumented in this encounter Care Teams Nurse Wound Care Relationship Specialty Start Date End Date Dipak Davila MD 112 [facility] 110 [place] [address] PCP - Umberto Nuñez 07/01/21 Dipak Davila MD 112 [facility] 110 [place] [address] PCP - General Family Medicine 11/11/24ThursdayBety LPN 112 [facility] 110 [place] [address] Licensed Practical Nurse Family Medicine 11/27/23 Shani White, RN Licensed Practical Nurse Family Medicine 10/07/2410/30 Leny Iyer LPN 11/18/24 documented as of this encounter
--- OUTSIDE RECORDS SUMMARY | 2025-02-02 10:47 | XMS_ITS ---
Author Organization [facility] Address [address] [place] [address] Care Team Providers Care Lehr Attendant Name Role Phone Dipak Davila MD Primary Care Provider [phone] Leny Iyer LPN Unavailable Unavailable Chronic Care Management (CCM) Status:Enrolled (Active) Start date:11/27/2023 Enrollment date:11/27/2023 Enrollment reason:Identified using hospital discharge data Overview Please assess for Care Management needs. 11/30/23, 10:22 AM - BetythursdayKALE- Patient gives verbal consent to be enrolled in CCM Program and understands there could be a bill for this service. Case Team Name Relationship Phone Leny Iyer LPN(Responsible Staff) Continued Care and Services Coordination
--- OUTSIDE RECORDS SUMMARY | 2025-02-02 10:47 | XMS_ITS | Encounter Summary ---
Author Organization [facility] Address [address] [place] [address] Care Team Providers Care Personal Financial Advisor Name Role Phone Dipak Gray MD Unavailable Thursday, Bety HENLEY Unavailable [phone] Shani White RN Unavailable [phone] Dipak Gray MD Primary Care Provider [phone] Leny Iyer RESEARCH PROGRAM COORDINATOR Unavailable Unavailable Encounter Details Date Type Department Care Team (Late st Contact Info) Description 02/26/2024 Clinisync Result Encounter [facility] External Department Unsolicited Yasmeen Dumont, TAX COMPLIANCE AGENT 112 [facility] [address] [place] [address] Social History Tobacco Use Types Packs/Day Years Used Date Smoking Tobacco: Former Cigarettes 0.3 3 2017 Smokeless Tobacco: Never Alcohol Use Standard [...] Diagnosis Comments MR LUMBAR SPINE WO CON 02/26/2024 11:57 AM EDT documented in this encounter Results * MR LUMBAR SPINE WO CON (02/26/2024 11:57 AM EDT) Anatomical Region Laterality Modality Other 02/26/2024 11:5 7 AM EDT Narrative 02/26/2024 11:59 [place] [address] Magnetic Resonance Report Signed Patient: DEB BOSWELL MR#: [id number] : 1965 Acct:[id number] Age/Sex: 58 / F ADM Date: 02/26/24 Loc: MRI Attending Dr: YASMEEN DUMONT Ordering Physician: YASMEEN DUMONT Date of Service: 02/26/24 Procedure(s): MR lumbar spine wo con Accession Number(s): [id number] cc: DIPAK GRAY ; YASMEEN DUMONT [facility] [place] [id number] Patient Name: DEB BOSWELL MRN: [id number] date: 1965 Sex: F Assigned Patient Location: MRI Current Patient Location: MRI Accession/Order Number: [id number] Exam Date: 02/26/2024 08:40 Report Date: 02/26/2024 11:57 At the request of: YASMEEN DUMONT Procedure: MR lumbar spine wo con EXAMINATION: MR lumbar spine wo con HISTORY: ACUTE BILATERAL LOW BACK PAIN WITH SCIATICA COMPARISON: No relevant comparison available. TECHNIQUE: A variety of imaging planes and parameters were utilized for visualization of suspected pathology. FINDINGS: For the purposes of numbering, sagittal T2 image # 8 extends from the T10-T11 vertebral body superiorly to the S3-S4 level inferiorly. PARASPINAL AREA: Normal with no visible mass. BONES: Normal alignment with no acute fracture or spondylolisthesis. No bone edema. Mild degenerative spondylosis CORD/CAUDA EQUINA: Normal caliber, contour, and signal intensity. DISC LEVELS: 12-L1: Disc desiccation. Posterior broad-based disc protrusion. No central or foraminal stenosis L1-L2: Disc space narrowing and disc desiccation. Posterior broad-based disc protrusion extending up to 2.5 mm. No central or foraminal stenosis L2-L3: Disc space narrowing and disc desiccation. Minimal posterior disc protrusion. No central or foraminal stenosis L3-L4: Disc space narrowing and disc desiccation. Posterior broad-based disc protrusion extending posteriorly up to 3.5 mm with moderate ligamentum flavum hypertrophy and facet osteoarthropathy. Mild trefoil narrowing of the central canal. Mild right and minimal left foraminal stenosis L4-L5: Moderate disc space narrowing and disc desiccation. Posterior broad-based disc herniation the protrusion type extending 4 mm. Ligamentum flavum and facet osteoarthropathy. Trefoil narrowing of the central canal. Mild right foraminal stenosis. No left foraminal stenosis L5-S1: Disc space narrowing and disc desiccation. Moderate diffuse disc/osteophyte complex and facet osteoarthropathy. No central canal stenosis. Moderate right and mild left foraminal stenosis MR/MR lumbar spine wo con IMPRESSION: Degenerative changes resulting in central and foraminal stenosis at multiple levels as detailed above Electronically authenticated by: MICHELLE SMITH Date: 02/26/2024 11:57 Dictated By: Michelle Smith M.D. Signed By: 02/26/24 1159 DD/ 1157 TD/TT: Founder And President: Procedure Note Radiology, Radiologist, MD - 02/26/2024 [place] [address] Magnetic Resonance Report Signed Patient: DEB BOSWELL AMR#: [id number] : 1965Acct:[id number] Age/Sex: 58 / FADM Date: 02/26/24 Loc: MRI Attending Dr: YASMEEN DUMONT Ordering Physician: YASMEEN DUMONT Date of Service: 02/26/24 Procedure(s): MR lumbar spine wo con Accession Number(s): [id number] cc: DIPAK GRAY SHERRI [place] [address] Patient Name: DEB BOSWELL MRN: [id number] date: 1965 Sex: F Assigned Patient Location: MRI Current Patient Location: MRI Accession/Order Number: [id number] Exam Date: 02/26/2024 08:40 Report Date: 02/26/2024 11:57 At the request of: YASMEEN DUMONT Procedure: MR lumbar spine wo con EXAMINATION: MR lumbar spine wo con HISTORY: ACUTE BILATERAL LOW BACK PAIN WITH SCIATICA COMPARISON: No relevant comparison available. TECHNIQUE: A variety of imaging planes and parameters were utilized for visualization of suspected pathology. FINDINGS: For the purposes of numbering, sagittal T2 image # 8 extends from ivcT18-N57 vertebral body superiorly to the S3-S4 level inferiorly. PARASPINAL AREA: Normal with no visible mass. BONES: Normal alignment with no acute fracture or spondylolisthesis. [place] edema. Mild degenerative spondylosis CORD/CAUDA EQUINA: Normal caliber, contour, and signal intensity. DISC LEVELS: 12-L1: Disc desiccation. Posterior broad-based disc protrusion. No centralor foraminal stenosis L1-L2: Disc space narrowing and disc desiccation. Posterior broad-baseddisc protrusion extending up to 2.5 mm. No central or foraminal stenosis L2-L3: Disc space narrowing and disc desiccation. Minimal posterior disc protrusion. No central or foraminal stenosis L3-L4: Disc space narrowing and disc desiccation. Posterior broad-baseddisc protrusion extending posteriorly up to 3.5 mm with moderate ligamentumflavum hypertrophy and facet osteoarthropathy. Mild trefoil narrowing of thecentral canal. Mild right and minimal left foraminal stenosis L4-L5: Moderate disc space narrowing and disc desiccation. Posterior broad-based disc herniation the protrusion type extending 4 mm. Ligamentum flavum and facet osteoarthropathy. Trefoil narrowing of the central canal. Mild right foraminal stenosis. No left foraminal stenosis L5-S1: Disc space narrowing and disc desiccation. Moderate diffuse disc/osteophyte complex and facet osteoarthropathy. No central canalstenosis. Moderate right and mild left foraminal stenosis MR/MR lumbar spine wo con IMPRESSION: Degenerative changes resulting in central and foraminal stenosis atmultiple levels as detailed above Electronically authenticated by: MICHELLE SMITH Date: 02/26/2024 11:57 Dictated By: Michelle Smith M.D. Signed By:02/26/24 1159 DD/ 1157 TD/TT: Founder And President: us Yasmeen Dumont NP [facility] Final Resu lt documented in this encounter Visit Diagnoses Not on filedocumented in this encounter Care Teams Personal Financial Advisor Relationship Specialty Start Date End Date Dipak Gray MD [address] [place] [address] [facility] Dipak Gray MD 112 [facility] 110 [place] [address] PCP - General Family Medicine 11/11/24ThursdayBety LPN 112 [facility] 110 [place] [address] Licensed Practical Nurse Family Medicine 11/27/23 Shani White, RN Licensed Practical Nurse Family Medicine 10/07/2410/30 Leny Iyer LPN 11/18/24 documented as of this encounter
--- OUTSIDE RECORDS SUMMARY | 2025-02-02 10:47 | XMS_ITS | Encounter Summary ---
Author Organization [facility] Address [address] [place] [address] Care Team Providers Care Bead Wire Insulator Name Role Phone Dipak Davila MD Primary Care Provider [phone] Leny Iyer LPN Unavailable Unavailable Encounter Details Date Type Department Care Team ([facility] st Contact Info) Description 01/06/2025 Abstract [facility] [address] [facility] [address] [place] [address] Dipak Davila MD [address] [facility] 110 [place], [place] [id number] Social History Tobacco Use Types Packs/Day Years [...] Recorded Patient Health Questionnaire-2 Score 0 12/27/2024 [facility] [place] of Occupat ional Health - Occupational Stress [...] any time in the past [address] [facility], were you homeless or living in a alf (including now)? No 04/01/2024 Comments Unknown Sex and Gender Information Value Date Recorded Sex Assigned at Not on file Legal Sex Female 6:59 PM EDT Gender Identity Not on file Sexual Orientation Not on file documented as of this encounter Plan of Treatment Not on file documented as of this encounter Visit Diagnoses Not on filedocumented in this encounter Care Teams Bead Wire Insulator Relationship Specialty Start Date End Date Dipak Davila MD 112 [facility] 110 [place] [address] PCP - General Family Medicine 11/11/24 Leny Iyer LPN 11/18/24 documented as of this encounter
--- OUTSIDE RECORDS SUMMARY | 2025-02-02 10:47 | XMS_ITS | Encounter Summary ---
Author Organization [facility] Address [address] [place] [address] Care Team Providers Care Taxation Consultant Name Role Phone Dipak Davila MD Unavailable Thursday, Bety HENLEY Unavailable [phone] Shani White RN Unavailable [phone] Dipak Davila MD Primary Care Provider [phone] Leny Iyer PATTERNMAKER ALL AROUND Unavailable Unavailable Encounter Details Date Type Department Care Team (Late st Contact Info) Description 05/11/2024 Abstract [facility] 112 [facility] 110 [place] [id number] Pat Rivas, PHARMACEUTICAL SALESPERSON 112 [facility] 110 [place] [address] Social History Tobacco Use Types Packs/Day Years [...] and heating? Not hard at all 04/01/2024 [facility] [place] of Occupat ional Health - Occupational Stress [...] any time in the past 12 m [facility], were you homeless or [...] on filedocumented in this encounter Care Teams Taxation Consultant Relationship Specialty Start Date End Date Dipak Davila MD 112 [facility] 110 [place] [address] [facility] Dipak Davila MD 112 [facility] 110 [place] [address] PCP - General Family Medicine 11/11/24Thursday, KALE Albert 112 [facility] 110 [place] [address] Licensed Practical Nurse Family Medicine 11/27/23 Shani White, RN Licensed Practical Nurse Family Medicine 10/07/2410/30 Leny Iyer LPN 11/18/24 documented as of this encounter
--- OUTSIDE RECORDS SUMMARY | 2025-02-02 10:47 | XMS_ITS | Encounter Summary ---
Author Organization [facility] Address [address] [place] [address] Care Team Providers Care Inspector Missile Name Role Phone Dipak Davila MD Primary Care Provider [phone] Leny Iyer LPN Unavailable Unavailable Encounter Details Date Type Department Care Team ([facility] Contact Info) Description 01/31/2025 Telephone [facility] [address] [place] [address] Shani White, DAVID Social History Tobacco Use Types Packs/Day Years [...] Recorded Patient Health Questionnaire-2 Score 0 12/27/2024 [facility] [place] of Occupat ional Health - Occupational Stress [...] on file documented as of this encounter Progress Notes * Shani White RN - 01/31/2025 12:02 PM EDT Pt states she needs progress notes, dx list, list of medications, imaging reports for her disability submission paperwork. Patient would like this information printed for her to obtain. Thank you. documented in this encounter Miscellaneous Notes * Telephone Encounter - Georgette Marroquin - 01/31/2025 1:20 PM EDT Spoke with patient was able to print what was needed documented in this encounter Plan of Treatment Not on file documented as of this encounter Visit Diagnoses Not on filedocumented in this encounter Care Teams Inspector Missile Relationship Specialty Start Date End Date Dipak Davila MD [address] [place] [address] PCP - General Family Medicine 11/11/24 Leny Iyer LPN 11/18/24 documented as of this encounter
--- OUTSIDE RECORDS SUMMARY | 2025-02-02 10:47 | XMS_ITS | Encounter Summary ---
Author Organization [facility] Address [address] [place] [address] Care Team Providers Care Police Communications Operator Name Role Phone Dipak Davila MD Unavailable Thursday, Bety HAND WOVEN CARPET AND RUG MENDER Unavailable [phone] Shani White RN Unavailable Dipak Davila MD Primary Care Provider [phone] Leny Iyer HAND WOVEN CARPET AND RUG MENDER Unavailable Unavailable Encounter Details Date Type Department Care Team (Late st Contact Info) Description 03/14/2024 Abstract [facility] 112 [facility] 110 [place] [address] Pat Rivas SEPARATOR OPERATOR [employer] [address] [facility] [facility] 110 [place] [address] Social History Tobacco Use Types Packs/Day Years [...] on filedocumented in this encounter Care Teams Police Communications Operator Relationship Specialty Start Date End Date Dipak Davila MD [address] [facility] 110 [place] [address] PCP - [place] [facility] 07/01/21 Dipak Davila MD [address] [facility] [address] [place] [address] PCP - General Family Medicine 11/11/24Thursday, KALE Albert 112 [facility] 110 [place] [address] Licensed Practical Nurse Family Medicine 11/27/23 Shani White, DAVID Licensed Practical Nurse Family Medicine 10/07/2410/30 Leny Iyer LPN 11/18/24 documented as of this encounter
--- OUTSIDE RECORDS SUMMARY | 2025-02-02 10:47 | XMS_ITS | Clinical Summary ---
Author Organization [facility] Address [address] [place] [address] Care Team Providers Care Voice Coach Name Role Phone Dipak Davila MD Primary Care Provider [phone] Leny Iyer LPN Unavailable Unavailable Allergies No known active allergies Medications loratadine (Claritin) 10 MG tabletIndication s:Seasonal allergic rhinitis due to pollen Take 1 tablet (10 mg) by mouth in the morning. 30 tablet 3 Active Azelastine HCl 137 MCG/SPRAY solutionIndicati ons:Seasonal allergic rhinitis due to pollen Administer 1 spray into affected nostril(s) in the morning and 1 spray before bedtime. 30 mL 5 3 Active FLUoxetine (PROzac) 20 MG capsuleIndicatio ns:Depression, unspecified depression type (CMS/HCC) Take 1 capsule (20 mg) by mouth Daily 90 capsule 3 4 Active etodolac (Lodine) 300 MG capsuleIndicatio ns:Lumbar pain Take 1 capsule (300 mg) by mouth 3 (three) times a day as needed (Pain) Take with food 90 capsule 2 5 Active ondansetron (Zofran) 4 MG tabletIndication s:Nausea and vomiting, unspecified vomiting type Take 1 tablet (4 mg) by mouth every 8 (eight) hours if needed for nausea or vomiting 21 tablet 5 Active SUMAtriptan (Imitrex) 25 MG tabletIndication s:Migraine without aura and without status migrainosus, not intractable (CMS/HCC) TAKE 1TAB BY MOUTH ONCE A DAY NEEDED FOR MIGRAINES.MAY REPEAT ONCE IN 2HRS IF NEEDED. MAX 2/24HR. 9 tablet 3 5 Active baclofen (Lioresal) 10 MG tabletIndication s:Sacroiliitis (CMS/HCC) Take 1 tablet (10 mg) by mouth in the morning and 1 tablet (10 mg) in the evening and 1 tablet (10 mg) before bedtime. 90 tablet 5 Active gabapentin (Neurontin) 300 MG capsuleIndicatio ns:Lumbar pain,Acute bilateral low back pain with bilateral sciatica Take 1 capsule (300 mg) by mouth in the morning and 1 capsule (300 mg) in the evening and 1 capsule (300 mg) before bedtime. 200 capsule 3 5 Active traMADol (Ultram) 50 MG tabletIndication s:Lumbar pain,Acute bilateral low back pain with bilateral sciatica,Cauda equina syndrome (CMS/HCC) Take 2 tablets (100 mg) by mouth every 6 (six) hours if needed for severe pain 240 tablet 5 01/27/20 25 Active Problems Problem Noted Date Diagnosed Date Spinal stenosis of lumbar re gion with neurogenic claudication 12/27/2024 Assessment & Plan (12/27/2024 1:43 PM EDT): Has seen Pain Specialist Epidurals minimal help Acute bilateral low back pain with bilateral sci atica 12/13/2024 Assessment & Plan (12/27/2024 1:44 PM EDT): Has seen back surgeon And no surgery at this time Assessment & Plan (12/13/2024 1:44 PM EDT): Continue Baclofen Acute low back pain 06/29/2024 Assessment & Plan (12/13/2024 1:44 PM EDT): I discussed with patient that while on prednisone, do not take any NSAIDs like Ibuprofen, Naprosyn, Alleve or motrin. Watch for any side effects like abdominal pain and nausea. Take the prednisone with food or milk. Prednisone may increase appetite. While on prednisone, watch for any sugar elevations. Cauda equina syndrome 02/17/2024 Assessment & Plan (12/13/2024 1:44 PM EDT): Consider PT Osteoporosis 02/17/2024 Sacroiliitis 01/19/2024 Assessment & Plan (12/27/2024 1:48 PM EDT): Increase Guicho Foss with lido to twice a day Assessment & Plan (01/19/2024 11:47 AM EDT): I discussed with patient that while on prednisone, do not take any NSAIDs like Ibuprofen, Naprosyn, Alleve or motrin. Watch for any side effects like abdominal pain and nausea. Take the prednisone with food or milk. Prednisone may increase appetite. While on prednisone, watch for any sugar elevations. 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 [address] Shani White RN 01/30/2025 Abstract [facility] [address] [facility] [address] [place] [address] Dipak Davila MD 01/25/2025 Abstract [facility] [address] [facility] [address] [place] [id number] Dipak Davila MD 01/24/2025 Telephone [facility] [address] [facility] [address] [place] [address] Dipak Davila MD 01/18/2025 10:00 AM EDT Treatment [facility] [address] [facility] [address] [place] [address] Kumar Mccann, PT Spinal stenosis of lumbar region with neurogenic claudication (Primary Dx); Sacroiliitis (CMS/HCC); Lumbar pain; Acute bilateral low back pain with bilateral sciatica 01/18/2025 Bamboo flowsheet [facility] [address] [facility] [address] [place] [address] Kumar Mccann T, PT 01/18/2025 Travel 01/16/2025 10:00 AM EDT Treatment [facility] [address] [facility] [address] [place] [address] Imelda Lowe, JOCKEY VALET Spinal stenosis of lumbar region with neurogenic claudication (Primary Dx); Sacroiliitis (CMS/HCC); Lumbar pain; Acute bilateral low back pain with bilateral sciatica 01/16/2025 Bamboo flowsheet [facility] [address] [facility] [address] [place] [address] Florinda Loweissa, JOCKEY VALET 01/16/2025 Travel 01/11/2025 10:00 AM EDT Treatment [facility] [address] [facility] [address] [place] [address] Kumar Mccann, PT Spinal stenosis of lumbar region with neurogenic claudication (Primary Dx); Sacroiliitis (CMS/HCC); Lumbar pain; Acute bilateral low back pain with bilateral sciatica 01/11/2025 Bamboo flowsheet [facility] [address] [facility] [address] [place] [address] Kumar Mccann T, PT 01/11/2025 Travel 01/09/2025 10:30 AM EDT Treatment [facility] [address] [facility] [address] [place] [address] Keltaylor, Imelda, JOCKEY VALET Spinal stenosis of lumbar region with neurogenic claudication (Primary Dx); Sacroiliitis (CMS/HCC); Lumbar pain; Acute bilateral low back pain with bilateral sciatica 01/09/2025 Bamboo flowsheet [facility] [address] [facility] [address] [place] [address] Imelda Lowe, JOCKEY VALET 01/09/2025 Travel 01/06/2025 Abstract [facility] [address] [facility] [address] [place] [address] Dipak Davila MD 01/04/2025 10:30 AM EDT Treatment [facility] [address] [facility] [address] [place] [address] Florinda Loweissa, JOCKEY VALET Spinal stenosis of lumbar region with neurogenic claudication (Primary Dx); Sacroiliitis (CMS/HCC); Lumbar pain; Acute bilateral low back pain with bilateral sciatica 01/04/2025 Bamboo flowsheet [facility] [address] [facility] [address] [place] [address] Imelda Lowe, JOCKEY VALET 01/04/2025 Travel 01/03/2025 Plan of Care Documentation [facility] [address] [facility] [address] [place] [address] 01/02/2025 8:00 AM EDT Evaluation [facility] [address] [facility] [address] [place] [address] Kumar Mccann, PT Spinal stenosis of lumbar region with neurogenic claudication (Primary Dx); Sacroiliitis (CMS/HCC); Lumbar pain; Acute bilateral low back pain with bilateral sciatica 01/02/2025 Bamboo flowsheet [facility] [address] [facility] [address] [place] [address] Kumar Mccann, PT 01/02/2025 Travel 12/28/2024 Abstract [facility] [address] [facility] [address] [place] [address] Dipak Davila MD 12/27/2024 1:30 PM EDT Office Visit [facility] [address] [facility] [address] [place] [address] Dipak Davila MD Acute low back pain, unspecified back pain laterality, unspecified whether sciatica present (Primary Dx); Migraine without aura and without status migrainosus, not intractable (CMS/HCC); Encounter for screening mammogram for malignant neoplasm of breast; Spinal stenosis of lumbar region with neurogenic claudication; Sacroiliitis (CMS/HCC); Lumbar pain; Acute bilateral low back pain with bilateral sciatica; Cauda equina syndrome (CMS/HCC) 12/27/2024 Travel 12/13/2024 1:30 PM EDT Office Visit [facility] [address] [place] [address] Dipak Davila MD Lumbar pain; Acute bilateral low back pain with bilateral sciatica; Cauda equina syndrome (CMS/HCC); Sacroiliitis (CMS/HCC) 12/13/2024 Travel 12/01/2024 [facility] [address] [place] [address] Leny Iyer LPN 11/30/2024 Abstract [facility] [address] [address] [place] [address] Dipak Davila MD 11/24/2024 Patient Outreach [facility] [address] [place] [address] Leny Iyer LPN 11/11/2024 11:30 AM EDT Office Visit [facility] [address] [place] [address] Karen Preston PA Right flank pain (Primary Dx); Lumbar pain; Nausea and vomiting, unspecified vomiting type 11/11/2024 Bamboo flowsheet [facility] [address] [place] [address] Karen Preston PA 11/11/2024 Travel from Last 3 Months Immunizations Immunization Administration Dates Next Due Influenza, injectable, quadrivalent, preservativ e free 06/26/2015 Pfizer Purple Cap SARS-CoV-2 Vaccination 022,08/16/2021 Family History Medical History Relation Name Comments Cancer Mother Relation Name Status Comments Father Alive Mother Alive Social History Tobacco Use Types Packs/Day Years Used Date Smoking Tobacco: Former Cigarettes 0.3 3 2 015 - 2018 Smokeless Tobacco: Never Tobacco Cessation:Counseling Given: Not Answered Alcohol Use Standard Drinks/Week Comments Never 0 [...] Recorded Patient Health Questionnaire-2 Score 0 12/27/2024 [facility] - Occupational Stress [...] any time in the past 12 m [facility], were you homeless or living in a usp (including now)? No 04/01/2024 Comments Unknown Sex and Gender Information Value Date Recorded Sex Assigned at Not on file Legal Sex Female 6:59 PM EDT Gender Identity Not on file Sexual Orientation Not on file Last Filed Vital Signs Vital Sign Reading Time Taken Comments Blood Pressure 100/62 12/27/2024 1:35 PM EDT Pulse 93 12/27/2024 1:35 PM EDT Temperature 37.1 C (98.7 F) 11/11/2024 11:46 AM EDT Respiratory Rate 16 11/11/2024 11:46 AM EDT Oxygen Saturation 95% 12/27/2024 1:35 PM EDT Inhaled Oxygen Concentration - - Weight 80.7 kg (178 lb) 12/27/2024 1:35 PM EDT Height 170.2 cm (5' 7 ) 12/27/2024 1:35 PM EDT Body Mass Index 27.88 12/27/2024 1:35 PM EDT Plan of Treatment Health Maintenance Due Date Last Done Comments CT Colonography 1966 FIT-DNA 1966 FIT 1966 FOBT 1966 Sigmoidoscopy 1966 Mammogram 04/17/2022 04/17/2021 Influenza Vaccine (Season Ended) 2025 06/26/20 15 Colonoscopy 10/20/2033 10/20/2023, 10/20/2023 Colorectal Cancer Screening 10/20/2033 Procedures Procedure Name Priority Date/Time Associated Diagnosis Comments COLONOSCOPY DIAGNOSTIC Routine 10/20/2023 BI MAMMOGRAM SCREENING BILATERAL Routine 04/17/2021 12:00 PM EDT Encounter for screening mammogram for malignant neoplasm of breast from Last 3 Months or Most Recently Relevant to Health Maintenance Results * COLONOSCOPY DIAGNOSTIC (10/20/2023) Anatomical Region Laterality Modality Radiographic Dana ging 10/20/2023 Narrative 10/20/2023 8:53 AM EST Normal Dipak Davila MD IMG XR PROCEDURES Final Result * Bilateral screening mammogram (04/17/2021 12:00 PM EDT) Anatomical Region Laterality Modality Breast Bilateral Mammography Narrative 04/17/2021 12:00 PM EDT PERFORMED AT [facility] LOCATION:[id number] NEGATIVE Procedure Note CONVERSION, GENERIC - 03/06/2023 PERFORMED AT [facility] LOCATION:[id number] NEGATIVE Dipak Davila MD IMG BI PROCEDURES Final Result from Last 3 Months or Most Recently Relevant to Health Maintenance Insurance [facility] Care Teams Voice Coach Relationship Specialty Start Date End Date Dipak Dvaila MD [address] [facility] [address] [place] [address] PCP - General Family Medicine 11/11/24 Leny Iyer LPN 11/18/24
--- OUTSIDE RECORDS SUMMARY | 2025-02-02 11:01 | XMS_ITS | CCD ---
Author Organization [facility] Care Team Providers Care Chemical Research Engineer Name Role Phone DR SWATI GRAY Primary [...] Unavailable MD Torrey Conklin Attending Provider MD Swati Gray Primary Care Provider [phone] MD Swati Gray Primary Care Provider [phone] LEA Shaikh Attending Provider LEA Perkins Emergency Provider [phone] Swati Gray MD Unavailable Thursday GLAZIER STRUCTURAL GLASS, Bety Unavailable DO Vijay Stone Attending Provider Swati Gray Primary Care Unavailable Lillian Perkins Admitting Unavailable Lillian Perkins Attending Unavailable Swati Gray Primary Care Unavailable Vijay Stone Admitting Unavailable Vijay Stone Attending Unavailable Swait Gray Primary Care Unavailable Lottie Shaikh Admitting Unavailable Lottie Shaikh Attending Unavailable Swati Gray Primary Care Unavailable Asaad, Imad Admitting Unavailable Asaad, Imad Attending Unavailable KARELY BROWN Attending Unavailable KARELY BROWN Referring Unavailable Jackson OWENS, Yodit Thomas Attending Unavailable Jackson OWENS, Yodit Thomas Attending Unavailable KARELY BROWN Referring Unavailable Tim UMANZOR, Pat Unavailable [phone] Bharathi Mcqueen CNP Unavailable Unavailable Primary Care Provider UnavailTERENCE Jett Attending Unavailable BHARATHI MCQUEEN Referring Unavailable JAVIER PARKER Referring Unavailable Swati Gray MD Primary Care Provider [phone] Leny Iyer LPN Unavailable Unavailable MANDY FAM Attending Unavailable MARINASWATI Frost Attending Unavailable MARINASWATI Frost Attending Unavailable DESEAN MCCANN Attending Unavailable SWATI GRAY Referring Unavailable IMELDA LOWE Attending Unavailable SWATI GRAY Referring Unavailable IMELDA LOWE Attending Unavailable SWATI GRAY Referring Unavailable PAT RIVAS Attending Unavailable TIMPAT Attending Unavailable DESEAN MCCANN Attending Unavailable SWATI GRAY Referring Unavailable IMELDA LOWE Attending Unavailable SWATI GRAY M Referring Unavailable DESEAN MCCANN Attending Unavailable SWATI GRAY Referring Unavailable Allergies Allergy Classification Reported Allergen(s) Allergy Type Date of Onset Reaction(s) Facility (1 source) Seasonal allergy; Translations: [SEASONAL ALLERGIES] Propensity to adverse reactions (disorder) [facility] Repository Medications Current Medications Medication Drug Class(es) Dates Sig (Normalized) Sig (Original) acetaminophen 325 mg / HYDROcodone bitartrate 5 mg oral tablet (6 sources) Opioid Agonist Start: 06-29-2024 End: 07-04-2024 take 1 tablet by mouth every six hours for pain HYDROcodone-aceta minophen ([place]) 5-325 MG tablet Indications: Acute bilateral low [...] hydrochloride 0.137 mg/actuat metered dose nasal spray (20 sources) Histamine-1 Receptor Antagonist Start: 04-21-2023 take 1 spray(s) nasal route in the morning Azelastine HCl 137 MCG/SPRAY solution Indications: Seasonal allergic rhinitis due to pollen Administer 1 spray into affected nostril(s) in the morning and 1 spray before bedtime. 30 mL 5 04/21/2023 Active baclofen 10 mg oral tablet (20 sources) gamma-Aminobutyric Acid-ergic Agonist Start: 02-10-2024 End: 01-26-2025 take 1 tablet by mouth in the morning, then take 1 tablet by mouth in the evening, then take 1 tablet by mouth at bedtime baclofen (Lioresal) 10 MG tablet Indications: Sacroiliitis (CMS/HCC) Take 1 tablet (10 mg) by mouth in the morning and 1 tablet (10 mg) in the evening and 1 tablet (10 mg) before bedtime. 90 tablet 12/27/2024 01/26/2025 Active etodolac 300 mg oral capsule (20 sources) Nonsteroidal Anti-inflammatory Drug Start: 11-11-2024 take 1 capsule by mouth three times daily as needed for pain etodolac (Lodine) 300 MG capsule Indications: Lumbar pain Take 1 capsule (300 mg) by mouth 3 (three) times a day as needed (Pain) Take with food 90 capsule 2 11/11/2024 Active Start: 02-12-2024 etodolac ([place] ne) 300 MG capsule 02/12/2024 Active FLUoxetine 20 mg oral capsule (20 sources) Serotonin Reuptake Inhibitor Start: 10-20-2023 take [...] 04/21/2023 Active gabapentin 300 mg oral capsule (20 sources) Anti-epileptic Agent Start: 08-01-2024 take 1 tablet by mouth every twelve hours gabapentin (NEURONTIN) 600 mg tablet Take 1 tablet by mouth every 12 hours. 08/01/2024 Active Start: 04-28-2024 End: 12-27-2024 take 1 capsule by mouth in the morning, then take 1 capsule by mouth in the evening, then take 1 capsule by mouth at bedtime gabapentin (Neurontin) 300 MG capsule Indications: Lumbar pain , Acute bilateral low back pain with bilateral sciatica Take 1 capsule (300 mg) by mouth in the morning and 1 capsule (300 mg) in the evening and 1 capsule (300 mg) before bedtime. 200 capsule 3 12/27/2024 Active Start: 04-07-2024 gabapentin (NE URONTIN) 100 mg capsule Twice daily 04/07/2024 Active loratadine 10 mg oral tablet (20 sources) Start: 02-02-2023 take 1 tablet by [...] package directions ondansetron 4 mg oral tablet (20 sources) Serotonin-3 Receptor Antagonist Start: 11-11-2024 take 1 tablet by mouth every eight hours for nausea ondansetron (Zofran) 4 MG tablet Indications: Nausea and vomiting, unspecified vomiting type Take 1 tablet (4 mg) by mouth every 8 (eight) hours if needed for nausea or vomiting 21 tablet 11/11/2024 Active Start: 11-27-2023 ondansetron (Z OFRAN) 4 mg tablet 11/27/2023 Active predniSONE 10 mg oral tablet (11 sources) Start: 12-13-2024 End: 12-29-2024 take 4 tablets by mouth once daily, then take 3 tablets by mouth once daily, then take 2 tablets by mouth once daily, then take 1 tablet by mouth once daily predniSONE (Deltasone) 10 MG tablet Indications: Lumbar pain , Acute bilateral low back pain with bilateral sciatica , Cauda equina syndrome (CMS/HCC) Take 4 tablets (40 mg) by mouth Daily for 4 days, THEN 3 tablets (30 mg) Daily for 4 days, THEN 2 tablets (20 mg) Daily for 4 days, THEN 1 tablet (10 mg) Daily for 4 days. 40 tablet 12/13/2024 12/27/2024 Discontinued (Other) Start: 06-03-2024 End: 07-14-2024 take 4 tablets [...] 07/14/2024 Active SUMAtriptan 25 mg oral tablet (20 sources) Serotonin-1b and Serotonin-1d Receptor Agonist Start: 10-20-2023 End: 12-27-2024 SUMAtriptan (Imitrex) 25 MG tablet Indications: Migraine without aura and without status migrainosus, not intractable (CMS/HCC) TAKE 1TAB BY MOUTH ONCE A DAY NEEDED FOR MIGRAINES.MAY REPEAT ONCE IN 2HRS IF NEEDED. MAX 2/24HR. 9 tablet 3 12/27/2024 Active traMADol hydrochloride 50 mg oral tablet (20 sources) Opioid Agonist Start: 12-27-2024 End: 01-26-2025 take 2 tablets by mouth every six hours for pain traMADol (Ultram) 50 MG tablet Indications: Lumbar pain , Acute bilateral low back pain with bilateral sciatica , Cauda equina syndrome (CMS/HCC) Take 2 tablets (100 mg) by mouth every 6 (six) hours if needed for severe pain 240 tablet 12/27/2024 01/26/2025 Active Start: 12-13-2024 End: 01-12-2025 take 1 tablet by mouth every six hours for pain traMADol (Ultram) 50 MG tablet Indications: Lumbar pain , Acute bilateral low back pain with bilateral sciatica , Cauda equina syndrome (CMS/HCC) Take 1 tablet (50 mg) by mouth every 6 (six) hours if needed for severe pain 120 tablet 12/13/2024 12/27/2024 Discontinued (Reorder) Start: 10-20-2023 End: 05-07-2024 take 50 mg by mouth once daily Tramadol Discontinued 5 0 MG PO Daily October 20, 2023 1:00am May 07, 2024 3:29pm Problems Active Problems Problem Classification Problem Date Documented Date Episodic/Chronic E Codes: Fall (6 sources) Fall (on) (from) other stairs and steps, sequela; Translations: [Fall (on) (from) other stairs and steps, initial encounter] Onset: 07-21-2024 07-21-2024 Episodic Headache; including migraine (20 sources) Migraine without aura, not refractory ; Translations: [Migraine without aura, not intractable, without status migrainosus] Onset: 01-29-2023 01-29-2023 Chronic Mood disorders (20 sources) Depressive disorder; Translations: [Depression] Onset: 02-02-2023 02-02-2023 Chronic Osteoporosis (20 sources) Osteoporosis; Translations: [Age-related osteoporosis without current pathological fracture] Onset: 02-17-2024 02-17-2024 Chronic Other connective tissue disease (1 source) Lateral epicondylitis, right elbow; Translations: [LATERAL EPICONDYLITIS RIGHT ELBOW] Onset: 11-06-2021 Episodic Other connective tissue disease (1 source) Spasm; Translations: [Other muscle spasm] 06-02-2024 Episodic Other nervous system disorders (1 source) Chronic pain; Translations: [Other chronic pain] 11-08-2024 Chronic Other nervous system disorders (2 sources) Other chronic pain; Translations: [Other chronic pain] Onset: 11-08-2024 Chronic Other non-traumatic joint disorders (3 sources) Pain in right elbow; Translations: [PAIN IN RIGHT ELBOW] Onset: 10-31-2021 Episodic Other non-traumatic joint disorders (1 source) Pain in right hip; Translations: [Pain in right hip] Onset: 06-15-2024 Episodic Other screening for suspected conditions (not mental disorders or infectious disease) (2 sources) Patient encounter status; Translations: [Encounter for screening mammogram for malignant neoplasm of breast] 12-27-2024 Episodic Other upper respiratory disease (20 sources) Allergic rhinitis due to pollen; Translations: [Allergic rhinitis due to pollen] Onset: 02-02-2023 02-02-2023 Chronic Paralysis (20 sources) Cauda equina syndrome; Translations: [Cauda equina [...] disc disorders; other back problems (20 sources) Inflammation of sacroiliac joint; Translations: [Sacroiliitis, [...] Date Documented Da te Episodic/Chronic Abdominal pain (20 sources) Right upper quadrant pain; Translations: [Right upper quadrant pain] Onset: 09-10-2023 09-10-2023 Episodic E Codes: Fall (1 source) Accidental fall 07-21-2024 Other lower respiratory disease (4 sources) Cough; Translations: [COUGH] Onset: 02-12-2021 Episodic Other nervous system disorders (1 source) Parageusia; Translations: [PARAGEUSIA] Onset: 02-20-2021 Episodic Other nervous system disorders (1 source) Anosmia; Translations: [ANOSMIA] Onset: 02-20-2021 Episodic Other nervous system disorders (20 sources) Loss of sense of smell; Translations: [Anosmia] Onset: 01-29-2023 01-29-2023 Episodic Other nervous system disorders (20 sources) Loss of taste; Translations: [Parageusia] Onset: 01-29-2023 01-29-2023 Episodic Residual codes; unclassified (1 source) Cognitive perceptual pattern; Translations: [Unspecified symptoms and signs involving general sensations and perceptions] 07-21-2024 Episodic Unclassified (1 source) Cognitive perceptual pattern 07-21-2024 Results Test Name Value Interpretation Reference Range Facility CNOV 11-08-2024 CNOV Office Visit (SPNSMN) ---- DEMARIO WALLACE ([id number]) 1965 F Date Time Provider Department 11/08/24 11:00 AM [facility] During your visit today, we recorded the [...] Than 1 Year Demario is a 59-year-old, [id number] , non-smoker, non-diabetic. 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 Presents today with [...] BICEPS TRICEPS DELTS Wrist Ext Wrist Flex School Occupational Therapist HI R 4+ giveaway 2/2 to pain [...] to pain (more content not included)... Normal [facility] XR SCOLIOSIS 2V PA STAND/LAT on 11-08-2024 [...] Minimal levocurvature of the upper thoracic spine. Branch Lending Manager: ASHWINI Transcribe Date/Time: Nov 08 2024 10:46A Dictated by : NEELAM PHILLIPS MD This examination was interpreted and the report reviewed and electronically signed by: NEELAM PHILLIPS MD on Nov 08 2024 10:48AM EST [id number] ACN Normal [facility] XR Thoracic and lumbar spine Views for scoliosis W standingon 11-08-2024 IMPRESSION: Minimal levocurvature of the upper thoracic spine. Branch Lending Manager: [facility] Transcribe Date/Time: Nov 08 2024 10:46A Dictated [...] lower lumbar spine. DIVISION OF RADIOLOGY Provider, [facility] [place] - 11/08/2024 * * *Final Report* * [...] Minimal levocurvature of the upper thoracic spine. Branch Lending Manager: ASHWINI Transcribe Date/Time: Nov 08 2024 10:46A Dictated by : NEELAM PHILLIPS MD This examination was interpreted and the report reviewed and electronically signed by: NEELAM PHILLIPS MD on Nov 08 2024 10:48AM EST [facility] Radiology Study observation (narrative) Evette [facility] XR Thoracic and lumbar spine Views for scoliosis W standingOrdered By: [facility] Provider on 11-08-2024 [facility] MR THORACIC SPINE WO CONTon 08-25-2024 MR [...] Young MD on 08/25/2024 12:58 PM Normal [facility] XR SPINE THORACIC 3 VWSon XR SPINE [...] Sauer MD on 07/22/2024 1:41 PM Normal [facility] XR hip RT min 2V(w/wo pelvis )*on 06-15-2024 XR hip RT min 2V(w/wo pelvis)* [facility] [place] [address] [place] [address] XRay Report Signed Patient: Demario Wallace MR#: [id number] 22 : 1965 Acct:[id number] Age/Sex: 58 / F ADM Date: 06/15/24 Loc: EM Room: Type: [facility] CLI Attending Dr: Vijay Stone DO Copies to: [...] Anton Gu M.D.06/15/2024 1:21 PM Dictation Location: [place] [address] Transcribed By: [facility] 06/15/24 1321 Dictated By: Anton Gu II, MD 06/15/24 1320 Signed By: 06/15/24 1321 Normal [facility] Automated basophil %Ordered By: Lillian Perkins on 05-07-2024 Basophils/100 WBC (Bld) 1.0 % Normal . [facility] Comment on above: Performed By: #### B MP, CBC #### [place] [address] [place] Automated basophil countOrde red By: Lillian Timdemetris on 05-07-2024 Basophils (Bld) [#/Vol] 0.1 10*3/uL Normal 0.0-0.2 [facility] Comment on above: Result Comment: PERF ORMED BY: [place] [address] PATHOLOGIST SALES DESIGNER MELVIN PENA M.D. Performed By: #### B MP, CBC #### [address] Automated blood monocyte cou ntOrdered By: Lillian Timdemetris on 05-07-2024 Monocytes (Bld) [#/Vol] 0.4 10*3/uL Normal 0.0-0.8 [facility] Comment on above: Performed By: #### B MP, CBC #### [address] Automated eosinophil %Ordere d By: Lillian Perkins on 05-07-2024 Eosinophils/100 WBC (Bld) 9.2 % Normal . [facility] Comment on above: Performed By: #### B MP, CBC #### [address] Automated eosinophil countOr dered By: Lillian Timdemetris on 05-07-2024 Eosinophils (Bld) [#/Vol] 0.6 10*3/uL High 0.0-0.45 [facility] Comment on above: Performed By: #### B MP, CBC #### [address] Automated monocyte %Ordered By: Lillian Timdemetris on 05-07-2024 Monocytes/100 WBC (Bld) 7.3 % Normal . [facility] Comment on above: Performed By: #### B MP, CBC #### [address] Automated neutrophil %Ordere d By: Lillian Timsindhue on 05-07-2024 Neutrophils/100 WBC (Bld) 50.8 % Normal . [facility] Comment on above: Performed By: #### B MP, CBC #### [address] Basic Metabolic Panelon Creatinine Clr Calc Pharmacy 71.01 Normal [facility] Comment on above: Result Comment: PERF ORMED BY: [place] [address] PATHOLOGIST SALES DESIGNER MELVIN PENA M.D. Performed By: #### B MP, CBC #### [place] [address] [place] GFR/1.73 sq M.predicted MDRD (S/P/Bld) [Vol rate/Area] mL/min/{1.73_m2} Normal [facility] Comment on above: Performed By: #### B MP, CBC #### [address] Bilirubin Test strip Ql (U)O rdered By: Lillian Perkins on 05-07-2024 Bilirubin Ql (U) Negative Negative [facility] Calcium [Mass/volume] in Ser um or PlasmaOrdered By: Lillian Perkins on 05-07-2024 Calcium [Mass/Vol] 9.3 mg/dL Normal 8.6-10.3 [facility] Comment on above: Performed By: #### B MP, CBC #### [place] [address] [place] Carbon dioxide, total [Moles /volume] in Serum or PlasmaOrdered By: Lillian Perkins on 05-07-2024 CO2 [Moles/Vol] 27.1 mmol/L Normal 21.0-31.0 [facility] Comment on above: Performed By: #### B MP, CBC #### [place] [address] [place] Chloride [Moles/volume] in S israel or PlasmaOrdered By: Lillian Perkins on 05-07-2024 Chloride [Moles/Vol] 104 mmol/L Normal 98-107 [facility] Comment on above: Performed By: #### B MP, CBC #### [address] Color of Urine by AutoOrdere d By: Lillian Perkins on 05-07-2024 Color (U) Colorless Normal Yellow [facility] Comment on above: Order Comment: Name Collection Type:: Clean-Voided Midstream Performed By: #### U A #### [address] Complete Blood Count Auto Di ffon 05-07-2024 Mean Corpuscular HGB Conc 34.4 g/dL Normal 32.0-35.0 [facility] Comment on above: Performed By: #### B MP, CBC #### [place] [address] [place] Monocytes/100 WBC (Bld) 17.28 % Normal 0.00-20.00 [facility] Comment on above: Performed By: #### B MP, CBC #### [address] NRBC% 0.1 /100{WBC} Normal 0-0.5 [facility] Comment on above: Performed By: #### B MP, CBC #### [address] Creatinine [Mass/volume] in Serum or PlasmaOrdered By: iLllian Perkins on 05-07-2024 Creatinine [Mass/Vol] 0.90 mg/dL Normal 0.60-1.20 [facility] Comment on above: Performed By: #### B MP, CBC #### [place] [address] [place] Erythrocyte distribution wid th [Ratio] by Automated countOrdered By: Lillian Perkins on 05-07-2024 Erythrocyte distribution width (RBC) [Ratio] 13.7 % Normal 11.9-15.3 [facility] Comment on above: Performed By: #### B MP, CBC #### [place] [address] [place] Erythrocytes [#/volume] in B lood by Automated countOrdered By: Lillian Perkins on 05-07-2024 RBC (Bld) [#/Vol] 3.65 10*6/uL Normal 3.60-5.00 [facility] Comment on above: Performed By: #### B MIGNON, CBC #### [facility] [address] Glucose [Mass/volume] in Ser um or PlasmaOrdered By: Lillian Perkins on 05-07-2024 Glucose [Mass/Vol] 78 mg/dL Normal 70-100 [facility] Comment on above: ADA recommended refe rence rangeRandom Glucose Reference Range is dependent on time and content of last meal. Glucose of more than 200 mg/dL in a nonstressed, ambulatory subject supports the diagnosis of Diabetes Mellitus. Result Comment: [place] Glucose Reference Range is dependent on time and content of last meal. Glucose of more than 200 mg/dL in a nonstressed, ambulatory subject supports the diagnosis of Diabetes Mellitus. ADA recommended reference range Performed By: #### B MIGNON, CBC #### [facility] [address] Glucose [Mass/volume] in Uri ne by Test stripOrdered By: Lillian Perkins on 05-07-2024 Glucose Test strip (U) [Mass/Vol] Normal mg/dL Normal [facility] Hematocrit [Volume Fraction] of Blood by Automated countOrdered By: Lillian Perkins on 05-07-2024 Hematocrit (Bld) [Volume fraction] 32.5 % Low 34.0-46.4 [facility] Comment on above: Performed By: #### B MIGNON, CBC #### [facility] [address] Hemoglobin Test strip Ql (U) Ordered By: Lillian Perkins on 05-07-2024 Hemoglobin Ql (U) Negative Negative [facility] Hemoglobin [Mass/volume] in BloodOrdered By: Lillian Perkins on 05-07-2024 Hemoglobin (Bld) [Mass/Vol] 11.2 g/dL Low 11.8-15.4 [facility] Comment on above: Performed By: #### B MIGNON, CBC #### [address] [address] [place] Ketones [Presence] in Urine by Test stripOrdered By: Lillian Perkins on 05-07-2024 Ketones Ql (U) Negative Normal Negative [facility] Comment on above: Order Comment: Name Collection Type:: Clean-Voided Midstream Performed By: #### U A #### [facility] [address] [place] [address] [place] Leukocyte esterase [Presence ] in Urine by Test stripOrdered By: Lillian Perkins on 05-07-2024 Leukocyte esterase Test strip Ql (U) Negative Normal Negative [facility] Comment on above: Order Comment: Name Collection Type:: Clean-Voided Midstream Performed By: #### U A #### [facility] [address] [place] [address] Leukocytes [#/volume] correc shey for nucleated erythrocytes in Blood by Automated counOrdered By: Lillian Perkins on 05-07-2024 WBC corrected for nucl RBC Auto (Bld) [#/Vol] 6.2 10*3/uL 3.8-11.6 [facility] Leukocytes [#/volume] in Blo od by Automated countOrdered By: Lillian Perkins on 05-07-2024 WBC (Bld) [#/Vol] 6.2 10*3/uL Normal 3.8-11.6 [facility] Comment on above: Performed By: #### B MP, CBC #### [facility] [address] [place] [address] [place] Lymphocytes [#/volume] in Bl ood by Automated countOrdered By: Lillian Perkins on 05-07-2024 Lymphocytes (Bld) [#/Vol] 2.0 10*3/uL Normal 1.00-4.8 [facility] Comment on above: Performed By: #### B MP, CBC #### [facility] [address] [place] [address] [place] Lymphocytes/100 leukocytes i n Blood by Automated countOrdered By: Lillian Perkins on 05-07-2024 Lymphocytes/100 WBC (Bld) 31.7 % Normal . [facility] Comment on above: Performed By: #### B MP, CBC #### [facility] [address] MCH [Entitic mass] by Automa shey countOrdered By: Lillian Perkins on 05-07-2024 MCH (RBC) [Entitic mass] 30.6 pg Normal 24.7-34.3 [facility] Comment on above: Performed By: #### B MP, CBC #### [facility] [address] MCHC Auto (RBC) [Mass/Vol]Or dered By: Lillian Perkins on 05-07-2024 MCHC (RBC) [Mass/Vol] 34.4 g/dL 32.0-35.0 [facility] MCV [Entitic volume] by Auto mated countOrdered By: Lillian Perkins on 05-07-2024 MCV (RBC) [Entitic vol] 89.1 fL Normal 80-100 [facility] Comment on above: Performed By: #### B MP, CBC #### [facility] [address] [place] [address] Monocyte distribution width [Entitic volume] in Blood by AutomatedOrdered By: Lillian Perkins on 05-07-2024 Monocyte distribution width Auto (Bld) [Entitic vol] 17.28 % 0.00-20.00 [facility] Neutrophils [#/volume] in Bl ood by Automated countOrdered By: Lillian Perkins on 05-07-2024 Neutrophils (Bld) [#/Vol] 3.1 10*3/uL Normal 1.8-7.7 [facility] Comment on above: Performed By: #### B MP, CBC #### [facility] [address] [place] [address] Nitrite Test strip Ql (U)Ord ered By: Lillian Perkins on 05-07-2024 Nitrite Ql (U) Negative Negative [facility] No Panel InformationOrdered By: Lillian Perkins on 05-07-2024 Estimated GFR (CKD-EPI) > 60.0 mL/Min [facility] Creatinine Clearance (Chem 71.01 [facility] Nucleated erythrocytes [Pres ence] in Blood by Automated countOrdered By: Lillian Perkins on 05-07-2024 Nucleated RBC Auto Ql (Bld) 0.1 /100{WBC} 0-0.5 [facility] Platelet mean volume [Entiti c volume] in Blood by Automated countOrdered By: Lillian Perkins on 05-07-2024 Platelet mean volume (Bld) [Entitic vol] 7.8 fL Normal 6.3-10.7 [facility] Comment on above: Performed By: #### B MP, CBC #### [facility] [address] [place] [address] [place] Platelets [#/volume] in Bloo d by Automated countOrdered By: Lillian Perkins on 05-07-2024 Platelets (Bld) [#/Vol] 250 10*3/uL Normal 150-450 [facility] Comment on above: Performed By: #### B MP, CBC #### [facility] [address] [place] [address] [place] Potassium [Moles/volume] in Serum or PlasmaOrdered By: Lillian Perkins on 05-07-2024 Potassium [Moles/Vol] 3.7 mmol/L Normal 3.5-5.1 [facility] Comment on above: Performed By: #### B MP, CBC #### [place] [address] [place] Protein Test strip (U) [Mass /Vol]Ordered By: Lillian Perkins on 05-07-2024 Protein (U) [Mass/Vol] Negative Negative [facility] Serum or plasma anion gap de terminationOrdered By: Lillian Perkins on 05-07-2024 Anion gap [Moles/Vol] 8.6 mmol/L Normal 6.0-15.0 [facility] Comment on above: Performed By: #### B MP, CBC #### [place] [address] [place] Sodium [Moles/volume] in Ser um or PlasmaOrdered By: Lillian Perkins on 05-07-2024 Sodium [Moles/Vol] 136 mmol/L Normal 136-145 [facility] Comment on above: Performed By: #### B MP, CBC #### [address] Specific gravity Test strip (U) [Rel density]Ordered By: Lillian Perkins on 05-07-2024 Specific gravity (U) [Rel density] 1.008 1.001-1.030 [facility] Urea nitrogen [Mass/volume] in Serum or PlasmaOrdered By: Lillian Perkins on 05-07-2024 Urea nitrogen [Mass/Vol] 15 mg/dL Normal 7-25 [facility] Comment on above: Performed By: #### B MP, CBC #### [address] Urinalysison 05-07-2024 Bilirubin,Urine Negative Normal Negative [facility] Comment on above: Order Comment: Name Collection Type:: Clean-Voided Midstream Performed By: #### U A #### [address] Glucose Ql (U) Normal Normal Normal [facility] Comment on above: Order Comment: Name Collection Type:: Clean-Voided Midstream Performed By: #### U A #### [address] Nitrite,Urine Negative Normal Negative [facility] Comment on above: Order Comment: Name Collection Type:: Clean-Voided Midstream Performed By: #### U A #### [address] Occult Blood,Urine Negative Normal Negative [facility] Comment on above: Order Comment: Name Collection Type:: Clean-Voided Midstream Result Comment: PERF ORMED BY: [place] [address] PATHOLOGIST SALES DESIGNER MELVIN PENA M.D. Performed By: #### U A #### [address] Protein,Urine Negative Normal Negative [facility] Comment on above: Order Comment: Name Collection Type:: Clean-Voided Midstream Performed By: #### U A #### [address] Specificy [place],Urine 1.008 Normal 1.001-1.030 [facility] Comment on above: Order Comment: Name Collection Type:: Clean-Voided Midstream Performed By: #### U A #### [address] Urobilinogen,Urine Normal Normal Normal [facility] Comment on above: Order Comment: Name Collection Type:: Clean-Voided Midstream Performed By: #### U A #### [address] Urine appearanceOrdered By: Lillian Perkins on 05-07-2024 Appearance (U) Clear Normal Clear [facility] Comment on above: Order Comment: Name Collection Type:: Clean-Voided Midstream Performed By: #### U A #### [address] Urobilinogen Test strip (U) [Mass/Vol]Ordered By: Lillian Perkins on 05-07-2024 Urobilinogen (U) [Mass/Vol] Normal mg/dL Normal [facility] pH of Urine by Test stripOrd ered By: Lillian Perkins on 05-07-2024 pH (U) 6.5 [pH] Normal 5.0-9.0 [facility] Comment on above: Order Comment: Name Collection Type:: Clean-Voided Midstream Performed By: #### U A #### [address] XR lumbar spine AP/LAT/FLX/E XTon 03-24-2024 XR lumbar spine AP/LAT/FLX/EXT [facility] [place] [address] [place] [address] XRay Report Signed Patient: Demario Wallace MR#: [id number] 22 : 1965 Acct:[id number] Age/Sex: 58 / F ADM Date: 03/24/24 Loc: XD Room: Type: [facility] Attending Dr: Lottie Shaikh APRN Copies to: [...] Romero Jr., D.OPa03/24/2024 12:57 PM Dictation Location: [place] [address] Transcribed By: [facility] 03/24/24 1257 Dictated By: Manolo Romero Jr, DO 03/24/24 1255 Signed By: 03/24/24 1257 Normal [facility] XR ELBOW RT MIN 3 VIEWSon XR [...] by: QUANG COOLEY Date: 2021-10-31 08:19 Normal [facility] Q - CULTURE,URINE,ROUTINEon 10-08-2021 CULTURE, URINE, ROUTINE SEE NOTE Normal 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 These superficial bacteria are not indicative of a urinary tract infection. No further organism identification is warranted on this specimen. If clinically indicated, recollect clean-catch, mid-stream urine and transfer immediately to Urine Culture Transport Tube. Performed By: #### 6 [id number] #### [facility] Default [address] [place] [address] XR CHEST 2 Von 02-13-2021 XR CHEST [...] DESEAN SALMERON Date: 2021-02-13 05:10 Normal [facility] Covid-19 PCR (CVDTB)on 01-29 SARS-CoV-2 (COVID-19) RNA LEOBARDO+probe Ql (Unsp spec) Not detected Normal NOT DETECTED [facility] Comment on above: Result Comment: This test is not yet approved or cleared by the [place] FDA. When there are no FDA-approved or cleared tests available, and other criteria are met, FDA can make tests available under an emergency access mechanism called an Emergency Use Authorization (EUA). The EUA for this test is supported by the Damage Inside Adjuster of Health and Human Service's (HHS's) declaration [...] SARS-CoV-2. Performed By: #### C VDTB #### [facility] [address] [id number] Cheli Jones Vital Signs Date Time Vital Sign Value Performing Clinician Facility 12-27-2024 13:35-0400 Body height 170.2 cm Swati Gray MD Work Phone: [facility] 12-27-2024 13:35-0400 Body mass index (BMI) [Ratio] 27.88 kg/m2 Swati Gray MD Work Phone: [facility] 12-27-2024 13:35-0400 Body weight 80.74 kg Swati Gray MD Work Phone: [facility] 12-27-2024 13:35-0400 Diastolic blood pressure 62 mm[Hg] Swati Gray MD Work Phone: [facility] 12-27-2024 13:35-0400 Heart rate 93 /min Swati Gray MD Work Phone: [facility] 12-27-2024 13:35-0400 SaO2% (BldA) [Mass fraction] 95 % Swati Gray MD Work Phone: [facility] 12-27-2024 13:35-0400 Systolic blood pressure 100 mm[Hg] Swati Gray MD Work Phone: [facility] 12-13-2024 13:35-0400 Body height 170.2 cm Swati Gray MD Work Phone: [facility] 12-13-2024 13:35-0400 Body mass index (BMI) [Ratio] 28.35 kg/m2 Swati Gray MD Work Phone: [facility] 12-13-2024 13:35-0400 Body weight 82.1 kg Swati Gray MD Work Phone: [facility] 12-13-2024 13:35-0400 Diastolic blood pressure 68 mm[Hg] Swati Gray MD Work Phone: [facility] 12-13-2024 13:35-0400 Heart rate 62 /min Swati Gray MD Work Phone: [facility] 12-13-2024 13:35-0400 SaO2% (BldA) [Mass fraction] 99 % Swati Gray MD Work Phone: [facility] 12-13-2024 13:35-0400 Systolic blood pressure 104 mm[Hg] Swati Gray MD Work Phone: [facility] 11-08-2024 10:54-0400 Body height 170.2 cm Terence Pacenta APPLICATION PACKAGER.CARGO VESSEL STEWARDESS Work Phone: [facility] 11-08-2024 10:54-0400 Body mass index (BMI) [Ratio] 27.72 kg/m2 Terence Pacenta APPLICATION PACKAGER.CARGO VESSEL STEWARDESS Work Phone: [facility] 11-08-2024 10:54-0400 Body weight 80.29 kg Terence Pacenta APPLICATION PACKAGER.CARGO VESSEL STEWARDESS Work Phone: [facility] 11-08-2024 10:54-0400 Diastolic blood pressure 56 mm[Hg] Terence Pacenta APPLICATION PACKAGER.CARGO VESSEL STEWARDESS Work Phone: [facility] 11-08-2024 10:54-0400 Heart rate 80 /min Terence Pacenta APPLICATION PACKAGER.CARGO VESSEL STEWARDESS Work Phone: [facility] 11-08-2024 10:54-0400 SaO2% (BldA) [Mass fraction] 98 % Terence Pacenta APPLICATION PACKAGER.CARGO VESSEL STEWARDESS Work Phone: [facility] 11-08-2024 10:54-0400 Systolic blood pressure 102 mm[Hg] Terence Pacenta APPLICATION PACKAGER.CARGO VESSEL STEWARDESS Work Phone: [facility] 07-21-2024 10:35-0500 Body height 170.2 cm Karely Brown APPLICATION PACKAGER-CARGO VESSEL STEWARDESS Work Phone: [facility] 07-21-2024 10:35-0500 Body mass index (BMI) [Ratio] 27.41 kg/m2 Karely Brown APPLICATION PACKAGER-[employer] VESSEL STEWARDESS Work Phone: [facility] 07-21-2024 10:35-0500 Body weight 79.38 kg Karely Brown APPLICATION PACKAGER-CARGO VESSEL STEWARDESS Work Phone: [facility] 06-29-2024 11:110400 Body height 170.2 cm Pat Rivas MINK SLICER Work Phone: [facility] 06-29-2024 11:11-0400 Body mass index (BMI) [Ratio] 27.72 kg/m2 Pat Rivas MINK SLICER Work Phone: [facility] 06-29-2024 11:11-0400 Body weight 80.29 kg Pat Rivas MINK SLICER Work Phone: [facility] 06-29-2024 11:11-0400 Diastolic blood pressure 72 mm[Hg] Pat Rivas MINK SLICER Work Phone: [facility] 06-29-2024 11:11-0400 Heart rate 87 /min Pat Rivas MINK SLICER Work Phone: [facility] 06-29-2024 11:11-0400 SaO2% (BldA) [Mass fraction] 99 % Pat Rivas MINK SLICER Work Phone: [facility] 06-29-2024 11:11-0400 Systolic blood pressure 104 mm[Hg] Pat Rivas MINK SLICER Work Phone: [facility] 06-20-2024 09:39-0400 Body height 162.56 cm MD Swati Gray Work Phone: [facility] 06-20-2024 09:39-0400 Body mass index (BMI) [Ratio] 30.4 kg/m2 MD Swati Gray Work Phone: [facility] 06-20-2024 09:39-0400 Body weight 80.45 kg MD Swati Gray Work Phone: [facility] 05-24-2024 14:17-0400 Body height 162.56 cm MD Swati Gray Work Phone: [facility] 05-24-2024 14:17-0400 Body mass index (BMI) [Ratio] 30.4 kg/m2 MD Swati Gray Work Phone: [facility] 05-24-2024 14:17-0400 Body weight 80.28 kg MD Swati Gray Work Phone: [facility] 05-07-2024 15:32-0400 Diastolic blood pressure 69 mm[Hg] MD Swati Gray Work Phone: [facility] 05-07-2024 15:32-0400 Heart rate 69 /min MD Swati Gray Work Phone: [facility] 05-07-2024 15:32-0400 Respiratory rate 16 /min MD Swati Gray Work Phone: [facility] 05-07-2024 15:32-0400 SaO2% (BldA) [Mass fraction] 97 % MD Swati Gray Work Phone: [facility] 05-07-2024 15:32-0400 Systolic blood pressure 112 mm[Hg] MD Swati Gray Work Phone: [facility] 05-07-2024 14:37-0400 Body height 162.56 cm MD Swati Gray Work Phone: [facility] 05-07-2024 14:37-0400 Body temperature 98.3 [degF] MD Swati Gray Work Phone: [facility] 05-07-2024 14:37-0400 Body weight 81 kg MD Swati Gray Work Phone: [facility] 04-07-2024 08:27-0400 Body weight 80.28 kg MD Swati Gray Work Phone: [facility] 03-24-2024 08:27-0400 Body height 170.18 cm MD Swati Gray Work Phone: [facility] 03-24-2024 08:27-0400 Body mass index (BMI) [Ratio] 27.6 kg/m2 MD wSati Gray Work Phone: [facility] 07-25-2024 08:27-0400 Body weight 80.05 kg MD Swati Gray Work Phone: [facility] 10-20-2023 10:39-0500 Diastolic blood pressure 60 mm[Hg] MD Swati Gray Work Phone: [facility] 10-20-2023 10:39-0500 Heart rate 73 /min MD Swati Gray Work Phone: [facility] 10-20-2023 10:39-0500 Respiratory rate 18 /min MD Swati Gray Work Phone: [facility] 10-20-2023 10:39-0500 SaO2% (BldA) [Mass fraction] 98 % MD Swati Gray Work Phone: [facility] 10-20-2023 10:39-0500 Systolic blood pressure 113 mm[Hg] MD Swati Gray Work Phone: [facility] 10-20-2023 08:37-0500 Body height 170.18 cm MD Swati Gray Work Phone: [facility] 10-20-2023 08:37-0500 Body temperature 97.8 [degF] MD Swati Gray Work Phone: [facility] 10-20-2023 08:37-0500 Body weight 79.37 kg MD Swati Gray Work Phone: [facility] Encounters Encounter Date Encounter Type Care Provider Facility Start: 01-18-2025 End: 01-18-2025 Bamboo flowskarthikeyan Mccann PT Work Phone: [facility] Start: 01-18-2025 End: 01-18-2025 Bamboo pranav Mccann PT Work Phone: [facility] Start: 01-18-2025 End: 01-18-2025 ambulatory Desean Mccann PT Work Phone: [facility] Comment on above: Spinal stenosis of l umbar region with neurogenic claudication (Primary Dx); Sacroiliitis (CMS/HCC); Lumbar pain; Acute bilateral low back pain with bilateral sciatica Start: 01-16-2025 End: 01-16-2025 Bamboo flowsheet Imelda Kelbley PICKING TECH [facility] Start: 01-16-2025 End: 01-16-2025 Bamboo flowsheet Imelda Kelbley PICKING TECH [facility] Start: 01-16-2025 End: 01-16-2025 ambulatory Imelda Ashishbley PICKING TECH [facility] Comment on above: Spinal stenosis of l umbar region with neurogenic claudication (Primary Dx); Sacroiliitis (CMS/HCC); Lumbar pain; Acute bilateral low back pain with bilateral sciatica Start: 01-11-2025 End: 01-11-2025 Bamboo flowsheet Desean Mccann PT Work Phone: [facility] Start: 01-11-2025 End: 01-11-2025 Bamboo flowskarthikeyan Desean Mccann PT Work Phone: [facility] Start: 01-11-2025 End: 01-11-2025 ambulatory Desean Mccann PT Work Phone: [facility] Comment on above: Spinal stenosis of l umbar region with neurogenic claudication (Primary Dx); Sacroiliitis (CMS/HCC); Lumbar pain; Acute bilateral low back pain with bilateral sciatica Start: 01-09-2025 End: 01-09-2025 Bamboo flowsheet Imelda Kelbley PICKING TECH [facility] Start: 01-09-2025 End: 01-09-2025 Bamboo flowsheet Imelda Kelbley PICKING TECH [facility] Start: 01-09-2025 End: 01-09-2025 ambulatory Imelda Ashishbley PICKING TECH [facility] Comment on above: Spinal stenosis of l umbar region with neurogenic claudication (Primary Dx); Sacroiliitis (CMS/HCC); Lumbar pain; Acute bilateral low back pain with bilateral sciatica Start: 01-04-2025 End: 01-04-2025 Bamboo flowsheet Imelda Kelbley PICKING TECH [facility] Start: 01-04-2025 End: 01-04-2025 Bamboo flowsheet Imelda Lowe PICKING TECH [facility] Start: 01-04-2025 End: 01-04-2025 ambulatory Imelda Lowe PICKING TECH [facility] Comment on above: Spinal stenosis of l umbar region with neurogenic claudication (Primary Dx); Sacroiliitis (CMS/HCC); Lumbar pain; Acute bilateral low back pain with bilateral sciatica Start: 01-02-2025 End: 01-02-2025 Bamboo flowsheet Desean Mccann PT Work Phone: [facility] Start: 01-02-2025 End: 01-02-2025 Bamboo flowskarthikeyan Hoover Mukulashley PT Work Phone: [facility] Start: 01-02-2025 End: 01-02-2025 ambulatory Desean Derrell Siobhan PT Work Phone: [facility] Comment on above: Spinal stenosis of l umbar region with neurogenic claudication (Primary Dx); Sacroiliitis (CMS/HCC); Lumbar pain; Acute bilateral low back pain with bilateral sciatica Start: 12-27-2024 End: 12-27-2024 Office outpatient visit 25 minutes Swati Gray MD Work Phone: [facility] Comment on above: Acute low back pain, unspecified back pain laterality, unspecified whether sciatica present (Primary Dx); Migraine without aura and without status migrainosus, not intractable (CMS/HCC); Encounter for screening mammogram for malignant neoplasm of breast; Spinal stenosis of lumbar region with neurogenic claudication; Sacroiliitis (CMS/HCC); Lumbar pain; Acute bilateral low back pain with bilateral sciatica; Cauda equina syndrome (CMS/HCC) Start: 12-27-2024 End: 12-27-2024 ambulatory SWATI GRAY Not Available Start: 12-13-2024 End: 12-13-2024 Office outpatient visit 25 minutes Swati Gray MD Work Phone: [facility] Comment on above: Lumbar pain; Acute bilateral low back pain with bilateral sciatica; Cauda equina syndrome (CMS/HCC); Sacroiliitis (CMS/HCC) Start: 12-13-2024 End: 12-13-2024 ambulatory SWATI GRAY Not Available Start: 11-11-2024 End: 11-11-2024 ambulatory MANDY FAM Not Available Start: 11-10-2024 End: 11-10-2024 ambulatory No Pcp (Hist) [facility] Start: 11-10-2024 End: 11-10-2024 Patient encounter procedure No Pcp (Hist) [facility] Start: 11-08-2024 End: 11-08-2024 Patient encounter procedure Terence Mcguire LEA.CARGO VESSEL STEWARDESS Work Phone: [facility] Comment on above: Other chronic pain ( Primary Dx); Lumbar radiculopathy; Mid back pain; Chronic bilateral low back pain with bilateral sciatica; Sacroiliitis (HCC) Start: 11-08-2024 End: 11-08-2024 ambulatory TERENCE BEBETONTA Facility:[facility] Start: 11-08-2024 End: 11-08-2024 Subsequent hospital visit by physician [facility] Comment on above: Chronic bilateral lo w back pain with bilateral sciatica [M54.42, M54.41, G89.29] Start: 09-14-2024 End: 09-15-2024 Chart abstracting Unk Pcp (Hist) Neurology Start: 08-25-2024 End: 08-25-2024 ambulatory KARELY BROWN [facility] Start: 08-01-2024 End: 08-01-2024 ambulatory Yodit Paz MD Facility:[facility] Start: 07-21-2024 End: 07-21-2024 [facility]ulatory [facility] Start: 07-21-2024 End: 07-21-2024 Office outpatient new 45 minutes Karely Brown APPLICATION PACKAGER-[employer] VESSEL STEWARDESS [facility] Comment on above: Spinal stenosis of l umbar region with neurogenic claudication (Primary Dx); Pain in thoracic spine; Fall (on) (from) other stairs and steps, sequela; Fall (on) (from) other stairs and steps, initial encounter; Sensory deficit present Start: 07-21-2024 End: 07-21-2024 ambulatory [facility] Start: 07-13-2024 ambulatory [facility] Start: 06-29-2024 End: 06-29-2024 Bamboo flowsheet Pat Rivas MINK SLICER Work Phone: [facility] Start: 06-29-2024 End: 06-29-2024 Bamboo flowsheet Pat Rivas MINK SLICER Work Phone: [facility] Start: 06-29-2024 End: 06-29-2024 ambulatory PAT RIVAS Not Available Start: 06-29-2024 End: 06-29-2024 Office outpatient visit 25 minutes Pat Rivas MINK SLICER Work Phone: [facility] Comment on above: Cauda equina syndrom e (Primary Dx); Lumbar pain; Acute bilateral low back pain with bilateral sciatica; Sacroiliitis (CMS/HCC) Start: 06-20-2024 End: 06-20-2024 ambulatory MD Swati Gray Work Phone: [facility] Work Phone: Start: 06-20-2024 End: 06-20-2024 Patient encounter procedure MD Swati Gray Work Phone: [facility] Work Phone: Start: 06-15-2024 End: 06-15-2024 Patient encounter procedure MD Swati Gray Work Phone: [facility] Work Phone: Start: 06-15-2024 End: 06-15-2024 ambulatory MD Swati Gray Work Phone: [facility] Work Phone: Start: 06-02-2024 End: 06-03-2024 Refill Pat Rivas MINK SLICER Work Phone: [facility] Comment on above: Muscle spasm Start: 05-24-2024 End: 05-24-2024 Patient encounter procedure MD Swati Gray Work Phone: [facility] Work Phone: Start: 05-16-2024 End: 05-16-2024 ambulatory Yodit Paz MD Facility:[facility] Start: 05-07-2024 End: 05-07-2024 Emergency department patient visit MD Swati Gray Work Phone: [facility] Work Phone: Start: 04-07-2024 End: 04-07-2024 Patient encounter procedure MD Swati Gray Work Phone: [facility] Work Phone: Start: 03-24-2024 End: 03-24-2024 ambulatory MD Swati Gray Work Phone: [facility] Work Phone: Start: 03-24-2024 End: 03-24-2024 Patient encounter procedure MD Swati Gray Work Phone: [facility] Work Phone: Start: 02-17-2024 End: 02-17-2024 ambulatory PAT RIVAS Not Available Start: 10-20-2023 Non-patient / Non-visit MD Swati Gray Work Phone: [facility] Work Phone: Start: 10-20-2023 End: 10-20-2023 Admission to same day surgery center MD Swati Gray Work Phone: [facility] Work Phone: Start: 10-20-2023 End: 10-20-2023 ambulatory MD Swati Gray Work Phone: [facility] Work Phone: Start: 10-31-2021 End: 10-31-[address] SWATI GRAY Facility:[facility] Start: 04-17-2021 End: 04-18-[address] SWATI GRAY Facility:[facility] Start: 02-12-2021 End: 02-13-[address] SWATI GRAY Facility:[facility] Procedures Date Procedure Procedure Detail Performing Clinician Start: 11-08-2024 Radex entir thrc lmbr crv sac spi w/skull 2/3 vw Javier Parker [facility] Work Phone: Start: 06-15-2024 Plain X-ray of right hip MD Swati Gray Work Phone: Start: 03-24-2024 X-ray of lumbar spine, four views MD Swati Gray Work Phone: Start: 10-20-2023 Screening colonoscopy MD Swati Gray Work Phone: Start: 10-20-2023 Colonoscopy Desean Mccann PT Work Phone: Start: 01-29-2023 History of total hysterectomy History of total hysterectomy Pat Rivas MINK SLICER Work Phone: Start: 04-17-2021 Mammography Pat Rivas MINK [employer]ICER Work Phone: Plan of Treatment Date Care Activity Detail Author Start: 10-20-2033 Screening for malign ant neoplasm of colon [facility] Start: 07-21-2025 Adult BMI Screening Adult BMI Screen ing [facility] Start: 07-21-2025 Tobacco Screening Tobacco Screening [facility] Start: 05-01-2025 Influenza vaccination Influenz a Vaccine (Season Ended) [facility] Start: 01-18-2025 End: 01-18-2025 ambulatory 01/18/2025 10:00 AM EDT Treatment [facility] [address] [facility] [address] [place] [address] Desean Mccann, PT [address] [facility] [address] [place] [address] [facility] Start: 01-16-2025 End: 01-16-2025 ambulatory [facility] Comment on above: Arrived Start: 01-11-2025 End: 01-11-2025 ambulatory 01/11/2025 10:00 AM EDT Treatment [facility] [address] [place] [address] Desean Mccann, PT [address] [place] [address] [facility] Start: 01-09-2025 End: 01-09-2025 ambulatory 01/09/2025 10:30 AM EDT Treatment [facility] [address] [place] [address] Imelda Lowe, PICKING TECH [facility] Start: 01-04-2025 End: 01-04-2025 ambulatory 01/04/2025 10:30 AM EDT Treatment [facility] [address] [place] [address] Imelda Lowe, PICKING TECH [facility] Start: 01-02-2025 End: 01-02-2025 ambulatory 01/02/2025 8:00 AM EDT Evaluation [facility] [address] [place] [address] Desean Mccann, PT [address] [place] [address] Spinal stenosis of lumbar region with neurogenic claudication; Sacroiliitis (CMS/HCC); Lumbar pain; Acute bilateral low back pain with bilateral sciatica; Cauda equina syndrome (CMS/HCC) [facility] Comment on above: Spinal stenosis of l umbar region with neurogenic claudication; Sacroiliitis (CMS/HCC); Lumbar pain; Acute bilateral low back pain with bilateral sciatica; Cauda equina syndrome (CMS/HCC) Start: 12-27-2024 End: 02-26-2026 MG Breast - bilateral Screening Bilateral screening mammogram Imaging Routine Encounter for screening mammogram for malignant neoplasm of breast Expected: 12/27/2024, Expires: 02/26/2026 [facility] Work Phone: Comment on above: Expected: 12/27/2024 , Expires: 02/26/2026 Start: 05-01-2024 Covid-19 Vaccine ( season) Covid-19 Vaccine ( season) [facility] Start: 05-01-2024 COVID-19 Vaccine () COVID-19 Vaccine () [facility] Start: 05-01-2024 Influenza vaccination [facility] Start: 04-07-2024 Patient referral [facility] Work Phone: Start: 10-20-2023 [facility] Start: 04-17-2022 Screening for malign ant neoplasm of breast [facility] Start: 2016 Administration of varicella zoster vaccine Zoster (Shingles) Vaccine (1 of 2) [facility] Start: 2016 Pneumococcal Vaccine : 50+ (1 of 1 - PCV) Pneumococcal Vaccine: 50+ (1 of 1 - PCV) [facility] Start: 2016 Shingrix Vaccine (1 of 2) Wing grix Vaccine (1 of 2) [facility] Start: 2011 Diabetes Screening Diabetes Screenin g [facility] Start: 2011 Lipid panel Lipid Screening [facility] [facility] Start: 2011 Screening for malign ant neoplasm of colon [facility] Start: 1987 Screening for malign ant neoplasm of cervix Cervical Cancer Screening [facility] Start: 1985 DTaP,Tdap and Td Vac cines (1 - Tdap) DTaP,Tdap and Td Vaccines (1 - Tdap) [facility] Start: 1985 Hepatitis B Vaccine (1 of 3 - 19+ 3-dose series) Hepatitis B Vaccine (1 of 3 - 19+ 3-dose series) [facility] Start: 1985 Urine microalbumin profile DTa P,Tdap,Td Vaccine (1 - Tdap) [facility] Start: 1984 Adult BMI Follow Up Plan Adult BMI Follow Up Plan [facility] Start: 1984 Anxiety Screening Anxiety Screening [facility] Start: 1984 Depression Screening Depression Scre ening [facility] Start: 1984 Hepatitis C screening Hepatitis C Sc [place] [facility] Start: 1984 HIV screening HIV Screening [facility] Start: 1978 Depression Screening Depression Scre [facility] Start: 1966 Screening for malign ant neoplasm of colon [facility] Electromyography [facility] End: 07-21-2025 MR Thoracic spine WO contrast MR thoracic spine without contrast Imaging Routine Pain in thoracic spine Fall (on) (from) other stairs and steps, initial encounter Sensory deficit present 1 Occurrences starting 07/21/2024 until 07/21/2025 [facility] Comment on above: 1 Occurrences starti ng 07/21/2024 until 07/21/2025 Patient Education [facility] Work Phone: Patient referral [facility] Work Phone: End: 10-15-2025 XR Thoracic and lumbar spine Views for scoliosis W standing XR SCOLIOSIS PA STAND/LAT 2V Radiology Routine Chronic bilateral low back pain with bilateral sciatica 1 Occurrences starting 09/15/2024 until 10/15/2025 [facility] Work Phone: Comment on above: 1 Occurrences starti ng 09/15/2024 until 10/15/2025 End: 07-21-2025 XR Thoracic spine 3 Views X-ray spine thoracic 3 views Imaging Routine Pain in thoracic spine Fall (on) (from) other stairs and steps, initial encounter 1 Occurrences starting 07/21/2024 until 07/21/2025 [facility] Work Phone: Comment on above: 1 Occurrences starti ng 07/21/2024 until 07/21/2025 XR Thoracic spine 3 Views X-ray spine thoracic 3 views Imaging Routine Pain in thoracic spine Fall (on) (from) other stairs and steps, initial encounter 07/21/2024 11:33 AM [facility] Immunization Date Immunization Notes Care Provider Parag acosta 04-25-2022 Pfizer Purple Cap SARS-CoV-2 Vaccination Pat Rivas NP Work Phone: [facility] 08-16-2021 Pfizer Purple Cap SARS-CoV-2 Vaccination Pat Rivas [employer] Work Phone: [facility] 06-26-2015 influenza, injectabl e, quadrivalent, preservative free Pat Chocowinity [employer] Work Phone: [facility] 06-26-2015 influenza virus vacc ine, unspecified formulation Pat Chocowinity [employer] Work Phone: [facility] Payers Date Payer Category Payer Self-pay 2022 [employer] Managed [employer] - Other ANTHEM [id number] 2022 Blue [employer] Blue Shield 1.2.8 [id number] 2022 Unknown [id number] [id number]. [id number] 1966 Unknown [id number] 2.16.840.1.485478.3.579. 2.593 1966 Unknown [id number] 2.16.840.1.402943.3.579. 2.593 1966 Unknown [id number] 2.16.840.1.243273.3.579. 2.593 1966 Unknown [id number] 2.16.840.1.283972.3.579. 2.1286 1966 Unknown [id number] 2.16.840.1.152161.3.579. 2.1286 1966 Unknown [id number] 2.16.840.1.043779.3.579. 2.196 1966 Unknown [id number] 2.16.840.1.379150.3.579. 2.196 1966 Unknown [id number] 2.16.840.1.388102.3.579. 2.1286 1966 Unknown [id number] 2.16.840.1.908001.3.579. 2.1258 1966 Unknown [id number] 2.16.840.1.770826.3.579. 2.1258 1966 Unknown [id number] 2.16840.1.873195.3.579. 2.1258 1966 Unknown [id number] 2.840.1.917507.3.579. 2.1258 1966 Unknown [id number] 2.16840.1.363113.3.579. 2.1258 1966 Unknown [id number] 2.16840.1.737335.3.579. 2.1258 1966 Unknown [id number] 2.16840.1.365360.3.579. 2.1258 1966 Unknown [id number] 2.840.1.626241.3.579. 2.1258 1966 Unknown [id number] 2.16840.1.884354.3.579. 2.1258 1966 Unknown [id number] 2.16840.1.183632.3.579. 2.1258 1966 Unknown [id number] 2.16840.1.630750.3.579. 2.9 1959 Unknown [id number] 1959 Unknown [id number] Unknown [id number] 2.16840.1.786348.3.579. 2.531 Unknown [id number] 2.840.1.239685.3.579. 2.531 Unknown [id number] 2.16.840.1.008652.3.579. 2.531 Unknown [id number] 2.16.840.1.460205.3.579. 2.531 Social History Date Type Detail Facility Start: 10-20-2023 End: 11-11-2024 Tobacco smoking status WYIS Ex-smoker (finding) [facility] Start: 1965 Sex Assigned At Female F [facility] Start: 08-31-2014 End: 08-31-2017 History of tobacco use Current smoker [facility] Start: 08-31-2014 End: 08-31-2017 History of tobacco use Cigarette Smoker [facility] Start: 04-21-2023 End: 04-01-2024 Cigarettes smoked current (pack per day) - Reported 0.3 [facility] Start: 04-21-2023 End: 11-11-2024 Tobacco use and exposure Smokeless tobacco non-user [facility] Start: 02-17-2024 End: 12-27-2024 Alcoholic beverage intake Lifetime non-drinker (finding) [facility] Start: 04-01-2024 End: 12-27-2024 [id number] Health Literacy [facility] How often [...] file [facility] Tobacco smoking status WYIS Tobacco smoking consumption unknown [facility] Start: 07-21-2024 Tobacco smoking status WYIS Never smoked tobacco [facility] Start: 07-21-2024 Alcoholic beverage intake Ex-drinker (finding) [facility] Start: 07-13-2024 Sex Female (finding) [facility] NEGATED: Highlighted row [facility] Goals Date Patient Goal Desired Activity /State Functional Status Date Assessment Result Facility 12-27-2024 Patient Health Quest ionnaire 2 item (PHQ-2) [Reported] [facility] 12-13-2024 Patient Health Quest ionnaire 2 item (PHQ-2) [Reported] [facility] Clinical Notes 10-20-2023 to 01-11-2025 Desean Mccann, PT - 01/11/2025 10:00 AM Ellen Gray MD - 12/27/2024 1:48 PM Ellen Gray MD - 12/27/2024 1:44 PM Ellen Gray MD - 12/27/2024 1:43 PM EDTPatient Instructions Note Date & Type Note Facility 01-11-2025 History of Presen t illness Narrative Images from the original note were not included. Physical Therapy Treatment Visit Patient Name: Demario Wallace Today's Date: 01/11/2025 Encounter Diagnoses Name Primary? Spinal stenosis of lumbar region with neurogenic claudication Yes Sacroiliitis (CMS/HCC) Lumbar pain Acute bilateral low back pain with bilateral sciatica Visit number: 4 Timed Code Treatment: 24 minutes Total Treatment Time: 24 minutes Time In: 10:00 AM Time Out: 10:24 AM History: Pt. Presents to PT with c/c of right side lumbar radiculopathy which started over a year ago. 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 Pt. Has had EMG, 3x MRI, and x-rays (see chart). Pt. Has seen pain management and neurosurgeon with no relief of pain. Pt. Reports she tired PT (4-6 sessions) last summer () but did not help. Pt. Reports of constant pain throughout the day affecting her quality of life. Precautions: universal Subjective No change in LB or leg pain My back is bad and R leg in my ribs down my butt and leg pt. Reports of constant severe pain. PT treatment is not helping. Pain: 8/10 right buttock and low back Objective: PT Evaluation (01/02/25) Lumbar ROM: unable to assess due to severe low back pain Flexibility: unable to assess due to severe low back pain Joint: unable to assess due to severe low back pain Strength: SLR 3-/5, core unable to assess to severe low back pain Gait: limping gait pattern, forward flexion posture while walking, unsteady gait pattern due to severe low back pain Treatment: Manual Therapy: (minutes) Delivered manual ther pt prone VERY LIGHT pressure STM to paraspinals to improve tissue mobility and decrease pain Therapeutic Exercise: (24 minutes supervised) Guided pt through ther and flex exercise per grid to improve trunk LE Strength, Endurance, Flexibility, ROM, HEP, Neural Mobilization, Power, and Core Stability Therapeutic Activity: Exercises to improve dynamic activities, functional tasks, functional mobility to return to prior activity level Neuromuscular re-education: Balance Training, Muscle Facilitation, Dynamic Stability, Core Stabilization, and Blood Flow Restriction Training (BFRT) Modalities: ( minutes ) Post session pt seated with MHP to lower lumbar spine to reduce muscle pain Assessment: Pt has participated in 4 PT session with start of POC on 01/02/25 for chronic low back pain. Pt. Demonstrate VERY poor tolerance to all ther ex. Only seated exercises was performed today and pt could only perform 10-20 reps of exercises due to increased leg and back pain. Pt. Presents to PT with rollator today, walks with forward flexion lean and decreased stride length. Pt. Was grimace with all exercises. Will try couple more PT session with no progress will refer back to PCP. Held manual due to poor tolerance to touch. Outcome Measure: LEFS: 0/80 Short Term Goal: To be met in 2 weeks Goal 1: Pt to be instructed in home exercise program. [employer] Goals: To be met in 10 weeks Goal 1: Pt to report independence and compliance with home program. Goal 2: Pt. Will demonstrate normalized gait pattern to help improve her functional mobility. Goal 3: Pt. Will demonstrate functional lumbar spine ROM grossly in all planes to allow her to performing daily tasks. Goal 4: Pt. Will demonstrate 4/5 or greater LE strength to help improve her functional mobility. Goal 5: Pt. Will demonstrate normal lumbar spine and LE muscle flexibility to help decrease stress on lumbar spine to improve her quality of life. Pt will benefit from skilled PT for 1-3x/week from 01/02/25 to 03/13/25 to address the above impairments. I hereby deem this POC medically necessary. Please sign below. Date: documented in this encounter [facility] 12-27-2024 History of Presen t illness Narrative Associated Problem(s): Sacroiliitis (CMS/HCC) Increase Guicho Foss with lido to twice a day Associated Problem(s): Acute bilateral low back pain with bilateral sciatica Has seen back surgeon And no surgery at this time Associated Problem(s): Spinal stenosis of lumbar region with neurogenic claudication Has seen Pain Specialist [facility] minimal help Images from the original note were not included. Subjective Patient ID: Demario Wallace is a 59 y.o. female who presents for lumbar pain. Demario is in today for severe back pain, states this has been going on for the past couple of months. Says she can hardly walk, and work now and pain is constant. Pain is in her lower back and is going down her legs, and hip now. Complains of tingling in her feet Pt can not put any weight on her ride side at all , pt is not sleeping due to the pain States the arthritis medication helped her more , pt only take the baclofen if she is staying home due to it makes her drowsy Steroid did help some but she is back to hurting all the time Current Outpatient Medications on File Prior to Visit Medication Sig Dispense Refill Azelastine HCl 137 MCG/SPRAY solution Administer 1 spray into affected nostril(s) in the morning and 1 spray before bedtime. 30 mL 5 etodolac (Lodine) 300 MG capsule Take 1 capsule (300 mg) by mouth 3 (three) times a day as needed (Pain) Take with food 90 capsule 2 FLUoxetine (PROzac) 20 MG capsule Take 1 capsule (20 mg) by mouth Daily 90 capsule 3 loratadine (Claritin) 10 MG tablet Take 1 tablet (10 mg) by mouth in the morning. 30 tablet 0 ondansetron (Zofran) 4 MG tablet Take 1 tablet (4 mg) by mouth every 8 (eight) hours if needed for nausea or vomiting 21 tablet 0 [DISCONTINUED] baclofen (Lioresal) 10 MG tablet Take 1 tablet (10 mg) by mouth in the morning and 1 tablet (10 mg) in the evening and 1 tablet (10 mg) before bedtime. 90 tablet 0 [DISCONTINUED] gabapentin (Neurontin) 300 MG capsule Take 1 capsule (300 mg) by mouth in the morning and 1 capsule (300 mg) before bedtime. 200 capsule 3 [DISCONTINUED] SUMAtriptan (Imitrex) 25 MG tablet TAKE 1TAB BY MOUTH ONCE A DAY NEEDED FOR MIGRAINES.MAY REPEAT ONCE IN 2HRS IF NEEDED. MAX 2/24HR. 9 tablet 3 [DISCONTINUED] traMADol (Ultram) 50 MG tablet Take 1 tablet (50 mg) by mouth every 6 (six) hours if needed for severe pain 120 tablet 0 [DISCONTINUED] predniSONE (Deltasone) 10 MG tablet Take 4 tablets (40 mg) by mouth Daily for 4 days, THEN 3 tablets (30 mg) Daily for 4 days, THEN 2 tablets (20 mg) Daily for 4 days, THEN 1 tablet (10 mg) Daily for 4 days. (Patient not taking: No sig reported) 40 tablet 0 No current facility-administered medications on file prior to visit. I have reviewed and reconciled the history and medication list with the patient today. No Known Allergies Social History Tobacco Use Smoking status: Former Current packs/day: 0.00 Average packs/day: 0.3 packs/day for 3.0 years (0.8 ttl pk-yrs) Types: Cigarettes Start date: 2014 Quit date: 2018 Years since quittin.3 Smokeless tobacco: Never Vaping Use Vaping status: Never Used Substance Use Topics Alcohol use: Never Drug use: Never Family History Problem Relation Name Age of Onset Cancer Mother Past Medical History: Diagnosis Date Allergic Allergic rhinitis Depression (CMS/HCC) Past Surgical History: Procedure Laterality Date HYSTERECTOMY 2005 Visit Vitals BP 100/62 Pulse 93 Ht 5' 7 Wt 178 lb SpO2 95% BMI 27.88 kg/m Smoking Status Former BSA 1.95 m Review of Systems Genitourinary: Negative for dysuria, enuresis, flank pain and frequency. Musculoskeletal: Positive for back pain. Neurological: Negative for light-headedness, numbness and headaches. Objective Physical Exam Constitutional: Appearance: Normal appearance. She is not ill-appearing. Musculoskeletal: Comments: Weakened right side of legs Neurological: Mental Status: She is alert. Assessment/Plan Problem List Items Addressed This Visit Migraine without aura and without status migrainosus, not intractable (CMS/HCC) Relevant Medications SUMAtriptan (Imitrex) 25 MG tablet Sacroiliitis (CMS/HCC) Increase Guicho Foss with lido to twice a day Relevant Medications baclofen (Lioresal) 10 MG tablet Other Relevant Orders Ambulatory referral to Physical Therapy Cauda equina syndrome Relevant Medications traMADol (Ultram) 50 MG tablet Other Relevant Orders Ambulatory referral to Physical Therapy Acute low back pain - Primary Relevant Medications gabapentin (Neurontin) 300 MG capsule traMADol (Ultram) 50 MG tablet Other Relevant Orders Ambulatory referral to Physical Therapy Acute bilateral low back pain with bilateral sciatica Has seen back surgeon And no surgery at this time Relevant Medications gabapentin (Neurontin) 300 MG capsule traMADol (Ultram) 50 MG tablet Other Relevant Orders Ambulatory referral to Physical Therapy Spinal stenosis of lumbar region with neurogenic claudication Has seen Pain Specialist [facility] minimal help Relevant Orders Ambulatory referral to Physical Therapy Other Visit Diagnoses Encounter for screening mammogram for malignant neoplasm of breast Relevant Orders Bilateral screening mammogram Lumbar pain Relevant Medications gabapentin (Neurontin) 300 MG capsule traMADol (Ultram) 50 MG tablet Other Relevant Orders Ambulatory referral to Physical Therapy No follow-ups on file. documented in this encounter [facility] 12-13-2024 History of Presen t illness Narrative Associated Problem(s): Acute bilateral low back pain with bilateral sciatica Continue Baclofen Associated Problem(s): Cauda equina syndrome Consider PT Associated Problem(s): Lumbar pain I discussed with patient that while on prednisone, do not take any NSAIDs like Ibuprofen, Naprosyn, Alleve or motrin. Watch for any side effects like abdominal pain and nausea. Take the prednisone with food or milk. Prednisone may increase appetite. While on prednisone, watch for any sugar elevations. Images from the original note were not included. HPI Back Pain Additional comments: Pt is wanting pain medication Last edited by Shani Lazo MA on 12/13/2024 7:20 AM. Subjective Patient ID: Demario Wallace is a 59 y.o. female who presents for Back Pain (Pt is wanting pain medication ). Demario is in today for severe back pain, states this has been going on for the past couple of months. Says she can hardly walk, and work now and pain is constant. Pain is in her lower back and is going down her legs, and hip now. Complains of tingling in her feet, says last week her feet turned purple. Pt was getting gabapentin at the pain clinic would like to know if you would take this over Pt did get injections but this did not help her and she no longer wants to get this done Pt states as long as she takes baclofen and gabapentin together she gets some kind of relief Was seeing Dr. Villa Right Side has Detiorating disc and Arthritis Has seen 3 NS and no surgical intervention right now Current Outpatient Medications on File Prior to Visit Medication Sig Dispense Refill Azelastine HCl 137 MCG/SPRAY solution Administer 1 spray into affected nostril(s) in the morning and 1 spray before bedtime. 30 mL 5 etodolac (Lodine) 300 MG capsule Take 1 capsule (300 mg) by mouth 3 (three) times a day as needed (Pain) Take with food 90 capsule 2 FLUoxetine (PROzac) 20 MG capsule Take 1 capsule (20 mg) by mouth Daily 90 capsule 3 loratadine (Claritin) 10 MG tablet Take 1 tablet (10 mg) by mouth in the morning. 30 tablet 0 ondansetron (Zofran) 4 MG tablet Take 1 tablet (4 mg) by mouth every 8 (eight) hours if needed for nausea or vomiting 21 tablet 0 SUMAtriptan (Imitrex) 25 MG tablet TAKE 1TAB BY MOUTH ONCE A DAY NEEDED FOR MIGRAINES.MAY REPEAT ONCE IN 2HRS IF NEEDED. MAX 2/24HR. 9 tablet 3 [DISCONTINUED] baclofen (Lioresal) 10 MG tablet TAKE 1 TABLET BY MOUTH IN THE MORNING, 1 TABLET IN THE EVENING AND 1 TABLET BEFORE BEDTIME. 270 tablet 1 [DISCONTINUED] gabapentin (Neurontin) 300 MG capsule Take 300 mg by mouth in the morning and 300 mg before bedtime. No current facility-administered medications on file prior to visit. I have reviewed and reconciled the history and medication list with the patient today. No Known Allergies Social History Tobacco Use Smoking status: Former Current packs/day: 0.00 Average packs/day: 0.3 packs/day for 3.0 years (0.8 ttl pk-yrs) Types: Cigarettes Start date: 2014 Quit date: 2018 Years since quittin.2 Smokeless tobacco: Never Vaping Use Vaping status: Never Used Substance Use Topics Alcohol use: Never Drug use: Never Family History Problem Relation Name Age of Onset Cancer Mother Past Medical History: Diagnosis Date Allergic Allergic rhinitis Depression (CMS/HCC) Past Surgical History: Procedure Laterality Date HYSTERECTOMY 2004 Visit Vitals BP 104/68 Pulse 62 Ht 5' 7 Wt 181 lb SpO2 99% BMI 28.35 kg/m Smoking Status Former BSA 1.97 m Review of Systems Genitourinary: Negative for dysuria, enuresis, flank pain and frequency. Musculoskeletal: Positive for back pain. Neurological: Negative for light-headedness, numbness and headaches. Objective Physical Exam Constitutional: Appearance: Normal appearance. She is not ill-appearing. Musculoskeletal: Comments: Weakened right side of legs Neurological: Mental Status: She is alert. Assessment/Plan Problem List Items Addressed This Visit Sacroiliitis (CMS/HCC) Relevant Medications baclofen (Lioresal) 10 MG tablet Cauda equina syndrome Consider PT Relevant Medications predniSONE (Deltasone) 10 MG tablet traMADol (Ultram) 50 MG tablet Lumbar pain I discussed with patient that while on prednisone, do not take any NSAIDs like Ibuprofen, Naprosyn, Alleve or motrin. Watch for any side effects like abdominal pain and nausea. Take the prednisone with food or milk. Prednisone may increase appetite. While on prednisone, watch for any sugar elevations. Relevant Medications gabapentin (Neurontin) 300 MG capsule predniSONE (Deltasone) 10 MG tablet traMADol (Ultram) 50 MG tablet Acute bilateral low back pain with bilateral sciatica Continue Baclofen Relevant Medications gabapentin (Neurontin) 300 MG capsule predniSONE (Deltasone) 10 MG tablet traMADol (Ultram) 50 MG tablet Follow up in about 2 weeks (around 12/27/2024) for Recheck. documented in this encounter [facility] 11-10-2024 Note HNO ID: [id number] Author: ?, ?, ? Service: ? Author Type: ? Type: Progress Notes Filed: 11/10/2024 14:33 Note Text: POPULATION HEALTH NAVIGATION OUTREACH Action/[facility] Support: Called pt to schedule an appt in Pain Management. Unable to lvm due to mailbox, pt does not have MyChart nor an email address Reason for Outreach Care Gap/HCC or Scheduling Wellness Visits Care Gaps due: N/A Patient Contacted: Unable or unnecessary to reach patient: Unable to leave message Navigation Signature: Tasia Aquino November 10, 2024 2:32 PM [facility] 11-10-2024 History of Presen t illness Narrative POPULATION HEALTH NAVIGATION OUTREACH Action/[facility] Support: Called pt to schedule [...] 2024 2:32 PM documented in this encounter [facility] 11-10-2024 Note Patient Outreach (NE TNAV) DEMARIO WALLACE ([id number]) 1965 F Date Time Provider Department 11/10/24 NO PCP (HIST) [facility] During your visit today, we recorded the following information about you: Tasia Aquino 11/10/2024 2:33 PM Signed POPULATION HEALTH NAVIGATION OUTREACH Action/[facility] Support: Called pt to schedule [...] Encounter Status:Closed by TASIA AQUINO on 11/10/24 [facility] 11-08-2024 Instructions Terence Mcguire APRN.CNP - 11/08/2024 11:38 AM EDT Pain management locally or with [facility] (consult order placed) Talk to your PCP about disability options documented in this encounter [facility] 11-08-2024 Note HNO ID: [id number] Author: TERENCE MCGUIRE APRN.CNP Service: ? Author [...] Than 1 Year Demario is a 59-year-old, [id number], non-smoker, non-diabetic. 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 Presents today with [...] BICEPS TRICEPS DELTS Wrist Ext Wrist Flex School Occupational Therapist HI R 4+ giveaway 2/2 to pain [...] L'Hermitte's Sign: Negative (more content not included)... [facility] 11-08-2024 History of Presen t illness Narrative [...] Than 1 Year Demario is a 59-year-old, [id number], non-smoker, non-diabetic. 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 Presents today with [...] BICEPS TRICEPS DELTS Wrist Ext Wrist [employer] Occupational Therapist HI R 4+ giveaway 2/2 to pain [...] injections and medications with her local pain architectural practice manager. She is not sure if she wants [...] 11:03 AM PAGER: documented in this encounter [facility] 09-15-2024 Note HNO ID: [id number] Author: JAVIER PARKER PA-C Service: ? Author Type: Physician Business Process Expert Type: Progress Notes Filed: 09/15/2024 07:14 Note Text: SPINE SURGICAL TRIAGE: The patient complaints of multiple symptoms including: falls, imbalance, pain in the ribs/pelvis/legs and feet, numbness, weakness and bowel incontinence per office note Per office notes LBP worsened after a fall down the stairs several months ago Neurosurgery in [place] did not offer surgery. Conservative treatment: Baclofen, [...] or neurology visit depending on her complaints. [facility] 09-15-2024 History of Presen t illness Narrative SPINE SURGICAL TRIAGE: The patient complaints of multiple symptoms including: falls, imbalance, pain in the ribs/pelvis/legs and feet, numbness, weakness and bowel incontinence per office note Per office notes LBP worsened after a fall down the stairs several months ago Neurosurgery in [place] did not offer surgery. Conservative treatment: Baclofen, [...] Health Provider or Pain Management Provider at [facility]? No If answer is YES please schedule [...] the facility where the MRI/CT/myelogram was completed: [facility] [id number] [place] [address] MRI/CT/myelogram viewable in Epic: No If not, please provide [phone] to fax in imaging reports for review. Also, please inform patient to hand carry imaging disc to appointment. XR (spine) within 12 months: Yes If YES, please ask for the name/address of the facility where the XR was completed: [place] [id number] Dr. Talavera's patients: Have you had previous EMG/Nerve Conduction Study, Ultrasound, or MRI for these same symptoms? If YES, please ask for the name/address of the facility where they were completed: [place] [address] [place] [id number] - 05/2024 Requested provider (First and Last [...] the injections and/or physical therapy was completed [facility] - [address] [address] Have you tried any other kinds of non-surgical treatments in the last 12 months? (For example: NSAIDS, muscle relaxants, analgesics, oral steroids, Chiropractor, Acupuncture): baclofen, gabapentin, mdp x2, robaxin, heat, ice, tylenol, motrin 4. Are you currently taking daily prescribed narcotic medications for your current symptoms (For example Oxycodone, Hydrocodone, Tramadol, Morphine, Other)? No [place] in 06/23 nothing since 5. Have you had previous spinal surgery for this same symptoms? No If YES please ask for the name of facility/address of where the surgery was completed: Additional Comments [phone] documented in this encounter [facility] 09-14-2024 Note HNO ID: [id number] Author: ?, ?, ? Service: ? Author Type: ? Type: Progress Notes Filed: 09/15/2024 07:14 Note Text: Patient name: Demario Wallace Are you being referred by a [facility] Provider or Pain Management Provider at [facility]? No If answer is YES please schedule [...] the facility where the MRI/CT/myelogram was completed: [address] [address] [address] MRI/CT/myelogram viewable in Epic: No If not, please provide [phone] to fax in imaging reports for review. Also, please inform patient to hand carry imaging disc to appointment. XR (spine) within 12 months: Yes If YES,? please ask for the name/address of the facility where the XR was completed: [place] [address] Dr. Talavera's patients: Have you had previous EMG/Nerve Conduction Study, Ultrasound, or MRI for these same symptoms? If YES,? please ask for the name/address of the facility where they were completed: [address] [place] [address] - 05/2024 Requested provider (First and Last [...] therapy was completed [facility] - [facility] [address] [place] [address] Have you tried any other kinds of non-surgical treatments in the last 12 months? (For example: NSAIDS, muscle relaxants, analgesics, oral steroids, Chiropractor, Acupuncture): baclofen, gabapentin, mdp x2, robaxin, heat, ice, tylenol, motrin 4. Are you currently taking daily prescribed narcotic medications for your current symptoms (For example Oxycodone, Hydrocodone, Tramadol, Morphine, Other)? No [place] in 06/23 nothing since 5. Have you had previous spinal surgery for this same symptoms? No If YES? please ask for the name of facility/address of where the surgery was completed: Additional Comments [phone] [facility] 07-21-2024 History of Presen t illness Narrative Images from the original note were not included. [facility] [address] [place] [address], [address] [place] [address] * CHART NOTE ? 07/21/2024 Patient: Demario Wallace 1965 [id number] Physician: Karely Brown, ERAN Silverman MD CHIEF COMPLAINT New patient, lumbar. [...] 3 days). She also so Neurosurgery in [place], and was advised they could not help her. Denies loss of multimedia specialist strength, saddle anesthesia, urinary dysfunction. ALLERGIES No [...] We will refer to pain management in [place] for evaluation and treatment of back pain. [...] record of the patient encounter. Inadvertent computerized securities broker errors related to syntax, spelling, homophones, and/or inaudibility may be present. HAYDEE Rosenbaum 07/21/24 1240 documented in this encounter [facility] 07-21-2024 Instructions Italia Jama CMA - 07/21/2024 10:30 AM EST Patient was seen by Dior today. MRI ordered. Pain management offered. Pt to f/u PRN SS documented in this encounter [facility] 06-29-2024 History of Presen t illness Narrative [...] History: Diagnosis Date Allergic Allergic rhinitis Depression ([facility]) Past Surgical History: Procedure Laterality [...] Await consult. She wants to go to [facility] but her friend went to someone in [place] so she will call with the name [...] Await consult. She wants to go to [facility] but her friend went to someone in [place] so she will call with the name and we will send in a referral. She wants to go to whomever can get her in the quickest. Acute bilateral low back pain with bilateral sciatica - Ambulatory referral to Spine Surgery; Future - HYDROcodone-acetaminophen ([place]) 5-325 MG tablet; Take 1 tablet by [...] follow-ups on file. documented in this encounter [facility] 06-03-2024 Telephone encounter Note Robaxin sent. [facility] 06-03-2024 Miscellaneous Notes Robaxin sent. documented in this encounter [facility] 10-20-2023 Procedure note [facility] Evaluation note No assessment inform ation available [facility] Work Phone: Evaluation note Diagnosis Onset Date Lumbar pain acute Radicular low back pain acut e [facility] Work Phone: Evaluation note* Diagnosis Onset Date Resolution Status Lumbar pain acute Radicular low back pain acut e Lumbar pain acute Radicular low back pain acut e [facility] Work Phone: evaluation note* Diagnosis Muscle spasm Spasm of muscle documented in this encounter [facility] HealthcareEvaluation [facility]* Diagnosis Onset Date Resolution Status Lumbar pain acute Radicular low back pain acut e Lumbar pain acute Radicular low back pain acut e Lumbar pain acute [facility] Work Phone: Evaluation note* Diagnosis Right upper quadrant abdominal pain- Primary Sacroiliitis (CMS/HCC)- Primary Sacroiliitis, not elsewhere classified Cauda equina syndrome- Primary Cauda equina syndrome without mention of neurogenic bladder Lumbar pain Lumbago Acute bilateral low back pain with bilateral sciatica Sacroiliitis (CMS/HCC) Sacroiliitis, not elsewhere classified [facility] Diagnosis Chronic bilateral low back pain with bilateral sciatica- Primary [facility] Diagnosis Spinal stenosis of lumbar region with neurogenic claudication- Primary Pain in thoracic spine Fall (on) (from) other stairs and steps, sequela Fall (on) (from) other stairs and steps, initial encounter Sensory deficit present Other general symptoms [facility] Diagnosis Chronic bilateral low back pain with bilateral sciatica [facility] Diagnosis Other chronic pain- Primary Lumbar radiculopathy Thoracic or lumbosacral neuritis or radiculitis, unspecified Mid back pain Backache, unspecified Chronic bilateral low back pain with bilateral sciatica Sacroiliitis (HCC) Sacroiliitis, not elsewhere classified [facility] Diagnosis Right upper quadrant abdominal pain- Primary Sacroiliitis (CMS/HCC)- Primary Sacroiliitis, not elsewhere classified Lumbar pain Lumbago Acute bilateral low back pain with bilateral sciatica Cauda equina syndrome (CMS/HCC) Cauda equina syndrome without mention of neurogenic bladder Sacroiliitis (CMS/HCC) Sacroiliitis, not elsewhere classified documented in this encounter [facility] HealthcareEvaluation note* Diagnosis Right upper quadrant abdominal pain- Primary Sacroiliitis (CMS/HCC)- Primary Sacroiliitis, not elsewhere classified Lumbar pain Lumbago Acute bilateral low back pain with bilateral sciatica Cauda equina syndrome (CMS/HCC) Cauda equina syndrome without mention of neurogenic bladder Sacroiliitis (CMS/HCC) Sacroiliitis, not elsewhere classified Acute low back pain, unspecified back pain laterality, unspecified whether sciatica present- Primary Migraine without aura and without status migrainosus, not intractable ([facility]) Encounter for screening mammogram for malignant neoplasm of breast Spinal stenosis of lumbar region with neurogenic claudication Sacroiliitis (CMS/HCC) Sacroiliitis, not elsewhere classified Lumbar pain Lumbago Acute bilateral low back pain with bilateral sciatica Cauda equina syndrome (CMS/HCC) Cauda equina syndrome without mention of neurogenic bladder documented in this encounter [facility] HealthcareEvaluation note* Diagnosis Right upper quadrant abdominal pain- Primary Sacroiliitis (CMS/HCC)- Primary Sacroiliitis, not elsewhere classified Lumbar pain Lumbago Acute bilateral low back pain with bilateral sciatica Cauda equina syndrome (CMS/HCC) Cauda equina syndrome without mention of neurogenic bladder Sacroiliitis (CMS/HCC) Sacroiliitis, not elsewhere classified Acute low back pain, unspecified back pain laterality, unspecified whether sciatica present- Primary Migraine without aura and without status migrainosus, not intractable ([facility]) Encounter for screening mammogram for malignant neoplasm of breast Spinal stenosis of lumbar region with neurogenic claudication Sacroiliitis (CMS/HCC) Sacroiliitis, not elsewhere classified Lumbar pain Lumbago Acute bilateral low back pain with bilateral sciatica Cauda equina syndrome (CMS/HCC) Cauda equina syndrome without mention of neurogenic bladder Spinal stenosis of lumbar region with neurogenic claudication- Primary Sacroiliitis (CMS/HCC) Sacroiliitis, not elsewhere classified Lumbar pain Lumbago Acute bilateral low back pain with bilateral sciatica documented in this encounter [facility] HealthcareEvaluation note* Diagnosis Right upper quadrant abdominal pain- Primary Sacroiliitis (CMS/HCC)- Primary Sacroiliitis, not elsewhere classified Lumbar pain Lumbago Acute bilateral low back pain with bilateral sciatica Cauda equina syndrome (CMS/HCC) Cauda equina syndrome without mention of neurogenic bladder Sacroiliitis (CMS/HCC) Sacroiliitis, not elsewhere classified Acute low back pain, unspecified back pain laterality, unspecified whether sciatica present- Primary Migraine without aura and without status migrainosus, not intractable (CMS/HCC) Encounter for screening mammogram for malignant neoplasm of breast Spinal stenosis of lumbar region with neurogenic claudication Sacroiliitis (CMS/HCC) Sacroiliitis, not elsewhere classified Lumbar pain Lumbago Acute bilateral low back pain with bilateral sciatica Cauda equina syndrome (CMS/HCC) Cauda equina syndrome without mention of neurogenic bladder Spinal stenosis of lumbar region with neurogenic claudication- Primary Sacroiliitis (CMS/HCC) Sacroiliitis, not elsewhere classified Lumbar pain Lumbago Acute bilateral low back pain with bilateral sciatica documented in this encounter [facility] HealthcareEvaluation note* Diagnosis Right upper quadrant abdominal pain- Primary Sacroiliitis (CMS/HCC)- Primary Sacroiliitis, not elsewhere classified Lumbar pain Lumbago Acute bilateral low back pain with bilateral sciatica Cauda equina syndrome (CMS/HCC) Cauda equina syndrome without mention of neurogenic bladder Sacroiliitis (CMS/HCC) Sacroiliitis, not elsewhere classified Acute low back pain, unspecified back pain laterality, unspecified whether sciatica present- Primary Migraine without aura and without status migrainosus, not intractable (CMS/HCC) Encounter for screening mammogram for malignant neoplasm of breast Spinal stenosis of lumbar region with neurogenic claudication Sacroiliitis (CMS/HCC) Sacroiliitis, not elsewhere classified Lumbar pain Lumbago Acute bilateral low back pain with bilateral sciatica Cauda equina syndrome (CMS/HCC) Cauda equina syndrome without mention of neurogenic bladder Spinal stenosis of lumbar region with neurogenic claudication- Primary Sacroiliitis (CMS/HCC) Sacroiliitis, not elsewhere classified Lumbar pain Lumbago Acute bilateral low back pain with bilateral sciatica [facility] Diagnosis Right upper quadrant abdominal pain- Primary Sacroiliitis (CMS/HCC)- Primary Sacroiliitis, not elsewhere classified Lumbar pain Lumbago Acute bilateral low back pain with bilateral sciatica Cauda equina syndrome (CMS/HCC) Cauda equina syndrome without mention of neurogenic bladder Sacroiliitis (CMS/HCC) Sacroiliitis, not elsewhere classified Acute low back pain, unspecified back pain laterality, unspecified whether sciatica present- Primary Migraine without aura and without status migrainosus, not intractable (CMS/HCC) Encounter for screening mammogram for malignant neoplasm of breast Spinal stenosis of lumbar region with neurogenic claudication Sacroiliitis (CMS/HCC) Sacroiliitis, not elsewhere classified Lumbar pain Lumbago Acute bilateral low back pain with bilateral sciatica Cauda equina syndrome (CMS/HCC) Cauda equina syndrome without mention of neurogenic bladder Spinal stenosis of lumbar region with neurogenic claudication- Primary Sacroiliitis (CMS/HCC) Sacroiliitis, not elsewhere classified Lumbar pain Lumbago Acute bilateral low back pain with bilateral sciatica documented [facility]* Diagnosis Right upper quadrant abdominal pain- Primary Sacroiliitis (CMS/HCC)- Primary Sacroiliitis, not elsewhere classified Lumbar pain Lumbago Acute bilateral low back pain with bilateral sciatica Cauda equina syndrome (CMS/HCC) Cauda equina syndrome without mention of neurogenic bladder Sacroiliitis (CMS/HCC) Sacroiliitis, not elsewhere classified Acute low back pain, unspecified back pain laterality, unspecified whether sciatica present- Primary Migraine without aura and without status migrainosus, not intractable (CMS/HCC) Encounter for screening mammogram for malignant neoplasm of breast Spinal stenosis of lumbar region with neurogenic claudication Sacroiliitis (CMS/HCC) Sacroiliitis, not elsewhere classified Lumbar pain Lumbago Acute bilateral low back pain with bilateral sciatica Cauda equina syndrome (CMS/HCC) Cauda equina syndrome without mention of neurogenic bladder Spinal stenosis of lumbar region with neurogenic claudication- Primary Sacroiliitis (CMS/HCC) Sacroiliitis, not elsewhere classified Lumbar pain Lumbago Acute bilateral low back pain with bilateral sciatica documented [facility] this encounter [facility] Author Torrey Conklin [facility] October 20, 2023 10:18am Note Date/Time October 20, 2023 10:18am [facility] [address] [place] [address] Gastroenterology H&P Signed Patient: Demario Wallace MR#: [id number] : 1965 Acct:[id number] Age/Sex: 58 / F Adm Date: 4 Loc: Room: Type: [facility] Attending Dr: Torrey Conklin MD Copies to: [...] signed by Torrey Conklin MD> 10/20/23 1018 [facility] Work Phone: Hospital Discharge instructions Additional Instructions It is important that you follow-up with Dr. Carter office on Thursday as discussed Continue gabapentin Start your [place] for severe pain You cannot work or drive when taking [place] You also can rotate Tylenol / Motrin Take steroids as prescribed Avoid heavy lifting Please return here if any problems persist or worsen including numbness, tingling, loss of bowel bladder control, respiratory concerns or any other concerns as needed [facility] Work Phone: [facility] for referral (narrative)* Diagnostic Procedure Only (Routine) - New Request Specialty Diagnoses / Procedures Referred By Vahid hoover Referred To Contact XR IMAGING Diagnoses Chronic bilateral low back pain with bilateral sciatica Procedures XR SCOLIOSIS PA STAND/LAT 2V RADEX ENTIR THRC LMBR CRV SAC SPI W/SKULL 2/3 Javier Parker PA-C [address] [place] [address] Xr Imaging [place] [address] Referral ID Status Reason Start Date Expiration Date Visits Requested Visits Authorized [id number] New Request Auto-Generat ed Referral 09/15/2024 10/15/2025 1 1 [facility] for visit Narrative* Diagnostic Procedure Only (Routine) - Closed Specialty Diagnoses / Procedures Referred By Vahid hoover Referred To Contact XR IMAGING Diagnoses Chronic bilateral low back pain with bilateral sciatica Procedures XR SCOLIOSIS PA STAND/LAT 2V RADEX ENTIR THRC LMBR CRV SAC SPI W/SKULL 2/3 Javier Nicholson PA-C [address] [place] [id number] Phone: tel: fax: XR [place]AGING [place] [address] Referral ID Status Reason Start Date Expiration Date V isits Requested Visits Authorized [id number] Closed Auto-Generate d Referral 09/15/2024 10/15/2025 1 1 [facility] for visit Narrative* Rehabilitation - Outpatient (Routine) - Authorized Specialty Diagnoses / Procedures Referred By Vahid t Referred To Contact Physical Therapy Diagnoses Spinal stenosis of lumbar region with neurogenic claudication Sacroiliitis (CMS/HCC) Lumbar pain Acute bilateral low back pain with bilateral sciatica Cauda equina syndrome (CMS/HCC) Procedures [place] OFFICE/OUTPATIENT NEW HIGH MDM 60 MINUTES Swati Gray MD 112 [facility] [address] [place] [address] Phone: tel: fax: Desean Mccann, PT 112 [facility] [address] [place] [address] Phone: tel: fax: Referral ID Status Reason Start Date Expiration Date Visits Requested Visits Authorized [id number] Authorized Specialty Services Required 01/02/2025 06/25/2025 40 40 [facility] HealthcareReason for visit Narrative* Rehabilitation - Outpatient (Routine) - Authorized Specialty Diagnoses / Procedures Referred By Contac t Referred To Contact Physical Therapy Diagnoses Spinal stenosis of lumbar region with neurogenic claudication Sacroiliitis (CMS/HCC) Lumbar pain Acute bilateral low back pain with bilateral sciatica Cauda equina syndrome (CMS/HCC) Procedures [place] OFFICE/OUTPATIENT NEW HIGH MDM 60 MINUTES Swati Gray MD [address] [address] Phone: tel: fax: Desean Mccann, PT [address] [address] Phone: tel: fax: Referral ID Status Reason Start Date Expiration Date Visits Requested Visits Authorized [id number] Authorized Specialty Services Required 01/02/2025 08/30/2025 40 40 [facility] HealthcareReason for visit Narrative* Rehabilitation - Outpatient (Routine) - Closed Specialty Diagnoses / Procedures Referred By Contac t Referred To Contact Physical Therapy Diagnoses Spinal stenosis of lumbar region with neurogenic claudication Sacroiliitis (CMS/HCC) Lumbar pain Acute bilateral low back pain with bilateral sciatica Cauda equina syndrome (CMS/HCC) Procedures [place] OFFICE/OUTPATIENT NEW HIGH MDM 60 MINUTES Swati Gray MD [address] [address] Phone: tel: fax: Desean Mccann, PT [address] [address] Phone: tel: fax: Referral ID Status Reason Start Date Expiration Date V isits Requested Visits Authorized [id number] Closed Specialty Services Required 01/02/2025 08/30/2025 40 40 [facility] Healthcare Summary Purpose Family History No Family History [...] section and content) DATE CREATED AUTHOR 10/10/2021 [facility] dical Specialist DATE CREATED AUTHOR AUTHOR'S ORGANIZ ATION 11/07/2021 [facility] DATE CREATED AUTHOR AUTHOR'S ORGANIZ ATION 07/08/2024 [facility] ysician Group DATE CREATED AUTHOR AUTHOR'S ORGANIZ ATION 07/24/2024 [facility] DATE CREATED AUTHOR AUTHOR'S ORGANIZ ATION 07/24/2024 [facility] DATE CREATED AUTHOR AUTHOR'S ORGANIZ ATION 08/04/2024 [facility] DATE CREATED AUTHOR AUTHOR'S ORGANIZ ATION 08/26/2024 [facility] DATE CREATED AUTHOR AUTHOR'S ORGANIZ ATION 11/14/2024 [facility] DATE CREATED AUTHOR AUTHOR'S ORGANIZ ATION 01/25/2025 [facility] dical Specialists EPIC Care Teams (unrecognized sec tion and content) Team Status: Active Member Role Status Kath Gray MD Primary Care Provider Active Team Status: Inactive Member Role Status Kath Conklin MD Attending Provider Active Start: October [...] May 07, 2024 End: May 07, 2024 Chemical Research Engineer Relationship Specialty Start Date End Date Swati Gray MD 112 [facility] [address] [place] [address] PCP - [place] [employer] 07/01/21Thursday, KALE Albert [address] [facility] [address] [place] [address] Licensed Practical Nurse Family Medicine 11/27/23 Team [...] June 20, 2024 End: June 20, 2024 Chemical Research Engineer Relationship Specialty Start Date End Date Swati Gray MD [address] [place] [address] PCP - [place] [employer] 07/01/21ThursdayBety LPN [address] [place] [address] Licensed Practical Nurse Family Medicine 11/27/23 Chemical Research Engineer Relationship Specialty Start Date End Date Swati Gray MD [address] [place] [address] PCP - [place] [employer] 07/01/21Thursday, JORGE AlbertN [address] [place] [address] Licensed Practical Nurse Family Medicine 11/27/23 Chemical Research Engineer Relationship Specialty Start Date End Date Pat Rivas CNP [address] [place] [address] Referring Family Medicine 07/01/24 Bharathi Mcqueen CNP [address] [place] [address] Referring Pain Management 09/13/24 Chemical Research Engineer Relationship Specialty Start Date End Date Pat Rivas CNP [address] [place] [address] Referring Family Medicine 07/01/24 Bharathi Mcqueen CNP [address] [place] [facility] [address] Referring Pain Management 09/13/24 Chemical Research Engineer Relationship Specialty Start Date End Date Pat Rivas, ERNA [address] [place] [address] Referring Family Medicine 07/01/24 Bharathi Mcqueen CNP [address] [place] [facility] [address] Referring Pain Management 09/13/24 Chemical Research Engineer Relationship Specialty Start Date End Date Pat Rivas CNP [address] [place] [address] Referring Family Medicine 07/01/24 Bharathi Mcqueen CNP [address] [place] [facility] [address] Referring Pain Management 09/13/24 Chemical Research Engineer Relationship Specialty Start Date End Date Swati Gray MD [address] [place] [address] PCP - [place] [employer] 07/01/21 Swati Gray MD [address] [place] [address] PCP - General Family Medicine 11/11/24 Leny Iyer LPN 11/18/24 Chemical Research Engineer Relationship Specialty Start Date End Date Swati Gray MD [address] [place] [address] PCP - [place] [employer] 07/01/21 Swati Gray MD [address] [place] [address] PCP - General Family Medicine 11/11/24 Leny Iyer LPN 11/18/24 Chemical Research Engineer Relationship Specialty Start Date End Date Swati Gray MD [address] [place] [address] PCP - [place] [employer] 07/01/21 Swati Gray MD [address] [place] [address] PCP - General Family Medicine 11/11/24 Leny Iyer LPN 11/18/24 Chemical Research Engineer Relationship Specialty Start Date End Date Swati Gray MD [address] [place] [address] PCP - [place] [employer] 07/01/21 Swati Gray MD [address] [place] [address] PCP - General Family Medicine 11/11/24 Leny Iyer LPN 11/18/24 Chemical Research Engineer Relationship Specialty Start Date End Date Swati Gray MD [address] [place] [address] PCP - [facility] [employer] 07/01/21 Swati Gray MD [address] [place] [address] PCP - General Family Medicine 11/11/24 Leny Iyer LPN 11/18/24 Chemical Research Engineer Relationship Specialty Start Date End Date Swati Gray MD [address] [place] [address] PCP - [facility] 07/01/21 Swati Gray MD [address] [place] [address] PCP - General Family Medicine 11/11/24 Leny Iyer LPN 11/18/24 Chemical Research Engineer Relationship Specialty Start Date End Date Swati Gray MD [address] [place] [address] PCP - General Family Medicine 11/11/24 Leny Iyer LPN 11/18/24 Chemical Research Engineer Relationship Specialty Start Date End Date Swati Gray MD [address] [place] [address] PCP - General Family Medicine 11/11/24 Leny Iyer LPN 11/18/24 Chemical Research Engineer Relationship Specialty Start Date End Date Swati Gray MD [address] [place] [address] PCP - General Family Medicine 11/11/24 Leny Iyer LPN 11/18/24 Chemical Research Engineer Relationship Specialty Start Date End Date Swati Gray MD [address] [place] [address] PCP - General Family Medicine 11/11/24 Leny Iyer LPN 11/18/24 Chemical Research Engineer Relationship Specialty Start Date End Date Swati Gray MD [address] [place] [address] PCP - General Family Medicine 11/11/24 Leny Iyer LPN 11/18/24 Chemical Research Engineer Relationship Specialty Start Date End Date Swati Gray MD [address] [facility] [address] [place] [address] PCP - General Family Medicine 11/11/24 Leny Iyer LPN 11/18/24 Goals (unrecognized section and content) Goals may be documented in a n alternate sectionGoals may be documented in an alternate sectionGoals may be documented in an alternate sectionGoals may be documented in an alternate sectionNot on filedocumented as of this encounter Reason for Visit (unrecogniz ed section and content) Reason Comments Med Refill Reason Comments Back Pain Reason Comments Consult intermediate manager consult/lumbar/mr i being pushed-trent, xray-firelands/not wc/mailed pkt Reason Comments New Patient Reason Comments Back Pain Pt is wanting pain m edication Reason Comments lumbar pain Source Comments (unrecognize d section and content) In the event this informatio n is protected by the Federal Confidentiality of Alcohol and Drug Abuse Patient Records regulations: The Federal rules restrict any use of the information to criminally investigate or prosecute any alcohol or drug abuse patient.[facility] the event this information is protected by the Federal Confidentiality of Alcohol and Drug Abuse Patient Records regulations: The Federal rules restrict any use of the information to criminally investigate or prosecute any alcohol or drug abuse patient.[facility]In the event this information is protected by the Federal Confidentiality of Alcohol and Drug Abuse Patient Records regulations: The Federal rules restrict any use of the information to criminally investigate or prosecute any alcohol or drug abuse patient.[facility] DaytonIn the event this information is protected by the Federal Confidentiality of Alcohol and Drug Abuse Patient Records regulations: The Federal rules restrict any use of the information to criminally investigate or prosecute any alcohol or drug abuse patient.[facility] FOR RECORDS PERTAINING TO PATIENTS WHO ARE [...] BE BASED ON THE PRIMARY CLINICAL RECORDS. [facility]. provides no warranty or guarantee of the accuracy or completeness of information in this document.
--- NOTE | 2025-02-02 13:39 | PM.CN ---
Consult Note: HPI Data of Consult Patient: known to practice within the last 3 years Consult date: 02/02/25 Requesting Physician: Nicole Augustin NP Primary Care Provider: SWATI GRAY Consult Narrative Reason for consult: low back, bilateral lower extremity pain Narrative: 59yof who presents for assessment. she notes increasing low back and bilateral lower extremity pain, significantly worsened over the last year. she denies any trauma. she appears to be in significant discomfort. states that she cannot stand straight without significant pain. previous lumbar mri showed disc bulging with resultant stenosis at l3-4 and l4-5. previously has failed tylenol, nsaids, numerous muscle relaxers, and had side effects with gabapentin. currently on motrin prn, baclofen 10mg TID PRN, gabapentin 600mg BID, and tramadol 50-100mg BID PRN through PCP. since last visit she had another consultation with NS, reports this is his third NS consultation, we previously had notes from Lottie Shaikh at [facility] who supported interventional therapy prior to NS intervention but pt did not wish to return to their office. Recently evaluated by Trena Mcguire at [facility] who did not recommend surgical intervention, but additional pain management interventions. Pt feeling discouraged, seeking disability at this time as she cannot work. cc:: CC: Nicole Augustin NP Review of Systems ROS Status of ROS 10 or more systems reviewed and unremarkable except as noted in history and below PFSH PFS Medical History Spinal stenosis, lumbar region with neurogenic claudication ?M48.062 - Spinal stenosis, lumbar region with neurogenic claudication (ICD-10) Migraines ?G43.909 - Migraine, unspecified, not intractable, without status migrainosus (ICD-10) Social History Smoking status: Former smoker Meds Home Medications and Allergies Home Medications ?Medication ?Instructions ?Recorded ?Confirmed ?Type fluoxetine 20 mg capsule 20 mg PO QDAY 11/26/23 11/26/23 History fluticasone propionate 50 1 spray intranasal QDAY 11/26/23 11/26/23 History mcg/actuation nasal spray,suspension sumatriptan succinate 25 mg tablet 25 mg PO Q2H PRN migraine headache 11/26/23 11/26/23 History baclofen 10 mg tablet 10 mg PO TID PRN muscle spasm #90 04/28/24 Rx tabs gabapentin 300 mg capsule 300 mg PO BID #60 caps 04/28/24 Rx gabapentin 600 mg tablet 600 mg PO BID #60 tabs 08/01/24 Rx prednisone 20 mg tablet 20 mg PO TID #9 tabs 08/01/24 Rx cephalexin 500 mg capsule 500 mg PO Q8H 5 days #15 caps 11/11/24 Rx hydrocodone 5 mg-acetaminophen 325 1 tab PO Q6H PRN pain 3 days #12 11/11/24 Rx mg tablet tabs ondansetron 4 mg disintegrating 4 mg PO Q6H PRN nausea and 11/11/24 Rx tablet vomiting #12 tabs tamsulosin 0.4 mg capsule (Flomax) 0.4 mg PO DAILY #7 caps 11/11/24 Rx Allergies Allergy/AdvReac Type Severity Reaction Status Date / Time No Known Drug Allergies Allergy Verified 11/11/24 12:34 Exam Narrative Exam Narrative: Psych-alert and oriented x 3. Attentive and appropriate, constitutionally normal, displays normal mood and affect per situation. There are no obvious deficits in memory, reasoning, or intellect.? Skin-no obvious rashes, bruising, erythema noted to the patient's area of pain.? Extremities- extremities are warm with minimal edema and palpable pulses. Lumbar-tenderness to palpation noted in the lumbar spine and paraspinal musculature. Pain is elicited with flexion, extension, and lateral rotation of the lumbar spine. Range of motion is diminished with these motions. Facet loading maneuvers are positive.? Strength-noted to be unremarkable with the exception of decreased strength rated at 4 out of 5 in bilateral quadriceps femoris, anterior tibialis. Sensory-no notable sensory deficits in the bilateral lower extremities to touch or pinprick in all dermatomal distributions with the exception to decreased sensation to the bilateral L3, 4, 5 dermatomal distribution Coordination remains intact.? Gait remains non-antalgic. Assessment and Plan Assessment and Plan (1) Spinal stenosis, lumbar region with neurogenic claudication: (2) Lumbar radiculopathy: Plan 59yof who presents for assessment. failed conservative measures, as noted. imaging reviewed, as noted. given her significantly worsening symptoms and exam findings, recommend pt under go spinal cord stim trial under fluoroscopy with MAC sedation. pt would like to further think about. f/u PRN
== END 2025-02-02 10:45 | disposition home or self-care (01) ==
PROVIDERS: PCP Family Medicine; Visit Provider Nurse Practitioner
DX: M48.062 Spinal stenosis, lumbar region with neurogenic claudication (principal); M54.16 Radiculopathy, lumbar region
CPT/HCPCS: G0463